=== PATIENT | male | born 1960 | race Caucasian/White ===

== ENCOUNTER 2018-05-11 09:48 | Emergency (ER) | payer OTHER, MEDICAID, SELFPAY ==
[2018-05-11 09:52] VITALS: BP 124/52; PULSE 90; RESP 18; TEMP 36.6; O2SAT 98; BMI 28.3
== END 2018-05-11 10:40 | disposition left against medical advice (07) ==
PROVIDERS: Emergency Provider Emergency Medicine
CPT/HCPCS: 99281; 99282

== ENCOUNTER 2018-05-11 12:13 | Emergency (ER) | payer OTHER, MEDICAID, SELFPAY ==
[2018-05-11 12:15] VITALS: BP 106/71; PULSE 88; RESP 16; TEMP 36.7; O2SAT 97
--- NOTE | 2018-05-11 12:32 | ED_ITS ---
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 He denies any trauma to the area. He reports worsening pain over the past couple of weeks. No fevers no chills. Increased pain with motion of the neck at times. He denies any other concerns or complaints at this time. He reports his last methadone use was yesterday in his last heroin use was last night. He denies any loss of bladder or bowel control. Patient is ambulatory into the emergency room. Related Data Home Medications Medication Instructions Recorded Confirmed methadone [Methadose] 120 mg PO QDAY #0 08/10/16 05/11/18 albuterol sulfate [ProAir HFA] 1 puff INHALATION PRN PRN 05/11/18 05/11/18 dextroamphetamine-amphetamine 40 mg PO BID 05/11/18 05/11/18 prazosin 1 mg PO BEDTIME 05/11/18 05/11/18 Allergies Allergy/AdvReac Type Severity Reaction Status Date / Time No Known Drug Allergies Allergy Verified 05/11/18 14:45 Review of Systems <MEMO Chaves - Last Filed: 05/11/18 21:59> Constitutional Denies chills, Denies fever(s), Denies lethargy and Denies weakness Eyes Denies change in vision, Denies eye discharge, Denies irritation and Denies loss of vision ENT Ears, Nose, Mouth, and Throat: Denies change in voice, Denies neck pain and Denies sore throat Cardiovascular Denies chest pain, Denies irregular heart rhythm, Denies lightheadedness, Denies palpitations, Denies dyspnea, Denies dyspnea on exertion and Denies orthopnea Respiratory Denies cough, Denies dyspnea, Denies dyspnea on exertion and Denies wheezing Gastrointestinal Gastrointestinal: Denies abdominal pain, Denies change in bowel habits, Denies diarrhea, Denies nausea and Denies vomiting Genitourinary Denies hematuria, Denies flank pain, Denies urinary incontinence and Denies urinary urgency Musculoskeletal Denies neck pain Comments: Neck pain Integumentary/Breasts Denies pruritus, Denies erythema, Denies rash and Denies wounds Neurologic Denies confusion, Denies loss of vision and Denies weakness Psychiatric Denies anxiety, Denies confusion, Denies depression, Denies homicidal ideation and Denies suicidal ideation Endocrine Denies palpitations Allergic/Immunologic Denies wheezing Exam <MEMO Chaves - Last Filed: 05/11/18 21:59> Initial Vital Signs Initial Vital Signs: Vital Signs Temperature 98.0 F 05/11/18 12:15 Pulse Rate 88 05/11/18 12:15 Respiratory Rate 16 05/11/18 12:15 Blood Pressure 106/71 05/11/18 12:15 Pulse Oximetry 97 05/11/18 12:15 Const General: cooperative and well developed Nutritional Appearance: well nourished Orientation: alert, awake, oriented x3 and not confused HENMT Mouth: oral mucosae normal and moist mucous membranes Eyes General: appearance normal, both eyes and all related structures Eyelids: eyelids normal Conjunctivae: conjunctivae normal Sclera: sclerae normal Pupils: PERRL EOM: EOM intact bilaterally Neck Neck: normal visual inspection, trachea midline, No lymphadenopathy, No midline deformity and No JVD Lymphatic: No lymphedema Resp Effort & Inspection: normal respiratory effort, able to speak in complete sentences, no respiratory distress and no use of accessory muscles Auscultation: clear to auscultation bilaterally, no rales, no rhonchi and no wheezes Cardio Rate: regular rate Rhythm: regular rhythm Heart Sounds: no click, no gallops, no murmurs and no rubs Skin General: no rashes or lesions noted, No jaundice and No petechiae <Jericho Peters DO - Last Filed: 05/19/18 17:59> Initial Vital Signs Initial Vital Signs: Vital Signs Temperature 98.0 F 05/11/18 12:15 Pulse Rate 88 05/11/18 12:15 Respiratory Rate 16 05/11/18 12:15 Blood Pressure 106/71 05/11/18 12:15 Pulse Oximetry 97 05/11/18 12:15 Course <MEMO Chaves - Last Filed: 05/11/18 21:59> Orders Ordered: Discontinued Medications Lorazepam (Ativan) 1 mg IV NOW ONE Stop: 05/11/18 14:43 Last Admin: 05/11/18 14:57 Dose: 1 mg Vital Signs - 8 hr 05/11/18 17:02 Pulse Rate 84 Respiratory Rate 18 Blood Pressure [Right Arm] 125/79 H Pulse Oximetry 99 <Jericho Peters DO - Last Filed: 05/19/18 17:59> Orders Ordered: Discontinued Medications Lorazepam (Ativan) 1 mg IV NOW ONE Stop: 05/11/18 14:43 Last Admin: 05/11/18 14:57 Dose: 1 mg Vital Signs - 8 hr 05/11/18 17:02 Pulse Rate 84 Respiratory Rate 18 Blood Pressure [Right Arm] 125/79 H Pulse Oximetry 99 MDM - Neck Pain/Injury <MEMO Chaves - Last Filed: 05/11/18 21:59> Lab Data Result diagrams: 05/11/18 13:07 05/11/18 13:19 Lab Results 05/11/18 05/11/18 05/11/18 Range/Units 13:07 13:07 13:19 WBC 8.7 (4.5-11.0) X10^3/uL RBC 5.51 (4.5-5.9) X10^6/uL Hgb 14.3 (13.5-17.5) g/dL Hct 43.6 (41-53) % MCV 79.1 L (80-100) fL MCH 26.0 (26-34) PG MCHC 32.9 (30-36) % RDW 15.8 H (11.6-14.8) % Plt Count 227 (150-400) X10^3/uL Neut % (Auto) 65.9 (50-75) % Lymph % (Auto) 20.1 L (25-40) % [place] % (Auto) 8.4 (3-14) % Eos % (Auto) 5.0 H (2-4) % Baso % (Auto) 0.6 (0-2) % Neut # (Auto) 5700 (0905-8589) /uL Sodium 138 (137-145) mmol/L Potassium 4.1 (3.4-5.1) mmol/L Chloride 99 (98-107) mmol/L Carbon Dioxide 29 (22-32) mmol/L BUN 16 (9-20) mg/dL Creatinine 0.60 L (0.66-1.25) mg/dL Estimated GFR > 60.0 (>60) mL/min BUN/Creatinine Ratio 26.7 H (6-22) Glucose 98 (70-100) mg/dL Calcium 9.0 (8.4-10.2) mg/dL Total Bilirubin 0.4 (0.2-1.3) mg/dL AST 51 (17-59) IU/L ALT 66 (21-72) IU/L Alkaline Phosphatase 60 (38-126) U/L Total Protein 7.4 (6.3-8.2) g/dL Albumin 3.8 (3.5-5.0) g/dL Globulin 3.6 (1.7-4.1) g/dL Albumin/Globulin Ratio 1.1 (1.0-2.8) Procalcitonin < 0.05 (<0.5) ng/mL Imaging Data mri c spine: Radiologist's impression: PROCEDURE: MR CERVICAL SPINE WO/W CON INDICATIONS: IV drug user with pain into neck last couple months TECHNIQUE: Noncontrast sagittal T1 spin echo and T2 fast spin echo, sagittal STIR, foraminal oblique sagittal T2 fast spin echo, axial gradient echo or T2 fast spin echo through the cervical spine. After the administration of contrast, axial and sagittal T1 spin echo with fat saturation through the cervical spine. COMPARISON: None. FINDINGS: Image quality: This examination is limited by involuntary motion artifact. Attributed Alignment and curvature: There is normal bony alignment. Marrow: Marrow is normal in overall signal, without suspicious enhancement. Spinal cord: Visualized spinal cord has normal size and signal. No cerebellar tonsillar herniation. No abnormal intramedullary enhancement. No abnormal epidural enhancement can be seen. Paraspinous soft tissues: No paravertebral masses or suspicious enhancement. C2-3: No significant abnormality is seen. C3-4: The disc height is well-preserved. Moderate generalized disc osteophyte complex is seen. Moderate facet joint hypertrophy is seen. Moderate to severe bilateral neural foraminal narrowing is seen. Moderate central canal narrowing is seen. C4-5: Mild to moderate loss of disc height and disc signal are seen. Moderate generalized disc osteophyte complex is seen. Moderate facet hypertrophy is seen, right worse than left. There is mild right-sided and no significant left-sided neural foraminal narrowing seen. No significant central canal narrowing is seen. C5-6: Mild to moderate loss of disc height is seen. There is loss of disc signal. Moderate disc osteophyte complex is seen, which is eccentric to the left. Moderate bilateral neural foraminal narrowing is seen, left worse than right. Moderate central canal narrowing is seen. There is associated mass effect on the ventral spinal cord. C6-7: Mild loss of disc height is seen. Loss of disc signal is seen. Mild-to- moderate disc osteophyte complex is seen. Resz-[id number]-[id number] facet hypertrophy is seen. There is moderate right-sided and no significant left-sided neural foraminal narrowing seen at this level. No significant central canal narrowing is seen. C7-T1: No significant abnormality is seen. IMPRESSION: No findings of discitis or epidural abscess are detected. Multiple levels of degenerative change seen. Dictated by: Wayne Weber M.D. on 05/11/2018 at 15:34 Approved by: Wayne Weber M.D. on 05/11/2018 at 15:39 [facility] Narrative Medical decision making narrative: Due to history of drug use MRI of the C- spine was obtained to ensure no abscess. MRI shows multiple levels of degeneration however no abscess or emergent findings are seen. Patient is referred to Orthopedics he is to call Orthopedics and follow up with them for further evaluation and treatment. Cmal-roz-duziihn Tylenol Motrin as needed for any discomfort. Return emergency room for any worsening symptoms. <Jericho Peters DO - Last Filed: 05/19/18 17:59> Lab Data Lab Results 05/11/18 05/11/18 05/11/18 Range/Units 13:07 13:07 13:19 WBC 8.7 (4.5-11.0) X10^3/uL RBC 5.51 (4.5-5.9) X10^6/uL Hgb 14.3 (13.5-17.5) g/dL Hct 43.6 (41-53) % MCV 79.1 L (80-100) fL MCH 26.0 (26-34) PG MCHC 32.9 (30-36) % RDW 15.8 H (11.6-14.8) % Plt Count 227 (150-400) X10^3/uL Neut % (Auto) 65.9 (50-75) % Lymph % (Auto) 20.1 L (25-40) % [place] % (Auto) 8.4 (3-14) % Eos % (Auto) 5.0 H (2-4) % Baso % (Auto) 0.6 (0-2) % Neut # (Auto) 5700 (2128-6281) /uL Sodium 138 (137-145) mmol/L Potassium 4.1 (3.4-5.1) mmol/L Chloride 99 (98-107) mmol/L Carbon Dioxide 29 (22-32) mmol/L BUN 16 (9-20) mg/dL Creatinine 0.60 L (0.66-1.25) mg/dL Estimated GFR > 60.0 (>60) mL/min BUN/Creatinine Ratio 26.7 H (6-22) Glucose 98 (70-100) mg/dL Calcium 9.0 (8.4-10.2) mg/dL Total Bilirubin 0.4 (0.2-1.3) mg/dL AST 51 (17-59) IU/L ALT 66 (21-72) IU/L Alkaline Phosphatase 60 (38-126) U/L Total Protein 7.4 (6.3-8.2) g/dL Albumin 3.8 (3.5-5.0) g/dL Globulin 3.6 (1.7-4.1) g/dL Albumin/Globulin Ratio 1.1 (1.0-2.8) Procalcitonin < 0.05 (<0.5) ng/mL Discharge Plan Departure Patient Disposition: Home, Self-Care Clinical Impression: Cervical radiculopathy Discharge Date/Time: 05/11/18 17:06 Interventions: ED Discharge Assessment Last Done: 05/11/18 17:04 Instructions: DI for Chronic Neck Pain Activity Restrictions/Additional Instructions: MRI of the neck was obtained and shows degenerative disc disorders however no abscess is seen. Use iimf-flr-[id number] Tylenol or Motrin as needed for any discomfort. He referred to Orthopedics call the office at number provided to schedule follow-up appointment. For any worsening symptoms return to the emergency room. Prescriptions: No Action methadone [Methadose] 40 MG tablet,soluble 120 mg PO QDAY Qty: 0 RF: 0 albuterol sulfate [ProAir HFA] 90 mcg/actuation HFA aerosol inhaler 1 puff Inhalation PRN PRN (Reason: Shortness Of Breath) RF: 0 prazosin 1 mg capsule 1 mg PO BEDTIME RF: 0 dextroamphetamine-amphetamine 20 mg tablet 40 mg PO BID RF: 0 Referrals: Hemant Aquino MD [Physician] - <Jericho Peters DO - Last Filed: 05/19/18 17:59> Cosign ED Attending Bell Attestation: I was immediately available in the department for consultation. Documentation has been reviewed. I agree with assessment and plan.
--- NOTE | 2018-05-11 13:11 | PC.NURSE ---
IV placed in right thumb. Catheter will not advance, but had brisk blood return and flushes w/o signs of infiltration. Patient is a IV heroin user with sclerotic veins.
--- NOTE | 2018-05-11 13:13 | PC.NURSE ---
Has had severe neck pain for 7 months. One month ago started using heroin again for pain control.
--- NOTE | 2018-05-11 13:16 | DI.MRI.S_ITS ---
PROCEDURE: MR CERVICAL SPINE WO/W CON INDICATIONS: IV drug user with pain into neck last couple months TECHNIQUE: Noncontrast sagittal T1 spin echo and T2 fast spin echo, sagittal STIR, foraminal oblique sagittal T2 fast spin echo, axial gradient echo or T2 fast spin echo through the cervical spine. After the administration of contrast, axial and sagittal T1 spin echo with fat saturation through the cervical spine. COMPARISON: None. FINDINGS: Image quality: This examination is limited by involuntary motion artifact. Attributed Alignment and curvature: There is normal bony alignment. Marrow: Marrow is normal in overall signal, without suspicious enhancement. Spinal cord: Visualized spinal cord has normal size and signal. No cerebellar tonsillar herniation. No abnormal intramedullary enhancement. No abnormal epidural enhancement can be seen. Paraspinous soft tissues: No paravertebral masses or suspicious enhancement. C2-3: No significant abnormality is seen. C3-4: The disc height is well-preserved. Moderate generalized disc osteophyte complex is seen. Moderate facet joint hypertrophy is seen. Moderate to severe bilateral neural foraminal narrowing is seen. Moderate central canal narrowing is seen. C4-5: Mild to moderate loss of disc height and disc signal are seen. Moderate generalized disc osteophyte complex is seen. Moderate facet hypertrophy is seen, right worse than left. There is mild right-sided and no significant left-sided neural foraminal narrowing seen. No significant central canal narrowing is seen. C5-6: Mild to moderate loss of disc height is seen. There is loss of disc signal. Moderate disc osteophyte complex is seen, which is eccentric to the left. Moderate bilateral neural foraminal narrowing is seen, left worse than right. Moderate central canal narrowing is seen. There is associated mass effect on the ventral spinal cord. C6-7: Mild loss of disc height is seen. Loss of disc signal is seen. Osks-on-gjlvteee disc osteophyte complex is seen. Birh-fr-xmqtftmo facet hypertrophy is seen. There is moderate right-sided and no significant left-sided neural foraminal narrowing seen at this level. No significant central canal narrowing is seen. C7-T1: No significant abnormality is seen. IMPRESSION: No findings of discitis or epidural abscess are detected. Multiple levels of degenerative change seen. Dictated by: Wayne Weber M.D. on 05/11/2018 at 15:34 Approved by: Wayne Weber M.D. on 05/11/2018 at 15:39
[2018-05-11 13:20] LABS: Add Manual Diff / Slide Review NO; Basophils Percent Auto 0.6 % (0-2); Hematocrit 43.6 % (41-53); Hemoglobin 14.3 g/dL (13.5-17.5); Lymphocytes Percent Auto 20.1 % (25-40); Mean Corpuscular HGB Conc 32.9 % (30-36); Mean Corpuscular Volume 79.1 fL (80-100); Monocytes Percent Auto 8.4 % (3-14); Neutrophils Absolute Auto 5700 /uL (3000-5900); Neutrophils Percent Auto 65.9 % (50-75); Platelet Count 227 X10^3/uL (150-400); Red Blood Cell Count 5.51 X10^6/uL (4.5-5.9); Red Cell Distribution Width 15.8 % (11.6-14.8); White Blood Cell Count 8.7 X10^3/uL (4.5-11.0)
[2018-05-11 13:53] LABS: Procalcitonin < 0.05 ng/mL (<0.5)
[2018-05-11 14:07] LABS: Alanine Aminotransferase 66 IU/L (21-72); Albumin 3.8 g/dL (3.5-5.0); Albumin Globulin Ratio 1.1 (1.0-2.8); Alkaline Phosphatase 60 U/L (38-126); Aspartate Aminotransferase 51 IU/L (17-59); BUN Creatinine Ratio 26.7 (6-22); Bilirubin Total 0.4 mg/dL (0.2-1.3); Blood Urea Nitrogen 16 mg/dL (9-20); Carbon Dioxide 29 mmol/L (22-32); Chloride 99 mmol/L (98-107); Estimated Glomerular Filt Rate > 60.0 mL/min (>60); Globulin 3.6 g/dL (1.7-4.1); Glucose 98 mg/dL (70-100); HEMOLYSIS < 15 (0-50); Potassium 4.1 mmol/L (3.4-5.1); Sodium 138 mmol/L (137-145); Total Protein 7.4 g/dL (6.3-8.2)
[2018-05-11] MEDS: LORazepam 2 MG/ML SYRINGE 1 MG IV (14:57)
[2018-05-11 17:02] VITALS: BP 125/79; PULSE 84; RESP 18; O2SAT 99
== END 2018-05-11 17:06 | disposition home or self-care (01) ==
PROVIDERS: Emergency Provider Nurse Practitioner Family
DX: M54.12 Radiculopathy, cervical region (principal)
CPT/HCPCS: 72156; 80053; 84145; 85025; 96374; 99282; 99285; A9579; J2060

== ENCOUNTER 2018-08-29 12:23 | Emergency (ER) | payer OTHER, MEDICAID, SELFPAY ==
[2018-08-29 12:30] VITALS: BP 125/84; PULSE 76; RESP 18; TEMP 36.7; O2SAT 97
--- NOTE | 2018-08-29 12:39 | ED.EXTPRO ---
HPI - Extremity Problem <MEMO Chaves - Last Filed: 08/29/18 21:14> General Chief complaint: Extremity Problem,Nontraumatic Stated complaint: NECK PAIN X20 DAYS Time Seen by Provider: 08/29/18 12:39 Source: patient Mode of arrival: ambulatory Limitations: no limitations History of Present Illness HPI Narrative: 57-year-old male with history of IV heroin abuse and cervical radiculopathy that is an everyday smoker here for complaint of needing a refill for his chronic neck pain. He is currently awaiting to get into Orthopedics and cannot at this point due to insurance issues. He reports that he was prescribed tizanidine for his symptoms and seems to help him but he has ran out of his prescription. He is requesting refill of his tizanidine until he can get back to his primary care provider. He states that he should be able to get and Orthopedics in the next few months. He has been referred to physical therapy as well for his symptoms. He denies any new trauma to the area. He is not currently using as he is out of rehab. no fevers or chills. He denies any neurological deficits. Related Data Home Medications Medication Instructions Recorded Confirmed methadone [Methadose] 120 mg PO QDAY #0 08/10/16 05/11/18 albuterol sulfate [ProAir HFA] 1 puff INHALATION PRN PRN 05/11/18 05/11/18 dextroamphetamine-amphetamine 40 mg PO BID 05/11/18 05/11/18 prazosin 1 mg PO BEDTIME 05/11/18 05/11/18 Previous Rx's Medication Instructions Recorded tizanidine 2 mg PO Q6-8H PRN #30 cap 08/29/18 Allergies Allergy/AdvReac Type Severity Reaction Status Date / Time No Known Drug Allergies Allergy Verified 05/11/18 14:45 Review of Systems <MEMO Chaves - Last Filed: 08/29/18 21:14> Constitutional Denies chills, Denies fatigue, Denies fever(s), Denies lethargy and Denies weakness Eyes Denies change in vision, Denies eye discharge, Denies irritation and Denies loss of vision ENT Ears, Nose, Mouth, and Throat: Denies change in voice, Denies neck pain and Denies sore throat Cardiovascular Denies dyspnea and Denies dyspnea on exertion Respiratory Denies cough, Denies dyspnea, Denies dyspnea on exertion and Denies wheezing Gastrointestinal Gastrointestinal: Denies abdominal pain, Denies change in bowel habits, Denies diarrhea, Denies nausea and Denies vomiting Genitourinary Denies hematuria, Denies flank pain, Denies urinary incontinence and Denies urinary urgency Musculoskeletal Denies neck pain Comments: Chronic neck pain Neurologic Denies confusion, Denies loss of vision and Denies weakness Psychiatric Denies anxiety, Denies confusion, Denies depression, Denies homicidal ideation and Denies suicidal ideation Endocrine Denies fatigue and Denies flushing Hematologic/Lymphatic Denies easy bruising Allergic/Immunologic Denies wheezing Exam <MEMO Chaves - Last Filed: 08/29/18 21:14> Initial Vital Signs Initial Vital Signs: Vital Signs Temperature 98.1 F 08/29/18 12:30 Pulse Rate 76 08/29/18 12:30 Respiratory Rate 18 08/29/18 12:30 Blood Pressure 125/84 08/29/18 12:30 Pulse Oximetry 97 08/29/18 12:30 Const General: cooperative and well developed Nutritional Appearance: well nourished Orientation: alert, awake, oriented x3 and not confused [facility] Mouth: oral mucosae normal and moist mucous membranes Eyes General: appearance normal, both eyes and all related structures Eyelids: eyelids normal Conjunctivae: conjunctivae normal Sclera: sclerae normal Pupils: PERRL EOM: EOM intact bilaterally Neck Other: tenderness with palpation to the paraspinals of the cervical spine radiates into the left trapezius. distal sensation is intact bilaterally. Full range of motion bilaterally. Distal pulses are intact. No signs of trauma. Resp Effort & Inspection: normal respiratory effort, able to speak in complete sentences, no respiratory distress and no use of accessory muscles Auscultation: clear to auscultation bilaterally, no rales, no rhonchi and no wheezes Cardio Rate: regular rate Rhythm: regular rhythm Heart Sounds: no click, no gallops, no murmurs and no rubs Pulses: normal peripheral pulses Skin General: no rashes or lesions noted, No jaundice and No petechiae Neuro General: alert, oriented x3, gait normal and no focal motor deficits Speech: speech normal <Jennifer Street DO - Last Filed: 08/30/18 08:14> Initial Vital Signs Initial Vital Signs: Vital Signs Temperature 98.1 F 08/29/18 12:30 Pulse Rate 76 08/29/18 12:30 Respiratory Rate 18 08/29/18 12:30 Blood Pressure 125/84 08/29/18 12:30 Pulse Oximetry 97 08/29/18 12:30 Course <EMMO Chaves - Last Filed: 08/29/18 21:14> Vital Signs - 8 hr 08/29/18 12:30 Temperature 98.1 F Pulse Rate 76 Respiratory Rate 18 Blood Pressure 125/84 Pulse Oximetry 97 <[address]ifer [address] DO - Last Filed: 08/30/18 08:14> Vital Signs - 8 hr 08/29/18 12:30 Temperature 98.1 F Pulse Rate 76 Respiratory Rate 18 Blood Pressure 125/84 Pulse Oximetry 97 MDM - Extremity (Nontraumatic) <MEMO Chaves - Last Filed: 08/29/18 21:14> MDM Narrative Medical decision making narrative: Chronic neck pain secondary to degenerative changes to the neck. Refill of the tizanidine is a placed. Follow up with primary care provider next week. Continue to try to get Orthopedics for further treatment. For any worsening symptoms return to the emergency room. Discharge Plan Departure Patient Disposition: Home Clinical Impression: Cervical radiculopathy Discharge Date/Time: 08/29/18 13:05 Interventions: ED Discharge Assessment Last Done: 08/29/18 13:04 Instructions: DI for Cervical Radiculopathy Activity Restrictions/Additional Instructions: refill of tizanidine is placed Use as directed. Follow up with primary care provider next week for further evaluation. Continue to try to get to Orthopedics for further treatment. use jsmr-[id number]-[id number] ibuprofen as needed for any discomfort. Return emergency room for any worsening symptoms. Prescriptions: New tizanidine 2 mg capsule 2 mg PO Q6-8H PRN (Reason: muscle spasticity) Qty: 30 RF: 0 No Action methadone [Methadose] 40 MG tablet,soluble 120 mg PO QDAY Qty: 0 RF: 0 albuterol sulfate [ProAir HFA] 90 mcg/actuation HFA aerosol inhaler 1 puff Inhalation PRN PRN (Reason: Shortness Of Breath) RF: 0 prazosin 1 mg capsule 1 mg PO BEDTIME RF: 0 dextroamphetamine-amphetamine 20 mg tablet 40 mg PO BID RF: 0 Referrals: Eliseo Benz MD [Physician] - <Jennifer Street DO - Last Filed: 08/30/18 08:14> Cosign ED Attending Bell Attestation: I was immediately available in the department for consultation. Documentation has been reviewed. I agree with assessment and plan.
== END 2018-08-29 13:05 | disposition home or self-care (01) ==
PROVIDERS: Emergency Provider Nurse Practitioner Family
DX: M54.12 Radiculopathy, cervical region (principal)
CPT/HCPCS: 99282

== ENCOUNTER 2018-11-05 09:05 | Emergency (ER) | payer OTHER, MEDICAID, SELFPAY ==
[2018-11-05 09:16] VITALS: BP 141/73; PULSE 73; RESP 18; TEMP 36.5; O2SAT 98
[2018-11-05 09:56] LABS: Add Manual Diff / Slide Review NO; Basophils Percent Auto 1.1 % (0-2); Eosinophils Percent Auto 7.7 % (2-4); Hematocrit 42.3 % (41-53); Hemoglobin 13.7 g/dL (13.5-17.5); Lymphocytes Percent Auto 22.2 % (25-40); Mean Corpuscular HGB Conc 32.5 % (30-36); Monocytes Percent Auto 10.3 % (3-14); Neutrophils Absolute Auto 4000 /uL (3000-5900); Neutrophils Percent Auto 58.7 % (50-75); Platelet Count 238 X10^3/uL (150-400); Red Blood Cell Count 5.29 X10^6/uL (4.5-5.9); Red Cell Distribution Width 15.3 % (11.6-14.8); White Blood Cell Count 6.9 X10^3/uL (4.5-11.0)
[2018-11-05 10:00] LABS: BUN Creatinine Ratio 31.4 (6-22); Blood Urea Nitrogen 22 mg/dL (9-20); Calcium 9.2 mg/dL (8.4-10.2); Carbon Dioxide 31 mmol/L (22-32); Chloride 101 mmol/L (98-107); Estimated Glomerular Filt Rate > 60.0 mL/min (>60); Glucose 112 mg/dL (70-100); HEMOLYSIS 16 (0-50); Potassium 4.2 mmol/L (3.4-5.1); Sodium 142 mmol/L (137-145)
--- NOTE | 2018-11-05 10:07 | ED_ITS ---
HPI - Recheck/Abnormal Lab/Rx General Chief Complaint: Recheck/Abnormal Lab/Rx Stated Complaint: POTASSIUM LEVEL Time Seen by Provider: 11/05/18 09:23 Source: patient Mode of arrival: ambulatory Limitations: no limitations History of Present Illness HPI narrative: patient is a 57-year-old male who presents with potassium abnormality. He had a blood drawn yesterday at the pain clinic and was told today is that it was low. They called us and told us it was 6.6. His he overall feels fine. He does have a history of heroin use as he says that he takes heroin for his ongoing shoulder pain. He has used 3 times since August. Related Data Home Medications Medication Instructions Recorded Confirmed methadone [Methadose] 120 mg PO QDAY #0 08/10/16 05/11/18 albuterol sulfate [ProAir HFA] 1 puff INHALATION PRN PRN 05/11/18 05/11/18 dextroamphetamine-amphetamine 40 mg PO BID 05/11/18 05/11/18 prazosin 1 mg PO BEDTIME 05/11/18 05/11/18 Previous Rx's Medication Instructions Recorded tizanidine 2 mg PO Q6-8H PRN #30 cap 08/29/18 Allergies Allergy/AdvReac Type Severity Reaction Status Date / Time No Known Drug Allergies Allergy Verified 05/11/18 14:45 Review of Systems Review of Systems GENERAL: Denies chills, fatigue, malaise, fever, sweats, travel HEENT: Denies sinus pain, ear pain, sore throat, difficulty swallowing, neck pain RESPIRATORY: Denies dyspnea, cough, wheezing, hemoptysis, sputum. CARDIOVASCULAR: Denies chest pain, palpitations, orthopnea, edema GASTROINTESTINAL: Denies nausea, vomiting, abdominal pain, diarrhea, constipation, melena. : Denies dysuria, frequency, incontinence, hematuria, urinary retention, flank pain. MUSCULOSKELETAL: Denies weakness, joint pain, or bony pain SKIN: No rash, no erythema, no pruritus NEUROLOGIC: Denies weakness, dizziness, headache, numbness, change in speech, confusion PSYCHIATRIC: No concerning psychosocial issues. 12 point review of systems is negative except for those stated above and HPI PFSH Medical History Chronic shoulder pain (Chronic) IV drug abuse (Chronic) IV drug user (Chronic) Social History Smoking Status: Current every day smoker substance use type: opiates and IV drugs Exam Initial Vital Signs Initial Vital Signs: Vital Signs Temperature 97.7 F 11/05/18 09:16 Pulse Rate 73 11/05/18 09:16 Respiratory Rate 18 11/05/18 09:16 Blood Pressure 141/73 H 11/05/18 09:16 Pulse Oximetry 98 11/05/18 09:16 GENERAL: Well-appearing, well-nourished and in no acute distress. HEENT: Head atraumatic,EOMI, pupils reactive, CARDIOVASCULAR: Regular rate and rhythm without murmurs, rubs or gallops. RESPIRATORY: Breath sounds equal bilaterally, no wheezes rales or rhonchi. ABDOMEN: Soft, nontender. Normoactive bowel sounds all 4 quadrants. No guarding or rebound. EXTREMITIES: Normal range of motion, no clubbing or edema. Neurovascularly intact NEUROLOGICAL: Alert and oriented x4.Normal gait and speech. SKIN: multiple track shelton on the hands and arms, IV in the right foot Course Orders Ordered: ED Orders 11/05/18 09:40 Basic Metabolic Panel Stat Complete Blood Count AUTO DIFF Stat Vital Signs - 8 hr 11/05/18 09:16 Temperature 97.7 F Pulse Rate 73 Respiratory Rate 18 Blood Pressure 141/73 H Pulse Oximetry 98 MDM - Recheck/Abnormal Lab/Rx Lab Data Attestation: I reviewed the patient's lab results. Result diagrams: 11/05/18 09:40 11/05/18 09:40 Lab Results 11/05/18 11/05/18 Range/Units 09:40 09:40 WBC 6.9 (4.5-11.0) X10^3/uL RBC 5.29 (4.5-5.9) X10^6/uL Hgb 13.7 (13.5-17.5) g/dL Hct 42.3 (41-53) % MCV 80.0 (80-100) fL MCH 26.0 (26-34) PG MCHC 32.5 (30-36) % RDW 15.3 H (11.6-14.8) % Plt Count 238 (150-400) X10^3/uL Neut % (Auto) 58.7 (50-75) % Lymph % (Auto) 22.2 L (25-40) % [place] % (Auto) 10.3 (3-14) % Eos % (Auto) 7.7 H (2-4) % Baso % (Auto) 1.1 (0-2) % Neut # (Auto) 4000 (7477-4397) /uL Sodium 142 (137-145) mmol/L Potassium 4.2 (3.4-5.1) mmol/L Chloride 101 (98-107) mmol/L Carbon Dioxide 31 (22-32) mmol/L BUN 22 H (9-20) mg/dL Creatinine 0.70 (0.66-1.25) mg/dL Estimated GFR > 60.0 (>60) mL/min BUN/Creatinine Ratio 31.4 H (6-22) Glucose 112 H (70-100) mg/dL Calcium 9.2 (8.4-10.2) mg/dL ECG Data Attestation: I personally reviewed and interpreted this ECG as follows: Interpretation: normal sinus rhythm rate 62 no U-waves no T-wave inversions no ST changes MDM Narrative Medical decision making narrative: No blood work abnormality. Discharge Plan Departure Patient Disposition: Home Clinical Impression: Feared complaint without diagnosis Discharge Date/Time: 11/05/18 10:14 Interventions: ED Discharge Assessment Last Done: 11/05/18 10:14 Activity Restrictions/Additional Instructions: *You have been diagnosed with potassium normal *What to do: repeat blood work today does not show any abnormality *Continue to take medications as directed *Follow up with your primary care provider in 2-3 days *Return to ER if you should have [ any new, worsening or concerning symptoms Prescriptions: No Action methadone [Methadose] 40 MG tablet,soluble 120 mg PO QDAY Qty: 0 RF: 0 albuterol sulfate [ProAir HFA] 90 mcg/actuation HFA aerosol inhaler 1 puff Inhalation PRN PRN (Reason: Shortness Of Breath) RF: 0 prazosin 1 mg capsule 1 mg PO BEDTIME RF: 0 dextroamphetamine-amphetamine 20 mg tablet 40 mg PO BID RF: 0 tizanidine 2 mg capsule 2 mg PO Q6-8H PRN (Reason: muscle spasticity) Qty: 30 RF: 0
== END 2018-11-05 10:14 | disposition home or self-care (01) ==
PROVIDERS: Emergency Provider Emergency Medicine; PCP Family Medicine
DX: E87.8 Other disorders of electrolyte and fluid balance, not elsewhere classified (principal)
CPT/HCPCS: 36591; 80048; 85025; 93005; 93010; 99282; 99284

== ENCOUNTER 2019-05-10 07:53 | Emergency (ER) | payer OTHER, MEDICAID, SELFPAY ==
[2019-05-10 08:01] VITALS: BP 128/76; PULSE 70; RESP 18; TEMP 36.1; O2SAT 98; BMI 32.1
--- NOTE | 2019-05-10 08:31 | ED.MALEGU ---
HPI - Male Genitourinary General Chief complaint: Urogenital-Male Stated complaint: Rt kidney hurts Time Seen by Provider: 05/10/19 08:29 Source: patient and family Mode of arrival: ambulatory Limitations: no limitations History of Present Illness HPI Narrative: This is a 58-year-old male comes to the emergency department with complaint of right flank pain. States it woke him up from sleep overnight. It is radiating from the back around to the front. Patient states that sort is waves of pain. When it is very strong he feels nauseated. Patient has not had any vomiting. No diarrhea, no constipation. He has some chronic constipation issues. He noticed that his urine was dark about 2 days ago that has cleared up since then. Patient has not had any fevers. Denies any chest pain or shortness of breath. He has not had any syncope. Patient states he has had a kidney stone once in the past that was very large, the size a garbanzo wang. He end up having lithotripsy to past. Patient does have hepatitis-C he is about to start treatment in the next couple weeks. He takes medication for PTSD, methadone and Adderall. Related Data Home Medications Medication Instructions Recorded Confirmed albuterol sulfate [ProAir HFA] 1 puff INHALATION PRN PRN 05/11/18 05/10/19 prazosin 1 mg PO BEDTIME 05/11/18 05/10/19 dextroamphetamine-amphetamine 30 30 mg PO TID tab 12/17/18 05/10/19 mg tablet methadone 40 mg soluble tablet 140 mg PO QDAY #0 tab 12/17/18 12/17/18 terbinafine HCl 250 mg PO DAILY 05/10/19 05/10/19 Allergies Allergy/AdvReac Type Severity Reaction Status Date / Time No Known Drug Allergies Allergy Verified 05/10/19 08:01 Review of Systems Review of Systems ROS Unobtainable: All systems reviewed & are unremarkable except as noted in HPI and below Constitutional Denies chills, Denies fever(s), Denies lethargy and Denies weakness Cardiovascular Denies chest pain, Denies dyspnea and Denies dyspnea on exertion Respiratory Denies dyspnea and Denies dyspnea on exertion Gastrointestinal Gastrointestinal: Denies abdominal pain, Denies melena, Denies hematochezia, Denies change in bowel habits, Reports constipation (Chronically but normal bowel movement today), Denies diarrhea, Denies nausea and Denies vomiting Genitourinary Reports hematuria (Resolved), Denies genital pain, Denies flank pain, Denies testicular pain, Denies urinary frequency, Denies urinary hesitancy, Denies urinary incontinence, Denies urinary urgency and Reports other (Right flank pain, radiates to from) Integumentary/Breasts Denies rash Neurologic Denies weakness [facility] Medical History (Updated 05/10/19 @ 10:29 by Radha Mandel DO) Chronic shoulder pain (Chronic) IV drug abuse (Chronic) IV drug user (Chronic) Surgical History (Updated 05/10/19 @ 08:47 by Radha Mandel DO) History of lithotripsy (Chronic) Social History (Updated 05/10/19 @ 08:47 by Radha Mandel DO) Smoking Status: Current every day smoker alcohol intake: former substance use type: opiates and IV drugs Social History (Updated 05/10/19 @ 08:47 by Radha Mandel DO) Smoking Status: Current every day smoker alcohol intake: former substance use type: opiates and IV drugs Exam Narrative Exam Narrative: GENERAL: Alert and oriented x three, tall, moderately obese male in mild distress. HEENT: Head normocephalic, atraumatic, EOMI, pupils reactive, face symmetric, moist mucous membranes NECK: Supple, full range of motion CARDIOVASCULAR: Regular rate and rhythm without murmurs, rubs or gallops. RESPIRATORY: Breath sounds equal bilaterally, no wheezes rales or rhonchi. ABDOMEN: Soft, nontender. Normoactive bowel sounds all 4 quadrants. No guarding or rebound, rigidity, no mass : No CVA tenderness. Male: normal external examination, no penile discharge or lesions, testicles non-tender, cremasteric reflex intact, no inguinal hernias noted. BACK: No cervical, thoracic or lumbar vertebral point tenderness. Patient has normal range of motion. Patient's gait is normal. Rectal exam is deferred. Muscle strength is 5/5 in lower extremities, DTRs are 2/4 and lower extremities. Sensation is intact in the lower extremities. No saddle anesthesia. EXTREMITIES: Normal range of motion, no clubbing or edema. Neurovascularly intact NEUROLOGICAL: Cranial nerves II through XII grossly intact. Moving all extremities SKIN: Warm, dry, no petechiae, no rashes or lesions. Initial Vital Signs Initial Vital Signs: Vital Signs Temperature 97.0 F L 05/10/19 08:01 Pulse Rate 70 05/10/19 08:01 Respiratory Rate 18 05/10/19 08:01 Blood Pressure 128/76 05/10/19 08:01 Pulse Oximetry 98 05/10/19 08:01 Course Orders Ordered: ED Orders 05/10/19 10:35 Complete Blood Count AUTO DIFF Stat Comprehensive Metabolic Panel Stat Lipase Stat Prothrombin Time INR Stat Discontinued Medications Ketorolac Tromethamine (Toradol) 60 mg IM NOW ONE Stop: 05/10/19 08:45 Last Admin: 05/10/19 08:55 Dose: 60 mg Vital Signs - 8 hr 05/10/19 11:31 Pulse Rate 70 Respiratory Rate 16 Blood Pressure [Left Arm] 117/69 Pulse Oximetry 98 MDM - Male Genitourinary Lab Data Result diagrams: 05/10/19 10:35 05/10/19 10:35 Lab Results 05/10/19 05/10/19 05/10/19 Range/Units 10:35 10:35 10:35 WBC 7.2 (4.5-11.0) X10^3/uL RBC 5.52 (4.5-5.9) X10^6/uL Hgb 14.6 (13.5-17.5) g/dL Hct 44.1 (41-53) % MCV 79.8 L (80-100) fL MCH 26.5 (26-34) PG MCHC 33.1 (30-36) % RDW 15.9 H (11.6-14.8) % Plt Count 204 (150-400) X10^3/uL Neut % (Auto) 43.5 L (50-75) % Lymph % (Auto) 36.2 (25-40) % [place] % (Auto) 11.6 (3-14) % Eos % (Auto) 7.5 H (2-4) % Baso % (Auto) 1.2 (0-2) % Neut # (Auto) 3100 (8745-0796) /uL Lymph # (Auto) 2600 (6828-2689) /uL [place] # (Auto) 800 (0-900) /uL Eos # (Auto) 500 H (0-450) /uL Baso # (Auto) 100 (0-100) /uL PT (10.1-12.7) SECONDS INR (0.9-1.3) Sodium 138 (137-145) mmol/L Potassium 4.6 (3.4-5.1) mmol/L Chloride 101 (98-107) mmol/L Carbon Dioxide 30 (22-32) mmol/L BUN 21 H (9-20) mg/dL Creatinine 0.80 (0.66-1.25) mg/dL Estimated GFR > 60.0 (>60) mL/min BUN/Creatinine Ratio 26.3 H (6-22) Glucose 103 (80-110) mg/dL Calcium 9.5 (8.4-10.2) mg/dL Total Bilirubin 0.3 (0.2-1.3) mg/dL AST 57 (17-59) IU/L ALT 75 H (21-72) IU/L Alkaline Phosphatase 63 (38-126) U/L Total Protein 7.3 (6.3-8.2) g/dL Albumin 4.0 (3.5-5.0) g/dL Globulin 3.3 (1.7-4.1) g/dL Albumin/Globulin Ratio 1.2 (1.0-2.8) Lipase 54 (23-300) U/L 05/10/19 Range/Units 10:35 WBC (4.5-11.0) X10^3/uL RBC (4.5-5.9) X10^6/uL Hgb (13.5-17.5) g/dL Hct (41-53) % MCV (80-100) fL MCH (26-34) PG MCHC (30-36) % RDW (11.6-14.8) % Plt Count (150-400) X10^3/uL Neut % (Auto) (50-75) % Lymph % (Auto) (25-40) % [place] % (Auto) (3-14) % Eos % (Auto) (2-4) % Baso % (Auto) (0-2) % Neut # (Auto) (0738-3873) /uL Lymph # (Auto) (4619-4296) /uL [place] # (Auto) (0-900) /uL Eos # (Auto) (0-450) /uL Baso # (Auto) (0-100) /uL PT 11.2 (10.1-12.7) SECONDS INR 1.0 (0.9-1.3) Sodium (137-145) mmol/L Potassium (3.4-5.1) mmol/L Chloride (98-107) mmol/L Carbon Dioxide (22-32) mmol/L BUN (9-20) mg/dL Creatinine (0.66-1.25) mg/dL Estimated GFR (>60) mL/min BUN/Creatinine Ratio (6-22) Glucose (80-110) mg/dL Calcium (8.4-10.2) mg/dL Total Bilirubin (0.2-1.3) mg/dL AST (17-59) IU/L ALT (21-72) IU/L Alkaline Phosphatase (38-126) U/L Total Protein (6.3-8.2) g/dL Albumin (3.5-5.0) g/dL Globulin (1.7-4.1) g/dL Albumin/Globulin Ratio (1.0-2.8) Lipase (23-300) U/L Urine Dip Bedside Urine Glucose Negative Bedside Urine Bilirubin - Negative Bedside Urine Ketone - Negative Urine Specific [place] 1.030 Bedside Urine Occult Blood - Negative Bedside Urine pH 5.0 Bedside Urine Protein - Negative Bedside Urine Urobilinogen +/- 1mg Bedside Urine Nitrite - Negative Bedside Urine Leukocytes - Negative Esterase Imaging Data KUB CT: Radiologist's impression: [place] [address] CT Scan Report Signed Patient: Tahir Mittal BMR#: [id number] : 9Acct:[id number] Age/Sex: 58 / MDate of Service: 05/10/19 Loc: ED Accession Number: [id number] Procedure: CT kidney ureter bladder (KUB) Ordering Provider: Radha Mandel D.O. PROCEDURE: CT ABDOMEN PELVIS WO CON INDICATIONS: right flank pain, hx of large stones TECHNIQUE: Noncontrast 5 mm thick sections acquired from the diaphragms to the symphysis. 5 mm thick coronal and sagittal reformats were then performed. For radiation dose reduction, the following was used: automated exposure control, adjustment of mA and/or kV according to patient size. COMPARISON: [facility], CR, L-SPINE 2-3 VIEWS, 12/29/2010, 22:40. [facility], CT, KIDNEY/ URETER/BLADDER, 04/02/2010, 11:29. FINDINGS: Image quality: Excellent. Lung bases: Lung bases are clear. Heart size is normal. Urinary system: Both kidneys are normal in size. There is a nonobstructing right side kidney stone seen that measures 3 mm, as on series 2 image 45. No left-sided stones are seen. No stones are seen along the courses of the ureters. No hydronephrosis or perinephric fat stranding. Both ureters appear non-dilated throughout their expected courses. Bladder wall thickness is normal; no calcified bladder stones. Other solid organs: Liver is normal in size. Gallbladder is largely collapsed at the time of this examination. Pancreas is normal in contours. Spleen is normal in size. No adrenal nodules. Peritoneum and bowel: Unenhanced bowel loops demonstrate normal wall thickness and caliber. No free fluid or air. Nodes and vessels: No retroperitoneal or mesenteric adenopathy by size criteria. Aorta and inferior vena cava are normal in caliber. Abdominal wall: No ventral hernias. Pelvis: No free pelvic fluid. No inguinal hernias or adenopathy. Bones: No suspicious bony lesions. No vertebral body compression fractures. Degenerative changes are seen throughout, which are most prominent involving the lower lumbar spine. Mild levoconvex scoliotic curvature is noted. IMPRESSION: No ureteral stones or hydronephrosis can be seen. Nonobstructing 3 mm stone at the inferior pole of the right kidney. Incidental note is made of: Levoconvex scoliotic curvature Lower lumbar spine degenerative change MDM Narrative Medical decision making narrative: Patient insists that they draw the blood from the posterior right knee. Patient states that is where he is normally drawn. Lab was given permission, they did evaluate to see if there was good vein. Patient was even initially lower locked into even lay down on the bed to let them look and was demanding that they allow him to stand. Did eventually allow to lay down flat so lab could evaluate and they were able to get blood work. Patient had requested his labs for his hepatitis evaluation but they were not able to obtain enough blood although we had gotten the orders from [facility]. Patient's lab work has returned except for his lipase, he states that he has to leave. Patient's lab work otherwise does not show any major changes, his CT shows a stone in the kidney but no ureteral kidney stone and urine is negative for infection or hematuria. Patient does not have any major abnormalities on his physical exam. He was given some Toradol here. Still has some discomfort. Patient was requesting to leave before his lab work was done but it was finalized. I discussed with patient our findings, I would suspect that this stone in his right kidney is not the cause of his pain today but that it is present. Discussed with patient we did find a clear cause for his pain, it could possibly be musculoskeletal. There is no obvious infectious causes. CT does not show any acute changes other than a small stone in the right kidney which is unlikely to be the cause of his pain. Patient and I discussed possibilities. He feels much more comfortable we discussed he continue ibuprofen but should avoid Tylenol with his hepatitis-C diagnosis. Patient is comfortable with this plan. Discharge Plan Departure Patient Disposition: Home Clinical Impression: Right flank pain Discharge Date/Time: 05/10/19 11:34 Interventions: ED Discharge Assessment Last Done: 05/10/19 11:34 Instructions: DI for Flank Pain Activity Restrictions/Additional Instructions: Labs show no major abnormalities. Your CT scan shows a small stone in the right kidney but this is unlikely to be causes of pain, there are no stones in the ureter or hydro. Urine does not show any signs of infection. Continue home medications as prescribed. Return to the emergency department for worsening symptoms, fevers greater than 100.4 F, rapidly worsening pain, persistent vomiting, black or bloody stools or no abdominal pain. Her having any chest pain, shortness of breath or passing out or other new or concerning symptoms. Prescriptions: No Action methadone [Methadose] 40 mg tablet,soluble 140 mg PO QDAY Qty: 0 RF: 0 terbinafine HCl 250 mg tablet 250 mg PO DAILY RF: 0 albuterol sulfate [ProAir HFA] 90 mcg/actuation HFA aerosol inhaler 1 puff Inhalation PRN PRN (Reason: Shortness Of Breath) RF: 0 prazosin 1 mg capsule 1 mg PO BEDTIME RF: 0 dextroamphetamine-amphetamine [Adderall] 30 mg tablet 30 mg PO TID RF: 0 Referrals: Silviano Farah MD [Primary Care Provider] -
--- NOTE | 2019-05-10 08:43 | CM.MNRNOTE ---
pt c/o right kidney pain. woke about midnight with the pain. denies other symptoms.
[2019-05-10] MEDS: KETOROLAC 60 MG/2 ML VIAL IM (08:55)
--- NOTE | 2019-05-10 08:56 | DI.CT.S_ITS ---
PROCEDURE: CT ABDOMEN PELVIS WO CON INDICATIONS: right flank pain, hx of large stones TECHNIQUE: Noncontrast 5 mm thick sections acquired from the diaphragms to the symphysis. 5 mm thick coronal and sagittal reformats were then performed. For radiation dose reduction, the following was used: automated exposure control, adjustment of mA and/or kV according to patient size. COMPARISON: [facility], CR, L-SPINE 2-3 VIEWS, 12/29/2010, 22:40. [facility], CT, KIDNEY/ URETER/BLADDER, 04/02/2010, 11:29. FINDINGS: Image quality: Excellent. Lung bases: Lung bases are clear. Heart size is normal. Urinary system: Both kidneys are normal in size. There is a nonobstructing right side kidney stone seen that measures 3 mm, as on series 2 image 45. No left-sided stones are seen. No stones are seen along the courses of the ureters. No hydronephrosis or perinephric fat stranding. Both ureters appear non-dilated throughout their expected courses. Bladder wall thickness is normal; no calcified bladder stones. Other solid organs: Liver is normal in size. Gallbladder is largely collapsed at the time of this examination. Pancreas is normal in contours. Spleen is normal in size. No adrenal nodules. Peritoneum and bowel: Unenhanced bowel loops demonstrate normal wall thickness and caliber. No free fluid or air. Nodes and vessels: No retroperitoneal or mesenteric adenopathy by size criteria. Aorta and inferior vena cava are normal in caliber. Abdominal wall: No ventral hernias. Pelvis: No free pelvic fluid. No inguinal hernias or adenopathy. Bones: No suspicious bony lesions. No vertebral body compression fractures. Degenerative changes are seen throughout, which are most prominent involving the lower lumbar spine. Mild levoconvex scoliotic curvature is noted. IMPRESSION: No ureteral stones or hydronephrosis can be seen. Nonobstructing 3 mm stone at the inferior pole of the right kidney. Incidental note is made of: Levoconvex scoliotic curvature Lower lumbar spine degenerative change Dictated by: Wayne Weber M.D. on 05/10/2019 at 8:02 Approved by: Wayne Weber M.D. on 05/10/2019 at 8:07
[2019-05-10 10:50] LABS: Add Manual Diff / Slide Review NO; Basophils Absolute Auto 100 /uL (0-100); Basophils Percent Auto 1.2 % (0-2); Eosinophils Absolute Auto 500 /uL (0-450); Eosinophils Percent Auto 7.5 % (2-4); Hematocrit 44.1 % (41-53); Hemoglobin 14.6 g/dL (13.5-17.5); Lymphocytes Absolute Auto 2600 /uL (1100-4500); Lymphocytes Percent Auto 36.2 % (25-40); Mean Corpuscular HGB Conc 33.1 % (30-36); Mean Corpuscular Hemoglobin 26.5 PG (26-34); Mean Corpuscular Volume 79.8 fL (80-100); Monocytes Absolute Auto 800 /uL (0-900); Monocytes Percent Auto 11.6 % (3-14); Neutrophils Absolute Auto 3100 /uL (1500-7000); Neutrophils Percent Auto 43.5 % (50-75); Platelet Count 204 X10^3/uL (150-400); Red Blood Cell Count 5.52 X10^6/uL (4.5-5.9); Red Cell Distribution Width 15.9 % (11.6-14.8); White Blood Cell Count 7.2 X10^3/uL (4.5-11.0)
[2019-05-10 10:52] LABS: Prothrombin Time 11.2 SECONDS (10.1-12.7)
[2019-05-10 10:57] LABS: Alanine Aminotransferase 75 IU/L (21-72); Albumin Globulin Ratio 1.2 (1.0-2.8); Alkaline Phosphatase 63 U/L (38-126); Aspartate Aminotransferase 57 IU/L (17-59); BUN Creatinine Ratio 26.3 (6-22); Bilirubin Total 0.3 mg/dL (0.2-1.3); Blood Urea Nitrogen 21 mg/dL (9-20); Calcium 9.5 mg/dL (8.4-10.2); Carbon Dioxide 30 mmol/L (22-32); Chloride 101 mmol/L (98-107); Estimated Glomerular Filt Rate > 60.0 mL/min (>60); Globulin 3.3 g/dL (1.7-4.1); Glucose 103 mg/dL (80-110); HEMOLYSIS < 15 (0-50); Potassium 4.6 mmol/L (3.4-5.1); Sodium 138 mmol/L (137-145); Total Protein 7.3 g/dL (6.3-8.2)
[2019-05-10 11:15] LABS: Lipase 54 U/L (23-300)
[2019-05-10 11:31] VITALS: BP 117/69; PULSE 70; RESP 16; O2SAT 98
== END 2019-05-10 11:34 | disposition home or self-care (01) ==
PROVIDERS: Emergency Provider Emergency Medicine; PCP Family Medicine
DX: R10.9 Unspecified abdominal pain (principal)
CPT/HCPCS: 36415; 74176; 80053; 81003; 83690; 85025; 85610; 96372; 99283; 99284; J1885

== ENCOUNTER 2019-05-24 06:27 | Emergency (ER) | payer OTHER, MEDICAID, SELFPAY ==
[2019-05-24 06:36] VITALS: BP 149/87; PULSE 88; RESP 14; TEMP 36.7; O2SAT 98; BMI 31.8
--- NOTE | 2019-05-24 06:41 | ED_ITS ---
HPI - Skin/Abscess/Foreign Bdy General Chief complaint: Skin/Abscess/Foreign Body Stated complaint: rash spreading all over body since friday Time Seen by Provider: 05/24/19 06:34 Source: patient Mode of arrival: ambulatory Limitations: no limitations History of Present Illness HPI narrative: Patient is a 58-year-old male who presents with rash all over his body. He says it started 2 days ago it on his arms and his trunk and spreading to his back. It is quite pruritic. He did use a new laundry set he has been wearing clothes that she did not wash in at lateral throat for the last 5 days. He has no no lotions foods. He also some of the lawn but does not have and seasonal allergies that he knows of. He denies any fever. He has been taking Benadryl once a day at home which seems to help with itching. His last dose was last evening. MD complaint: rash Location: generalized Quality: pruritic Pain Consistency: constant Relieving factors: other (Benadryl) Exacerbating factors: none Related Data Home Medications Medication Instructions Recorded Confirmed albuterol sulfate [ProAir HFA] 1 puff INHALATION PRN PRN 05/11/18 05/10/19 prazosin 1 mg PO BEDTIME 05/11/18 05/10/19 dextroamphetamine-amphetamine 30 30 mg PO TID tab 12/17/18 05/10/19 mg tablet methadone 40 mg soluble tablet 140 mg PO QDAY #0 tab 12/17/18 12/17/18 terbinafine HCl 250 mg PO DAILY 05/10/19 05/10/19 Previous Rx's Medication Instructions Recorded prednisone 40 mg PO DAILY #10 tab 05/24/19 Allergies Allergy/AdvReac Type Severity Reaction Status Date / Time No Known Drug Allergies Allergy Verified 05/10/19 08:01 Review of Systems Review of Systems GENERAL: Denies chills, fatigue, malaise, fever, sweats, travel HEENT: Denies sinus pain, ear pain, sore throat, difficulty swallowing, neck pain RESPIRATORY: Denies dyspnea, cough, wheezing, hemoptysis, sputum. CARDIOVASCULAR: Denies chest pain, palpitations, orthopnea, edema GASTROINTESTINAL: Denies nausea, vomiting, abdominal pain, diarrhea, constipation, melena. : Denies dysuria, frequency, incontinence, hematuria, urinary retention, flank pain. MUSCULOSKELETAL: Denies weakness, joint pain, or bony pain SKIN: See HPI NEUROLOGIC: Denies weakness, dizziness, headache, numbness, change in speech, confusion PSYCHIATRIC: No concerning psychosocial issues. 12 point review of systems is negative except for those stated above and HPI [facility] Medical History Chronic shoulder pain (Chronic) IV drug abuse (Chronic) IV drug user (Chronic) Surgical History History of lithotripsy (Chronic) Social History (Updated 05/10/19 @ 08:47 by Radha Mandel DO) Smoking Status: Current every day smoker alcohol intake: former substance use type: opiates and IV drugs Social History Smoking Status: Current every day smoker alcohol intake: former substance use type: opiates and IV drugs Exam Initial Vital Signs Initial Vital Signs: Vital Signs Temperature 98.1 F 05/24/19 06:36 Pulse Rate 88 05/24/19 06:36 Respiratory Rate 14 05/24/19 06:36 Blood Pressure 149/87 H 05/24/19 06:36 Pulse Oximetry 98 05/24/19 06:36 GENERAL: Alert pleasant male and in no acute distress. HEENT: Head atraumatic,EOMI, pupils reactive neck is supple no meningeal signs CARDIOVASCULAR: Regular rate and rhythm without murmurs, rubs or gallops. RESPIRATORY: Breath sounds equal bilaterally, no wheezes rales or rhonchi. ABDOMEN: Soft, nontender. Normoactive bowel sounds all 4 quadrants. No guarding or rebound. EXTREMITIES: Normal range of motion, no clubbing or edema. Neurovascularly intact NEUROLOGICAL: Alert and oriented x4.Normal gait and speech SKIN: Erythema noted on the lower abdomen quite extensive blanchable also noted on his back as well. Left arm also seems to have it. No burrowing shelton. No streaking no fluctuation. Course Orders Ordered: Discontinued Medications Prednisone (Deltasone) 60 mg PO NOW ONE Stop: 05/24/19 06:35 Last Admin: 05/24/19 06:42 Dose: 60 mg Vital Signs - 8 hr 05/24/19 06:36 Temperature 98.1 F Pulse Rate 88 Respiratory Rate 14 Blood Pressure 149/87 H Pulse Oximetry 98 Discharge Plan Departure Patient Disposition: Home Clinical Impression: Allergic reaction Qualifiers: Encounter type: initial encounter Qualified Code(s): T78.40XA - Allergy, unspecified, initial encounter Instructions: DI for General Allergic Reactions Activity Restrictions/Additional Instructions: *You have been diagnosed with allergic reaction *What to do: Unknown what you are reacting to if the rash does not improve you or return she may require allergy testing *Continue to take medications as directed Prednisone 40 mg once a day for 5 days start tomorrow Benadryl 25-50 mg every 6 hours if needed for itching-this can cause drowsiness do not drive while taking *Follow up with your primary care provider in 2-3 days *Return to ER if you should have worsening rash, fever or any new, worsening or concerning symptoms Prescriptions: New prednisone 20 mg tablet 40 mg PO DAILY Qty: 10 RF: 0 No Action methadone [Methadose] 40 mg tablet,soluble 140 mg PO QDAY Qty: 0 RF: 0 terbinafine HCl 250 mg tablet 250 mg PO DAILY RF: 0 albuterol sulfate [ProAir HFA] 90 mcg/actuation HFA aerosol inhaler 1 puff Inhalation PRN PRN (Reason: Shortness Of Breath) RF: 0 prazosin 1 mg capsule 1 mg PO BEDTIME RF: 0 dextroamphetamine-amphetamine [Adderall] 30 mg tablet 30 mg PO TID RF: 0 Referrals: Silviano Farah MD [Primary Care Provider] -
[2019-05-24] MEDS: predniSONE 20 MG TABLET 60 MG PO (06:42)
== END 2019-05-24 06:47 | disposition home or self-care (01) ==
PROVIDERS: Emergency Provider Emergency Medicine; PCP Family Medicine
DX: T78.40XA Allergy, unspecified, initial encounter (principal)
CPT/HCPCS: 99282; 99283

== ENCOUNTER → 2019-06-04 13:32 | Outpatient (CLI) | payer OTHER, MEDICAID, SELFPAY ==
--- NOTE | 2019-06-04 | DI.US.S_ITS ---
PROCEDURE: US ABDOMEN COMPLETE INDICATIONS: CHRONIC HEPATITIS C TECHNIQUE: Real-time scanning was performed of the abdominal and retroperitoneal organs, with image documentation. COMPARISON: [facility], CT, CT ABDOMEN PELVIS WO CON, 05/10/2019, 8:51. [facility], US, ABDOMEN COMPLETE, 05/20/2007, 21:38. FINDINGS: Liver: Liver is diffusely increased in echogenicity. No focal hepatic abnormalities identified. Normal hepatic size. Focal fatty sparing adjacent to the gallbladder. Gallbladder: No gallstones identified. Normal gallbladder wall. No pericholecystic fluid. Negative sonographic Pratt sign. Biliary ducts: Intrahepatic bile ducts are non-dilated. Extrahepatic bile duct caliber measures 4.8 mm. Normal is 6-7 mm or less in diameter, or 10 mm or less post-cholecystectomy. Pancreas: Visualized portions of the pancreas are sonographically normal. Spleen: Spleen is normal in size and homogeneous in echotexture. Kidneys: Kidneys are normal in size and echotexture. Right kidney measures 14 cm long; left kidney measures 12 point cm long. No hydronephrosis or nephrolithiasis. No solid masses. Aorta: Visualized aorta is normal in caliber at less than 3 cm. Iliacs: Not visualized. IVC: Not well-seen. Miscellaneous: No free abdominal fluid. IMPRESSION: 1. Increased hepatic echogenicity noted possibly related to hepatic steatosis but other sources of hepatocellular disease cannot be excluded. Recommend clinical correlation. Dictated by: Ramo RDZ Interpreted: J Luis Young MD on 06/04/2019 at 15:06 Approved by: J Luis Young M.D. on 06/04/2019 at 15:27
== END ==
PROVIDERS: PCP Family Medicine; Visit Provider Family Medicine
DX: B18.2 Chronic viral hepatitis C (principal)
CPT/HCPCS: 76700

== ENCOUNTER 2019-08-24 09:50 | Emergency (ER) | payer OTHER, MEDICAID, SELFPAY ==
[2019-08-24 09:58] VITALS: BP 149/81; PULSE 88; RESP 20; TEMP 35.1; O2SAT 99; BMI 31.6
--- NOTE | 2019-08-24 09:59 | ED.SKABFB ---
HPI - Skin/Abscess/Foreign Bdy General Chief complaint: Extremity Problem,Nontraumatic Stated complaint: thinks he has spider bite on r leg Time Seen by Provider: 08/24/19 09:58 Source: patient Mode of arrival: Ambulatory Limitations: no limitations History of Present Illness HPI narrative: Patient is a 58-year-old male with history of IVDA and hepatitis C who presents with his infection on his right leg. He is not sure what happened but he noticed a wound on his right lower leg a few days ago and the redness has gotten worse. He has no fever or chills no drainage from it. He was seen by a provider today who recommended he come to the ER for evaluation. MD complaint: insect bite/sting Onset (ago): day(s) (3) Location: [facility] Related Data Home Medications Medication Instructions Recorded Confirmed albuterol sulfate [ProAir HFA] 1 puff INHALATION PRN PRN 05/11/18 05/10/19 prazosin 1 mg PO BEDTIME 05/11/18 05/10/19 dextroamphetamine-amphetamine 30 30 mg PO TID tab 12/17/18 05/10/19 mg tablet methadone 40 mg soluble tablet 140 mg PO QDAY #0 tab 12/17/18 12/17/18 terbinafine HCl 250 mg PO DAILY 05/10/19 05/10/19 Previous Rx's Medication Instructions Recorded prednisone 40 mg PO DAILY #10 tab 05/24/19 sulfamethoxazole-trimethoprim 1 tab PO BID 10 Days #20 tab 08/24/19 [Bactrim DS] Allergies Allergy/AdvReac Type Severity Reaction Status Date / Time No Known Drug Allergies Allergy Verified 05/10/19 08:01 Review of Systems Review of Systems ROS Unobtainable: All systems reviewed & are unremarkable except as noted in HPI and below Constitutional Constitutional: Denies chills, Denies fever(s), Denies lethargy and Denies weakness Eyes Eyes: Denies change in vision, Denies eye discharge, Denies irritation and Denies loss of vision ENT Ears, Nose, Mouth, and Throat: Denies change in voice, Denies neck pain and Denies sore throat Cardiovascular Cardiovascular: Denies chest pain, Denies irregular heart rhythm, Denies lightheadedness, Denies palpitations, Denies dyspnea, Denies dyspnea on exertion and Denies orthopnea Respiratory Respiratory: Denies cough, Denies dyspnea, Denies dyspnea on exertion and Denies wheezing Gastrointestinal Gastrointestinal: Denies abdominal pain, Denies change in bowel habits, Denies diarrhea, Denies nausea and Denies vomiting Genitourinary Genitourinary: Denies hematuria, Denies flank pain, Denies urinary incontinence and Denies urinary urgency Musculoskeletal Musculoskeletal: Denies neck pain Integumentary/Breasts Skin/Breast: Denies pruritus, Reports erythema, Reports rash and Reports wounds Neurologic Neurologic: Denies loss of vision and Denies weakness Endocrine Endocrine: Denies palpitations Allergic/Immunologic Allergic/Immunologic: Denies wheezing [facility] Social History Smoking Status: Current every day smoker alcohol intake: former substance use type: opiates and IV drugs Exam Initial Vital Signs Initial Vital Signs: Vital Signs Temperature 95.1 F L 08/24/19 09:58 Pulse Rate 88 08/24/19 09:58 Respiratory Rate 20 08/24/19 09:58 Blood Pressure 149/81 H 08/24/19 09:58 Pulse Oximetry 99 08/24/19 09:58 GENERAL: Well-appearing, well-nourished and in no acute distress. HEENT: Head atraumatic,EOMI, pupils reactive, face symmetric, moist mucous membranes CARDIOVASCULAR: Regular rate and rhythm without murmurs, rubs or gallops. RESPIRATORY: Breath sounds equal bilaterally, no wheezes rales or rhonchi. ABDOMEN: Soft, nontender. Normoactive bowel sounds all 4 quadrants. No guarding or rebound. EXTREMITIES: Normal range of motion, no clubbing or edema. Neurovascularly intact NEUROLOGICAL: Alert and oriented x4.Normal gait and speech. SKIN: Wound noted on right leg 1 cm x 1 cm scabbed over no gross pus. Surrounding erythema extending 10 cm out. Blanchable. Nonpainful no fluctuation Course Vital Signs Vital signs: Vital Signs - 8 hr 08/24/19 09:58 08/24/19 10:07 Temperature 95.1 F L 98.6 F Pulse Rate 88 Respiratory Rate 20 Blood Pressure 149/81 H Pulse Oximetry 99 MDM - Skin/Abscess/Foreign Bdy MDM Narrative Medical decision making narrative: Patient is currently not septic. Area of erythema is isolated to his leg. Vitals are within normal limits. He is afebrile and has normal temperature in the ED. Initially low but actually came up to be normal. At this time can treat conservatively with oral antibiotics and outpatient follow-up. Discharge Plan Departure Patient Disposition: Home Clinical Impression: Cellulitis of leg, right Discharge Date/Time: 08/24/19 10:27 Instructions: DI for Cellulitis -- Adult Activity Restrictions/Additional Instructions: *You have been diagnosed with right leg cellulitis *What to do: Monitor redness, expect that it will get a little bit worse before gets better. *Continue to take medications as directed Bactrim 1 tablet twice a day for 10 days *Follow up with your primary care provider in 2-3 days *Return to ER if you should have a significant increase in redness, drainage, weakness, fever or any new, worsening or concerning symptoms Prescriptions: New sulfamethoxazole-trimethoprim [Bactrim DS] 800-160 mg tablet 1 tab PO BID 10 Days Qty: 20 RF: 0 No Action methadone [Methadose] 40 mg tablet,soluble 140 mg PO QDAY Qty: 0 RF: 0 terbinafine HCl 250 mg tablet 250 mg PO DAILY RF: 0 albuterol sulfate [ProAir HFA] 90 mcg/actuation HFA aerosol inhaler 1 puff Inhalation PRN PRN (Reason: Shortness Of Breath) RF: 0 prazosin 1 mg capsule 1 mg PO BEDTIME RF: 0 prednisone 20 mg tablet 40 mg PO DAILY Qty: 10 RF: 0 dextroamphetamine-amphetamine [Adderall] 30 mg tablet 30 mg PO TID RF: 0 Referrals: Silviano Farah MD [Primary Care Provider] -
--- NOTE | 2019-08-24 10:05 | PC.NURSE ---
right lower leg, with swelling , redness. denies fever,vomiting.
[2019-08-24 10:07] VITALS: TEMP 37
== END 2019-08-24 10:27 | disposition home or self-care (01) ==
LOC: ED 10:33
PROVIDERS: Emergency Provider Emergency Medicine; PCP Family Medicine
DX: L03.115 Cellulitis of right lower limb (principal)
CPT/HCPCS: 99282

== ENCOUNTER 2019-10-22 09:34 | Emergency (ER) | payer OTHER, MEDICAID, SELFPAY ==
[2019-10-22 09:36] VITALS: BP 140/88; PULSE 88; RESP 16; TEMP 36.6; O2SAT 97; BMI 32.0
--- NOTE | 2019-10-22 09:59 | ED.SKABFB ---
HPI - Skin/Abscess/Foreign Bdy General Chief complaint: Skin/Abscess/Foreign Body Stated complaint: skin around right eye irritation x1 month Time Seen by Provider: 10/22/19 09:39 Source: patient Mode of arrival: Ambulatory Limitations: no limitations History of Present Illness HPI narrative: Patient is a 58-year-old male with history of hepatitis-C presenting with right eye irritation. The periorbital area mostly lateral has been irritated off and on for about 6 weeks. He says over the last 2 days however it has become more erythematous. It does not actually involve the eye itself it is periorbital area. He was given cortisone cream that he has been applying twice a day which has not seemed to help. He denies any fever or chills no discharge from the eye. She denies any severe significant pain prior to rash appearing. He has already been referred to Ophthalmology waiting for appointment MD complaint: rash Onset (ago): day(s) (2) Related Data Home Medications Medication Instructions Recorded Confirmed albuterol sulfate [ProAir HFA] 1 puff INHALATION PRN PRN 05/11/18 05/10/19 prazosin 1 mg PO BEDTIME 05/11/18 05/10/19 dextroamphetamine-amphetamine 30 30 mg PO TID tab 12/17/18 05/10/19 mg tablet methadone 40 mg soluble tablet 140 mg PO QDAY #0 tab 12/17/18 12/17/18 terbinafine HCl 250 mg PO DAILY 05/10/19 05/10/19 Previous Rx's Medication Instructions Recorded prednisone 40 mg PO DAILY #10 tab 05/24/19 amoxicillin-pot clavulanate 1 tab PO Q12H #14 tab 10/22/19 [Augmentin] Allergies Allergy/AdvReac Type Severity Reaction Status Date / Time No Known Drug Allergies Allergy Verified 05/10/19 08:01 Review of Systems Review of Systems Narrative: GENERAL: Denies chills,fever HEENT: Denies throat pain, no blurry vision or double vision RESPIRATORY: Denies dyspnea, cough, wheezing CARDIOVASCULAR: Denies chest pain, palpitations GASTROINTESTINAL: Denies nausea, vomiting MUSCULOSKELETAL: Denies extremity pain, injury SKIN: + rash HPI NEUROLOGIC: Denies weakness, dizziness, headache, numbness 8 point review of systems is negative except for those stated above and HPI Patient History Medical History Chronic shoulder pain (Chronic) IV drug abuse (Chronic) IV drug user (Chronic) Surgical History History of lithotripsy (Chronic) Social History Smoking Status: Current every day smoker alcohol intake: former substance use type: opiates and IV drugs alcohol intake frequency: 0-2 drinks per day Substance Use Type: former substance user Exam Initial Vital Signs Initial Vital Signs: Vital Signs Temperature 97.9 F 10/22/19 09:36 Pulse Rate 88 10/22/19 09:36 Respiratory Rate 16 10/22/19 09:36 Blood Pressure 140/88 10/22/19 09:36 Pulse Oximetry 97 10/22/19 09:36 GENERAL: Well-appearing, well-nourished and in no acute distress. EYES: Rash noted periorbitally on the right lateral. Minimal erythema slightly vesicular. Fluorescein dye is used no dye uptake appreciated conjunctivae are white no significant erythema. EARS: Ears examined bilaterally no vesicular in canal tympanic membranes within normal limits bilaterally CARDIOVASCULAR: peripheral pulses in tact, cap refill <2 sec RESPIRATORY: No respiratory distress, speaks in full sentences without difficulty EXTREMITIES: Normal range of motion, no clubbing or edema. Neurovascularly intact NEUROLOGICAL: Cranial nerves II through XII grossly intact. Normal gait and speech. SKIN: Warm, dry, no petechiae, no rashes or lesions. Eyes Visual Zhong: normal visual zhong by confrontation Alignment and Position: alignment normal Conjunctivae: conjunctivae normal Sclera: sclerae normal Cornea: corneas normal (No erythema) and fluorescein used (No dye uptake) Pupils: PERRL EOM: EOM intact bilaterally Eye Right: 1. 2. Rash noted. Erythematous blanchable slightly vesicular not group Course Orders Ordered: Discontinued Medications Proparacaine HCl (Parcaine 0.5% Ophth Roz) 1 drops EYE-RIGHT NOW ONE Stop: 10/22/19 10:07 Last Admin: 10/22/19 10:10 Dose: 1 drop Documented by: EDUARDO Vital Signs Vital signs: Vital Signs - 8 hr 10/22/19 09:36 Temperature 97.9 F Pulse Rate 88 Respiratory Rate 16 Blood Pressure 140/88 Pulse Oximetry 97 MDM - Skin/Abscess/Foreign Bdy MDM Narrative Medical decision making narrative: I do not suspect shingles. History does not quite make sense it has been ongoing for about 1 month, worse over the last 2 days or more likely a cellulitis. Eye itself appears healthy. Will treat for periorbital cellulitis with Augmentin. Recommend close follow-up. Discharge Plan Departure Patient Disposition: Home Clinical Impression: Cellulitis, periorbital Qualifiers: Laterality: right Qualified Code(s): L03.213 - Periorbital cellulitis Discharge Date/Time: 10/22/19 10:30 Instructions: DI for Orbital Cellulitis Activity Restrictions/Additional Instructions: *You have been diagnosed with cellulitis periorbital *What to do: Possible cellulitis around the eye does not appear to be shingles. If this does not clear up you may need to see dermatology. *Continue to take medications as directed Augmentin 875 mg twice a day for 7 days *Follow up with your primary care provider in 2-3 days *Return to ER if you should have worsening redness painful eye fevers blurry vision double vision or any new, worsening or concerning symptoms Prescriptions: New amoxicillin-pot clavulanate [Augmentin] 875-125 mg tablet 1 tab PO Q12H Qty: 14 RF: 0 No Action methadone [Methadose] 40 mg tablet,soluble 140 mg PO QDAY Qty: 0 RF: 0 terbinafine HCl 250 mg tablet 250 mg PO DAILY RF: 0 albuterol sulfate [ProAir HFA] 90 mcg/actuation HFA aerosol inhaler 1 puff Inhalation PRN PRN (Reason: Shortness Of Breath) RF: 0 prazosin 1 mg capsule 1 mg PO BEDTIME RF: 0 prednisone 20 mg tablet 40 mg PO DAILY Qty: 10 RF: 0 dextroamphetamine-amphetamine [Adderall] 30 mg tablet 30 mg PO TID RF: 0 Referrals: Lisandra Snow MD [Physician] - Hemant Mc MD [Physician] - Silviano Farah MD [Primary Care Provider] -
[2019-10-22] MEDS: PROPARACAINE 0.5% OPHTH SOL 1 DROPS EYE-RIGHT (10:10)
== END 2019-10-22 10:30 | disposition home or self-care (01) ==
PROVIDERS: Emergency Provider Emergency Medicine; PCP Family Medicine
DX: L03.213 Periorbital cellulitis (principal)
CPT/HCPCS: 99282; 99283

== ENCOUNTER 2020-02-05 20:56 | Emergency (ER) | payer OTHER, MEDICAID, SELFPAY ==
[2020-02-05 21:05] VITALS: BP 135/70; PULSE 88; RESP 19; TEMP 36.8; O2SAT 95; BMI 32.4
--- NOTE | 2020-02-05 21:17 | ED_ITS ---
HPI - URI/Sore Throat General Chief Complaint: Upper Respiratory Symptoms Stated Complaint: trouble breathing,chest pains Time Seen by Provider: 02/05/20 20:59 Source: patient Mode of arrival: Ambulatory Limitations: no limitations History of Present Illness HPI Narrative: 59M daily smoker with history of pneumonia presents with a chief complaint multiple months of bilateral nipple pain in the absence of any injury, drainage, redness or swelling. He states that he has seen his doctor for this and in fact has a scheduled ultrasound next week. Additionally the patient has runny nose, sneezing and cough in the absence of fever or production of sputum. He has had no nausea or vomiting. He denies any recent travel or exposure to persons being evaluated for COVID-19 MD Complaint: cough, rhinorrhea and nasal congestion Onset (ago): month(s) Duration: constant Severity: moderate Exacerbating factors: nothing Description of mucous: clear Able to tolerate fluids by mouth: Yes Treatments prior to arrival: none Related Data Home Medications Medication Instructions Recorded Confirmed albuterol sulfate [ProAir HFA] 1 puff INHALATION PRN PRN 05/11/18 05/10/19 prazosin 1 mg PO BEDTIME 05/11/18 05/10/19 dextroamphetamine-amphetamine 30 30 mg PO TID tab 12/17/18 05/10/19 mg tablet methadone 40 mg soluble tablet 140 mg PO QDAY #0 tab 12/17/18 12/17/18 terbinafine HCl 250 mg PO DAILY 05/10/19 05/10/19 Previous Rx's Medication Instructions Recorded prednisone 40 mg PO DAILY #10 tab 05/24/19 amoxicillin-pot clavulanate 1 tab PO Q12H #14 tab 10/22/19 [Augmentin] Allergies Allergy/AdvReac Type Severity Reaction Status Date / Time No Known Drug Allergies Allergy Verified 05/10/19 08:01 Review of Systems Constitutional Constitutional: Denies chills, Denies fatigue, Denies fever(s), Denies frequent falls, Denies lethargy and Denies weakness Eyes Eyes: Denies change in vision, Denies eye discharge, Denies irritation and Denies loss of vision ENT Ears, Nose, Mouth, and Throat: Denies change in voice, Denies dizziness, Denies neck pain, Denies sore throat and Denies throat swelling Cardiovascular Cardiovascular: Denies chest pain, Denies irregular heart rhythm, Denies lightheadedness, Denies palpitations, Denies dyspnea, Denies dyspnea on exertion and Denies orthopnea Respiratory Respiratory: Reports cough, Denies dyspnea, Denies dyspnea on exertion and Denies wheezing Gastrointestinal Gastrointestinal: Denies abdominal pain, Denies change in bowel habits, Denies diarrhea, Denies nausea and Denies vomiting Genitourinary Genitourinary: Denies hematuria, Denies flank pain, Denies urinary incontinence and Denies urinary urgency Musculoskeletal Musculoskeletal: Denies back pain, Denies muscle weakness, Denies neck pain, Denies numbness and Denies tingling Integumentary/Breasts Skin/Breast: Denies pruritus, Denies erythema, Denies rash and Denies wounds Neurologic Neurologic: Denies behavioral changes, Denies confusion, Denies dizziness, Denies frequent falls, Denies loss of vision, Denies numbness, Denies tingling and Denies weakness Psychiatric Psychiatric: Denies anxiety, Denies behavioral changes, Denies confusion, Denies depression, Denies homicidal ideation and Denies suicidal ideation Endocrine Endocrine: Denies fatigue, Denies flushing and Denies palpitations Hematologic/Lymphatic Hematologic/Lymphatic: Denies easy bruising Allergic/Immunologic Allergic/Immunologic: Denies urticaria, Denies throat swelling and Denies wheezing Patient History Social History Smoking Status: Current every day smoker alcohol intake: former substance use type: opiates and IV drugs Smoking Status: Current every day smoker alcohol intake frequency: 0-2 drinks per day Substance Use Type: former substance user Exam Narrative Exam Narrative: GENERAL: [59] year old patient appears stated age. Well- nourished, well-developed patient, in mild distress. Runny nose, sneezing, no evidence of significant respiratory distress HEAD: Atraumatic. Normocephalic. EYES: Pupils equal round and reactive. Extraocular motions intact. No scleral icterus. No injection or drainage. ENT: Nose without bleeding, purulent drainage. Throat without erythema, tonsillar hypertrophy or exudate. Airway patent. NECK: Trachea midline. Non tender CARDIOVASCULAR: Regular rate and rhythm without murmurs, gallops, or rubs. RESPIRATORY: Clear to auscultation. Breath sounds equal bilaterally. No wheezes, rales, or rhonchi. GASTROINTESTINAL: Abdomen soft, non-tender, nondistended. EXTREMITIES: No edema or joint tenderness. BACK: Nontender without deformity or crepitance. No flank tenderness. NEURO: AOx3. SKIN: No rash or erythema of visible areas Initial Vital Signs Initial Vital Signs: Vital Signs Temperature 98.2 F 02/05/20 21:05 Pulse Rate 88 02/05/20 21:05 Respiratory Rate 19 02/05/20 21:05 Blood Pressure 135/70 02/05/20 21:05 Pulse Oximetry 95 02/05/20 21:05 Course Orders Ordered: ED Orders 02/05/20 21:50 Respiratory Panel (Film Array) Stat 02/05/20 22:09 XR chest 2V Stat Discontinued Medications Albuterol/Ipratropium (Duoneb) 3 ml INH NOW ONE Stop: 02/05/20 22:10 Last Admin: 02/05/20 22:22 Dose: 3 ml Documented by: KARTHIKEYAN Vital Signs Vital signs: Vital Signs - 8 hr 02/05/20 22:25 Pulse Rate 82 Respiratory Rate 16 Pulse Oximetry 95 MDM - URI/Sore Throat Lab Data Labs: Lab Results 02/05/20 Range/Units 21:50 Chlamy pneumoniae PCR Not detected (Not Detect) Adenovirus (PCR) Not detected (Not Detect) B.parapertussis DNA PCR Not detected (Not Detect) Coronavirus OC43 (PCR) Not detected (Not Detect) Coronavirus HKU1 (PCR) Not detected (Not Detect) Coronavirus 229E (PCR) Not detected (Not Detect) Coronavirus NL63 (PCR) Not detected (Not Detect) Human Metapneumovir PCR Not detected (Not Detect) Influenza Type A (PCR) Not detected (Not Detect) Influenza Type B (PCR) Not detected (Not Detect) M. pneumoniae (PCR) Not detected (Not Detect) Parainfluenza 1 (PCR) Not detected (Not Detect) Parainfluenza 2 (PCR) Not detected (Not Detect) Parainfluenza 3 (PCR) Not detected (Not Detect) Parainfluenza 4 (PCR) Not detected (Not Detect) RSV (PCR) Not detected (Not Detect) Entero/Rhino (PCR) Detected H (Not Detect) Discharge Plan Departure Patient Disposition: Home Clinical Impression: Upper respiratory virus Discharge Date/Time: 02/05/20 23:43 Instructions: DI for Viral Upper Respiratory Infection -- Adult Activity Restrictions/Additional Instructions: *You have been diagnosed with [viral upper respiratory infection] *What to do: *Take medications as directed: [id number] cough and cold medications *Follow up with your primary care provider in 2-3 days, call for an appointment. Let them know you were seen in the Emergency Department and that we ask that you be seen in follow up *Return to ER if you should have any new, worsening or concerning symptoms Prescriptions: No Action methadone [Methadose] 40 mg tablet,soluble 140 mg PO QDAY Qty: 0 RF: 0 terbinafine HCl 250 mg tablet 250 mg PO DAILY RF: 0 amoxicillin-pot clavulanate [Augmentin] 875-125 mg tablet 1 tab PO Q12H Qty: 14 RF: 0 albuterol sulfate [ProAir HFA] 90 mcg/actuation HFA aerosol inhaler 1 puff Inhalation PRN PRN (Reason: Shortness Of Breath) RF: 0 prazosin 1 mg capsule 1 mg PO BEDTIME RF: 0 prednisone 20 mg tablet 40 mg PO DAILY Qty: 10 RF: 0 dextroamphetamine-amphetamine [Adderall] 30 mg tablet 30 mg PO TID RF: 0 Referrals: Silviano Farah MD [Primary Care Provider] -
--- NOTE | 2020-02-05 22:09 | DI.RAD.S_ITS ---
PROCEDURE: XR CHEST 2V INDICATIONS: cough TECHNIQUE: 2 views of the chest were acquired. COMPARISON: [facility], , CHEST 2 VIEW, 08/28/2017, 16:13. FINDINGS: Surgical changes and devices: None. Lungs and pleura: Lungs are clear. No pleural effusions or pneumothorax. Mediastinum: Mediastinal contours are normal. Heart size is normal. Bones and chest wall: No suspicious bony abnormalities. Soft tissues appear unremarkable. IMPRESSION: No acute cardiopulmonary findings. Dictated by: Dalila Chery M.D. on 02/06/2020 at 7:27 Approved by: Dalila Chery M.D. on 02/06/2020 at 7:27
[2020-02-05] MEDS: ALBUTEROL/IPRATROPIUM 3 ML AMPUL INH (22:22)
[2020-02-05 22:25] VITALS: PULSE 82; RESP 16; O2SAT 95
[2020-02-05 23:23] LABS: Adenovirus Not Detected (Not Detect); Bordetella pertussis Not Detected (Not Detect); Chlamydophila pneumoniae Not Detected (Not Detect); Coronavirus 229E Not Detected (Not Detect); Coronavirus HKU1 Not Detected (Not Detect); Coronavirus NL 63 Not Detected (Not Detect); Coronavirus OC43 Not Detected (Not Detect); Human Metapneumovirus Not Detected (Not Detect); Human Rhinovirus/Enterovirus Detected (Not Detect); Influenza A Not Detected (Not Detect); Influenza B Not Detected (Not Detect); Mycoplasma pneumoniae Not Detected (Not Detect); Parainfluenza Virus 1 Not Detected (Not Detect); Parainfluenza Virus 2 Not Detected (Not Detect); Parainfluenza Virus 3 Not Detected (Not Detect); Parainfluenza Virus 4 Not Detected (Not Detect); Respiratory Syncytial Virus Not Detected (Not Detect)
== END 2020-02-05 23:43 | disposition home or self-care (01) ==
PROVIDERS: Emergency Provider Emergency Medicine; PCP Family Medicine
DX: J06.9 Acute upper respiratory infection, unspecified (principal); R05 Cough; R07.9 Chest pain, unspecified
CPT/HCPCS: 71046; 87633; 93005; 93010; 94640; 99283; 99284

== ENCOUNTER 2020-02-08 08:55 | Emergency (ER) | payer OTHER, MEDICAID, SELFPAY ==
[2020-02-08 09:20] VITALS: BP 170/90; PULSE 72; RESP 20; TEMP 37.1; O2SAT 97; BMI 32.5
--- NOTE | 2020-02-08 09:53 | ED_ITS ---
HPI - General Adult General Chief complaint: Upper Respiratory Symptoms Stated complaint: 'can't move i'm so sick' Time Seen by Provider: 02/08/20 09:52 Source: patient Mode of arrival: Ambulatory History of Present Illness HPI narrative: 59-year-old gentleman, smoker, history of IV drugs including opiates, recurrent pneumonias, nipple pain that he currently is having evaluated presents with being so ill he can't move. He was seen a 3 days ago in this emergency department and respiratory panel at that time revealed a rhino virus. He notes that multiple other friends and family members that share the same house had similar symptoms and able gotten better. He feels that he is continuing to worsen complains of dyspnea and being so weak that he could not even walk into the methadone clinic this morning. He was seen there in they did recommend he come to the emergency room for further evaluation. He states that he continues to smoke a pack a day and has not been able to do that the last couple of days. He does not describe fevers he does describe a fernando sputum, no vomiting, no diarrhea no skin rashes, the cough has been persistent enough that he is having difficulty sleeping and is exhausted from that Related Data Home Medications Medication Instructions Recorded Confirmed albuterol sulfate [ProAir HFA] 1 puff INHALATION PRN PRN 05/11/18 02/08/20 dextroamphetamine-amphetamine 30 30 mg PO TID tab 12/17/18 02/08/20 mg tablet methadone 40 mg soluble tablet 135 mg PO DAILY #0 tab 12/17/18 02/08/20 Allergies Allergy/AdvReac Type Severity Reaction Status Date / Time No Known Drug Allergies Allergy Verified 02/08/20 09:20 Review of Systems Review of Systems Narrative: All systems reviewed and are unremarkable except as noted in HPI and below Patient History Social History Smoking Status: Current every day smoker alcohol intake: former substance use type: opiates and IV drugs Smoking Status: Current every day smoker alcohol intake frequency: 0-2 drinks per day Substance Use Type: former substance user Exam Narrative Exam Narrative: General: Disheveled acutely ill appearing gentleman able to speak in full sentences with a coarse voice HEENT: No cervical adenopathy, mucous membranes are moist, mild irritation to the posterior pharynx without exudate Neck: Supple Chest: Scattered wheeze in all lung nuñez without rhonchi symmetrical air movement bilaterally Cardiac: Regular rate and rhythm without murmurs Abdomen: Soft nontender nondistended Spine and pelvis: Tender at approximately the T12 level with significant paraspinous spasm in the lower thoracic areas bilaterally without midline tenderness or rashes, dramatically worse with any coughing Skin: Well perfused he has quite a bit of hyperemia bilaterally in hands multiple scars superficially over upper extremities with healed track shelton Neurologic: Globally weak but grossly nonfocal Extremities: No significant lower extremity edema Psych: Appropriate affect in interaction with moderate insight at this time Initial Vital Signs Initial Vital Signs: Vital Signs Temperature 98.7 F 02/08/20 09:20 Pulse Rate 72 02/08/20 09:20 Respiratory Rate 20 02/08/20 09:20 Blood Pressure 170/90 H 02/08/20 09:20 Pulse Oximetry 97 02/08/20 09:20 Course Orders Ordered: ED Orders 02/08/20 09:16 Respiratory Panel (Film Array) Stat 02/08/20 10:07 XR chest 1V Stat EKG-12 Lead Stat 02/08/20 13:37 XR chest for PICC 1V Stat 02/08/20 13:45 Blood Culture Stat Complete Blood Count AUTO DIFF Stat Comprehensive Metabolic Panel Stat Lactate (Lactic Acid) Stat Lipase Stat Magnesium Stat Procalcitonin Stat Troponin I Stat Urinalysis and Microscopic Stat Discontinued Medications Albuterol/Ipratropium (Duoneb) 3 ml INH NOW ONE Stop: 02/08/20 10:07 Last Admin: 02/08/20 10:06 Dose: 3 ml Documented by: JESSICA Ketorolac Tromethamine (Toradol) 15 mg IV NOW ONE Stop: 02/08/20 15:12 Vital Signs Vital signs: Vital Signs - 8 hr 02/08/20 09:20 02/08/20 10:50 02/08/20 14:11 Temperature 98.7 F 97.8 F Pulse Rate 72 64 70 Respiratory Rate 20 15 20 Blood Pressure 170/90 H Blood Pressure [Left Arm] 133/72 130/70 Pulse Oximetry 97 99 100 Medical Decision Making Medical Records Medical records reviewed: Yes I reviewed the patient's medical records. Lab Data Lab results reviewed: Yes I reviewed the patient's lab results. Result diagrams: 02/08/20 13:45 02/08/20 13:45 Labs: Lab Results 02/08/20 02/08/20 02/08/20 Range/Units 09:16 13:45 13:45 WBC 6.1 (4.5-11.0) X10^3/uL RBC 5.45 (4.5-5.9) X10^6/uL Hgb 14.4 (13.5-17.5) g/dL Hct 44.4 (41-53) % MCV 81.6 (80-100) fL MCH 26.4 (26-34) PG MCHC 32.3 (30-36) % RDW 15.0 H (11.6-14.8) % Plt Count 198 (150-400) X10^3/uL Neut % (Auto) 54.0 (50-75) % Lymph % (Auto) 23.6 L (25-40) % [place] % (Auto) 11.8 (3-14) % Eos % (Auto) 9.0 H (2-4) % Baso % (Auto) 1.6 (0-2) % Neut # (Auto) 3300 (1339-8580) /uL Lymph # (Auto) 1400 (0406-8094) /uL [place] # (Auto) 700 (0-900) /uL Eos # (Auto) 500 H (0-450) /uL Baso # (Auto) 100 (0-100) /uL Sodium 136 L (137-145) mmol/L Potassium 4.1 (3.4-5.1) mmol/L Chloride 99 (98-107) mmol/L Carbon Dioxide 33 H (22-32) mmol/L BUN 16 (9-20) mg/dL Creatinine 0.66 (0.66-1.25) mg/dL Estimated GFR > 60.0 (>60) mL/min BUN/Creatinine Ratio 24.2 H (6-22) Glucose 98 (80-110) mg/dL Lactate (0.7-2.1) mmol/L Calcium 9.2 (8.4-10.2) mg/dL Magnesium (1.6-2.3) mg/dL Total Bilirubin 0.4 (0.2-1.3) mg/dL AST 111 H (17-59) IU/L ALT 109 H (<50) IU/L Alkaline Phosphatase 63 (38-126) U/L Troponin I (0.01-0.034) ng/mL Total Protein 7.1 (6.3-8.2) g/dL Albumin 3.7 (3.5-5.0) g/dL Globulin 3.4 (1.7-4.1) g/dL Albumin/Globulin Ratio 1.1 (1.0-2.8) Lipase (23-300) U/L Procalcitonin (<0.5) ng/mL Urine Color Urine Appearance Urine pH (4.5-8.0) Ur Specific [place] (1.000-1.035) Urine Protein (Negative) Urine Glucose (UA) (Negative) g/dL Urine Ketones (NEGATIVE) Urine Occult Blood (Negative) Urine Nitrate (Negative) Urine Bilirubin (NEGATIVE) Urine Urobilinogen (0.2) E.U./dL Ur Leukocyte Esterase (NEGATIVE) Urine RBC (0-5/HPF) Urine WBC (0-5/HPF) Ur Squamous Epith Cells (0-5/HPF) Urine Bacteria (None) Ur Culture Indicated? Chlamy pneumoniae PCR Not detected (Not Detect) Adenovirus (PCR) Not detected (Not Detect) B.parapertussis DNA PCR Not detected (Not Detect) Coronavirus OC43 (PCR) Not detected (Not Detect) Coronavirus HKU1 (PCR) Not detected (Not Detect) Coronavirus 229E (PCR) Not detected (Not Detect) Coronavirus NL63 (PCR) Not detected (Not Detect) Human Metapneumovir PCR Not detected (Not Detect) Influenza Type A (PCR) Not detected (Not Detect) Influenza Type B (PCR) Not detected (Not Detect) M. pneumoniae (PCR) Not detected (Not Detect) Parainfluenza 1 (PCR) Not detected (Not Detect) Parainfluenza 2 (PCR) Not detected (Not Detect) Parainfluenza 3 (PCR) Not detected (Not Detect) Parainfluenza 4 (PCR) Not detected (Not Detect) RSV (PCR) Not detected (Not Detect) Entero/Rhino (PCR) Detected H (Not Detect) 02/08/20 02/08/20 02/08/20 Range/Units 13:45 13:45 13:45 WBC (4.5-11.0) X10^3/uL RBC (4.5-5.9) X10^6/uL Hgb (13.5-17.5) g/dL Hct (41-53) % MCV (80-100) fL MCH (26-34) PG MCHC (30-36) % RDW (11.6-14.8) % Plt Count (150-400) X10^3/uL Neut % (Auto) (50-75) % Lymph % (Auto) (25-40) % [place] % (Auto) (3-14) % Eos % (Auto) (2-4) % Baso % (Auto) (0-2) % Neut # (Auto) (5429-5304) /uL Lymph # (Auto) (4564-3632) /uL [place] # (Auto) (0-900) /uL Eos # (Auto) (0-450) /uL Baso # (Auto) (0-100) /uL Sodium (137-145) mmol/L Potassium (3.4-5.1) mmol/L Chloride (98-107) mmol/L Carbon Dioxide (22-32) mmol/L BUN (9-20) mg/dL Creatinine (0.66-1.25) mg/dL Estimated GFR (>60) mL/min BUN/Creatinine Ratio (6-22) Glucose (80-110) mg/dL Lactate 0.6 L (0.7-2.1) mmol/L Calcium (8.4-10.2) mg/dL Magnesium 1.9 (1.6-2.3) mg/dL Total Bilirubin (0.2-1.3) mg/dL AST (17-59) IU/L ALT (<50) IU/L Alkaline Phosphatase (38-126) U/L Troponin I < 0.012 (0.01-0.034) ng/mL Total Protein (6.3-8.2) g/dL Albumin (3.5-5.0) g/dL Globulin (1.7-4.1) g/dL Albumin/Globulin Ratio (1.0-2.8) Lipase 13 L (23-300) U/L Procalcitonin < 0.05 (<0.5) ng/mL Urine Color Urine Appearance Urine pH (4.5-8.0) Ur Specific [place] (1.000-1.035) Urine Protein (Negative) Urine Glucose (UA) (Negative) g/dL Urine Ketones (NEGATIVE) Urine Occult Blood (Negative) Urine Nitrate (Negative) Urine Bilirubin (NEGATIVE) Urine Urobilinogen (0.2) E.U./dL Ur Leukocyte Esterase (NEGATIVE) Urine RBC (0-5/HPF) Urine WBC (0-5/HPF) Ur Squamous Epith Cells (0-5/HPF) Urine Bacteria (None) Ur Culture Indicated? Chlamy pneumoniae PCR (Not Detect) Adenovirus (PCR) (Not Detect) B.parapertussis DNA PCR (Not Detect) Coronavirus OC43 (PCR) (Not Detect) Coronavirus HKU1 (PCR) (Not Detect) Coronavirus 229E (PCR) (Not Detect) Coronavirus NL63 (PCR) (Not Detect) Human Metapneumovir PCR (Not Detect) Influenza Type A (PCR) (Not Detect) Influenza Type B (PCR) (Not Detect) M. pneumoniae (PCR) (Not Detect) Parainfluenza 1 (PCR) (Not Detect) Parainfluenza 2 (PCR) (Not Detect) Parainfluenza 3 (PCR) (Not Detect) Parainfluenza 4 (PCR) (Not Detect) RSV (PCR) (Not Detect) Entero/Rhino (PCR) (Not Detect) 02/08/20 Range/Units 13:45 WBC (4.5-11.0) X10^3/uL RBC (4.5-5.9) X10^6/uL Hgb (13.5-17.5) g/dL Hct (41-53) % MCV (80-100) fL MCH (26-34) PG MCHC (30-36) % RDW (11.6-14.8) % Plt Count (150-400) X10^3/uL Neut % (Auto) (50-75) % Lymph % (Auto) (25-40) % [place] % (Auto) (3-14) % Eos % (Auto) (2-4) % Baso % (Auto) (0-2) % Neut # (Auto) (1005-6457) /uL Lymph # (Auto) (3226-8355) /uL [place] # (Auto) (0-900) /uL Eos # (Auto) (0-450) /uL Baso # (Auto) (0-100) /uL Sodium (137-145) mmol/L Potassium (3.4-5.1) mmol/L Chloride (98-107) mmol/L Carbon Dioxide (22-32) mmol/L BUN (9-20) mg/dL Creatinine (0.66-1.25) mg/dL Estimated GFR (>60) mL/min BUN/Creatinine Ratio (6-22) Glucose (80-110) mg/dL Lactate (0.7-2.1) mmol/L Calcium (8.4-10.2) mg/dL Magnesium (1.6-2.3) mg/dL Total Bilirubin (0.2-1.3) mg/dL AST (17-59) IU/L ALT (<50) IU/L Alkaline Phosphatase (38-126) U/L Troponin I (0.01-0.034) ng/mL Total Protein (6.3-8.2) g/dL Albumin (3.5-5.0) g/dL Globulin (1.7-4.1) g/dL Albumin/Globulin Ratio (1.0-2.8) Lipase (23-300) U/L Procalcitonin (<0.5) ng/mL Urine Color Yellow Urine Appearance Clear Urine pH 7.5 (4.5-8.0) Ur Specific [place] 1.020 (1.000-1.035) Urine Protein Negative (Negative) Urine Glucose (UA) Negative (Negative) g/dL Urine Ketones Negative (NEGATIVE) Urine Occult Blood Negative (Negative) Urine Nitrate Negative (Negative) Urine Bilirubin Negative (NEGATIVE) Urine Urobilinogen 0.2 (0.2) E.U./dL Ur Leukocyte Esterase Negative (NEGATIVE) Urine RBC None seen (0-5/HPF) Urine WBC 0-1/hpf (0-5/HPF) Ur Squamous Epith Cells 0-1 /hpf (0-5/HPF) Urine Bacteria None seen (None) Ur Culture Indicated? Cult not indicated Chlamy pneumoniae PCR (Not Detect) Adenovirus (PCR) (Not Detect) B.parapertussis DNA PCR (Not Detect) Coronavirus OC43 (PCR) (Not Detect) Coronavirus HKU1 (PCR) (Not Detect) Coronavirus 229E (PCR) (Not Detect) Coronavirus NL63 (PCR) (Not Detect) Human Metapneumovir PCR (Not Detect) Influenza Type A (PCR) (Not Detect) Influenza Type B (PCR) (Not Detect) M. pneumoniae (PCR) (Not Detect) Parainfluenza 1 (PCR) (Not Detect) Parainfluenza 2 (PCR) (Not Detect) Parainfluenza 3 (PCR) (Not Detect) Parainfluenza 4 (PCR) (Not Detect) RSV (PCR) (Not Detect) Entero/Rhino (PCR) (Not Detect) Point of care testing: IMPRESSION: No acute cardiopulmonary disease process. Dictated by: Liliane Alicea MD, PhD on 02/08/2020 at 10:08 ECG Data Attestation: I personally reviewed and interpreted this ECG as follows: Interpretation: Normal sinus rhythm at a rate of 65 Normal intervals, normal axis No acute ischemia MDM Narrative Medical decision making narrative: 59-year-old chronic smoker with a history of drug use recently diagnosed with rhino virus and moderate upper respiratory symptoms getting worse over the last 3 days. Will look for additional signs of secondary bacterial infection. He does complain of back pain with coughing there is paraspinous spasm appreciated on physical exam and no central point tenderness to suggest concern for epidural abscess or diskitis. Chest x-ray does not show consolidated pneumonia. Labs are very reassuring and his rhino virus is again detected without any other complications appreciated at this time. He became somewhat agitated and wanted to leave and in walking although at his car and back oxygen saturations were maintained in the 99% range on room air although he did appear visibly dyspneic. At this point I believe he is safe for home discharge and can continue to use symptomatic management for the treatment of his rhino virus Discharge Plan Departure Patient Disposition: Home Clinical Impression: Rhinovirus infection Instructions: DI for Viral Upper Respiratory Infection -- Adult Activity Restrictions/Additional Instructions: I am so sorry that you are still feeling poorly. Fortunately, I did not find any evidence of overwhelming infection or consolidated pneumonia. You do not need antibiotics and you do not need to be in the hospital. You do need some rest, more ibuprofen or TheraFlu and chicken soup is always a good idea for rhino virus. If you feel like you are getting worse please come back and I am happy to re- evaluate Prescriptions: No Action methadone [Methadose] 40 mg tablet,soluble 135 mg PO DAILY Qty: 0 RF: 0 albuterol sulfate [ProAir HFA] 90 mcg/actuation HFA aerosol inhaler 1 puff Inhalation PRN PRN (Reason: Shortness Of Breath) RF: 0 dextroamphetamine-amphetamine [Adderall] 30 mg tablet 30 mg PO TID RF: 0
[2020-02-08] MEDS: ALBUTEROL/IPRATROPIUM 3 ML AMPUL INH (10:06)
--- NOTE | 2020-02-08 10:07 | DI.RAD.S_ITS ---
PROCEDURE: XR CHEST 1V INDICATIONS: Persistent cough TECHNIQUE: One view of the chest was acquired. COMPARISON: [facility], CR, XR CHEST 2V, 02/05/2020, 22:04. FINDINGS: Surgical changes and devices: None. Lungs and pleura: Lungs are clear. No pleural effusions or pneumothorax. Mediastinum: Mediastinal contours appear normal. Heart size is normal. Bones and chest wall: No suspicious bony lesions. Overlying soft tissues appear unremarkable. IMPRESSION: No acute cardiopulmonary disease process. Dictated by: Liliane Alicea MD, PhD on 02/08/2020 at 10:08 Approved by: Liliane lAicea MD, PhD on 02/08/2020 at 10:09
--- NOTE | 2020-02-08 10:29 | PC.NURSE ---
2 unsuccessful IV attempts on right arm.
[2020-02-08 10:42] LABS: Adenovirus Not Detected (Not Detect); Bordetella pertussis Not Detected (Not Detect); Chlamydophila pneumoniae Not Detected (Not Detect); Coronavirus 229E Not Detected (Not Detect); Coronavirus HKU1 Not Detected (Not Detect); Coronavirus NL 63 Not Detected (Not Detect); Coronavirus OC43 Not Detected (Not Detect); Human Metapneumovirus Not Detected (Not Detect); Human Rhinovirus/Enterovirus Detected (Not Detect); Influenza A Not Detected (Not Detect); Influenza B Not Detected (Not Detect); Mycoplasma pneumoniae Not Detected (Not Detect); Parainfluenza Virus 1 Not Detected (Not Detect); Parainfluenza Virus 2 Not Detected (Not Detect); Parainfluenza Virus 3 Not Detected (Not Detect); Parainfluenza Virus 4 Not Detected (Not Detect); Respiratory Syncytial Virus Not Detected (Not Detect)
[2020-02-08 10:50] VITALS: BP 133/72; PULSE 64; RESP 15; O2SAT 99
--- NOTE | 2020-02-08 13:37 | DI.RAD.S_ITS ---
PROCEDURE: XR CHEST FOR PICC 1V INDICATIONS: post picc COMPARISON: [facility], , XR CHEST 1V, 02/08/2020, 10:33. FINDINGS: PICC was placed by the intravenous therapy team from the right side. Fluoroscopic spot film demonstrates the tip of PICC projecting to the area of mid to lower SVC. IMPRESSION: Tip of PICC projects to the area of mid to lower SVC. Dictated by: Rajat Mann M.D. on 02/08/2020 at 14:10 Approved by: Rajat Mann M.D. on 02/08/2020 at 14:11
[2020-02-08 14:08] LABS: Add Manual Diff / Slide Review NO; Basophils Absolute Auto 100 /uL (0-100); Basophils Percent Auto 1.6 % (0-2); Eosinophils Absolute Auto 500 /uL (0-450); Hematocrit 44.4 % (41-53); Hemoglobin 14.4 g/dL (13.5-17.5); Lymphocytes Absolute Auto 1400 /uL (1100-4500); Lymphocytes Percent Auto 23.6 % (25-40); Mean Corpuscular HGB Conc 32.3 % (30-36); Mean Corpuscular Hemoglobin 26.4 PG (26-34); Mean Corpuscular Volume 81.6 fL (80-100); Monocytes Absolute Auto 700 /uL (0-900); Monocytes Percent Auto 11.8 % (3-14); Neutrophils Absolute Auto 3300 /uL (1500-7000); Platelet Count 198 X10^3/uL (150-400); Red Blood Cell Count 5.45 X10^6/uL (4.5-5.9); White Blood Cell Count 6.1 X10^3/uL (4.5-11.0)
[2020-02-08 14:11] VITALS: BP 130/70; PULSE 70; RESP 20; TEMP 36.6; O2SAT 100
[2020-02-08 14:25] LABS: Lipase 13 U/L (23-300); Magnesium 1.9 mg/dL (1.6-2.3)
[2020-02-08 14:26] LABS: Alanine Aminotransferase 109 IU/L (<50); Albumin 3.7 g/dL (3.5-5.0); Albumin Globulin Ratio 1.1 (1.0-2.8); Alkaline Phosphatase 63 U/L (38-126); Aspartate Aminotransferase 111 IU/L (17-59); BUN Creatinine Ratio 24.2 (6-22); Bilirubin Total 0.4 mg/dL (0.2-1.3); Blood Urea Nitrogen 16 mg/dL (9-20); Calcium 9.2 mg/dL (8.4-10.2); Carbon Dioxide 33 mmol/L (22-32); Chloride 99 mmol/L (98-107); Estimated Glomerular Filt Rate > 60.0 mL/min (>60); Globulin 3.4 g/dL (1.7-4.1); Glucose 98 mg/dL (80-110); HEMOLYSIS < 15 (0-50); Lactate (Lactic Acid) 0.6 mmol/L (0.7-2.1); Potassium 4.1 mmol/L (3.4-5.1); Sodium 136 mmol/L (137-145); Total Protein 7.1 g/dL (6.3-8.2)
[2020-02-08 14:38] LABS: Bacteria Urine None Seen; RBC Urine None Seen (0-5/HPF); Troponin I < 0.012 ng/mL (0.01-0.034)
[2020-02-08 14:40] LABS: Appearance Urine UA CLEAR; Bilirubin Urine UA NEGATIVE (NEGATIVE); Color Urine UA YELLOW; Glucose Urine UA NEGATIVE (Negative); Ketones Urine UA NEGATIVE (NEGATIVE); Leukocyte Esterase Urine UA NEGATIVE (NEGATIVE); Nitrite Urine UA NEGATIVE (Negative); Occult Blood Urine UA NEGATIVE (Negative); Protein Urine UA NEGATIVE (Negative); Urobilinogen Urine UA 0.2 E.U./dL (0.2); pH Urine UA 7.5 (4.5-8.0)
[2020-02-08 14:48] LABS: Procalcitonin < 0.05 ng/mL (<0.5)
[2020-02-08 15:00] LABS: Culture Indicated Urine Cult Not Indicated; Squamous Epithelial Cell Urine 0-1 /HPF (0-5/HPF); WBC Urine 0-1/HPF (0-5/HPF)
--- NOTE | 2020-02-08 15:07 | PC.NURSE ---
1300: Assumed care of pt. Pt resting on bed. h/o IVDU and difficult IV start. Claudia Cavanaugh RN in to start PICC placement for lab work. pt states he has had a cold since friday that is not getting better. +Rhinovirus on PCR panel. Congestion, nasal drainage. Afebrile. PICC placed in MARU and labs sent. Urine sent and vitals WNL. Pt states last dose of tylenol was last night. 1500: Pt OOB and walked out of ED. RN out in lobby to talk to patient. Pt walked down to coffee station. States all i want to do is go to my car because i left my wallet in there is that so hard to ask Pt advised that he is going the wrong direction and has a PICC in place and we cannot allow pt out of ED alone. Pt states you can fuck right off and you cant tell me what to do. RN x 2 outside with pt while he secures his belongings. Pt stated get the fuck away from me and dont fucking follow me like im some imbecile. Pt advised we are maintaining his safety and we have to call the police if he leaves the ED with a PICC in place. pt yelling at RNs, states then call the [id number] police I dont care ill rip this shit right out Pt back in room 6. aware.
[2020-02-08] MEDS: KETOROLAC 60 MG/2 ML VIAL 15 MG IV (15:18)
[2020-02-08 15:48] VITALS: BP 132/70; PULSE 70; RESP 16; O2SAT 100
--- NOTE | 2020-02-08 15:48 | PC.NURSE ---
PICC flushed with heparin and removed per protocol.
== END 2020-02-08 15:49 | disposition home or self-care (01) ==
PROVIDERS: Emergency Provider Emergency Medicine
DX: J06.9 Acute upper respiratory infection, unspecified (principal); B34.8 Other viral infections of unspecified site; Z86.59 Personal history of other mental and behavioral disorders
CPT/HCPCS: 36415; 36569; 71045; 80053; 81001; 83605; 83690; 83735; 84145; 84484; 85025; 87040; 87633; 93005; 93010; 94640; 96374; 99284; J1642; J1885

== ENCOUNTER 2020-04-27 15:52 | Emergency (ER) | payer OTHER, MEDICAID, SELFPAY ==
[2020-04-27 15:57] VITALS: BP 132/74; PULSE 87; RESP 15; TEMP 36.9; O2SAT 95; BMI 32.5
[2020-04-27 16:53] VITALS: BP 134/72; PULSE 77
--- NOTE | 2020-04-27 18:50 | ED_ITS ---
HPI - Wound/Laceration <Janelle Carrillo PA-C - Last Filed: 04/27/20 23:26> General Chief Complaint: Wound/Laceration Stated Complaint: weak,sores on legs, thinks diabetic Time Seen by Provider: 04/27/20 16:06 Source: patient Mode of arrival: Ambulatory Limitations: no limitations History of Present Illness HPI narrative: This is a 59-year-old gentleman, with a history significant for IV drug use currently on methadone, lumbar back pain cervical spondylosis and cellulitis who presents to the emergency department with complaints about some sores on his legs at been there for at least 5 days but 1 of them for a few weeks, and concerned that he could be diabetic and wanting to have his blood sugar checked. He states that he has been having some edema in his lower extremities and they have been swelling up quite a bit on and off, this is something that he has had a chronic problem with for years however he notes that it has happened most frequently that whenever he gets cellulitis. He slipped and scraped his leg when coming off of a deck a few weeks ago injuring his anterior hawk and since that time he has had some additional areas crop up on his legs that are painful and some of them are itchy. He states that the last time he was in the emergency department they could not get any blood from him so they had to do a central line just to get labs, he hopes to not stay very long today as he has friends who just got into town that he wants to meet. Says ?I know that smoking is better my circulation and I have terrible circulation and I am worried that I might have diabetes because my friends that this is what diabetes legs look like? He denies fever, chills, nausea, vomiting, diarrhea, constipation, shortness of breath, cough weight changes or any other symptoms. Onset (ago): week(s) (2) Extremity Location: Right: lower leg Context: accidental and other (Atraumatic) Associated symptoms: pain and other (Itching, swelling, edema) Related Data Home Medications Medication Instructions Recorded Confirmed albuterol sulfate [ProAir HFA] 1 puff INHALATION PRN PRN 05/11/18 02/08/20 dextroamphetamine-amphetamine 30 30 mg PO TID tab 12/17/18 02/08/20 mg tablet methadone 40 mg soluble tablet 135 mg PO DAILY #0 tab 12/17/18 02/08/20 Previous Rx's Medication Instructions Recorded sulfamethoxazole-trimethoprim 1 tab PO BID #14 tab 04/27/20 [Bactrim DS] Allergies Allergy/AdvReac Type Severity Reaction Status Date / Time No Known Drug Allergies Allergy Verified 04/27/20 16:02 Review of Systems <Janelle Carrillo PA-C - Last Filed: 04/27/20 23:26> Review of Systems Narrative: GENERAL: Denies chills, fatigue, malaise, fever, sweats. HEENT: Denies sinus pain, ear pain, sore throat, difficulty swallowing, dizziness. RESPIRATORY: Denies dyspnea, cough, wheezing, hemoptysis, sputum. CARDIOVASCULAR: Denies chest pain, palpitations, orthopnea, edema, GASTROINTESTINAL: Denies nausea, vomiting, abdominal pain, diarrhea, constipation, melena. : Denies dysuria, frequency, incontinence, hematuria, urinary retention. MUSCULOSKELETAL: denies weakness, joint pain, or bony pain SKIN: Denies rash, positive for skin lesions that are tender on his lower extremities especially below the knees NEUROLOGIC: Denies weakness, headache, numbness, change in speech, confusion, seizures, incoordination. PSYCHIATRIC: No concerning psychosocial issues. 12 point review of systems is negative except for those stated above Patient History <Janelle Carrillo PA-C - Last Filed: 04/27/20 23:26> Medical History Chronic shoulder pain (Chronic) IV drug abuse (Chronic) IV drug user (Chronic) Surgical History History of lithotripsy (Chronic) Social History Smoking Status: Current every day smoker alcohol intake: former substance use type: opiates and IV drugs Smoking Status: Current every day smoker alcohol intake frequency: 0-2 drinks per day Substance Use Type: former substance user Exam <Janelle Carrillo PA-C - Last Filed: 04/27/20 23:26> Narrative Exam Narrative: GENERAL: 59 year old patient appears stated age. Well-nourished, well-developed patient, in mild distress. HEAD: Atraumatic. Normocephalic. EYES: Pupils equal round and reactive. Extraocular motions intact. No scleral icterus. No injection or drainage. ENT: Nose without bleeding, purulent drainage. Throat without erythema, tonsillar hypertrophy or exudate. Airway patent. NECK: Trachea midline. Non tender CARDIOVASCULAR: Regular rate and rhythm without murmurs, gallops, or rubs. RESPIRATORY: Clear to auscultation. Breath sounds equal bilaterally. No wheezes, rales, or rhonchi. GASTROINTESTINAL: Abdomen soft, non-tender, nondistended. EXTREMITIES: There is 2+ pitting edema of his bilateral lower extremities without significant swelling or joint tenderness. BACK: Nontender without deformity or crepitance. No flank tenderness. NEURO: AOx3. SKIN: There are multiple areas on his lower extremities that are concerning for cellulitis, sores with poor circulation, some erythema surrounding them some of them with central areas of scabbing the largest 1 appears to be with approximately a 1 cm center an area of erythema extending to about a total of 5 cm in diameter. There are multiple healed scars on his upper and lower extre mities that appear to be from similar lesions previously. No rash or erythema of visible areas Initial Vital Signs Initial Vital Signs: Vital Signs Temperature 98.4 F 04/27/20 15:57 Pulse Rate 87 04/27/20 15:57 Respiratory Rate 15 04/27/20 15:57 Blood Pressure 132/74 04/27/20 15:57 Pulse Oximetry 95 04/27/20 15:57 <Guru Mattson MD - Last Filed: 04/28/20 07:59> Initial Vital Signs Initial Vital Signs: Vital Signs Temperature 98.4 F 04/27/20 15:57 Pulse Rate 87 04/27/20 15:57 Respiratory Rate 15 04/27/20 15:57 Blood Pressure 132/74 04/27/20 15:57 Pulse Oximetry 95 04/27/20 15:57 Course <Janelle Carrillo PA-C - Last Filed: 04/27/20 23:26> Vital Signs Vital signs: Vital Signs - 8 hr 04/27/20 15:57 04/27/20 16:53 Temperature 98.4 F Pulse Rate 87 77 Respiratory Rate 15 Blood Pressure 132/74 Blood Pressure [Right Arm] 134/72 Pulse Oximetry 95 <Guru Mattson MD - Last Filed: 04/28/20 07:59> Vital Signs Vital signs: Vital Signs - 8 hr 04/27/20 15:57 04/27/20 16:53 Temperature 98.4 F Pulse Rate 87 77 Respiratory Rate 15 Blood Pressure 132/74 Blood Pressure [Right Arm] 134/72 Pulse Oximetry 95 [facility] - Wound/Laceration <Janelle Carrillo PA-C - Last Filed: 04/27/20 23:26> Differential Diagnosis Differential diagnosis: Likely other (Cellulitis) Medical Records Attestation: I reviewed the patient's medical records. [facility] Narrative Medical decision making narrative: This is an alert 59 year old with a history of cellulitis, IV drug use, on methadone, who is a long-term and current pack-a-day smoker who presents with approximately 2 weeks of discomfort in his lower extremity that became worse about 3 days ago due to multiple sores with associated redness and tenderness that are painful, and some of them are itchy. Patient declined to have labs drawn as at his last visit blood was not able to be obtained without a central line. He also felt that he needed to go and meet friends. I would have preferred to get labs on him due to his chronic but recently worsening edema, as well has his suspected cellulitis. However ultimately, the decision was made to treat him for cellulitis with p.o. antibiotics, (Bactrim) and he was advised to keep his follow-up appointment with his PCP and see them as soon as possible or return to the emergency department if he has any worsening or changes to his symptoms. His point of care glucose was 83. He was provided with emergency return precautions. Discharge Plan Departure Patient Disposition: Home Clinical Impression: Cellulitis of right lower extremity, Cellulitis of left lower extremity Discharge Date/Time: 04/27/20 19:01 Instructions: DI for Cellulitis -- Adult Activity Restrictions/Additional Instructions: Thank you for letting us to be part of your care in the emergency department today. Based on your vitals and exam, There is no evidence of an emergent or life threatening illness at this time, but follow up with your doctor in 1-2 days is recommended nonetheless to continue to rule out serious underlying causes of your symptoms. Please call the office for an appointment. Please return to the Emergency Department for any worsening or persistent symptoms. Please take medications as directed. We did not do any labs on you today as you have reported that you had to have a central line to get labs last time as your such a hard stick, and you did not have any systemic symptoms concerning for a infection. Because of this it is very important that you closely monitor your symptoms, and if you do develop worsening of your cellulitis, fevers, nausea, vomiting, or any other symptoms of concern to you please seek medical care immediately. I prescribed an antibiotic which should help to clear up your suspected cellulitis, you had this antibiotic before and has been effective for you. Your Bactrim prescription has been sent electronically to your pharmacy in [place]. I recommend he also keep your legs elevated as much as possible, make sure that you are moving around and exercising some, and pay close attention to how your legs are doing and if her cellulitis is worsening. Please follow-up with your PCP as scheduled sooner if possible. Prescriptions: New sulfamethoxazole-trimethoprim [Bactrim DS] 800-160 mg tablet 1 tab PO BID Qty: 14 RF: 0 No Action methadone [Methadose] 40 mg tablet,soluble 135 mg PO DAILY Qty: 0 RF: 0 albuterol sulfate [ProAir HFA] 90 mcg/actuation HFA aerosol inhaler 1 puff Inhalation PRN PRN (Reason: Shortness Of Breath) RF: 0 dextroamphetamine-amphetamine [Adderall] 30 mg tablet 30 mg PO TID RF: 0
== END 2020-04-27 19:01 | disposition home or self-care (01) ==
PROVIDERS: Emergency Provider Student in an Organized Health Care Education/Training Program
DX: L03.116 Cellulitis of left lower limb (principal); L03.115 Cellulitis of right lower limb
CPT/HCPCS: 82962; 99282

== ENCOUNTER 2020-05-14 05:14 | Emergency (ER) | payer OTHER, MEDICAID, SELFPAY ==
[2020-05-14 05:24] VITALS: BP 119/73; PULSE 83; RESP 19; TEMP 36.2; O2SAT 99
--- NOTE | 2020-05-14 05:29 | ED_ITS ---
HPI - Skin/Abscess/Foreign Bdy General Chief complaint: Skin/Abscess/Foreign Body Stated complaint: swollen legs with blisters Time Seen by Provider: 05/14/20 05:20 Source: patient Mode of arrival: Ambulatory History of Present Illness HPI narrative: 59-year-old gentleman with a history of IV drug use currently on methadone maintenance and still smoking methamphetamine as well as 2 packs of cigarettes a day presents with complaints of lower extremity edema sores on his legs that are itching and a cough. He was diagnosed with rhino virus in January of this year and states that was the ?worst cold season of his life? with significant coughing continuing but nonproductive, no dyspnea he does note occasional orthopnea. He has a litany of other complaints including chronic back pain, chronic neck pain, chronic knee pain, new lesions on his lower extremities and ?bumps under these lesions? better increasingly pruritic. He notes that he frequently will fall asleep on the couch sitting up which I am sure is contributing to the lower extremity edema. He has not followed up with a primary care physician in an extended period of time and is not interested in doing so now. He is not interested in any lab work being done. He does not describe any significant weight changes and he notes that he is a chronic insomnia can the only way he is able to get to sleep was with a ?puff of methamphetamine. With the lesions on his lower extremities he was started on Bactrim on April 25. He took 3 pills and then lost his backpack. He found his backpack again and restarted the prescription 2 days ago. He states that it has not improved at all however last night he describes increasing erythema and vesicular lesions developing over his lower extremities and points out that there significantly improved as of this morning. Related Data Home Medications Medication Instructions Recorded Confirmed albuterol sulfate [ProAir HFA] 1 puff INHALATION PRN PRN 05/11/18 02/08/20 dextroamphetamine-amphetamine 30 30 mg PO TID tab 12/17/18 02/08/20 mg tablet methadone 40 mg soluble tablet 135 mg PO DAILY #0 tab 12/17/18 02/08/20 Previous Rx's Medication Instructions Recorded sulfamethoxazole-trimethoprim 1 tab PO BID #14 tab 04/27/20 [Bactrim DS] hydrochlorothiazide 25 mg PO DAILY #10 tab 05/14/20 sulfamethoxazole-trimethoprim 1 tab PO BID #14 tab 05/14/20 Allergies Allergy/AdvReac Type Severity Reaction Status Date / Time No Known Drug Allergies Allergy Verified 04/27/20 16:02 Review of Systems Review of Systems Narrative: Pertinent positive and negative findings as per HPI Remainder of review of systems is otherwise unremarkable for Constitutional: Fevers, chills, weakness ENT: No sore throat, neck pain, ear pain CV: Chest pain, palpitations, dyspnea on exertion Respiratory: wheeze, dyspnea GI: Nausea, vomiting, diarrhea, change in bowel habits, black or bloody stools : Dysuria, hematuria, flank pain MS: Muscle weakness, numbness, joint swelling or warmth Neuro: Syncope, dizziness, tingling Patient History Medical History (Updated 05/14/20 @ 06:04 by Rachel Dailey MD) Chronic shoulder pain (Chronic) Hepatitis C (Acute) History of heroin use (Chronic) IV drug abuse (Chronic) IV drug user (Chronic) Lower extremity edema (Acute) Lumbar post-laminectomy syndrome (Chronic) Methadone dependence (Chronic) Tobacco abuse (Chronic) Surgical History History of lithotripsy (Chronic) Social History Smoking Status: Current every day smoker alcohol intake: former substance use type: opiates and IV drugs Smoking Status: Current every day smoker alcohol intake frequency: 0-2 drinks per day Substance Use Type: heroin Exam Narrative Exam Narrative: General: Older-appearing gentleman with somewhat pressured speech, able to speak in full sentences with rambling history HEENT: Moist mucous membranes, normal sclera with reactive pupils, Neck: No JVD, supple Respiratory: Impressively loud and nonproductive cough however Lungs are clear to auscultation, no wheezing no rales no rhonchi. Full and symmetrical air movement Cardiac: Regular rate and rhythm no murmurs no bruits Abdomen: Soft nontender good bowel tones, no flank pain Skin: Multiple scars from chronic drug use. Hyperemic fingers bilaterally. Multiple lesions all less than 1 cm over his lower extremities with scabs on an erythematous base worse distally as the swelling is a bit worse. No vesicles. No inguinal adenopathy no lymphangitis spread. Slightly more erythema over the right ankle with a confluence of approximately 4 of the describe lesions. Lesions are obviously worse with his continuous scratching due to the parade is Neurologic: Grossly neurologically intact with no obvious asymmetries or abnormalities Extremities: No trauma, 2+ lower extremity edema Psych: Cooperative, little insight into overall disease process but no vergara ucinations and fluent thought process Initial Vital Signs Initial Vital Signs: Vital Signs Temperature 97.1 F L 05/14/20 05:24 Pulse Rate 83 05/14/20 05:24 Respiratory Rate 19 05/14/20 05:24 Blood Pressure 119/73 05/14/20 05:24 Pulse Oximetry 99 05/14/20 05:24 Course Orders Ordered: Discontinued Medications Hydrochlorothiazide (Hydrochlorothiazide) 25 mg PO NOW ONE Stop: 05/14/20 05:46 Last Admin: 05/14/20 05:57 Dose: 25 mg Documented by: Vital Signs Vital signs: Vital Signs - 8 hr 05/14/20 05:24 Temperature 97.1 F L Pulse Rate 83 Respiratory Rate 19 Blood Pressure 119/73 Pulse Oximetry 99 MDM - Skin/Abscess/Foreign Bdy Medical Records Attestation: I reviewed the patient's medical records. MDM Narrative Medical decision making narrative: 59-year-old gentleman who presents complaining of itching in his lower extremities. Lesions are very consistent with methamphetamine use, itching, scratching and superficial infections. He does have increasing lower extremity edema and describes falling asleep regularly with his feet in a dependent position most of the evening. He states that he is able to lay down in a bed and elevate his feet but frequently does not quite get around to that. Despite his significant cough there is no wheezing and no rhonchi. There is no clinical evidence of congestive heart failure with no S3 no jugular venous distension no crackles. Vital signs are reassuring with saturations in the upper 90s on room air. He mentions the need to stop smoking and has no insight into how methamphetamine is affecting his overall health. Will encourage him to complete 10 full days of Bactrim he needs an additional [address] him on 7 days of hydrochlorothiazide. Unwilling to be much more aggressive with diuresis due to lack of follow-up and unwillingness to allow any lab work today At this point, he is safe for home discharge Discharge Plan Departure Patient Disposition: Home Clinical Impression: Pruritus, Edema of both lower extremities, Wound infection, Continuous tobacco abuse, Methamphetamine use, Opioid use disorder, mild, on maintenance therapy Instructions: DI for Cellulitis -- Adult Activity Restrictions/Additional Instructions: Thank you for coming in today I am giving you a prescription for hydrochlorothiazide, a water pill, to help reduce the lower extremity edema. Keeping her legs elevated and not allowing herself to sleep with your feet down later sitting on the couch will help also reduce the lower extremity edema. At this time here clinical exam does not suggest any heart failure as a cause for the lower extremity edema. When you have this much edema it is much easier for small cuts and scratches to become infected. You have multiple small cuts and scratches over your legs and these are becoming infected. Each of these are small wounds at this point without severe cellulitis, but you do need to complete 10 days of Bactrim and try allow these lesions to heal I fully support your consideration to stop smoking, both tobacco and methamphetamine. Continued smoking interrupts the healthy lining inside your nose throat and upper airway and makes it much easier for viruses to attach and make you sick. You do need to follow-up with your primary care physician regarding each of these chronic issues to make sure that you actually are improving. If you feel that you are getting worse, have worsening swelling, fevers, shortness of breath laying down or other concerning symptoms, please return to the emergency department Your prescriptions have both been electronically transmitted to [facility] pharmacy in [place] Prescriptions: New hydrochlorothiazide 25 mg tablet 25 mg PO DAILY Qty: 10 RF: 0 sulfamethoxazole-trimethoprim 800-160 mg tablet 1 tab PO BID Qty: 14 RF: 0 No Action methadone [Methadose] 40 mg tablet,soluble 135 mg PO DAILY Qty: 0 RF: 0 albuterol sulfate [ProAir HFA] 90 mcg/actuation HFA aerosol inhaler 1 puff Inhalation PRN PRN (Reason: Shortness Of Breath) RF: 0 sulfamethoxazole-trimethoprim [Bactrim DS] 800-160 mg tablet 1 tab PO BID Qty: 14 RF: 0 dextroamphetamine-amphetamine [Adderall] 30 mg tablet 30 mg PO TID RF: 0
[2020-05-14] MEDS: hydroCHLOROthiazide 25 MG TABLET PO (05:57)
[2020-05-14 06:11] VITALS: BP 127/64; PULSE 80; RESP 16; O2SAT 98
== END 2020-05-14 06:11 | disposition home or self-care (01) ==
PROVIDERS: Emergency Provider Emergency Medicine
DX: L29.9 Pruritus, unspecified (principal); R60.0 Localized edema; Z72.0 Tobacco use; F15.10 Other stimulant abuse, uncomplicated; F11.10 Opioid abuse, uncomplicated; B19.20 Unspecified viral hepatitis C without hepatic coma
CPT/HCPCS: 99283

== ENCOUNTER 2020-05-29 16:06 | Emergency (ER) | payer OTHER, MEDICAID, SELFPAY ==
[2020-05-29 16:17] VITALS: BP 139/89; PULSE 79; RESP 18; TEMP 36.7; O2SAT 97
== END 2020-05-29 17:07 | disposition left against medical advice (07) ==
PROVIDERS: Emergency Provider Emergency Medicine
CPT/HCPCS: 99281

== ENCOUNTER → 2020-06-20 09:37 | Outpatient (CLI) | payer OTHER, MEDICAID, SELFPAY ==
--- NOTE | 2020-06-20 | DI.US.S_ITS ---
ULTRASOUND OF LEFT BREAST: 06/20/2020 CLINICAL: Nipple pain. Comparison is made to exam dated: 06/20/2020 [facility]. Real-time ultrasound of the left breast was performed. Gary scale images of the real-time examination were reviewed. There is gynecomastia in the left breast that correlates with mammography. No significant abnormalities were seen sonographically in the left breast. IMPRESSION: BENIGN There is symmetric gynecomastia and no sonographic evidence of malignancy. Clinical follow up only is recommended. Findings and recommendations were conveyed to the patient at time of exam. This exam was interpreted at Station ID: [id number]. Electronically Signed By: Steffany boyd/:06/20/2020 11:04:14 letter sent: Normal Exam Ultrasound BI-RADS: 2 Benign
--- NOTE | 2020-06-20 | DI.MG.S_ITS ---
MALE BILATERAL DIGITAL DIAGNOSTIC MAMMOGRAM 3D/2D: 06/20/2020 CLINICAL: Bilateral Nipple pain. No prior exams were available for comparison. There is moderately dense gynecomastia in both breasts. No significant masses, calcifications, or other findings are seen in either breast. Specifically, no finding to explain the patient's bilateral nipple pain. IMPRESSION: INCOMPLETE: NEEDS ADDITIONAL IMAGING EVALUATION There is moderately dense gynecomastia bilaterally. There is no other abnormality seen in either breast to correspond with the pain in the sub-areolar depth, however, ultrasound is recommended. This was performed immediately following this exam. This exam was interpreted at Station ID: [id number]. NOTE: For mammograms, a report in lay terms will be sent to the patient. Approximately 15% of breast malignancies will not be visualized mammographically. In the management of a palpable breast mass, a negative mammogram must not discourage biopsy of a clinically suspicious lesion. Electronically Signed By: Steffany boyd/:06/20/2020 10:20:49 ACR BI-RADS Category 0: Incomplete [id number]
--- NOTE | 2020-06-20 | DI.US.S_ITS ---
ULTRASOUND OF RIGHT BREAST: 06/20/2020 CLINICAL: Nipple pain. Comparison is made to exam dated: 06/20/2020 [facility]. Real-time ultrasound of the right breast was performed. Gary scale images of the real-time examination were reviewed. There is gynecomastia in the right breast that correlates with mammography. No significant abnormalities were seen sonographically in the right breast. IMPRESSION: BENIGN There is symmetric gynecomastia and no sonographic evidence of malignancy. Clinical follow up only is recommended. Findings and recommendations were conveyed to the patient at time of exam. This exam was interpreted at Station ID: [id number]. Electronically Signed By: Steffany boyd/:06/20/2020 11:03:09 letter sent: Normal Exam Ultrasound BI-RADS: 2 Benign
== END ==
PROVIDERS: PCP Nurse Practitioner Family; Referring Provider Nurse Practitioner Family; Visit Provider Nurse Practitioner Family
DX: R92.8 Other abnormal and inconclusive findings on diagnostic imaging of breast (principal); N64.4 Mastodynia; N62 Hypertrophy of breast
CPT/HCPCS: 76642; 77066; G0279

== ENCOUNTER → 2020-07-31 10:48 | Outpatient (CLI) | payer OTHER, MEDICAID, SELFPAY | PROVIDERS: PCP Nurse Practitioner Family; Referring Provider Nurse Practitioner Family; Visit Provider Family Medicine | DX: I87.2 Venous insufficiency (chronic) (peripheral) (principal); L97.811 Non-pressure chronic ulcer of other part of right lower leg limited to breakdown of skin; L03.115 Cellulitis of right lower limb; F11.20 Opioid dependence, uncomplicated; R60.0 Localized edema | CPT/HCPCS: 11042; 87070; 87075; 87077; 87147; 87186; 87205; 93922; 99203; 99213 ==

== ENCOUNTER → 2020-08-02 09:20 | Outpatient (CLI) | payer OTHER, MEDICAID, SELFPAY | PROVIDERS: PCP Nurse Practitioner Family; Referring Provider Nurse Practitioner Family; Visit Provider Family Medicine | DX: I87.2 Venous insufficiency (chronic) (peripheral) (principal); L97.811 Non-pressure chronic ulcer of other part of right lower leg limited to breakdown of skin | CPT/HCPCS: 29580 ==

== ENCOUNTER → 2020-08-09 09:28 | Outpatient (CLI) | payer OTHER, MEDICAID, SELFPAY | PROVIDERS: PCP Nurse Practitioner Family; Referring Provider Nurse Practitioner Family; Visit Provider Family Medicine | DX: I87.2 Venous insufficiency (chronic) (peripheral) (principal); L97.811 Non-pressure chronic ulcer of other part of right lower leg limited to breakdown of skin; L97.821 Non-pressure chronic ulcer of other part of left lower leg limited to breakdown of skin; L03.115 Cellulitis of right lower limb; F11.20 Opioid dependence, uncomplicated; R60.0 Localized edema; L08.9 Local infection of the skin and subcutaneous tissue, unspecified; B95.62 Methicillin resistant Staphylococcus aureus infection as the cause of diseases classified elsewhere | CPT/HCPCS: 11042; 87070; 87075; 87077; 87147; 87186; 87205; 99214 ==

== ENCOUNTER → 2020-08-21 08:57 | Outpatient (CLI) | payer OTHER, MEDICAID, SELFPAY | PROVIDERS: PCP Nurse Practitioner Family; Referring Provider Nurse Practitioner Family; Visit Provider Family Medicine | DX: I87.2 Venous insufficiency (chronic) (peripheral) (principal); L97.811 Non-pressure chronic ulcer of other part of right lower leg limited to breakdown of skin; L97.821 Non-pressure chronic ulcer of other part of left lower leg limited to breakdown of skin; L03.115 Cellulitis of right lower limb; F11.20 Opioid dependence, uncomplicated; R60.0 Localized edema; L08.9 Local infection of the skin and subcutaneous tissue, unspecified; B95.62 Methicillin resistant Staphylococcus aureus infection as the cause of diseases classified elsewhere; Z79.2 Long term (current) use of antibiotics | CPT/HCPCS: 11042; 87070; 87077; 87147; 87186; 87205; 99213 ==

== ENCOUNTER → 2020-08-28 10:48 | Outpatient (CLI) | payer OTHER, MEDICAID, SELFPAY | PROVIDERS: PCP Nurse Practitioner Family; Referring Provider Nurse Practitioner Family; Visit Provider Family Medicine | DX: I87.2 Venous insufficiency (chronic) (peripheral) (principal); L97.811 Non-pressure chronic ulcer of other part of right lower leg limited to breakdown of skin; L97.821 Non-pressure chronic ulcer of other part of left lower leg limited to breakdown of skin; F11.20 Opioid dependence, uncomplicated; R60.0 Localized edema; B95.7 Other staphylococcus as the cause of diseases classified elsewhere; L08.9 Local infection of the skin and subcutaneous tissue, unspecified; Z79.2 Long term (current) use of antibiotics | CPT/HCPCS: 97597; 99214 ==

== ENCOUNTER → 2020-09-04 08:52 | Outpatient (CLI) | payer OTHER, MEDICAID, SELFPAY | PROVIDERS: PCP Nurse Practitioner Family; Referring Provider Nurse Practitioner Family; Visit Provider Family Medicine | DX: I87.2 Venous insufficiency (chronic) (peripheral) (principal); L97.811 Non-pressure chronic ulcer of other part of right lower leg limited to breakdown of skin; L97.821 Non-pressure chronic ulcer of other part of left lower leg limited to breakdown of skin; F11.20 Opioid dependence, uncomplicated; R60.0 Localized edema; Z79.2 Long term (current) use of antibiotics | CPT/HCPCS: 97597; 99213 ==

== ENCOUNTER → 2020-09-11 11:49 | Outpatient (CLI) | payer OTHER, MEDICAID, SELFPAY | PROVIDERS: PCP Nurse Practitioner Family; Referring Provider Nurse Practitioner Family; Visit Provider Family Medicine | DX: S81.801A Unspecified open wound, right lower leg, initial encounter (principal); S81.802A Unspecified open wound, left lower leg, initial encounter | CPT/HCPCS: 29581 ==

== ENCOUNTER → 2020-09-15 12:12 | Outpatient (CLI) | payer OTHER, MEDICAID, SELFPAY | PROVIDERS: PCP Nurse Practitioner Family; Referring Provider Nurse Practitioner Family; Visit Provider Family Medicine | DX: S81.801A Unspecified open wound, right lower leg, initial encounter (principal); S81.802A Unspecified open wound, left lower leg, initial encounter | CPT/HCPCS: 29581 ==

== ENCOUNTER → 2020-09-21 13:55 | Outpatient (CLI) | payer OTHER, MEDICAID, SELFPAY | PROVIDERS: PCP Nurse Practitioner Family; Referring Provider Nurse Practitioner Family; Visit Provider Family Medicine | DX: S81.801A Unspecified open wound, right lower leg, initial encounter (principal); S81.802A Unspecified open wound, left lower leg, initial encounter | CPT/HCPCS: 29580 ==

== ENCOUNTER 2021-01-17 10:23 | Emergency (ER) | payer OTHER, MEDICAID, SELFPAY ==
[2021-01-17 10:25] VITALS: BP 143/76; PULSE 86; RESP 18; TEMP 36.3; O2SAT 98; BMI 32.0
--- NOTE | 2021-01-17 10:47 | ED.UPPEXIN ---
HPI - Extremity Injury (Upper) <Janelle Carrillo PA-C - Last Filed: 01/17/21 15:28> General Chief Complaint: Extremity Injury, Upper Stated Complaint: left elbow injury 01/01 Time Seen by Provider: 01/17/21 10:34 Source: patient Mode of arrival: Ambulatory Limitations: no limitations History of Present Illness HPI narrative: This is a 60-year-old history of methadone dependence, who presents with complaints of left elbow swelling since he fell about 2 weeks ago. He said that he was walking down a wheelchair ramp and he was carrying groceries when his feet slipped out from under him and he landed with his elbows down below his back to catch his fall his left elbow since that time has been swelling up gradually he says it is not particularly painful but if he is in bed and he is repositioning he puts his elbow down it hurts he has been able to use it normally but he is concerned about the swelling and he feels like there is ?a little lump in there?. He denies fevers, chills, any other injury, head injury, neck pain or any other symptoms this is an isolated complaint. complaint: injury to: left and elbow Onset (ago): week(s) (2) Other Extremity Injury: Left: elbow Other injuries: none Handedness: right Place: outdoors Severity: mild Severity scale (1-10): 1 Relieving factors: medication (Has been taking ibuprofen some but swelling has increased) Exacerbating factors: movement of extremity and other (Propping himself up on his elbow of) Context: fall and direct blow Associated symptoms: denies other symptoms Treatments prior to arrival: NSAIDS (Did try some ibuprofen for a few days but had not consistently) Related Data Home Medications Medication Instructions Recorded Confirmed albuterol sulfate [ProAir HFA] 1 puff INHALATION PRN PRN 05/11/18 02/08/20 dextroamphetamine-amphetamine 30 30 mg PO TID tab 12/17/18 02/08/20 mg tablet methadone 40 mg soluble tablet 135 mg PO DAILY #0 tab 12/17/18 02/08/20 Previous Rx's Medication Instructions Recorded sulfamethoxazole-trimethoprim 1 tab PO BID #14 tab 04/27/20 [Bactrim DS] hydrochlorothiazide 25 mg PO DAILY #10 tab 06/14/20 sulfamethoxazole-trimethoprim 1 tab PO BID #14 tab 05/14/20 ibuprofen 600 mg PO Q6H PRN 5 Days #30 tab 01/17/21 Allergies Allergy/AdvReac Type Severity Reaction Status Date / Time No Known Drug Allergies Allergy Verified 04/27/20 16:02 Review of Systems <Janelle Carrillo PA-C - Last Filed: 01/17/21 15:28> Review of Systems Narrative: GENERAL: Denies chills, fatigue, malaise, fever, sweats. HEENT: Denies sinus pain, ear pain, sore throat, difficulty swallowing, dizziness. RESPIRATORY: Denies dyspnea, cough, wheezing, hemoptysis, sputum. CARDIOVASCULAR: Denies chest pain, palpitations, orthopnea, edema, GASTROINTESTINAL: Denies nausea, vomiting, abdominal pain, diarrhea, constipation, melena. : Denies dysuria, frequency, incontinence, hematuria, urinary retention. MUSCULOSKELETAL: denies weakness, endorses elbow pain and the back of his L elbow but no pain with movement of the joint, no other joint pain, or bony pain SKIN: Denies rash, skin lesions, or other NEUROLOGIC: Denies weakness, headache, numbness, change in speech, confusion, seizures, incoordination. PSYCHIATRIC: No concerning psychosocial issues. 12 point review of systems is negative except for those stated above ROS Unobtainable: All systems reviewed & are unremarkable except as noted in HPI and below Patient History <Janelle Carrillo PA-C - Last Filed: 01/17/21 15:28> Medical History Chronic shoulder pain Hepatitis C History of heroin use IV drug abuse IV drug user Lower extremity edema Lumbar post-laminectomy syndrome Methadone dependence Tobacco abuse Surgical History History of lithotripsy Social History Smoking Status: Current every day smoker alcohol intake: former substance use type: opiates and IV drugs Smoking Status: Current every day smoker alcohol intake frequency: 0-2 drinks per day Substance Use Type: heroin Exam <Janelle Carrillo PA-C - Last Filed: 01/17/21 15:28> Narrative Exam Narrative: GENERAL: 60 year old patient appears stated age. Somewhat pale and chronically ill appearing 60-year-old male with poor skin, he is Well-nourished, well-developed patient, in no apparent distress. HEAD: Atraumatic. Normocephalic. EYES: Pupils equal round and reactive. Extraocular motions intact. No scleral icterus. No injection or drainage. ENT: Nose without bleeding, purulent drainage. Throat without erythema, tonsillar hypertrophy or exudate. Airway patent. NECK: Trachea midline. Non tender CARDIOVASCULAR: Regular rate and rhythm without murmurs, gallops, or rubs. RESPIRATORY: Clear to auscultation. Breath sounds equal bilaterally. No wheezes, rales, or rhonchi. GASTROINTESTINAL: Abdomen soft, non-tender, nondistended. EXTREMITIES: There is soft nontender swelling consistent with fluid-filled sac or bursa over the olecranon process approximately 3 cm x 3 cm in diameter, no erythema/rash or heat present. Not affected by range of motion or palpation. Exam is consistent with olecranon bursitis. No other edema or joint tenderness. Strength is intact and equal upper extremities bilaterally 5/5, pulses are intact distally upper extremities, sensation is intact, range of motion is intact. BACK: Nontender without deformity or crepitance. No flank tenderness. NEURO: AOx3. SKIN: No rash or erythema of visible areas some mild excoriation versus psoriasis areas on his bilateral ankles Initial Vital Signs Initial Vital Signs: Vital Signs Temperature 97.4 F L 01/17/21 10:25 Pulse Rate 86 01/17/21 10:25 Respiratory Rate 18 01/17/21 10:25 Blood Pressure 143/76 H 01/17/21 10:25 Pulse Oximetry 98 01/17/21 10:25 <Radha Mandel DO - Last Filed: 01/20/21 19:10> Initial Vital Signs Initial Vital Signs: Vital Signs Temperature 97.4 F L 01/17/21 10:25 Pulse Rate 86 01/17/21 10:25 Respiratory Rate 18 01/17/21 10:25 Blood Pressure 143/76 H 01/17/21 10:25 Pulse Oximetry 98 01/17/21 10:25 Scores <Janelle Carrillo PA-C - Last Filed: 01/17/21 15:28> GCS Ruffin coma scale eye opening: Spontaneous Ruffin coma scale verbal response: Orientated Ruffin coma scale motor response: Obey commands Tabitha coma scale total score: 15 Course <Janelle Carrillo PA-C - Last Filed: 01/17/21 15:28> Orders Ordered: ED Orders 01/17/21 10:51 XR elbow LT min 3V Stat Vital Signs Vital signs: Vital Signs - 8 hr 01/17/21 10:25 01/17/21 12:19 Temperature 97.4 F L 97.7 F Pulse Rate 86 78 Respiratory Rate 18 18 Blood Pressure 143/76 H 117/80 Pulse Oximetry 98 97 <Radha Mandel DO - Last Filed: 01/20/21 19:10> Orders Ordered: ED Orders 01/17/21 10:51 XR elbow LT min 3V Stat Vital Signs Vital signs: Vital Signs - 8 hr 01/17/21 10:25 01/17/21 12:19 Temperature 97.4 F L 97.7 F Pulse Rate 86 78 Respiratory Rate 18 18 Blood Pressure 143/76 H 117/80 Pulse Oximetry 98 97 MDM - Extremity Injury (Upper) <Janelle Carrillo PA-C - Last Filed: 01/17/21 15:28> Differential Diagnosis Differential diagnosis: Likely fracture of humerus and other (Traumatic bursitis, bursitis, elbow dislocation) Medical Records Attestation: I reviewed the patient's medical records. 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 COMPARISON: None. FINDINGS: Bones: No fractures or dislocations. No suspicious bony lesions. Trace olecranon enthesophyte. Soft tissues: No elbow joint effusion. No suspicious soft tissue calcifications. IMPRESSION: 1. Intact left elbow. Dictated by: Steffany Zazueta M.D. on 01/17/2021 at 10:44 Approved by: Steffany Zazueta M.D. on 01/17/2021 at 10:45 [facility] Narrative Medical decision making narrative: This is a somewhat chronically ill-appearing 60-year-old gentleman who is on chronic methadone with a history of drug use who presents complaining of swelling of his left elbow after he fell 2 weeks ago. Reports no head injury or neck pain since that fall, reports gradually increasing swelling of his left elbow without significant pain or any reduced range of motion. Exam is consistent with a traumatic bursitis. I have low suspicion for infectious process or inflammatory process based on exam and history. He is advised to try compression and reducing excess movement, provided with an Jg wrap and instructions, also encouraged to take ibuprofen consistently for a few days to improve symptoms. Given the option to follow-up with orthopedics if he feels the symptoms are worsening or if he is concerned that he needs drainage. At this time his symptoms are mild and I anticipate he will likely improve on his own with time if he follows general care instructions. Return precautions provided, follow-up plan discussed, all questions answered. Discharge Plan Departure Patient Disposition: Home Clinical Impression: Bursitis due to trauma, Olecranon bursitis of left elbow, Bone spur Instructions: DI for Elbow Bursitis Activity Restrictions/Additional Instructions: Thank you for letting us be part of your care in the emergency department today. Based on your exam and x-rays and the fact that you fell and landed on her elbow recently I do think that you have was called of bursitis of your olecranon which is the bone at the end of your elbow. There is information attached that you can refer to to read more about bursitis. This can happen due to trauma which is in your case what happened. You also appear to have a very small bone spur at the end of your elbow, this may be the small lump that you are feeling and may or may not be related to the trauma you sustained recently. This can take some time to resolve the recommended treatment is ibuprofen if you have no problem with taking this then I would recommend taking ibuprofen for the next 5-10 days no more than what is allowed on over the counter bottle or about 3200 mg per day. The other recommendation is that you protect your joint and minimize overuse providing you with an Jg wrap for this purpose today and I recommend that you keep it wrapped for some support and a little bit of pressure and to remind you not to bend it as much. Am also including provider information for orthopedics if you feel that your symptoms are worsening or you would like to try to have this re-evaluated by specialist that is an option. Otherwise I recommend you follow-up with primary care provider as needed. If it does become red or painful or the swelling increases significantly or if you develop fevers or chills or any other symptoms of concern do not hesitate to be re-evaluated. Prescriptions: New ibuprofen 600 mg tablet 600 mg PO Q6H PRN (Reason: olecranon bursitis) 5 Days Qty: 30 RF: 0 No Action methadone [Methadose] 40 mg tablet,soluble 135 mg PO DAILY Qty: 0 RF: 0 albuterol sulfate [ProAir HFA] 90 mcg/actuation HFA aerosol inhaler 1 puff Inhalation PRN PRN (Reason: Shortness Of Breath) RF: 0 sulfamethoxazole-trimethoprim [Bactrim DS] 800-160 mg tablet 1 tab PO BID Qty: 14 RF: 0 hydrochlorothiazide 25 mg tablet 25 mg PO DAILY Qty: 10 RF: 0 sulfamethoxazole-trimethoprim 800-160 mg tablet 1 tab PO BID Qty: 14 RF: 0 dextroamphetamine-amphetamine [Adderall] 30 mg tablet 30 mg PO TID RF: 0 Referrals: Remedios Arreguin ARNP [Primary Care Provider] - Romeo Christiansen MD [Physician] - (Traumatic olecranon bursitis) <Radha Mandel DO - Last Filed: 01/20/21 19:10> Cosign ED Attending Erenature Attestation: I was immediately available in the department for consultation. Documentation has been reviewed.
--- NOTE | 2021-01-17 10:51 | DI.RAD.S_ITS ---
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 COMPARISON: None. FINDINGS: Bones: No fractures or dislocations. No suspicious bony lesions. Trace olecranon enthesophyte. Soft tissues: No elbow joint effusion. No suspicious soft tissue calcifications. IMPRESSION: 1. Intact left elbow. Dictated by: Steffany Zazueta M.D. on 01/17/2021 at 10:44 Approved by: Steffany Zazueta M.D. on 01/17/2021 at 10:45
--- NOTE | 2021-01-17 11:22 | PC.NURSE ---
Pt endorses falling on his elbow on 01/01/21. There is an area of swelling on his Left elbow which is soft and not painful, unless patient is applying direct pressure. He stated that the swelling has increased. He last used ibuprofen 1 week ago.
[2021-01-17 12:19] VITALS: BP 117/80; PULSE 78; RESP 18; TEMP 36.5; O2SAT 97
--- NOTE | 2021-01-17 12:21 | PC.NURSE ---
Applied bradly wrap to patient's Left elbow and instructed patient how to apply it at home.
== END 2021-01-17 12:21 | disposition home or self-care (01) ==
PROVIDERS: Emergency Provider Student in an Organized Health Care Education/Training Program; PCP Nurse Practitioner Family
DX: M70.22 Olecranon bursitis, left elbow (principal); M77.9 Enthesopathy, unspecified; W01.0XXA Fall on same level from slipping, tripping and stumbling without subsequent striking against object, initial encounter
CPT/HCPCS: 73080; 99283

== ENCOUNTER 2021-02-02 12:05 | Emergency (ER) | payer OTHER, MEDICAID, SELFPAY ==
[2021-02-02] VITALS (17 sets, daily range): BP systolic 134–143; BP diastolic 66–85; PULSE 66–86; RESP 12–24; TEMP 36.5; O2SAT 97–100
--- NOTE | 2021-02-02 12:10 | DI.CT.S_ITS ---
PROCEDURE: CT STROKE INDICATIONS: code stroke TECHNIQUE: Noncontrast 4.5 mm thick angled axial sections acquired from the foramen magnum to the vertex, with coronal reformats. For radiation dose reduction, the following was used: automated exposure control, adjustment of mA and/or kV according to patient size. COMPARISON: None. FINDINGS: Image quality: Excellent. CSF spaces: Basal cisterns are patent. No extra-axial fluid collections. Ventricles are normal in size and shape. Brain: No midline shift. No intracranial masses or hemorrhage. Gary-white matter interface is normal. Skull and face: Calvarium and visualized facial bones are intact, without suspicious lesions. Sinuses: Visualized sinuses and mastoids are clear. IMPRESSION: Normal for age, source of current stroke symptoms symptoms is not seen. Findings called to the emergency room physician time of this dictation, and discussed with the ordering healthcare provider, at 12:29 p.m. This study fulfills neurological imaging criteria for inclusion or exclusion of acute stroke therapies based on available published neurological imaging guidelines. Dictated by: J Luis Young M.D. on 02/02/2021 at 12:32 Approved by: J Luis Young M.D. on 02/02/2021 at 12:34
--- NOTE | 2021-02-02 12:11 | DI.CT.S_ITS ---
PROCEDURE: CT ANGIO HEAD AND NECK INDICATIONS: code stroke TECHNIQUE: After the administration of intravenous contrast, 1 mm thick sections acquired from the aortic arch through the [place] of [place]. Post-contrast 4.5 mm thick sections then re-acquired from the foramen magnum to the vertex. 3-dimensional [id number] (MIP) and/or volume rendering reformats were acquired of the central intracranial vasculature and neck separately. COMPARISON: None. FINDINGS: Image quality: Excellent. BRAIN: CSF spaces: Ventricles are normal in size and shape. Basal cisterns are patent. No extra-axial fluid collections. Brain: No midline shift. No intracranial bleeds or masses. Gary-white matter interface appears intact. Skull and face: Calvarium and facial bones appear intact, without suspicious lesions. Orbits appear normal. Sinuses: Sinuses and mastoids are clear. HEAD CT ANGIOGRAPHY: Anterior circulation: Intracranial internal carotid arteries are normal in size and flow. The flow within the paired anterior cerebral arteries is normal and symmetric. The flow within the middle cerebral arteries is normal and symmetric. The anterior communicating artery is seen. No aneurysms are seen. Posterior circulation: Visualized portions of the vertebral arteries demonstrate normal caliber, and join to form a normal appearing basilar artery. Flow within the posterior cerebral arteries is normal and symmetric. No aneurysms are seen. NECK CT ANGIOGRAPHY: Carotid system: The great vessels demonstrate a conventional anatomy as they arise from the aortic arch. The origins of the common carotid arteries appear patent. The common carotid arteries demonstrate normal caliber and courses. The bifurcation regions are both widely patent inferiorly but there is extensive atherosclerotic calcific plaquing involving the bifurcation and proximal internal carotid arteries bilaterally with at least a 60% stenosis at the proximal internal carotid arteries near symmetric bilaterally.. The internal carotid arteries demonstrate normal calibers and courses. Posterior circulation: The origins of the vertebral arteries both appear widely patent. The more superior extracranial portions of both vertebral arteries also demonstrate normal courses and calibers. They join to form a normal appearing basilar artery. Soft tissues: Visualized neck soft tissues demonstrate no suspicious abnormalities. Bones: No suspicious bony lesions. Visualized cervical spine appears normally aligned. IMPRESSION: A stroke or hemorrhage cannot be seen and an aneurysm or embolic event is not identified. There is, however, at least 60% stenosis within the proximal internal carotid arteries bilaterally due to chronic appearing densely calcific atherosclerotic plaquing at the common carotid bifurcation and extending into the proximal internal carotid arteries. Any quantitative measurements of stenosis were performed using NASCET criteria. Dictated by: J Luis Young M.D. on 02/02/2021 at 13:03 Approved by: J Luis Young M.D. on 02/02/2021 at 13:41
--- NOTE | 2021-02-02 12:37 | PC.NURSE ---
Moving right / Left leg normally w/o difficulty. Right arm moving normally w/o numbness. Left arm weakness noted w/ weakness in grasp and extension of fingers.
--- NOTE | 2021-02-02 12:44 | ED.NEUROSD ---
HPI - Neuro Symptoms/Deficit General Chief Complaint: Neuro Symptoms/Deficit Stated Complaint: CANNOT MOVE LEFT SIDE OF BODY Time Seen by Provider: 02/02/21 12:10 Source: patient Mode of arrival: Ambulatory Limitations: no limitations History of Present Illness HPI Narrative: 60-year-old male arrived in the emergency department approximately 1 hour after what he states is the onset of tingling to his left hand. Code stroke was called upon initial triage. He is immediately taken to head CT. Upon my evaluation patient states that he took a nap this morning and his left arm was leaning against an object. However the symptoms that started about an hour ago started at least 30 minutes after he woke up from his nap. He initially thought that maybe he was just lying on his arm wrong but when things were not improving he came to the emergency department for evaluation. He denies any other associated symptoms. He is a IV drug abuser. Is also on methadone. Did not take his methadone today. Did admit to using heroin last evening. On Anticoagulants: No Related Data Home Medications Medication Instructions Recorded Confirmed albuterol sulfate [ProAir HFA] 1 puff INHALATION PRN PRN 05/11/18 02/08/20 dextroamphetamine-amphetamine 30 30 mg PO TID tab 12/17/18 02/08/20 mg tablet methadone 40 mg soluble tablet 135 mg PO DAILY #0 tab 12/17/18 02/08/20 Previous Rx's Medication Instructions Recorded sulfamethoxazole-trimethoprim 1 tab PO BID #14 tab 04/27/20 [Bactrim DS] hydrochlorothiazide 25 mg PO DAILY #10 tab 05/14/20 sulfamethoxazole-trimethoprim 1 tab PO BID #14 tab 05/14/20 furosemide [Lasix] 40 mg PO DAILY 6 Days #6 tab 02/02/21 prednisone 40 mg PO DAILY 4 Days #8 tab 02/02/21 Allergies Allergy/AdvReac Type Severity Reaction Status Date / Time No Known Drug Allergies Allergy Verified 02/02/21 12:13 Review of Systems Constitutional Constitutional: Denies fever(s) and Denies headache(s) Eyes Eyes: Denies blurry vision and Denies change in vision ENT Ears, Nose, Mouth, and Throat: Denies abnormal hearing, Denies vertigo, Denies dizziness, Denies headache(s) and Denies sore throat Cardiovascular Cardiovascular: Denies chest pain and Denies dyspnea Respiratory Respiratory: Denies cough and Denies dyspnea Gastrointestinal Gastrointestinal: Denies abdominal pain, Denies nausea and Denies vomiting Genitourinary Genitourinary: Denies dysuria Genitourinary: Denies dysuria Musculoskeletal Musculoskeletal: Denies back pain Comments: Left arm tingling Integumentary/Breasts Comments: Right leg swelling Neurologic Neurologic: Denies abnormal hearing, Denies confusion, Denies vertigo, Denies dizziness and Denies headache(s) Comments: Tingling left upper extremity Psychiatric Psychiatric: Denies anxiety and Denies confusion Hematologic/Lymphatic Hematologic/Lymphatic: Denies easy bleeding and Denies easy bruising On Anticoagulants: No Allergic/Immunologic Allergic/Immunologic: Denies urticaria Patient History Medical History Chronic shoulder pain Hepatitis C History of heroin use IV drug abuse IV drug user Lower extremity edema Lumbar post-laminectomy syndrome Methadone dependence Tobacco abuse Surgical History History of lithotripsy Social History Smoking Status: Current every day smoker alcohol intake: former substance use type: opiates and IV drugs Smoking Status: Current every day smoker alcohol intake frequency: 0-2 drinks per day Substance Use Type: heroin Exam Initial Vital Signs Initial Vital Signs: Vital Signs Temperature 97.7 F 02/02/21 12:08 Const General: comfortable, well developed and disheveled Limitations: mental status not altered HENSD Head: normal to inspection and normocephalic Resp Effort & Inspection: normal respiratory effort Auscultation: clear to auscultation bilaterally Cardio Rate: regular rate Rhythm: regular rhythm Skin Other: Multiple lesions in various stages of healing throughout his body. Does have an area of induration in his right arm without surrounding erythema. Does have a 1 cm ulceration to his right forearm where he states he has had a abscess in the past that has since drained. He thinks that it is improving. Neuro General: patient alert, patient awake and patient oriented x3 Cranial Nerves: CN's II-XI intact bilaterally Cognition: normal cognition Speech: speech normal Sensory Exam: no sensory deficits noted Coordination: [id number] test normal Other: He had no objective findings with regard to sensation to bilateral upper extremities in all nerve distributions. Patient able to at extend his wrist to level but was unable to extend past this. Same with his left fingers. His right hand is unremarkable. He is able to flex and extend at the left elbow. Able to flex at his wrist on the left without issues. Extrem General: capillary refill normal and edema Psych Appearance: disheveled Scores GCS Harmony coma scale eye opening: Spontaneous Tabitha coma scale verbal response: Orientated Harmony coma scale motor response: Obey commands Tabitha coma scale total score: 15 NIH Stroke Scale Level of Conciousness: Alert, keenly responsive Ask month/age: Answers both questions correctly. Open/close eyes, close hand: Performs both tasks correctly Best gaze horizontal: Normal Visual nuñez: No visual loss Facial palsy: Normal symetrical movement Left arm drift: No drift for full 10 sec Right arm drift: No drift for full 10 sec Left leg drift: No drift for full 5 sec Right leg drift: No drift for full 5 sec Limb ataxia: Absent Sensory on face/arms/legs: Normal, no sensory loss Best language: No aphasia, normal Dysarthria: Normal Extinction or inattention: No abnormality Total NIH Stroke scale score: 0 Course Orders Ordered: ED Orders 02/02/21 12:10 CT Stroke Stat 02/02/21 12:11 CT angio head and neck Stat 02/02/21 12:12 EKG-12 Lead Stat 02/02/21 12:40 Complete Blood Count AUTO DIFF Stat Comprehensive Metabolic Panel Stat Ethanol (ETOH) Stat Lipase Stat Partial Thromboplastin Time Stat Prothrombin Time INR Stat Troponin & CK Cardiac Panel Stat 02/02/21 12:55 COVID19 Stat 02/02/21 14:00 Urinalysis and Microscopic Stat Urine Drug Screen, Rapid Stat Discontinued Medications Furosemide (Furosemide 100 Mg/10 Ml Vial) 60 mg IV NOW ONE Stop: 02/02/21 15:01 Last Admin: 02/02/21 15:11 Dose: Not Given Documented by: DOROTHY Furosemide (Furosemide 40 Mg Tablet) 60 mg PO NOW ONE Stop: 02/02/21 15:16 Last Admin: 02/02/21 15:16 Dose: 60 mg Documented by: DOROTHY Prednisone (Prednisone 20 Mg Tablet) 40 mg PO NOW ONE Stop: 02/02/21 15:01 Last Admin: 02/02/21 15:08 Dose: 40 mg Documented by: DOROTHY Vital Signs Vital signs: Vital Signs - 8 hr 02/02/21 12:08 02/02/21 12:28 02/02/21 12:29 Temperature 97.7 F Pulse Rate 85 84 Respiratory Rate Blood Pressure 140/85 Pulse Oximetry 98 98 02/02/21 12:30 02/02/21 12:45 02/02/21 13:00 Temperature Pulse Rate 84 72 81 Respiratory Rate 12 Blood Pressure 140/83 140/66 136/71 Pulse Oximetry 98 99 98 02/02/21 13:15 02/02/21 13:30 02/02/21 13:45 Temperature Pulse Rate 73 75 78 Respiratory Rate 13 13 Blood Pressure 134/69 139/73 Pulse Oximetry 97 98 100 02/02/21 13:46 02/02/21 14:00 02/02/21 14:15 Temperature Pulse Rate 83 67 66 Respiratory Rate 17 16 12 Blood Pressure 143/78 H Pulse Oximetry 98 99 02/02/21 14:30 02/02/21 14:45 02/02/21 15:00 Temperature Pulse Rate 72 86 78 Respiratory Rate 13 24 15 Blood Pressure Pulse Oximetry 98 98 02/02/21 15:10 02/02/21 15:15 Temperature Pulse Rate 76 67 Respiratory Rate 22 24 Blood Pressure 140/71 134/71 Pulse Oximetry MDM - Neuro Symptoms/Deficit Lab Data Attestation: I reviewed the patient's lab results. Result diagrams: 02/02/21 12:40 02/02/21 12:40 Labs: Lab Results 02/02/21 02/02/21 02/02/21 Range/Units 12:40 12:40 12:40 WBC 7.3 (4.5-11.0) X10^3/uL RBC 5.17 (4.5-5.9) X10^6/uL Hgb 13.2 L (13.5-17.5) g/dL Hct 41.0 (41-53) % MCV 79.3 L (80-100) fL MCH 25.5 L (26-34) PG MCHC 32.2 (30-36) % RDW 16.2 H (11.6-14.8) % Plt Count 248 (150-400) X10^3/uL Neut % (Auto) 64.0 (50-75) % Lymph % (Auto) 20.6 L (25-40) % [place] % (Auto) 8.9 (3-14) % Eos % (Auto) 5.3 H (2-4) % Baso % (Auto) 1.2 (0-2) % Neut # (Auto) 4700 (2544-0212) /uL Lymph # (Auto) 1500 (6704-2824) /uL [place] # (Auto) 600 (0-900) /uL Eos # (Auto) 400 (0-450) /uL Baso # (Auto) 100 (0-100) /uL PT 11.7 (10.1-12.7) SECONDS INR 1.0 (0.9-1.3) APTT 34 (26.4-36.2) SECONDS Sodium 135 L (137-145) mmol/L Potassium 4.1 (3.4-5.1) mmol/L Chloride 100 (98-107) mmol/L Carbon Dioxide 31 (22-32) mmol/L BUN 21 H (9-20) mg/dL Creatinine 0.68 (0.66-1.25) mg/dL Estimated GFR > 60.0 (>60) mL/min BUN/Creatinine Ratio 30.9 H (6-22) Glucose 109 (80-110) mg/dL Calcium 9.2 (8.4-10.2) mg/dL Total Bilirubin 0.2 (0.2-1.3) mg/dL AST 55 (17-59) IU/L ALT 44 (<50) IU/L Alkaline Phosphatase 65 (38-126) U/L Total Creatine Kinase 132 (55-170) U/L CK-MB (CK-2) 3.31 H (<2.37) ng/mL CK-MB (CK-2) Rel Index 2.5 (1.5-5.0) % Troponin I < 0.012 (0.01-0.034) ng/mL Total Protein 7.1 (6.3-8.2) g/dL Albumin 3.6 (3.5-5.0) g/dL Globulin 3.5 (1.7-4.1) g/dL Albumin/Globulin Ratio 1.0 (1.0-2.8) Lipase 26 (23-300) U/L Urine Color Urine Appearance Urine pH (4.5-8.0) Ur Specific [place] (1.000-1.035) Urine Protein (Negative) Urine Glucose (UA) (Negative) g/dL Urine Ketones (NEGATIVE) Urine Occult Blood (Negative) Urine Nitrate (Negative) Urine Bilirubin (NEGATIVE) Urine Urobilinogen (0.2) E.U./dL Ur Leukocyte Esterase (NEGATIVE) Urine RBC (0-5/HPF) Urine WBC (0-5/HPF) Amorphous Sediment Urine Bacteria (None) Ur Culture Indicated? U Opiates 300ng/mL cut (Negative) Ur Oxycodone Screen (Negative) Urine Methadone Screen (Negative) Ur Barbiturates Screen (Negative) U Tricyclic Antidepress (Negative) Ur Phencyclidine Scrn (Negative) Ur Amphetamines Screen (Negative) U Methamphetamines Scrn (Negative) Ur MDMA Scrn (Ecstasy) (Negative) U Benzodiazepines Scrn (Negative) Urine Cocaine Screen (Negative) U Marijuana (THC) Screen (Negative) Ethyl Alcohol < 10 ( - 10) mg/dL SARS-CoV-2 (PCR) (Negative) 02/02/21 02/02/21 02/02/21 Range/Units 12:55 14:00 14:00 WBC (4.5-11.0) X10^3/uL RBC (4.5-5.9) X10^6/uL Hgb (13.5-17.5) g/dL Hct (41-53) % MCV (80-100) fL MCH (26-34) PG MCHC (30-36) % RDW (11.6-14.8) % Plt Count (150-400) X10^3/uL Neut % (Auto) (50-75) % Lymph % (Auto) (25-40) % [place] % (Auto) (3-14) % Eos % (Auto) (2-4) % Baso % (Auto) (0-2) % Neut # (Auto) (4192-8883) /uL Lymph # (Auto) (0554-8740) /uL [place] # (Auto) (0-900) /uL Eos # (Auto) (0-450) /uL Baso # (Auto) (0-100) /uL PT (10.1-12.7) SECONDS INR (0.9-1.3) APTT (26.4-36.2) SECONDS Sodium (137-145) mmol/L Potassium (3.4-5.1) mmol/L Chloride (98-107) mmol/L Carbon Dioxide (22-32) mmol/L BUN (9-20) mg/dL Creatinine (0.66-1.25) mg/dL Estimated GFR (>60) mL/min BUN/Creatinine Ratio (6-22) Glucose (80-110) mg/dL Calcium (8.4-10.2) mg/dL Total Bilirubin (0.2-1.3) mg/dL AST (17-59) IU/L ALT (<50) IU/L Alkaline Phosphatase (38-126) U/L Total Creatine Kinase (55-170) U/L CK-MB (CK-2) (<2.37) ng/mL CK-MB (CK-2) Rel Index (1.5-5.0) % Troponin I (0.01-0.034) ng/mL Total Protein (6.3-8.2) g/dL Albumin (3.5-5.0) g/dL Globulin (1.7-4.1) g/dL Albumin/Globulin Ratio (1.0-2.8) Lipase (23-300) U/L Urine Color Yellow Urine Appearance Clear Urine pH 7.5 (4.5-8.0) Ur Specific [place] 1.010 (1.000-1.035) Urine Protein Negative (Negative) Urine Glucose (UA) Negative (Negative) g/dL Urine Ketones Negative (NEGATIVE) Urine Occult Blood Negative (Negative) Urine Nitrate Negative (Negative) Urine Bilirubin Negative (NEGATIVE) Urine Urobilinogen 0.2 (0.2) E.U./dL Ur Leukocyte Esterase Negative (NEGATIVE) Urine RBC 0-1/hpf (0-5/HPF) Urine WBC 0-1/hpf (0-5/HPF) Amorphous Sediment 1+ Urine Bacteria None seen (None) Ur Culture Indicated? Cult not indicated U Opiates 300ng/mL cut Positive H (Negative) Ur Oxycodone Screen Negative (Negative) Urine Methadone Screen Negative (Negative) Ur Barbiturates Screen Negative (Negative) U Tricyclic Antidepress Negative (Negative) Ur Phencyclidine Scrn Negative (Negative) Ur Amphetamines Screen Negative (Negative) U Methamphetamines Scrn Positive H (Negative) Ur MDMA Scrn (Ecstasy) Negative (Negative) U Benzodiazepines Scrn Negative (Negative) Urine Cocaine Screen Negative (Negative) U Marijuana (THC) Screen Negative (Negative) Ethyl Alcohol ( - 10) mg/dL SARS-CoV-2 (PCR) Negative (Negative) Point of Care Testing Glucose POC 84 Imaging Data CTA - brain/neck: Radiologist's Impression: [address] [id number] Scan ReportSigned Patient: Tahir Mittal BMR#: [id number]: 9Acct:[id number]/Sex: 60 / MDate of Service: 02/02/21Loc: EDAccession Number: [id number] Procedure: CT angio head and neck Ordering Provider: Jemal Longo D.O. PROCEDURE: CT ANGIO HEAD AND NECK INDICATIONS: code stroke TECHNIQUE: After the administration of intravenous contrast, 1 mm thick sections acquired from the aortic arch through the Stephenson of [place]. Post-contrast 4.5 mm thick sections then re-acquired from the foramen magnum to the vertex. 3-dimensional zobxuhz-uovslfvrf-ctgacywbhw (MIP) and/or volume rendering reformats were acquired of the central intracranial vasculature and neck separately. COMPARISON: None. FINDINGS: Image quality: Excellent. BRAIN: CSF spaces: Ventricles are normal in size and shape. Basal cisterns are patent. No extra-axial fluid collections. Brain: No midline shift. No intracranial bleeds or masses. Gary-white matter interface appears intact. Skull and face: Calvarium and facial bones appear intact, without suspicious lesions. Orbits appear normal. Sinuses: Sinuses and mastoids are clear. HEAD CT ANGIOGRAPHY: Anterior circulation: Intracranial internal carotid arteries are normal in size and flow. The flow within the paired anterior cerebral arteries is normal and symmetric. The flow within the middle cerebral arteries is normal and symmetric. The anterior communicating artery is seen. No aneurysms are seen. Posterior circulation: Visualized portions of the vertebral arteries demonstrate normal caliber, and join to form a normal appearing basilar artery. Flow within the posterior cerebral arteries is normal and symmetric. No aneurysms are seen. NECK CT ANGIOGRAPHY: Carotid system: The great vessels demonstrate a conventional anatomy as they arise from the aortic arch. The origins of the common carotid arteries appear patent. The common carotid arteries demonstrate normal caliber and courses. The bifurcation regions are both widely patent inferiorly but there is extensive atherosclerotic calcific plaquing involving the bifurcation and proximal internal carotid arteries bilaterally with at least a 60% stenosis at the proximal internal carotid arteries near symmetric bilaterally.. The internal carotid arteries demonstrate normal calibers and courses. Posterior circulation: The origins of the vertebral arteries both appear widely patent. The more superior extracranial portions of both vertebral arteries also demonstrate normal courses and calibers. They join to form a normal appearing basilar artery. Soft tissues: Visualized neck soft tissues demonstrate no suspicious abnormalities. Bones: No suspicious bony lesions. Visualized cervical spine appears normally aligned. IMPRESSION: A stroke or hemorrhage cannot be seen and an aneurysm or embolic event is not identified. There is, however, at least 60% stenosis within the proximal internal carotid arteries bilaterally due to chronic appearing densely calcific atherosclerotic plaquing at the common carotid bifurcation and extending into the proximal internal carotid arteries. Any quantitative measurements of stenosis were performed using NASCET criteria. Dictated by: J Luis Young M.D. on 02/02/2021 at 13:03 Approved by: J Luis Young M.D. on 02/02/2021 at 13:41 CT scan - head: Radiologist's Impression: [address] [id number] Scan ReportSigned Patient: Tahir Mittal BMR#: [id number]: 9Acct:[id number]/Sex: 60 / MDate of Service: 02/02/21Loc: EDAccession Number: [id number] Procedure: CT Stroke Ordering Provider: Jemal Longo D.O. PROCEDURE: CT STROKE INDICATIONS: code stroke TECHNIQUE: Noncontrast 4.5 mm thick angled axial sections acquired from the foramen magnum to the vertex, with coronal reformats. For radiation dose reduction, the following was used: automated exposure control, adjustment of mA and/or kV according to patient size. COMPARISON: None. FINDINGS: Image quality: Excellent. CSF spaces: Basal cisterns are patent. No extra-axial fluid collections. Ventricles are normal in size and shape. Brain: No midline shift. No intracranial masses or hemorrhage. Gary-white matter interface is normal. Skull and face: Calvarium and visualized facial bones are intact, without suspicious lesions. Sinuses: Visualized sinuses and mastoids are clear. IMPRESSION: Normal for age, source of current stroke symptoms symptoms is not seen. Findings called to the emergency room physician time of this dictation, and discussed with the ordering healthcare provider, at 12:29 p.m. This study fulfills neurological imaging criteria for inclusion or exclusion of acute stroke therapies based on available published neurological imaging guidelines. Dictated by: J Luis Young M.D. on 02/02/2021 at 12:32 Approved by: J Luis Young M.D. on 02/02/2021 at 12:34 ECG Data Attestation: I personally reviewed and interpreted this ECG as follows: Prior ECG tracings: not available for review Interpretation: Sinus rhythm Ventricular rate 82 Normal axis Normal QRS Normal QTC No ST T wave changes MDM Narrative Medical decision making narrative: Patient was a code stroke upon arrival given symptoms and was immediately taken to the CT scan. His head CT and CTA of the head neck were unremarkable. On his exam he did have an NIH of 0 however he does have a positive neurologic finding and that he has some findings concerning for a left radial nerve palsy. However this is in the setting of the fact that he can extend his wrist from flexion to neutral position however is unable to extend his wrist past neutral. He has no objective sensory findings on his exam. I have low suspicion for stroke. He has no neck pain. He did lay on his left arm earlier today potentially he has compression of the nerve because of this. Will send home on a short course of steroids. Will have him contact his primary provider for follow-up. He expressed understanding and agreement. Discharge Plan Departure Patient Disposition: Home Clinical Impression: Left radial nerve palsy Instructions: DI for Muscle Weakness Activity Restrictions/Additional Instructions: Your physical exam today is consistent with a left-sided radial nerve palsy. Plan will be is to put you on steroids for the next couple days. You were given your 1st dose here in the emergency department. Her next dose will be tomorrow 02/03/2021. Will also start on Lasix to help with your lower extremity swelling. You were also given a dose of that here in the emergency department. Your next dose will again be tomorrow 02/03/2021. I recommend you contact your primary provider for follow-up. I also recommend you contact the [facility] at [phone]. Return to the emergency department for any new symptoms. Prescriptions: New prednisone 20 mg tablet 40 mg PO DAILY 4 Days Qty: 8 RF: 0 furosemide [Lasix] 40 mg tablet 40 mg PO DAILY 6 Days Qty: 6 RF: 0 No Action methadone [Methadose] 40 mg tablet,soluble 135 mg PO DAILY Qty: 0 RF: 0 albuterol sulfate [ProAir HFA] 90 mcg/actuation HFA aerosol inhaler 1 puff Inhalation PRN PRN (Reason: Shortness Of Breath) RF: 0 sulfamethoxazole-trimethoprim [Bactrim DS] 800-160 mg tablet 1 tab PO BID Qty: 14 RF: 0 hydrochlorothiazide 25 mg tablet 25 mg PO DAILY Qty: 10 RF: 0 sulfamethoxazole-trimethoprim 800-160 mg tablet 1 tab PO BID Qty: 14 RF: 0 dextroamphetamine-amphetamine [Adderall] 30 mg tablet 30 mg PO TID RF: 0 Referrals: Remedios Arreguin ARNP [Primary Care Provider] -
[2021-02-02 12:51] LABS: Add Manual Diff / Slide Review NO; Basophils Absolute Auto 100 /uL (0-100); Basophils Percent Auto 1.2 % (0-2); Eosinophils Absolute Auto 400 /uL (0-450); Eosinophils Percent Auto 5.3 % (2-4); Hemoglobin 13.2 g/dL (13.5-17.5); Lymphocytes Absolute Auto 1500 /uL (1100-4500); Lymphocytes Percent Auto 20.6 % (25-40); Mean Corpuscular HGB Conc 32.2 % (30-36); Mean Corpuscular Hemoglobin 25.5 PG (26-34); Mean Corpuscular Volume 79.3 fL (80-100); Monocytes Absolute Auto 600 /uL (0-900); Monocytes Percent Auto 8.9 % (3-14); Neutrophils Absolute Auto 4700 /uL (1500-7000); Platelet Count 248 X10^3/uL (150-400); Red Blood Cell Count 5.17 X10^6/uL (4.5-5.9); Red Cell Distribution Width 16.2 % (11.6-14.8); White Blood Cell Count 7.3 X10^3/uL (4.5-11.0)
[2021-02-02 13:00] LABS: Prothrombin Time 11.7 SECONDS (10.1-12.7)
[2021-02-02 13:02] LABS: PTT Partial Thromboplastin Tim 34 SECONDS (26.4-36.2)
[2021-02-02 13:05] LABS: Alanine Aminotransferase 44 IU/L (<50); Albumin 3.6 g/dL (3.5-5.0); Alkaline Phosphatase 65 U/L (38-126); Aspartate Aminotransferase 55 IU/L (17-59); BUN Creatinine Ratio 30.9 (6-22); Bilirubin Total 0.2 mg/dL (0.2-1.3); Blood Urea Nitrogen 21 mg/dL (9-20); Calcium 9.2 mg/dL (8.4-10.2); Carbon Dioxide 31 mmol/L (22-32); Chloride 100 mmol/L (98-107); Creatine Kinase 132 U/L (55-170); Estimated Glomerular Filt Rate > 60.0 mL/min (>60); Ethanol (ETOH) < 10 mg/dL; Globulin 3.5 g/dL (1.7-4.1); Glucose 109 mg/dL (80-110); HEMOLYSIS < 15 (0-50); Lipase 26 U/L (23-300); Potassium 4.1 mmol/L (3.4-5.1); Sodium 135 mmol/L (137-145); Total Protein 7.1 g/dL (6.3-8.2)
[2021-02-02 13:17] LABS: Troponin I < 0.012 ng/mL (0.01-0.034)
[2021-02-02 13:20] LABS: CKMB % Relative Index 2.5 % (1.5-5.0); Creatine Kinase MB 3.31 ng/mL (<2.37)
[2021-02-02 13:22] LABS: COVID19 -Nasal RAPID Negative (Negative)
[2021-02-02 14:08] LABS: Bacteria Urine None Seen
[2021-02-02 14:12] LABS: Appearance Urine UA CLEAR; Bilirubin Urine UA NEGATIVE (NEGATIVE); Color Urine UA YELLOW; Glucose Urine UA NEGATIVE (Negative); Ketones Urine UA NEGATIVE (NEGATIVE); Leukocyte Esterase Urine UA NEGATIVE (NEGATIVE); Nitrite Urine UA NEGATIVE (Negative); Occult Blood Urine UA NEGATIVE (Negative); Protein Urine UA NEGATIVE (Negative); Urobilinogen Urine UA 0.2 E.U./dL (0.2); pH Urine UA 7.5 (4.5-8.0)
[2021-02-02 14:17] LABS: Ur Creatinine Normal (Normal); Ur Specific Gravity Normal (Normal); Urine pH Normal (Normal)
[2021-02-02 14:18] LABS: UR Morphine/Opiate cutoff 300 Positive (Negative); Urine Amphetamines Negative (Negative); Urine Barbiturates Negative (Negative); Urine Benzodiazepines Negative (Negative); Urine Cocaine Negative (Negative); Urine MDMA Negative (Negative); Urine Methamphetamines Positive (Negative); Urine Oxycodone Negative (Negative); Urine Phencyclidine Negative (Negative); Urine Tetrahydrocannabinol Negative (Negative); Urine Tricyclic Antidepressant Negative (Negative)
[2021-02-02 14:20] LABS: Urine Methadone Negative (Negative)
[2021-02-02 14:37] LABS: Amorphous Sediment Urine 1+; Culture Indicated Urine Cult Not Indicated; RBC Urine 0-1/HPF (0-5/HPF); WBC Urine 0-1/HPF (0-5/HPF)
[2021-02-02] MEDS: predniSONE 20 MG TABLET 40 MG PO (15:08)
[2021-02-02] MEDS: FUROSEMIDE 40 MG TABLET 60 MG PO (15:16)
== END 2021-02-02 15:42 | disposition home or self-care (01) ==
PROVIDERS: Emergency Provider Emergency Medicine; PCP Nurse Practitioner Family
DX: G56.32 Lesion of radial nerve, left upper limb (principal); Z20.822 Contact with and (suspected) exposure to COVID-19; R07.9 Chest pain, unspecified
CPT/HCPCS: 36415; 70450; 70496; 70498; 80053; 80305; 80320; 81001; 82550; 82553; 82962; 83690; 84484; 85025; 85610; 85730; 87635; 93005; 99284; C9803; J1940; Q9967

== ENCOUNTER 2021-06-09 14:45 | Emergency (ER) | payer OTHER, MEDICAID, SELFPAY ==
[2021-06-09 14:53] VITALS: BP 127/93; PULSE 90; RESP 18; TEMP 36.5; O2SAT 100; BMI 32.8
--- NOTE | 2021-06-09 16:35 | ED.NECK ---
HPI - Neck Pain/Injury General Chief Complaint: Neck Pain/Injury Stated Complaint: neck pain Time Seen by Provider: 06/09/21 16:16 Mode of arrival: Ambulatory Limitations: no limitations History of Present Illness HPI Narrative: Patient is a 60-year-old male who has chronic pain on methadone or presenting with neck pain. He says that for last 3 weeks he feels like his neck is popping. He has decreased range of motion. He has to sleep sitting up. He denies any injury. No numbness tingling or weakness. Related Data Home Medications Medication Instructions Recorded Confirmed albuterol sulfate 90 mcg/actuation 1 puff INHALATION PRN PRN 05/11/18 02/08/20 aerosol inhaler dextroamphetamine-amphetamine 30 30 mg PO TID tab 12/17/18 02/08/20 mg tablet (Adderall) methadone 40 mg soluble tablet 135 mg PO DAILY #0 tab 12/17/18 02/08/20 (Methadose) Previous Rx's Medication Instructions Recorded sulfamethoxazole 800 1 tab PO BID #14 tab 04/27/20 mg-trimethoprim 160 mg tablet (Bactrim DS) hydrochlorothiazide 25 mg tablet 25 mg PO DAILY #10 tab 05/14/20 sulfamethoxazole 800 1 tab PO BID #14 tab 05/14/20 mg-trimethoprim 160 mg tablet cyclobenzaprine 5 mg tablet 5 mg PO TID PRN #10 tab 06/09/21 Allergies Allergy/AdvReac Type Severity Reaction Status Date / Time No Known Drug Allergies Allergy Verified 06/09/21 14:53 Review of Systems Review of Systems Narrative: GENERAL: Denies chills, fatigue, malaise, fever, sweats, travel HEENT: Denies sinus pain, ear pain, sore throat, difficulty swallowing, neck pain RESPIRATORY: Denies dyspnea, cough, wheezing, hemoptysis, sputum. CARDIOVASCULAR: Denies chest pain, palpitations, orthopnea, edema GASTROINTESTINAL: Denies nausea, vomiting, abdominal pain, diarrhea, constipation, melena. : Denies dysuria, frequency, incontinence, hematuria, urinary retention, flank pain. MUSCULOSKELETAL: See HPI SKIN: No rash, no erythema, no pruritus NEUROLOGIC: Denies weakness, dizziness, headache, numbness, change in speech, confusion PSYCHIATRIC: No concerning psychosocial issues. 12 point review of systems is negative except for those stated above and HPI Patient History Medical History Chronic shoulder pain Hepatitis C History of heroin use IV drug abuse IV drug user Lower extremity edema Lumbar post-laminectomy syndrome Methadone dependence Tobacco abuse Surgical History History of lithotripsy Social History Smoking Status: Current every day smoker alcohol intake: former substance use type: opiates and IV drugs Smoking Status: Current every day smoker alcohol intake frequency: 0-2 drinks per day Substance Use Type: does not use and heroin Exam Initial Vital Signs Initial Vital Signs: Vital Signs Temperature 97.7 F 06/09/21 14:53 Pulse Rate 90 06/09/21 14:53 Respiratory Rate 18 06/09/21 14:53 Blood Pressure 127/93 H 06/09/21 14:53 Pulse Oximetry 100 06/09/21 14:53 GENERAL: Alert 60-year-old male no acute distress NECK: No vertebral tenderness or step-offs muscle spasm felt on the left side. Decreased range of motion. CARDIOVASCULAR: peripheral pulses in tact, cap refill <2 sec RESPIRATORY: No respiratory distress, speaks in full sentences without difficulty EXTREMITIES: Normal range of motion, no clubbing or edema. Neurovascularly intact NEUROLOGICAL: Cranial nerves II through XII grossly intact. Normal gait and speech. SKIN: Warm, dry, no petechiae, no rashes or lesions. Course Vital Signs Vital signs: Vital Signs - 8 hr 06/09/21 14:53 Temperature 97.7 F Pulse Rate 90 Respiratory Rate 18 Blood Pressure 127/93 H Pulse Oximetry 100 MDM - Neck Pain/Injury [facility] Narrative Medical decision making narrative: There has been no injury to patient's neck. At this time no imaging is needed. He has chronic ongoing pain and takes methadone, look start him on muscle relaxer to see if that seems to help. Talked about improving his posture. Discharge Plan Departure Patient Disposition: Home Clinical Impression: Cervical muscle strain Instructions: Neck Sprain, DI for Chronic Neck Pain Activity Restrictions/Additional Instructions: *You have been diagnosed with neck pain *What to do: Try heating pad. Certainly adjust your posture which can take time. Light stretching. You may need physical therapy. He may also need imaging which can be done as an outpatient *Continue to take medications as directed Flexeril 5 mg every 8 hours if needed for muscle spasm--> SENT TO [facility] [place] *Follow up with your primary care provider in 2-3 days *Return to ER if you should have increasing weakness numbness or tingling or any new, worsening or concerning symptoms Prescriptions: New cyclobenzaprine 5 mg tablet 5 mg PO TID PRN (Reason: muscle spasm) Qty: 10 RF: 0 No Action methadone [Methadose] 40 mg tablet,soluble 135 mg PO DAILY Qty: 0 RF: 0 albuterol sulfate [ProAir HFA] 90 mcg/actuation HFA aerosol inhaler 1 puff Inhalation PRN PRN (Reason: Shortness Of Breath) RF: 0 sulfamethoxazole-trimethoprim [Bactrim DS] 800-160 mg tablet 1 tab PO BID Qty: 14 RF: 0 hydrochlorothiazide 25 mg tablet 25 mg PO DAILY Qty: 10 RF: 0 sulfamethoxazole-trimethoprim 800-160 mg tablet 1 tab PO BID Qty: 14 RF: 0 dextroamphetamine-amphetamine [Adderall] 30 mg tablet 30 mg PO TID RF: 0 Referrals: Remedios Arreguin ARNP [Primary Care Provider] -
[2021-06-09 16:45] VITALS: BP 140/76; PULSE 90; RESP 20; O2SAT 98
== END 2021-06-09 16:46 | disposition home or self-care (01) ==
PROVIDERS: Emergency Provider Emergency Medicine; PCP Nurse Practitioner Family
DX: S16.1XXA Strain of muscle, fascia and tendon at neck level, initial encounter (principal); X58.XXXA Exposure to other specified factors, initial encounter
CPT/HCPCS: 99281

== ENCOUNTER → 2021-08-23 07:37 | Outpatient (CLI) | payer OTHER, MEDICAID, SELFPAY ==
--- NOTE | 2021-08-23 | DI.ECHO.S_ITS ---
[facility] +---------+ [facility] +---------+ : : [address] : : : : [id number] : : : : Phone: [phone] Echocardiogram Report + + :Name: LAURENCE MACIAS Study Date: 08/23/2021 Height: 77 in : :[facility] ReadingLocation: Weight: 300 lb : : Gender: Male BSA: 2.7 m2 : :: 1960 Age: 60 yrs BP: 150/94 mmHg: :Reason For Study: Dyspnea : :Ordering Physician: Heather : :Teofilo Seaman Performed By: Lazarus Barnard : :Referring: HEATHER SEAMAN : + + Interpretation Summary 1) Normal left ventricular thickness, size, wall motion, and systolic function (EF 55-60%). 2) Normal right ventricular size and function. 3) No significant valvular abnormalities. 4) Pulmonary artery pressures cannot be estimated because of the lack of a measurable TR jet velocity. 5) No prior Echo available for comparison. Procedure: A two-dimensional transthoracic echocardiogram with color flow and Doppler was performed. The study quality was technically adequate. There is no prior echocardiogram noted for this patient. Left Ventricle: The left ventricle is normal in size and wall thickness. Left ventricular systolic function is normal. The ejection fraction is estimated to be 55-60%. There are no focal wall motion abnormalities. Diastolic parameters suggest probable normal left ventricular diastolic function and normal filling pressures. Right Ventricle: The right ventricle is normal in size and function. Atria: Both atria are normal in size. There is no Doppler evidence for an interatrial shunt. Mitral Valve: There is mild mitral annular calcification. There is trace mitral regurgitation. Aortic Valve: The aortic valve is normal in structure and function. There is no aortic valve stenosis. No aortic regurgitation is present. Tricuspid Valve: The tricuspid valve is normal in structure and function. No tricuspid regurgitation. Pulmonary artery pressures cannot be estimated because of the lack of a measurable TR jet velocity. Pulmonic Valve: The pulmonic valve is normal in structure and function. There is no pulmonic valvular regurgitation. Great Vessels: The aortic root is normal size. The dimensions of the ascending aorta are normal. The IVC is of normal diameter and collapses greater than 50% with a sniff. This suggests a low right atrial pressure of 3 mm Hg. Pericardium/ Pleura There is no pericardial effusion. There is no pleural effusion. MMode/2D Measurements & Calculations LVIDd: 4.6 cm LVOT diam: 2.3 cm LVIDs: 3.1 cm Ao root diam: 3.1 cm FS: 32.6 % asc Aorta Diam: 3.1 cm IVSd: 1.1 cm LVPWd: 0.80 cm LV peguero. diameter/BSA (cm/m^2): 1.7 LV sys. diameter/BSA (cm/m^2): 1.2 LA dimension: 3.9 cm RA long axis: 4.4 cm LA A2 area: 15.7 cm2 LA A4 area: 17.2 cm2 LA length (vol): 4.9 cm LA vol: 46.9 ml LA vol index: 17.6 ml/m2 TAPSE_phl: 2.9 cm Doppler Measurements & Calculations Ao V2 max: 129.0 cm/sec LVOT Max Jefe: 124.0 cm/sec Ao V2 mean: 90.2 cm/sec LV V1 max P.2 mmHg Ao max P.0 mmHg LV V1 VTI: 28.0 cm Ao mean P.0 mmHg BENIGNO(I,D): 4.2 cm2 Ao V2 VTI: 27.5 cm BENIGNO(V,D): 4.0 cm2 sev ratio: 1.0 BENIGNO indexed to BSA (cm^2/m^2): 1.6 MV E max jefe: 113.0 cm/sec PA V2 max: 102.0 cm/sec MV A max jefe: 87.0 cm/sec PA V2 mean: 70.9 cm/sec MV E/A: 1.3 PA mean P.0 mmHg Med Peak E' Jefe: 9.9 cm/sec PA pr(Accel): 40.8 mmHg E/E' med: 11.5 Lat Peak E' Jefe: 12.9 cm/sec E/E' lat: 8.8 E/e' average: 10.1 MV dec time: 0.27 sec SV(LVOT): 116.3 ml AV VR_phl: 0.96 BENIGNO(VTI)/BSA_phl: 1.6 MV P1/2t-pr_phl: 80.0 msec Reading Physician:12:28 PM
== END ==
PROVIDERS: PCP Nurse Practitioner Family; Referring Provider Internal Medicine Cardiovascular Disease; Visit Provider Internal Medicine Cardiovascular Disease
DX: R06.00 Dyspnea, unspecified (principal)
CPT/HCPCS: 93306

== ENCOUNTER 2022-01-03 00:17 | Inpatient (IN) | payer MEDICAID, OTHER, SELFPAY ==
[2022-01-03] VITALS (11 sets, daily range): BP systolic 121–171; BP diastolic 55–100; PULSE 74–133; RESP 16–22; TEMP 36.5–37; O2SAT 92–99; BMI 33.7
--- NOTE | 2022-01-03 00:53 | ED_ITS ---
HPI - Skin/Abscess/Foreign Bdy General Chief complaint: Skin/Abscess/Foreign Body Stated complaint: left hand swollen Time Seen by Provider: 01/03/22 00:23 Source: patient Mode of arrival: Ambulatory History of Present Illness HPI narrative: 61-year-old male daily smoker uses IV drugs presents with a family friend and a chief complaint of a painful swollen, red and hot left hand. He denies any injury and states that it was fine yesterday and has flared up today. He has had multiple abscesses in the past and currently has what appears to be cellulitis on his right buttock and had injected heroin in his left deltoid. He feels unwell with subjective fever and chills as well as nausea. He has significant pain in his left hand is unable to make a fist. He denies any chest pain or shortness of breath. He is not dizzy nor weak or lightheaded. Related Data Home Medications Medication Instructions Recorded Confirmed albuterol sulfate 90 mcg/actuation 1 puff INHALATION PRN PRN 05/11/18 02/08/20 aerosol inhaler dextroamphetamine-amphetamine 30 30 mg PO TID tab 12/17/18 02/08/20 mg tablet (Adderall) methadone 40 mg soluble tablet 135 mg PO DAILY #0 tab 12/17/18 02/08/20 (Methadose) Previous Rx's Medication Instructions Recorded sulfamethoxazole 800 1 tab PO BID #14 tab 04/27/20 mg-trimethoprim 160 mg tablet (Bactrim DS) hydrochlorothiazide 25 mg tablet 25 mg PO DAILY #10 tab 05/14/20 sulfamethoxazole 800 1 tab PO BID #14 tab 05/14/20 mg-trimethoprim 160 mg tablet cyclobenzaprine 5 mg tablet 5 mg PO TID PRN #10 tab 06/09/21 Allergies Allergy/AdvReac Type Severity Reaction Status Date / Time No Known Drug Allergies Allergy Verified 06/09/21 14:53 Review of Systems Review of Systems Narrative: GENERAL: See HPI HEENT: Denies sinus pain, ear pain, sore throat, difficulty swallowing, dizziness. RESPIRATORY: Denies dyspnea, cough, wheezing, hemoptysis, sputum. CARDIOVASCULAR: Denies chest pain, palpitations, orthopnea, edema, GASTROINTESTINAL: Denies nausea, vomiting, abdominal pain, diarrhea, constipation, melena. : Denies dysuria, frequency, incontinence, hematuria, urinary retention. MUSCULOSKELETAL: denies weakness, joint pain, or bony pain SKIN: See HP NEUROLOGIC: Denies weakness, headache, numbness, change in speech, confusion, seizures, incoordination. PSYCHIATRIC: No concerning psychosocial issues. 12 point review of systems is negative except for those stated above Patient History Medical History Chronic shoulder pain Hepatitis C History of heroin use IV drug abuse IV drug user Lower extremity edema Lumbar post-laminectomy syndrome Methadone dependence Tobacco abuse Surgical History History of lithotripsy Social History Smoking Status: Current every day smoker alcohol intake: former substance use type: opiates and IV drugs Smoking Status: Current every day smoker alcohol intake frequency: 0-2 drinks per day Substance Use Type: heroin Exam Narrative Exam Narrative: GENERAL: [61 year old patient appears older than stated age. Slightly dishevel led, rubbing left arm and hand HEAD: Atraumatic. Normocephalic. EYES: Pupils equal round and reactive. Extraocular motions intact. No scleral icterus. No injection or drainage. ENT: Nose without bleeding, purulent drainage. Throat without erythema, tonsillar hypertrophy or exudate. Airway patent. NECK: Trachea midline. Non tender CARDIOVASCULAR: Regular rate and rhythm without murmurs, gallops, or rubs. RESPIRATORY: Clear to auscultation. Breath sounds equal bilaterally. No wheezes, rales, or rhonchi. GASTROINTESTINAL: Abdomen soft, non-tender, nondistended. EXTREMITIES: Significant swelling on the dorsum of left hand is significantly tender, patient unable to make a fist, pain on palpation on palmar surface, no involvement of fingers, cap refill intact common erythema extends just to the carpals, no lymphangitis noted BACK: Nontender without deformity or crepitance. No flank tenderness. NEURO: AOx3. SKIN: No rash or erythema of visible areas Initial Vital Signs Initial Vital Signs: Vital Signs Temperature 98.1 F 01/03/22 00:31 Pulse Rate 98 H 01/03/22 00:31 Respiratory Rate 22 01/03/22 00:31 Blood Pressure 171/89 H 01/03/22 00:31 Pulse Oximetry 99 01/03/22 00:31 Course Orders Ordered: ED Orders 01/03/22 EC echo doppler complete Urgent MR hand LT wo con Stat 01/03/22 00:45 C-Reactive Protein Quant Stat Complete Blood Count AUTO DIFF Stat Comprehensive Metabolic Panel Stat Erythrocyte Sedimentation Rate Stat Lactate (Lactic Acid) Stat 01/03/22 00:49 COVID19 -Nasal swab/Pre-Proc Stat 01/03/22 01:50 Blood Culture Stat 01/03/22 05:00 Basic Metabolic Panel Routine Complete Blood Count AUTO DIFF Routine Acetaminophen (Acetaminophen 325 Mg Tablet) 650 mg PO Q6HR PRN PRN Reason: Fever/Mild Pain (1-3) Enoxaparin Sodium (Enoxaparin 40 Mg/0.4 Ml Syringe) 40 mg SUBCUT DAILY CHELO Vancomycin HCl/Dextrose (Vancomycin) 2,000 mg in 400 mls @ 200 mls/hr IV Q12H CHELO Methadone HCl (Methadone 10 Mg Tablet) 10 mg PO DAILY CHELO Ondansetron HCl (Ondansetron 4 Mg/2 Ml Inj) 4 mg IV Q8HR PRN PRN Reason: Nausea And Vomiting Discontinued Medications Vancomycin HCl/Dextrose (Vancomycin) 2,000 mg in 400 mls @ 200 mls/hr IV NOW ONE Stop: 01/03/22 02:58 Last Infusion: 01/03/22 03:15 Dose: 0 mls/hr Documented by: MARIA FERNANDA Admin: 01/03/22 01:12 Dose: 200 mls/hr Documented by: CASEY Vancomycin HCl (Vancomycin Per Pharmacy) 1 request MISC NOW ONE Stop: 01/03/22 03:19 Last Admin: 01/03/22 03:43 Dose: Not Given Documented by: CASEY Consultations Consultation #1: Discussed case with on-call orthopedist, there happy to be involved in consultation, request NPO after midnight, MRI of and to the wrist without contrast and admission to the hospitalist Consultation #2: Hospitalist happy to accept and will see the patient in the ED Vital Signs Vital signs: Vital Signs - 8 hr 01/03/22 00:31 Temperature 98.1 F Pulse Rate 98 H Respiratory Rate 22 Blood Pressure 171/89 H Pulse Oximetry 99 MDM - Skin/Abscess/Foreign Bdy Lab Data Result diagrams: 01/03/22 00:45 01/03/22 00:45 Labs: Lab Results 01/03/22 01/03/22 01/03/22 Range/Units 00:45 00:45 00:45 WBC 11.4 H (4.5-11.0) X10^3/uL RBC 5.04 (4.5-5.9) X10^6/uL Hgb 12.8 L (13.5-17.5) g/dL Hct 39.5 L (41-53) % MCV 78.2 L (80-100) fL MCH 25.3 L (26-34) PG MCHC 32.4 (30-36) % RDW 15.8 H (11.6-14.8) % Neut % (Auto) Not Reportable Lymph % (Auto) Not Reportable [place] % (Auto) Not Reportable Eos % (Auto) Not Reportable Baso % (Auto) Not Reportable Lymph # (Auto) Not Reportable [place] # (Auto) Not Reportable Baso # (Auto) Not Reportable ESR 15 (0-15) MM/HR Sodium 137 (137-145) mmol/L Potassium 4.4 (3.4-5.1) mmol/L Chloride 103 (98-107) mmol/L Carbon Dioxide 33 H (22-32) mmol/L BUN 17 (9-20) mg/dL Creatinine 0.62 L (0.66-1.25) mg/dL Estimated GFR > 60.0 (>60) mL/min BUN/Creatinine Ratio 27.4 H (6-22) Glucose 101 (80-110) mg/dL Lactate 1.1 (0.7-2.1) mmol/L Calcium 9.2 (8.4-10.2) mg/dL Total Bilirubin 0.3 (0.2-1.3) mg/dL AST 26 (17-59) IU/L ALT 18 (<50) IU/L Alkaline Phosphatase 67 (38-126) U/L C-Reactive Protein 3.1 H (<1.0) mg/dL Total Protein 7.6 (6.3-8.2) g/dL Albumin 3.8 (3.5-5.0) g/dL Globulin 3.8 (1.7-4.1) g/dL Albumin/Globulin Ratio 1.0 (1.0-2.8) SARS-CoV-2 (PCR) (Negative) 01/03/22 Range/Units 00:49 WBC (4.5-11.0) X10^3/uL RBC (4.5-5.9) X10^6/uL Hgb (13.5-17.5) g/dL Hct (41-53) % MCV (80-100) fL MCH (26-34) PG MCHC (30-36) % RDW (11.6-14.8) % Neut % (Auto) Lymph % (Auto) [place] % (Auto) Eos % (Auto) Baso % (Auto) Lymph # (Auto) [place] # (Auto) Baso # (Auto) ESR (0-15) MM/HR Sodium (137-145) mmol/L Potassium (3.4-5.1) mmol/L Chloride (98-107) mmol/L Carbon Dioxide (22-32) mmol/L BUN (9-20) mg/dL Creatinine (0.66-1.25) mg/dL Estimated GFR (>60) mL/min BUN/Creatinine Ratio (6-22) Glucose (80-110) mg/dL Lactate (0.7-2.1) mmol/L Calcium (8.4-10.2) mg/dL Total Bilirubin (0.2-1.3) mg/dL AST (17-59) IU/L ALT (<50) IU/L Alkaline Phosphatase (38-126) U/L C-Reactive Protein (<1.0) mg/dL Total Protein (6.3-8.2) g/dL Albumin (3.5-5.0) g/dL Globulin (1.7-4.1) g/dL Albumin/Globulin Ratio (1.0-2.8) SARS-CoV-2 (PCR) Positive H (Negative) Discharge Plan Departure Patient Disposition: Admitted As Inpatient Clinical Impression: Cellulitis and abscess of hand
[2022-01-03 01:10] LABS: Lactate (Lactic Acid) 1.1 mmol/L (0.7-2.1)
[2022-01-03] MEDS: VANCOMYCIN 2,000 MG/400 ML PIGGYBACK 200 MG IV ×2 (01:12→13:42)
[2022-01-03 01:13] LABS: Alanine Aminotransferase 18 IU/L (<50); Albumin 3.8 g/dL (3.5-5.0); Alkaline Phosphatase 67 U/L (38-126); Aspartate Aminotransferase 26 IU/L (17-59); BUN Creatinine Ratio 27.4 (6-22); Bilirubin Total 0.3 mg/dL (0.2-1.3); Blood Urea Nitrogen 17 mg/dL (9-20); C-Reactive Protein Quant 3.1 mg/dL (<1.0); Calcium 9.2 mg/dL (8.4-10.2); Carbon Dioxide 33 mmol/L (22-32); Chloride 103 mmol/L (98-107); Estimated Glomerular Filt Rate > 60.0 mL/min (>60); Globulin 3.8 g/dL (1.7-4.1); Glucose 101 mg/dL (80-110); HEMOLYSIS < 15 (0-50); Potassium 4.4 mmol/L (3.4-5.1); Sodium 137 mmol/L (137-145); Total Protein 7.6 g/dL (6.3-8.2)
[2022-01-03 01:20] LABS: Hematocrit 39.5 % (41-53); Hemoglobin 12.8 g/dL (13.5-17.5); Mean Corpuscular HGB Conc 32.4 % (30-36); Mean Corpuscular Hemoglobin 25.3 PG (26-34); Mean Corpuscular Volume 78.2 fL (80-100); Red Blood Cell Count 5.04 X10^6/uL (4.5-5.9); Red Cell Distribution Width 15.8 % (11.6-14.8)
[2022-01-03 01:21] LABS: Add Manual Diff / Slide Review YES; White Blood Cell Count 11.4 X10^3/uL (4.5-11.0)
--- NOTE | 2022-01-03 02:10 | PC.NURSE ---
Pt very grumpy with staff, refusing to wear BP cuff for Q30 VS, refused to allow lab draw stating not until I get pain medication this RN spoke with Pt and explained that doctor was aware of request but was with another patient at that time and his request would be addressed as so as possible with the doctor, he then allowed the lab draw.
[2022-01-03 02:33] LABS: COVID19 -Nasal RAPID POSITIVE (Negative)
[2022-01-03 02:35] LABS: Erythrocyte Sedimentation Rate 15 MM/HR (0-15)
--- NOTE | 2022-01-03 03:54 | P.HP_ITS ---
History of Present Illness History of Present Illness Date Patient Seen: 01/03/22 Time Patient Seen: 02:00 Chief complaint: left hand swollen Narrative: Mr. Mittal is a 61M with H tobacco abuse, opiate abuse, HTN, hepatitis C who presents with left hand pain. He denies injecting into the hand. He denies having any trauma to the hand. He notes that the hand was fine until three days ago and then became swollen, painful and red. He has subjective fevers. He has been eating well. No chest pain or shortness of breath. In the ED workup was done, vitals notable for blood pressure 170s/80s. Labs notable for WBC 11.4, hgb 12.8, creatinine 0.62, lactate 1.1. COVID was positive. He was ordered for IV fluids and antibiotics and he was admitted for further treatment. Family history: Mother - diabetes Patient History Medical History Chronic shoulder pain Hepatitis C History of heroin use IV drug abuse IV drug user Lower extremity edema Lumbar post-laminectomy syndrome Methadone dependence Tobacco abuse Surgical History History of lithotripsy Family & Social History Tobacco & Substance use: Smoking Status Current every day smoker alcohol intake former alcohol intake frequency 0-2 drinks per day Substance Use Type heroin Meds Home Medications and Allergies Home Medications Medication Instructions Recorded Confirmed Type albuterol sulfate 90 mcg/actuation 1 puff INHALATION PRN PRN 05/11/18 02/08/20 History aerosol inhaler dextroamphetamine-amphetamine 30 30 mg PO TID tab 12/17/18 02/08/20 History mg tablet (Adderall) methadone 40 mg soluble tablet 135 mg PO DAILY #0 tab 12/17/18 02/08/20 History (Methadose) sulfamethoxazole 800 1 tab PO BID #14 tab 04/27/20 Rx mg-trimethoprim 160 mg tablet (Bactrim DS) hydrochlorothiazide 25 mg tablet 25 mg PO DAILY #10 tab 05/14/20 Rx sulfamethoxazole 800 1 tab PO BID #14 tab 05/14/20 Rx mg-trimethoprim 160 mg tablet cyclobenzaprine 5 mg tablet 5 mg PO TID PRN #10 tab 06/09/21 Rx Allergies Allergy/AdvReac Type Severity Reaction Status Date / Time No Known Drug Allergies Allergy Verified 06/09/21 14:53 Review of Systems Review of Systems Narrative: 14 systems reviewed and negative aside from what is noted in HPI Exam Vital Signs (past 8 hours): - 01/03/22 00:31 Temperature 98.1 F Pulse Rate 98 H Respiratory Rate 22 Blood Pressure 171/89 H Pulse Oximetry 99 Oxygen Delivery Method Room Air Narrative Exam Narrative: GEN: distress due to hand pain HEENT: moist mucous membranes, PERRL NECK: trachea midline, no JVD PULM: clear bilaterally CV: regular rate and rhyhtm, no murmurs ABD: soft, nontender, nondistended, no organomegaly EXT: left hand with diffuse swelling, decreased range of motion, fluctuance, and significant pain to palpation, also has bilateral erythema with no pain to palpation NEURO: awake, alert, oriented, no focal deficits PSYCH: pressured speech Objective Labs Result Diagrams: 01/03/22 00:45 01/03/22 00:45 Labs: Laboratory Results - last 24 hr 01/03/22 01/03/22 01/03/22 00:45 00:45 00:45 WBC 11.4 H RBC 5.04 Hgb 12.8 L Hct 39.5 L MCV 78.2 L MCH 25.3 L MCHC 32.4 RDW 15.8 H Neut % (Auto) Not Reportable Lymph % (Auto) Not Reportable [place] % (Auto) Not Reportable Eos % (Auto) Not Reportable Baso % (Auto) Not Reportable Lymph # (Auto) Not Reportable [place] # (Auto) Not Reportable Baso # (Auto) Not Reportable ESR 15 Sodium 137 Potassium 4.4 Chloride 103 Carbon Dioxide 33 H BUN 17 Creatinine 0.62 L Estimated GFR > 60.0 BUN/Creatinine Ratio 27.4 H Glucose 101 Lactate 1.1 Calcium 9.2 Total Bilirubin 0.3 AST 26 ALT 18 Alkaline Phosphatase 67 C-Reactive Protein 3.1 H Total Protein 7.6 Albumin 3.8 Globulin 3.8 Albumin/Globulin Ratio 1.0 SARS-CoV-2 (PCR) 01/03/22 00:49 WBC RBC Hgb Hct MCV MCH MCHC RDW Neut % (Auto) Lymph % (Auto) [place] % (Auto) Eos % (Auto) Baso % (Auto) Lymph # (Auto) [place] # (Auto) Baso # (Auto) ESR Sodium Potassium Chloride Carbon Dioxide BUN Creatinine Estimated GFR BUN/Creatinine Ratio Glucose Lactate Calcium Total Bilirubin AST ALT Alkaline Phosphatase C-Reactive Protein Total Protein Albumin Globulin Albumin/Globulin Ratio SARS-CoV-2 (PCR) Positive H Assessment & Plan Assessment & Plan narrative: Mr. Mittal is a 61M with PMH opiate dependence, HTN who presents with left hand cellulitis 1. Left hand cellulitis, with possible abscess, acute -per patient did not inject in hand -IV vancomycin ordered -follow up blood cultures -MRI of hand ordered -ortho consult 2. Bilateral hip erythema -concerning for possible cellulitis -given IVDU history and multiple areas of erythema have some suspicion for endocarditis -ordered ECHO -follow up blood cultures 2. IV drug abuse, opiate dependence -ordered for methadone -confirm if patient is taking it outpatient, and what dose is -titrate up methadone dose as needed to prevent withdrawal and control pain 3. COVID positive -incidentally noted -no respiratory symtpoms, no cough/sob, no hypoxemia -no indication for treatment currently 4. Hypertension -hold anti-hypertensives 5. Tobacco abuse -encourage lifestyle changes and cessation 6. Hepatitis C -per patient has completed treatment CODE: Full Proxy: Sarah Rojas, life partner I have utilized all available resources to reconcile the patient's home medications. Time Spent With Patient Critical Care time: I spent a total of [] minutes of critical care time on this patient's care today; this time is exclusive of procedural time. Quality MIPS - Admit I confirm the patient?s Advance Care Plan is present, Code status is documented, Surrogate decision maker is in patient?s record [If Yes, STOP here]: Yes
[2022-01-03] MEDS: HYDROMORPHONE 1 MG INJ IV ×4 (04:34→22:31)
[2022-01-03 06:39] LABS: Neutrophils Absolute Manual 6840 /uL (3000-5900); Total Cells Counted 100
[2022-01-03 06:40] LABS: Platelet Count 248 X10^3/uL (150-400); RBC Morphology Normal Morphology
[2022-01-03 07:50] LABS: Add Manual Diff / Slide Review NO; Basophils Absolute Auto 100 /uL (0-100); Basophils Percent Auto 0.8 % (0-2); Eosinophils Absolute Auto 400 /uL (0-450); Eosinophils Percent Auto 4.1 % (2-4); Hematocrit 40.6 % (41-53); Hemoglobin 13.6 g/dL (13.5-17.5); Lymphocytes Absolute Auto 1800 /uL (1100-4500); Lymphocytes Percent Auto 17.5 % (25-40); Mean Corpuscular HGB Conc 33.4 % (30-36); Mean Corpuscular Hemoglobin 25.8 PG (26-34); Mean Corpuscular Volume 77.1 fL (80-100); Monocytes Absolute Auto 1100 /uL (0-900); Monocytes Percent Auto 10.9 % (3-14); Neutrophils Absolute Auto 6700 /uL (1500-7000); Neutrophils Percent Auto 66.7 % (50-75); Platelet Count 232 X10^3/uL (150-400); Red Blood Cell Count 5.27 X10^6/uL (4.5-5.9); Red Cell Distribution Width 15.7 % (11.6-14.8)
[2022-01-03 08:01] LABS: BUN Creatinine Ratio 21.5 (6-22); Blood Urea Nitrogen 14 mg/dL (9-20); Calcium 9.2 mg/dL (8.4-10.2); Carbon Dioxide 31 mmol/L (22-32); Chloride 101 mmol/L (98-107); Estimated Glomerular Filt Rate > 60.0 mL/min (>60); Glucose 102 mg/dL (80-110); HEMOLYSIS < 15 (0-50); Potassium 4.5 mmol/L (3.4-5.1); Sodium 134 mmol/L (137-145)
[2022-01-03] MEDS: METHADONE INTENSOL 10 MG/ML ORAL.CONC 160 MG PO (08:10)
[2022-01-03] MEDS: LORazepam 2 MG/ML INJ 0.5 MG IV (09:50)
[2022-01-03] MEDS: ENOXAPARIN 40 MG/0.4 ML SYRINGE SUBCUT (09:50)
[2022-01-03] MEDS: ACETAMINOPHEN 325 MG TABLET 650 MG PO (09:50)
--- NOTE | 2022-01-03 10:07 | PM.HP.1 ---
History of Present Illness History of Present Illness Date Patient Seen: 01/03/22 Time Patient Seen: 09:30 Chief complaint: left hand swollen Narrative: This is a 61-year-old gentleman with a known history of intravenous drug abuse who notes he has had increased problems with left hand pain and swelling. He does use intravenous drug abuse on a regular basis and says that he has a mild reaction on his right thigh his left thigh and his left shoulder. S chief complaint today is of ongoing swelling and pain in the left hand. Says that he is not injected that area recently. He notes difficulty with range of motion in his left hand and ongoing pain. He is uncertain whether he has had fevers or chills. He is followed I believe in the wound clinic and he is thinking maybe he should get on methadone. He says his roommate recently got on methadone. Patient History Medical History Chronic shoulder pain Hepatitis C History of heroin use IV drug abuse IV drug user Lower extremity edema Lumbar post-laminectomy syndrome Methadone dependence Tobacco abuse Surgical History History of lithotripsy Family & Social History Tobacco & Substance use: Smoking Status Current every day smoker alcohol intake former alcohol intake frequency 0-2 drinks per day Substance Use Type heroin Meds Home Medications and Allergies Home Medications Medication Instructions Recorded Confirmed Type albuterol sulfate 90 mcg/actuation 1 puff INHALATION PRN PRN 05/11/18 02/08/20 History aerosol inhaler dextroamphetamine-amphetamine 30 30 mg PO TID tab 12/17/18 02/08/20 History mg tablet (Adderall) methadone 40 mg soluble tablet 135 mg PO DAILY #0 tab 12/17/18 02/08/20 History (Methadose) sulfamethoxazole 800 1 tab PO BID #14 tab 04/27/20 Rx mg-trimethoprim 160 mg tablet (Bactrim DS) hydrochlorothiazide 25 mg tablet 25 mg PO DAILY #10 tab 05/14/20 Rx sulfamethoxazole 800 1 tab PO BID #14 tab 05/14/20 Rx mg-trimethoprim 160 mg tablet cyclobenzaprine 5 mg tablet 5 mg PO TID PRN #10 tab 06/09/21 Rx Allergies Allergy/AdvReac Type Severity Reaction Status Date / Time No Known Drug Allergies Allergy Verified 06/09/21 14:53 Review of Systems Review of Systems Narrative: He notes chronic neck pain he denies any recent fever or chills he notes his chief complaint is difficulty using his left hand. He says his left hand was pretty normal couple of weeks ago. He has chronic problems with bilateral lower extremity swelling and he notes soreness in the res area of recent injections in multiple locations including bilateral thighs and his left shoulder, denies any new recent chest pain cough fever or chills Exam Vital Signs (past 8 hours): - 01/03/22 07:27 01/03/22 07:28 01/03/22 07:30 Pulse Rate 133 H 122 H Blood Pressure 152/100 H Pulse Oximetry 96 94 95 01/03/22 09:55 01/03/22 09:56 Pulse Rate 91 H 91 H Blood Pressure 124/74 Pulse Oximetry 97 96 Oxygen Delivery Method Room Air Narrative Exam Narrative: Disheveled but alert gentleman, resting comfortably in bed, respirations are even cor shows a regular rate and rhythm abdomen is obese, bilateral lower extremities have edema in bilateral lower extremities and they were wrapped with compressive dressings, the right thigh has been erythematous she region which is mildly tender to palpation, no pain with range of motion in the right hip the left thigh has a smaller erythematous region which is mildly tender to palpation, no pain with range of motion left hip, right shoulder has focal tenderness in the deltoid area without a palpable abscess, left hand is remarkable for marked swelling on the dorsum of the left hand he does have substantial pain with passive extension of his middle and ring finger there is no significant erythema and there is no obvious new puncture wound there are some puncture wounds along the radial aspect on the dorsum of his wrist, his pain with range of motion in the left wrist and decreased function of the left hand Objective Labs Result Diagrams: 01/03/22 07:35 01/03/22 07:35 Labs: Laboratory Results - last 24 hr 01/03/22 01/03/22 01/03/22 00:45 00:45 00:45 WBC 11.4 H RBC 5.04 Hgb 12.8 L Hct 39.5 L MCV 78.2 L MCH 25.3 L MCHC 32.4 RDW 15.8 H Plt Count 248 Neut % (Auto) Not Reportable Lymph % (Auto) Not Reportable [place] % (Auto) Not Reportable Eos % (Auto) Not Reportable Baso % (Auto) Not Reportable Neut # (Auto) Lymph # (Auto) Not Reportable [place] # (Auto) Not Reportable Eos # (Auto) Baso # (Auto) Not Reportable Total Counted 100 Seg Neutrophils % 57.0 Band Neutrophils % 3.0 Lymphocytes % (Manual) 14.0 L Atypical Lymphs % 12.0 H Monocytes % (Manual) 13.0 H Eosinophils % (Manual) 1.0 L Neutrophils # (Manual) 6840 H RBC Morphology Normal morphology ESR 15 Sodium 137 Potassium 4.4 Chloride 103 Carbon Dioxide 33 H BUN 17 Creatinine 0.62 L Estimated GFR > 60.0 BUN/Creatinine Ratio 27.4 H Glucose 101 Lactate 1.1 Calcium 9.2 Total Bilirubin 0.3 AST 26 ALT 18 Alkaline Phosphatase 67 C-Reactive Protein 3.1 H Total Protein 7.6 Albumin 3.8 Globulin 3.8 Albumin/Globulin Ratio 1.0 SARS-CoV-2 (PCR) 01/03/22 01/03/22 01/03/22 00:49 07:35 07:35 WBC 10.0 RBC 5.27 Hgb 13.6 Hct 40.6 L MCV 77.1 L MCH 25.8 L MCHC 33.4 RDW 15.7 H Plt Count 232 Neut % (Auto) 66.7 Lymph % (Auto) 17.5 L [place] % (Auto) 10.9 Eos % (Auto) 4.1 H Baso % (Auto) 0.8 Neut # (Auto) 6700 Lymph # (Auto) 1800 [place] # (Auto) 1100 H Eos # (Auto) 400 Baso # (Auto) 100 Total Counted Seg Neutrophils % Band Neutrophils % Lymphocytes % (Manual) Atypical Lymphs % Monocytes % (Manual) Eosinophils % (Manual) Neutrophils # (Manual) RBC Morphology ESR Sodium 134 L Potassium 4.5 Chloride 101 Carbon Dioxide 31 BUN 14 Creatinine 0.65 L Estimated GFR > 60.0 BUN/Creatinine Ratio 21.5 Glucose 102 Lactate Calcium 9.2 Total Bilirubin AST ALT Alkaline Phosphatase C-Reactive Protein Total Protein Albumin Globulin Albumin/Globulin Ratio SARS-CoV-2 (PCR) Positive H mri left hand pending Assessment & Plan Assessment and plan (1) Lower extremity edema: Status: Acute (2) Hepatitis C: Status: Acute (3) History of heroin use: Status: Chronic (4) Methadone dependence: Status: Chronic (5) Tobacco abuse: Status: Chronic (6) Cellulitis and abscess of hand: Status: Acute Plan Orthopedic consultations requested for evaluation of his left hand. I concur with plan for an MRI scan of his left hand to evaluate further for an abscess. He has a history of intravenous drug abuse and does have erythematous regions in the places that he has been recently injecting. I do not find a focal abscess in his abscess in his thighs bilaterally or in his left shoulder. He has substantial swelling on the dorsum of his left hand and decreased range of motion in the fingers. If he has a deep abscess he may require irrigation and debridement. I asked the emergency room physicians to keep him NPO until we find the results of his MRI scan. He is currently on IV antibiotics which I would concur with. Time Spent With Patient Critical Care time: I spent a total of [] minutes of critical care time on this patient's care today; this time is exclusive of procedural time.
--- NOTE | 2022-01-03 18:26 | PC.NURSE ---
Pt is a high fall risk. pt reports he had multiple falls at home. pt refused bed alarm, but he keeps getting out of bed without calling. pt says i want to be free to do whatever I want. I don't want any restrictions or else I will leave. I offered to move him to another room where we can monitor him better to avoid falls and to avoid feeling of claustrophobia. pt wanted to stay in his original room. notified provider. no new orders. pt is also wanting to leave his bedroom so he can walk around in hallways. pt is aware he is covid positive, but asymptomatic. I was able to talk him into staying in his room.
[2022-01-04] VITALS (17 sets, daily range): BP systolic 96–144; BP diastolic 42–83; PULSE 67–92; RESP 11–20; TEMP 35.6–37.2; O2SAT 92–100
--- NOTE | 2022-01-04 | PATH_ITS ---
[facility] Accession Number: [id number] No. of containers..01 Tissue . 01 Material submitted: . forearm - TISSUE RIGHT FOREARM . 01 Diagnosis: Soft Tissue, Right Forearm, Excision: Fibroadipose tissue with acute and chronic inflammation, organizing fat necrosis, old hemorrhage, and fibrosis. MRV 01/11/2022 1327 Local . 01 Electronically signed: . Aretha Rosario MD, Pathologist NPI- [id number] . 01 Gross description: . Received in formalin, labeled with the patient's name and additionally labeled right forearm abscess tissue, are two fragments of maria-hunter variegated hemorrhagic tissue and blood clot measuring 1.3 x 0.6 x 0.3 cm and 0.9 x 0.7 x 0.3 cm. Each fragment is bisected, and the specimen is entirely submitted in cassette A1. ([id number]) /MRV 01/09/2022 1508 Local . 01 Pathologist provided ICD-10: M79.9 . 01 CPT . 739386 Specimen Comment: A courtesy copy of this report has been sent to [phone] Performed at: 01 [facility] [address] [place] [address] Suite [facility] [place], [place], [place] [id number] MD Enrique Juárez MD Phone: [phone]
[2022-01-04] MEDS: VANCOMYCIN 2,000 MG/400 ML PIGGYBACK 200 MG IV ×2 (01:45→14:05)
[2022-01-04] MEDS: HYDROMORPHONE 1 MG INJ IV ×4 (02:49→20:41)
[2022-01-04] MEDS: METHADONE 10 MG TABLET PO (09:41)
--- NOTE | 2022-01-04 10:07 | PM.PREOP ---
Pre-operative Note COVID-19 COVID-19 status: Positive Criteria for continued procedure: Expected advancement of disease process, Possibility delay results in more complex future surgery or treatment, Continuing or worsening of significant or severe pain, Deterioration of the patient's condition or overall health, Delay expected to result in less-positive ultimate med/surg outcome and Non-surgical alternatives not available or appropriate per current SOC Interval Note History & Physical reviewed/Exam performed by Physician: Yes Changes to H&P: Yes H&P completed within 30 days and has changed as indicated here:: Patient has developed increased redness, swelling and fluctuance consistent with abscess left hip. Indicated for I and D.
[2022-01-04] MEDS: METHADONE 10 MG TABLET 150 MG PO (10:57)
--- NOTE | 2022-01-04 13:03 | DI.RAD.S_ITS ---
PROCEDURE: XR CHEST 1V INDICATIONS: PICC placement TECHNIQUE: One view of the chest was acquired. COMPARISON: [facility], , XR CHEST FOR PICC 1V, 02/08/2020, 13:42. FINDINGS: Surgical changes and devices: A left-sided PICC line is seen, with the tip overlying the inferior aspect of the superior vena cava, 1 cm above the cavoatrial junction. Lungs and pleura: On this semiupright portable chest examination, no large pneumothorax or large pleural effusions are seen. No focal infiltrates are seen. Low lung volumes are noted. This causes a crowded appearance to the lung markings and limits evaluation. Mediastinum: Mediastinal contours appear normal. Heart size is normal. Bones and chest wall: No suspicious bony lesions. Age-appropriate bony degenerative changes are seen. Overlying soft tissues appear unremarkable. IMPRESSION: The tip of the left-sided PICC line is seen overlying the inferior aspect of the superior vena cava. Dictated by: Wayne Weber M.D. on 01/04/2022 at 12:30 Approved by: Wayne Weber M.D. on 01/04/2022 at 12:31
[2022-01-04 13:42] LABS: Vancomycin Trough 11.3 ug/mL (10-20)
--- NOTE | 2022-01-04 15:39 | P.PN_ITS ---
Subjective Subjective Interval history: The patient reports improvement in his pain. He reports good PO intake. Denies any new, active complaints. Exam Vital Signs (past 8 hours): - 01/04/22 08:15 01/04/22 09:50 01/04/22 10:54 Temperature 97.7 F 99.0 F Pulse Rate 86 92 H Respiratory Rate 18 20 Blood Pressure 134/74 111/49 L Pulse Oximetry 96 94 94 01/04/22 11:00 Temperature Pulse Rate Respiratory Rate Blood Pressure Pulse Oximetry 96 Oxygen Delivery Method Room Air Oxygen Flow Rate 0 Const Other: Patient sitting up in bed comfortably upon my entering the room, in no apparent, acute distress. Eyes Other: No scleral icterus appreciated. Neck Other: No carotid bruits appreciated. Resp Other: Lungs clear to auscultation bilaterally. Cardio Other: RRR. S1 and S2 heart sounds normal. No extra heart sounds or murmurs appreciated. No peripheral edema noted. GI Other: Soft, non-distended, non-tender. Bowel sounds present. Skin Other: Pancake-sized area of erythema noted to the lateral aspect of the right hip, and a half-dollar sized cellulitic erythema appreciated over lateral aspect of left shoulder. Extrem Other: Left hand swelling appreciated, with tenderness to palpation. Patient has good ROM of his left hand, but it is limited due to pain. Palpable and bilaterally equal radial and dorsalis pedis pulses. Objective Labs Result Diagrams: 01/03/22 07:35 01/03/22 07:35 Labs: Laboratory Results - last 24 hr 01/04/22 13:05 Vancomycin Trough 11.3 PFSH Medical History Chronic shoulder pain Hepatitis C History of heroin use IV drug abuse IV drug user Lower extremity edema Lumbar post-laminectomy syndrome Methadone dependence Tobacco abuse Surgical History History of lithotripsy Social History Smoking Status: Current every day smoker alcohol intake: former substance use type: opiates and IV drugs Assessment & Plan Assessment & Plan narrative: Mr. Mittal is a 61M with PMH opiate dependence, HTN who presents with left hand cellulitis 1. Left hand cellulitis, with possible abscess, acute -per patient did not inject in hand -IV vancomycin ordered -follow up blood cultures -patient refused MRI due to claustrophobia -ortho consult 2. Bilateral hip erythema -concerning for possible cellulitis -given IVDU history and multiple areas of erythema have some suspicion for endocarditis -ordered ECHO -follow up blood cultures 3. IV drug abuse, opiate dependence -APPLICATION SUPPORT CONSULTANT confirmed with patient's methadone provider that he takes 160 mg daily 4. COVID positive -incidentally noted -no respiratory symtpoms, no cough/sob, no hypoxemia -no indication for treatment currently 5. Hypertension -hold anti-hypertensives 6. Tobacco abuse -encourage lifestyle changes and cessation 7. Hepatitis C -per patient has completed treatment CODE: Full Proxy: Sarah Rojas, life partner I have utilized all available resources to reconcile the patient's home medications. Time Spent With Patient Critical Care time: I spent a total of [] minutes of critical care time on this patient's care today; this time is exclusive of procedural time. Quality MIPS - Admit I confirm the patient?s Advance Care Plan is present, Code status is documented, Surrogate decision maker is in patient?s record [If Yes, STOP here]: Yes
--- NOTE | 2022-01-04 16:45 | PC.NURSE ---
Pt called using call button, LOIS Braga was notified that the Pt said F this Shit, I dont want to be here anymore, I want to go home
--- NOTE | 2022-01-04 17:38 | SUR.OPER ---
Lateral on a awng bag, head on pillow, gel axillary roll in place, bottom leg bent with gel pad under knee to foot, upper leg straight and supported with pillows. Upper arm supported by pillows and secured over bottom arm to padded arm board. Safety belt at hip, tape over blanket lower legs.
[2022-01-04] MEDS: LACTATED RINGERS 1,000 ML 42 ML IV (18:25)
--- NOTE | 2022-01-04 18:55 | SUR.OPER ---
Supine on padded OR bed, head on pillow, arms secured on padded arm boards at <90 degrees abduction, legs uncrossed, safety belt at thigh, tape over blanket over lower legs.
--- NOTE | 2022-01-04 19:02 | PC.NURSE ---
Off to OR. Pt denies any problems. Given dilaudid for pain and states it has been effective.
--- NOTE | 2022-01-04 19:32 | P.OP_ITS ---
Operative Date/Time/Diagnoses Date of procedure: 01/04/22 Time of procedure: 19:32 Pre-op diagnosis: 1. IV drug use-heroin 2. Abscess right hip 3. Abscess left shoulder 4. Abscess right forearm 5. Cellulitis left hand 6. COVID positive status Post-op diagnosis: same Procedure & Clinicians Procedure: 1. Incision and drainage abscess right hip, complex with [place]. c[place] 277[address] 2. Incision and drainage abscess right forearm with packing 52351-13 3. Incision and drainage abscess left shoulder with packing 96216-01 Same procedure as scheduled: Yes Indications: Patient is a 61-year-old male with a history of IV drug use, heroin. He recently injected into multiple sites on his body. He had increased pain and erythema as well as left hand swelling. Presented to the ER. He was evaluated by the ER and Orthopedics and admitted to Medicine for cellulitis of his left hand. He was also found to be COVID positive. He is claustrophobic and refused MRI. There was no obvious fluctuance or tenosynovitis of his left hand. He did get started on IV antibiotics and his hand has improved overnight however he has increased redness swelling and induration size of a dinner plate on his right hip as well as appointed swollen indurated area on his left shoulder which was another injection site. He also injected at the left hip and but this is not indurated or erythematous. He was indicated for incision and drainage of his right hip abscess and left shoulder abscess. On arrival into the operating room he also was noted to have a abscess on the right forearm that it just become pointed and started to drain. He was indicated for drainage of the right for him abscesses well. The risks benefits and alternatives to the procedures were discussed with the patient in detail including risks for need for additional surgery or larger procedures for his infections. At this point he did not have any signs of tenosynovitis or drainable abscesses on his left hand exam. We discussed infections have evolving pictures and that if he develops any other concerning sites during his hospitalization to let his team know. At this point he was indicated for incision and drainage of his right hip left shoulder and right forearm. And he consented to all of these procedures. The risks and benefits of the procedure have been discussed with the patient given the opportunity to ask questions. The risks of surgery include but are not limited to infection, need for additional procedures, persistence of pain, damage to nerves and blood vessels, DVT, PE, cardiopulmonary complications and . The patient expressed a thorough understanding of the risks and benefits of surgery and has elected to proceed. Consent was signed. Surgeon: Kaitlynn Bojorquez Click Yes if Unassisted: Yes Anesthesia Type: General Operative Notes Findings: Fluctuance and erythema size of a dinner plate on his right hip. The central area was fluctuant this was incised purulence fluid was obtained this was sent for culture. Tissue was significantly indurated. This was debrided extensively with a curette and Ramirez elevator mobilizing the tissue planes then was irrigated with saline and closed over a Hemovac drain. Right forearm was incised over the central area of fluctuance small amount of thick purulence was obtained and the overall tissue in the area was quite abnormal. It was indurated significantly with lots of black hard artifact which I believe may be the injectant. Tissue was sent. The wound was irrigated and packed with quarter-inch plain packing gauze. The left shoulder was incised with gross purulence at return. This was cultured. The abscess cavity was opened with the hemostat and curette again black foreign material was noted. This was thoroughly irrigated and then packed with quarter-inch packing gauze. Closure Type: non-primary Specimen(s): other (Swabs and Specimens for micro and path) Applied: drain(s) (Medium Hemovac drain right hip, packing gauze was placed in the right forearm and left shoulder) Estimated Blood Loss (mL): 20 Blood products transfused: none Tourniquet time (min): 0 Procedure in detail: Patient was brought down directly from his room into the operating room due to his COVID positive status. He was met in operating room and the surgical site and informed consent were confirmed. Patient was positioned on the operative table. Bony prominences were well padded. An SCD was placed on the contralateral lower extremity. And then general anesthetic was administered. Only necessary personnel were in the room following the COVID positive pr otocols. Patient was prepped and draped in the standard sterile fashion a formal time-out procedure was performed confirming the patient's side and site of surgery presence of informed consent. The patient was on scheduled antibiotics. All were in agreement. Attention was 1st turned to the right hip. There was a pie plate sized area of erythema and induration with central fluctuance. This was incised longitudinally approximately 4 cm through the skin and subcutaneous tissue. Additional blunt dissection through the subcutaneous fat demonstrated the abscess with cloudy purulence. This was cultured. A curette was used to disturb any loculations and thoroughly debride the abscess cavity. The wound was then irrigated with copious amounts of saline and closed over a medium Hemovac drain. Few loose PDS sutures were used for deep closure followed by 3-0 nylon. A dressing was placed with Xeroform gauze and a large Tegaderm. The drain was sewn in to the skin. At this point attention was turned to the right forearm the area was prepped with Betadine and a 15 blade was used to incise the indurated raised forearm abscess. Small amount of purulence did return rest of the tissue was extremely hard an abnormal and stained with a black foreign material that was present in both bulk and in flex. Tissue was sent for pathology. It is anticipated this is the injectant. The wound was irrigated and then packed with quarter-inch plain gauze packing. A dressing with gauze and Tegaderm was placed. Finally attention was turned to the left shoulder for again there was a raised indurated erythematous lesion at the lateral deltoid. There was starting to get a pointed area in the center of the induration. This was again prepped with Betadine and then incised longitudinally. There was immediate return of gross purulence. Hemostat was used to open the abscess cavity further and remove any loculations. This was then debrided with a curette and thoroughly irrigated with saline and then packed with quarter-inch plain packing gauze open. Again gauze and a Tegaderm dressing were placed. Following the procedure the drapes removed. The patient was woken from anesthesia and recovered in the room for the COVID positive protocols. Counts were correct. Complications: none Post-operative Condition: stable Disposition: PACU Plan for aftercare: Patient will get daily packing changes by nursing on the floor. This should be a quarter-inch plain iodoform gauze. Will follow drain output right hip. Remove when output is less than 10 cc per shift or 48 hours
--- NOTE | 2022-01-04 19:47 | SUR.PHASEI ---
Addendum entered by Carrol Branham R.N. 01/04/22 19:48: Dressing to left shoulder I&D site with moderate amount of serosanguinous drainage; dressing to right forearm with small amount of drainage noted; right hip with bulky dressing and hemovac drain; No drainage noted. Original Note: Patient being recovered in OR [address], due to COVID positive status. Oral airway in place; anesthesia remains at bedside. VSS. Dressing to left shoulder I&D site with moderate abmo
--- NOTE | 2022-01-04 20:02 | SUR.PHASEI ---
Patient drowsy but responsive to verbal; able to wiggle toes and squeeze hands; following commands but falls back to sleep; VSS;
[2022-01-04] MEDS: LACTATED RINGERS 1,000 ML 125 ML IV (21:00)
[2022-01-04] MEDS: HYDROMORPHONE 2 MG INJ IV ×2 (22:11→23:29)
[2022-01-05] MEDS: VANCOMYCIN 2,000 MG/400 ML PIGGYBACK 200 MG IV (01:19)
[2022-01-05] MEDS: HYDROMORPHONE 2 MG INJ IV ×3 (04:22→09:35)
[2022-01-05] MEDS: LACTATED RINGERS 1,000 ML 125 ML IV (05:08)
--- NOTE | 2022-01-05 07:45 | PM.PN.1 ---
Exam Vital Signs (past 8 hours): Oxygen Delivery Method Room Air Oxygen Flow Rate 0 Objective Labs Result Diagrams: 01/03/22 07:35 01/03/22 07:35 Labs: Laboratory Results - last 24 hr 01/04/22 13:05 Vancomycin Trough 11.3 PFSH Medical History Chronic shoulder pain Hepatitis C History of heroin use IV drug abuse IV drug user Lower extremity edema Lumbar post-laminectomy syndrome Methadone dependence Tobacco abuse Surgical History History of lithotripsy Social History Smoking Status: Current every day smoker alcohol intake: former substance use type: opiates and IV drugs Assessment & Plan Assessment & Plan narrative: Mr. Mittal is a 61M with H opiate dependence, HTN who presents with left hand cellulitis 1. Left hand cellulitis, with possible abscess, acute -per patient did not inject in hand -IV vancomycin ordered -follow up blood cultures -patient refused MRI due to claustrophobia -ortho consult 2. Bilateral hip erythema -concerning for possible cellulitis -given IVDU history and multiple areas of erythema have some suspicion for endocarditis -ordered ECHO -follow up blood cultures 3. 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 COVID positive -incidentally noted -no respiratory symtpoms, no cough/sob, no hypoxemia -no indication for treatment currently 5. Hypertension -hold anti-hypertensives 6. Tobacco abuse -encourage lifestyle changes and cessation 7. Hepatitis C -per patient has completed treatment CODE: Full Proxy: Sarah Rojas, life partner Time Spent With Patient Critical Care time: I spent a total of [] minutes of critical care time on this patient's care today; this time is exclusive of procedural time.
[2022-01-05 08:30] VITALS: O2SAT 97
[2022-01-05 09:00] VITALS: BP 110/43; PULSE 82; RESP 18; TEMP 36.9; O2SAT 91
[2022-01-05] MEDS: ENOXAPARIN 40 MG/0.4 ML SYRINGE SUBCUT (09:35)
[2022-01-05] MEDS: METHADONE 10 MG TABLET 160 MG PO (09:36)
--- NOTE | 2022-01-05 10:03 | P.PN_ITS ---
Subjective Subjective Date Patient Seen: 01/05/22 Time Patient Seen: 10:03 Interval history: Pain is mild. Denies fever or chills. Exam Vital Signs (past 8 hours): - 01/05/22 08:30 01/05/22 09:00 Temperature 98.4 F Pulse Rate 82 Respiratory Rate 18 Blood Pressure 110/43 L Pulse Oximetry 97 91 Oxygen Delivery Method Room Air Oxygen Flow Rate 0 Narrative Exam Narrative: 61-year-old male resting comfortably in bed in no apparent distress. Mild drainage on all 3 dressings. Otherwise dressings are intact. Hemovac in place right hip with 40 mL output over last shift. Objective Labs Result Diagrams: 01/03/22 07:35 01/03/22 07:35 Labs: Laboratory Results - last 24 hr 01/04/22 13:05 Vancomycin Trough 11.3 [facility] CLIA ID [id number] [address] [place] [address] RUN DATE: 01/05/22 Specimen Inquiry PAGE 1 RUN TIME: 1008 Name: Tahir Mittal Age/Sex: 61/M Attend Dr: Wayne Riddle MD Unit#: [id number] : 1960Location: AC 220-1 Re01/03/22 Disch: Status: ADM IN SPEC #: [id number] ASHLEY: 01/04/22 STATUS: RES REQ #: [id number] SPDESC: RECD: 01/04/[address]: Kaitlynn Bojorquez MD SOURCE: Shoulder L ENTR: 01/04/[address]: Wayne Riddle MDlandRemedios [facility] FAX TO: ORDERED: WOUND Cx and GS COMMENTS: Comment LEFT SHOULDER ABSCESS Procedure Result Verified Site Gram Stain Final 01/04/222220 White blood cells Few poly WBCs Gram Positive Cocci Scant Aerobic Culture for wounds Pending Anaerobic Culture Pending [facility] Medical History Chronic shoulder pain Hepatitis C History of heroin use IV drug abuse IV drug user Lower extremity edema Lumbar post-laminectomy syndrome Methadone dependence Tobacco abuse Surgical History History of lithotripsy Social History Smoking Status: Current every day smoker alcohol intake: former substance use type: opiates and IV drugs Assessment & Plan Post-op Postoperative Procedures: Procedures Operation Date: 01/04/22 18:15 Actual Procedure Side Surgeon p I&D hip abscess, LEFT SHOULDER AND RIGHT FOREARM ABSCESSES Right Kaitlynn Bojorquez MD Postoperative day: 1 Postoperative status narrative: Stable status post incision and drainage abscess right hip, incision and drainage abscess right forearm, incision and drainage abscess left shoulder Postoperative plan narrative: Packing change daily with quarter-inch plain iodoform gauze Continue to monitor right hip drain output, drain may be removed when output less than 10 cc per shift or at 48 hours Left hand cellulitis, IV drug abuse, COVID positive, hypertension, tobacco abuse, hepatitis-C managed by hospitalist
--- NOTE | 2022-01-05 10:30 | PC.NURSE ---
Day shift: AMA paperwork signed by patient and in chart. Dr Floyd, CM, and net maker aware. PICC line removed and he tolerated well. Given info on I&D care and cellulitis. He has all personal belongings. Trevor-vac removed as well. All 3 I&D dressings remains CDI. Informed Pt that it was not a good idea to leave today and that he needs the IV antibiotics. Pt stated I'm leaving now and I don't need to talk to the doctor. He also stated My horse got out and I don't want to pay $1000 fine.
--- NOTE | 2022-01-05 10:52 | PC.NURSE ---
Day shift: Pt taken to his car at approx 1045 in WC by this quality analyst/technical writer. He was in good spirits, calm and cooperative except for the AMA. Dr Floyd did have a chance to talk to Pt before he left as well. Pt said he would be coming back today to finish treatment and Dr Floyd told him to come into the ED.
--- NOTE | 2022-01-05 12:06 | PT-IP ANOTE ---
Pt left AMA before PT eval being completed
--- NOTE | 2022-01-05 20:35 | P.DS_ITS ---
History of Present Illness History of Present Illness Date Patient Seen: 01/05/22 Chief complaint: left hand swollen Narrative: Mr. Mittal is a 61M with PMH tobacco abuse, opiate abuse, HTN, hepatitis C who presents with left hand pain. He denies injecting into the hand. He denies having any trauma to the hand. He notes that the hand was fine until three days ago and then became swollen, painful and red. He has subjective fevers. He has been eating well. No chest pain or shortness of breath. In the ED workup was done, vitals notable for blood pressure 170s/80s. Labs notable for WBC 11.4, hgb 12.8, creatinine 0.62, lactate 1.1. COVID was positive. He was ordered for IV fluids and antibiotics and he was admitted for further treatment. Discharge Providers Provider Date of admission: 01/03/22 07:24 Discharge Date: 01/05/22 Primary care physician: MEMO Davies Consults: 01/04/22 20:37 Consult to Physical Therapy Evaluate & Treat Comment: wbat Physician Instructions: Evaluate and Treat Consult to Respiratory Therapy Evaluate & Treat Comment: Physician Instructions: Evaluate and treat Discharge provider: Neto Floyd MD Summary Hospital Course Hospital Course: Mr. Mittal is a 61M with PMH opiate dependence, HTN who presents with left hand cellulitis 1. Left hand cellulitis, with possible abscess, acute The patient was receiving IV vancomycin and daily wound packing from Orthopedics to the hip wound. A duration of treatment had not been defined as the infection was still relatively fresh and ongoing. Mid day today the patient decided after a phone call from a friend that he needed to leave the hospital to rescue a horse. He felt he had no other choice any promise that he would return. His IV line was removed. He was advised not to leave the hospital. 2. Bilateral hip erythema Incision and drainage was done per Orthopedics 3. 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 COVID positive -incidentally noted -no respiratory symtpoms, no cough/sob, no hypoxemia -no indication for treatment currently 5. Hypertension -hold anti-hypertensives 6. Tobacco abuse -encourage lifestyle changes and cessation 7. Hepatitis C -per patient has completed treatment CODE: Full Proxy: Sarah Rojas, life partner Exam Vital Signs (past 8 hours): Oxygen Delivery Method Room Air Oxygen Flow Rate 0 Narrative Exam Narrative: Exam was quite limited as I was putting on the COVID PPE when he announced that he was leaving. I talked to him through his open Door and he appeared to be breathing fine and physically capable of walking out of the hospital. Objective Labs Result Diagrams: 01/03/22 07:35 01/03/22 07:35 [facility] Medical History Chronic shoulder pain Hepatitis C History of heroin use IV drug abuse IV drug user Lower extremity edema Lumbar post-laminectomy syndrome Methadone dependence Tobacco abuse Surgical History History of lithotripsy Social History Smoking Status: Current every day smoker alcohol intake: former substance use type: opiates and IV drugs Discharge Plan Discharge Plan Patient Disposition: Left Against Medical Advice Discharge orders & Medications Prescriptions: Continued methadone [Methadose] 40 mg tablet,soluble 135 mg PO DAILY Qty: 0 0RF cyclobenzaprine 5 mg tablet 5 mg PO TID PRN (Reason: muscle spasm) Qty: 10 0RF albuterol sulfate [ProAir HFA] 90 mcg/actuation HFA aerosol inhaler 1 puff Inhalation PRN PRN (Reason: Shortness Of Breath) 0RF sulfamethoxazole-trimethoprim [Bactrim DS] 800-160 mg tablet 1 tab PO BID Qty: 14 0RF hydrochlorothiazide 25 mg tablet 25 mg PO DAILY Qty: 10 0RF sulfamethoxazole-trimethoprim 800-160 mg tablet 1 tab PO BID Qty: 14 0RF methadone 40 mg Tablet,Soluble 160 mg PO DAILY 0RF dextroamphetamine-amphetamine [Adderall] 30 mg tablet 30 mg PO TID 0RF Label Comments: PATIENT STATES HAS NOT TAKEN FOR ABOUT 6 MONTHS. Follow up/Referrals: Remedios Arreguin ARNP [Primary Care Provider] - Visit Report/Discharge Packet Instructions: DI for Cellulitis -- Adult, DI for Incision and Drainage of a Joint Discharge Data Primary Care Provider: Remedios Arreguin
== END 2022-01-05 10:40 | disposition left against medical advice (07) | DRG 570 ==
LOC: ED 03:12 → AC 08:56
PROVIDERS: Internal Medicine; Orthopaedic Surgery Foot and Ankle Surgery; Admitting Provider Student in an Organized Health Care Education/Training Program; Emergency Provider Emergency Medicine; PCP Nurse Practitioner Family; Referring Provider Emergency Medicine; Visit Provider Student in an Organized Health Care Education/Training Program
PROC: 0J9C3ZZ Drainage of Pelvic Region Subcutaneous Tissue and Fascia, Percutaneous Approach (ICD-10-PCS; CPT 10180; principal; 2022-01-04 18:15)
DX: L03.114 Cellulitis of left upper limb (principal); U07.1 COVID-19; F11.20 Opioid dependence, uncomplicated; L02.415 Cutaneous abscess of right lower limb; L02.512 Cutaneous abscess of left hand; L02.414 Cutaneous abscess of left upper limb; L02.413 Cutaneous abscess of right upper limb; Z53.29 Procedure and treatment not carried out because of patient's decision for other reasons; I10 Essential (primary) hypertension; Z53.21 Procedure and treatment not carried out due to patient leaving prior to being seen by health care provider; L53.8 Other specified erythematous conditions; F17.210 Nicotine dependence, cigarettes, uncomplicated
CPT/HCPCS: 36415; 71045; 80048; 80053; 80202; 83605; 85007; 85025; 85651; 86140; 87040; 87070; 87075; 87077; 87147; 87185; 87186; 87205; 87635; 94760; 96365; 96366; 96375; 99284; C9803; G0378; A9270; G0379; J1170; J1650; J2060; J2250; J2704; J3010

== ENCOUNTER 2022-01-05 15:25 | Observation (INO) | payer OTHER, MEDICAID, SELFPAY ==
[2022-01-03 12:07] VITALS: BMI 33.7
--- NOTE | 2022-01-05 17:57 | P.HP_ITS ---
History of Present Illness History of Present Illness Date Patient Seen: 01/05/22 Chief complaint: Abcess/Return Post Surgery Narrative: This is a 61-year-old male with several extremity skin abscesses that were taken to surgery and drained yesterday. Today he became quite upset that his horse had been released from its confinement by a friend and so left the hospital Against Medical Advice to find the horse and put it back in its place. He promised to return and did but then left again after the direct admission and before I could see him for an exam. Patient History Medical History Chronic shoulder pain Hepatitis C History of heroin use IV drug abuse IV drug user Lower extremity edema Lumbar post-laminectomy syndrome Methadone dependence Tobacco abuse Surgical History History of lithotripsy Family & Social History Tobacco & Substance use: Tobacco type cigarettes Smoking Status Current every day smoker alcohol intake former alcohol intake frequency 0-2 drinks per day Substance Use Type heroin Meds Home Medications and Allergies Home Medications Medication Instructions Recorded Confirmed Type albuterol sulfate 90 mcg/actuation 1 puff INHALATION PRN PRN 05/11/18 01/03/22 History aerosol inhaler dextroamphetamine-amphetamine 30 30 mg PO TID tab 12/17/18 02/08/20 History mg tablet (Adderall) methadone 40 mg soluble tablet 135 mg PO DAILY #0 tab 12/17/18 02/08/20 History (Methadose) sulfamethoxazole 800 1 tab PO BID #14 tab 04/27/20 Rx mg-trimethoprim 160 mg tablet (Bactrim DS) hydrochlorothiazide 25 mg tablet 25 mg PO DAILY #10 tab 05/14/20 Rx sulfamethoxazole 800 1 tab PO BID #14 tab 05/14/20 Rx mg-trimethoprim 160 mg tablet cyclobenzaprine 5 mg tablet 5 mg PO TID PRN #10 tab 06/09/21 01/03/22 Rx methadone 40 mg soluble tablet 160 mg PO DAILY 01/03/22 01/03/22 History Allergies Allergy/AdvReac Type Severity Reaction Status Date / Time No Known Drug Allergies Allergy Verified 06/09/21 14:53 Review of Systems Review of Systems Narrative: See narrative above Exam Narrative Exam Narrative: No exam done because the patient left against medical advice before I could see him. Assessment & Plan Assessment & Plan narrative: Mr. Mittal is a 61M with PMH opiate dependence, HTN who presents with left hand cellulitis The patient left against medical advice earlier today to rescue his horse that he said was released from the pasture by a friend. He was worried that he would have to pay 1000 dollars if he did not go home and take care of it. He promised to come back to complete his treatment. He did come back and was directly admitted but before I could see him left again against medical advice, quite angrily denouncing the fact that he was again placed in isolation for COVID. 1. Left hand cellulitis, with possible abscess, acute -per patient did not inject in hand -IV vancomycin ordered -follow up blood cultures -patient refused MRI due to claustrophobia -ortho consult 2. Bilateral hip erythema -concerning for possible cellulitis -given IVDU history and multiple areas of erythema have some suspicion for endocarditis -ordered ECHO -follow up blood cultures 3. 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 COVID positive -incidentally noted -no respiratory symtpoms, no cough/sob, no hypoxemia -no indication for treatment currently 5. Hypertension -hold anti-hypertensives 6. Tobacco abuse -encourage lifestyle changes and cessation 7. Hepatitis C -per patient has completed treatment CODE: Full Proxy: Sarah Rojas, life partner Time Spent With Patient Critical Care time: I spent a total of [] minutes of critical care time on this patient's care today; this time is exclusive of procedural time.
--- NOTE | 2022-01-05 18:39 | PC.NURSE ---
Pt has opened the door to his room right next to the nurses station and declared that he is leaving (for the second time today). He said I don't want to bother you all anymore and I don't want to be isolated because I do not have COVID! Pt did not want to stay for paperwork and walked around the corner and went down the elevator at 1840.
== END 2022-01-05 18:45 | disposition home or self-care (01) ==
PROVIDERS: Admitting Provider Family Medicine; PCP Nurse Practitioner Family; Referring Provider Family Medicine; Visit Provider Family Medicine
DX: L02.512 Cutaneous abscess of left hand (principal); Z53.21 Procedure and treatment not carried out due to patient leaving prior to being seen by health care provider; U07.1 COVID-19; I10 Essential (primary) hypertension; L53.8 Other specified erythematous conditions; F11.21 Opioid dependence, in remission; F17.210 Nicotine dependence, cigarettes, uncomplicated
CPT/HCPCS: G0378; A9270; G0379

== ENCOUNTER 2022-01-08 13:29 | Emergency (ER) | payer OTHER, MEDICAID, SELFPAY ==
[2022-01-03 12:07] VITALS: BMI 33.7
[2022-01-08 13:54] VITALS: BP 172/78; PULSE 100; RESP 24; TEMP 35.9; O2SAT 97; BMI 33.2
[2022-01-08 16:41] VITALS: BP 147/98; PULSE 90; O2SAT 98
--- NOTE | 2022-01-08 18:09 | ED.GENADULT ---
HPI - General Adult General Chief complaint: Wound/Laceration Stated complaint: Poss sepsis, told to come back by PCP Time Seen by Provider: 01/08/22 17:01 Source: patient Mode of arrival: Ambulatory History of Present Illness HPI narrative: 61-year-old gentleman with history of opioid use disorder multiple abscesses and recent hospital admissions, ER visits and multiple episodes of leaving against medical advice in the last number of days. When seen on initial exam today he is pale his right hip abscess does look like it is getting worse and has cellulitis I think he does deserve for workup and I am concerned that possibility of sepsis is certainly there. He states he used his very last bit of heroin earlier today does continue on his methadone and he in his room 8 are planning to get back to that [facility] clinic. We had a very eve discussion regarding his care, my concerns and his willingness to actually stay in the hospital and participate in care. He stated that he needed to go get his laptop and ?some things? out of his car. I told him that he was more than welcome to do this however that would be leaving against medical advice at and he would need to check back in to triage and given current volumes it may be a bit of weight in the emergency room before he seen again. I also told him if he thought that he could not stay in the hospital that I would go with harm reduction and prescribed him oral antibiotics without further workup at this time. He agrees to leaving Against Medical Advice at this time, finishing what ever tasks need to be accomplished so that he can stay in the hospital with anticipation of a couple days stay. He is allowed to leave Against Medical Advice Related Data Home Medications Medication Instructions Recorded Confirmed albuterol sulfate 90 mcg/actuation 1 puff INHALATION PRN PRN 05/11/18 01/09/22 aerosol inhaler methadone 40 mg soluble tablet 160 mg PO DAILY 01/03/22 01/09/22 Previous Rx's Medication Instructions Recorded sulfamethoxazole 800 1 tab PO BID #14 tab 04/27/20 mg-trimethoprim 160 mg tablet (Bactrim DS) Allergies Allergy/AdvReac Type Severity Reaction Status Date / Time No Known Drug Allergies Allergy Verified 01/08/22 13:54 Patient History Medical History Chronic shoulder pain Hepatitis C History of heroin use IV drug abuse IV drug user Lower extremity edema Lumbar post-laminectomy syndrome Methadone dependence Tobacco abuse Surgical History History of lithotripsy Family History Mother Diabetes mellitus Father Cancer Social History household members: spouse and friend(s) Smoking Status: Current every day smoker alcohol intake: former substance use type: opiates and IV drugs Smoking Status: Current every day smoker alcohol intake frequency: 0-2 drinks per day Substance Use Type: heroin, IV drugs and methamphetamine Exam Initial Vital Signs Initial Vital Signs: Vital Signs Temperature 96.7 F L 01/08/22 13:54 Pulse Rate 100 H 01/08/22 13:54 Respiratory Rate 24 01/08/22 13:54 Blood Pressure 172/78 H 01/08/22 13:54 Pulse Oximetry 97 01/08/22 13:54 Patient left Against Medical Advice prior to complete exam Course Vital Signs Vital signs: Vital Signs - 8 hr 01/08/22 13:54 01/08/22 16:41 Temperature 96.7 F L Pulse Rate 100 H 90 Respiratory Rate 24 Blood Pressure 172/78 H 147/98 H Pulse Oximetry 97 98 Discharge Plan Departure Patient Disposition: Left Against Medical Advice Clinical Impression: Abscess of hip, right, Opioid use disorder Prescriptions: No Action albuterol sulfate 90 mcg/actuation HFA aerosol inhaler 1 puff Inhalation PRN PRN (Reason: Shortness Of Breath) 0RF sulfamethoxazole-trimethoprim [Bactrim DS] 800-160 mg tablet 1 tab PO BID Qty: 14 0RF methadone 40 mg Tablet,Soluble 160 mg PO DAILY 0RF Referrals: Remedios Arreguin ARNP [Primary Care Provider] - Stand Alone Forms: Against Medical Advice
== END 2022-01-08 18:43 | disposition left against medical advice (07) ==
PROVIDERS: Emergency Provider Emergency Medicine; PCP Nurse Practitioner Family
DX: L02.415 Cutaneous abscess of right lower limb (principal); F11.90 Opioid use, unspecified, uncomplicated
CPT/HCPCS: 99281

== ENCOUNTER 2022-01-08 18:46 | Observation (INO) | payer OTHER, MEDICAID, SELFPAY ==
[2022-01-03 12:07] VITALS: BMI 33.7
[2022-01-08 19:17] VITALS: BP 164/85; PULSE 86; RESP 18; TEMP 36.1; O2SAT 100; BMI 33.3
[2022-01-09] VITALS (15 sets, daily range): BP systolic 105–160; BP diastolic 58–79; PULSE 66–87; RESP 18; TEMP 36.4–36.6; O2SAT 93–100; BMI 32.8
--- NOTE | 2022-01-09 00:24 | ED.RECABL ---
HPI - Recheck/Abnormal Lab/Rx General Chief Complaint: Recheck/Abnormal Lab/Rx Stated Complaint: SEPSIS Time Seen by Provider: 01/09/22 00:21 Source: patient Mode of arrival: Ambulatory Related Data Home Medications Medication Instructions Recorded Confirmed albuterol sulfate 90 mcg/actuation 1 puff INHALATION PRN PRN 05/11/18 01/03/22 aerosol inhaler dextroamphetamine-amphetamine 30 30 mg PO TID tab 12/17/18 02/08/20 mg tablet (Adderall) methadone 40 mg soluble tablet 135 mg PO DAILY #0 tab 12/17/18 02/08/20 (Methadose) methadone 40 mg soluble tablet 160 mg PO DAILY 01/03/22 01/03/22 Previous Rx's Medication Instructions Recorded sulfamethoxazole 800 1 tab PO BID #14 tab 04/27/20 mg-trimethoprim 160 mg tablet (Bactrim DS) hydrochlorothiazide 25 mg tablet 25 mg PO DAILY #10 tab 05/14/20 sulfamethoxazole 800 1 tab PO BID #14 tab 05/14/20 mg-trimethoprim 160 mg tablet cyclobenzaprine 5 mg tablet 5 mg PO TID PRN #10 tab 06/09/21 Allergies Allergy/AdvReac Type Severity Reaction Status Date / Time No Known Drug Allergies Allergy Verified 01/08/22 13:54 Patient History Medical History Chronic shoulder pain Hepatitis C History of heroin use IV drug abuse IV drug user Lower extremity edema Lumbar post-laminectomy syndrome Methadone dependence Tobacco abuse Surgical History History of lithotripsy Social History Smoking Status: Current every day smoker alcohol intake: former substance use type: opiates and IV drugs Smoking Status: Current every day smoker alcohol intake frequency: 0-2 drinks per day Substance Use Type: heroin, IV drugs and methamphetamine Exam Initial Vital Signs Initial Vital Signs: Vital Signs Temperature 97.0 F L 01/08/22 19:17 Pulse Rate 86 01/08/22 19:17 Respiratory Rate 18 01/08/22 19:17 Blood Pressure 164/85 H 01/08/22 19:17 Pulse Oximetry 100 01/08/22 19:17 Course Orders Ordered: ED Orders 01/08/22 19:24 Complete Blood Count AUTO DIFF Stat Comprehensive Metabolic Panel Stat Lactate (Lactic Acid) Stat 01/09/22 00:15 Blood Culture Stat Vancomycin HCl/Dextrose (Vancomycin) 2,000 mg in 400 mls @ 200 mls/hr IV NOW CHELO Last Admin: 01/09/22 01:45 Dose: 200 mls/hr Documented by: JESSENIA Discontinued Medications Diphenhydramine HCl (Diphenhydramine 50 Mg/Ml Vial) 25 mg IV NOW ONE Stop: 01/09/22 03:36 Ceftriaxone Sodium 2,000 mg/ (Sodium Chloride) 100 mls @ 200 mls/hr IV NOW ONE Stop: 01/09/22 00:23 Last Infusion: 01/09/22 01:41 Dose: 0 mls/hr Documented by: Admin: 01/09/22 01:03 Dose: 200 mls/hr Documented by: MARCI Vancomycin HCl (Vancomycin Per Pharmacy) 1 request MISC NOW ONE Stop: 01/09/22 00:23 Last Admin: 01/09/22 01:46 Dose: Not Given Documented by: JESSENIA Vital Signs Vital signs: Vital Signs - 8 hr 01/09/22 01:28 01/09/22 01:30 01/09/22 02:00 Pulse Rate 87 85 66 Blood Pressure 135/77 115/60 Pulse Oximetry 99 99 100 01/09/22 02:30 01/09/22 03:00 01/09/22 03:01 Pulse Rate 80 67 74 Blood Pressure 160/78 H 121/58 L Pulse Oximetry 100 99 99 MDM - Recheck/Abnormal Lab/Rx Lab Data Lab results narrative: MRSA abscesses ANTIBIOTIC ORG 1 Ciprofloxacin R Clindamycin R Daptomycin S Doxycycline S Erythromycin S Gentamicin S Levofloxacin I Linezolid S Moxifloxacin S Oxacillin [place] R Rifampin S Tetracycline S Trimethoprim/Sulfamethoxazole S Vancomycin S Result diagrams: 01/09/22 00:17 01/09/22 00:17 Labs: Lab Results 01/09/22 01/09/22 01/09/22 Range/Units 00:17 00:17 00:17 WBC 8.5 (4.5-11.0) X10^3/uL RBC 5.26 (4.5-5.9) X10^6/uL Hgb 13.3 L (13.5-17.5) g/dL Hct 41.1 (41-53) % MCV 78.0 L (80-100) fL MCH 25.3 L (26-34) PG MCHC 32.5 (30-36) % RDW 15.7 H (11.6-14.8) % Plt Count 330 (150-400) X10^3/uL Neut % (Auto) 52.8 (50-75) % Lymph % (Auto) 29.8 (25-40) % [place] % (Auto) 9.2 (3-14) % Eos % (Auto) 7.7 H (2-4) % Baso % (Auto) 0.5 (0-2) % Neut # (Auto) 4500 (9263-9117) /uL Lymph # (Auto) 2500 (6398-7628) /uL [place] # (Auto) 800 (0-900) /uL Eos # (Auto) 700 H (0-450) /uL Baso # (Auto) 0 (0-100) /uL Sodium 135 L (137-145) mmol/L Potassium 4.2 (3.4-5.1) mmol/L Chloride 101 (98-107) mmol/L Carbon Dioxide 32 (22-32) mmol/L BUN 18 (9-20) mg/dL Creatinine 0.69 (0.66-1.25) mg/dL Estimated GFR > 60.0 (>60) mL/min BUN/Creatinine Ratio 26.1 H (6-22) Glucose 106 (80-110) mg/dL Lactate 1.1 (0.7-2.1) mmol/L Calcium 9.7 (8.4-10.2) mg/dL Total Bilirubin 0.5 (0.2-1.3) mg/dL AST 30 (17-59) IU/L ALT 18 (<50) IU/L Alkaline Phosphatase 71 (38-126) U/L Total Protein 8.1 (6.3-8.2) g/dL Albumin 3.9 (3.5-5.0) g/dL Globulin 4.2 H (1.7-4.1) g/dL Albumin/Globulin Ratio 0.9 L (1.0-2.8) Discharge Plan Departure Prescriptions: No Action methadone [Methadose] 40 mg tablet,soluble 135 mg PO DAILY Qty: 0 0RF cyclobenzaprine 5 mg tablet 5 mg PO TID PRN (Reason: muscle spasm) Qty: 10 0RF albuterol sulfate 90 mcg/actuation HFA aerosol inhaler 1 puff Inhalation PRN PRN (Reason: Shortness Of Breath) 0RF sulfamethoxazole-trimethoprim [Bactrim DS] 800-160 mg tablet 1 tab PO BID Qty: 14 0RF hydrochlorothiazide 25 mg tablet 25 mg PO DAILY Qty: 10 0RF sulfamethoxazole-trimethoprim 800-160 mg tablet 1 tab PO BID Qty: 14 0RF methadone 40 mg Tablet,Soluble 160 mg PO DAILY 0RF dextroamphetamine-amphetamine [Adderall] 30 mg tablet 30 mg PO TID 0RF Label Comments: PATIENT STATES HAS NOT TAKEN FOR ABOUT 6 MONTHS. Referrals: Remedios Arreguin ARNP [Primary Care Provider] -
[2022-01-09 00:30] LABS: Add Manual Diff / Slide Review NO; Basophils Absolute Auto 0 /uL (0-100); Basophils Percent Auto 0.5 % (0-2); Eosinophils Absolute Auto 700 /uL (0-450); Eosinophils Percent Auto 7.7 % (2-4); Hematocrit 41.1 % (41-53); Hemoglobin 13.3 g/dL (13.5-17.5); Lymphocytes Absolute Auto 2500 /uL (1100-4500); Lymphocytes Percent Auto 29.8 % (25-40); Mean Corpuscular HGB Conc 32.5 % (30-36); Mean Corpuscular Hemoglobin 25.3 PG (26-34); Monocytes Absolute Auto 800 /uL (0-900); Monocytes Percent Auto 9.2 % (3-14); Neutrophils Absolute Auto 4500 /uL (1500-7000); Neutrophils Percent Auto 52.8 % (50-75); Platelet Count 330 X10^3/uL (150-400); Red Blood Cell Count 5.26 X10^6/uL (4.5-5.9); Red Cell Distribution Width 15.7 % (11.6-14.8); White Blood Cell Count 8.5 X10^3/uL (4.5-11.0)
[2022-01-09 00:44] LABS: Alanine Aminotransferase 18 IU/L (<50); Albumin 3.9 g/dL (3.5-5.0); Albumin Globulin Ratio 0.9 (1.0-2.8); Alkaline Phosphatase 71 U/L (38-126); Aspartate Aminotransferase 30 IU/L (17-59); BUN Creatinine Ratio 26.1 (6-22); Bilirubin Total 0.5 mg/dL (0.2-1.3); Blood Urea Nitrogen 18 mg/dL (9-20); Calcium 9.7 mg/dL (8.4-10.2); Carbon Dioxide 32 mmol/L (22-32); Chloride 101 mmol/L (98-107); Estimated Glomerular Filt Rate > 60.0 mL/min (>60); Globulin 4.2 g/dL (1.7-4.1); Glucose 106 mg/dL (80-110); HEMOLYSIS 33 (0-50); Potassium 4.2 mmol/L (3.4-5.1); Sodium 135 mmol/L (137-145); Total Protein 8.1 g/dL (6.3-8.2)
[2022-01-09 00:45] LABS: Lactate (Lactic Acid) 1.1 mmol/L (0.7-2.1)
[2022-01-09] MEDS: cefTRIAXone 2,000 MG in SODIUM CHLORIDE 0.9% 100 ML 200 ML IV (01:03)
[2022-01-09] MEDS: VANCOMYCIN 2,000 MG/400 ML PIGGYBACK 200 MG IV (01:45)
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
[2022-01-09 04:45] LABS: COVID19 -Nasal RAPID Negative (Negative)
--- NOTE | 2022-01-09 06:08 | PC.ADMIT ---
Patient admitted at 0455 to room 219 from ER per stretcher. COVID is negative but since he tested positive on 01/05 will need a 2nd negative swab before being taken off COVID precautions. Patient is alert and oriented but speech is poorly articulated making it difficult to understand him. Breath sounds are CTA with RA sat of 93%. HRR but BP elevated at 140/79. Denies nausea. BT present and had BM yesterday. Denies dysuria, frequency or urgency with urination. Is able to move himself in bed. Up in room independently; does have cane he sometimes uses. Is heroin/meth user and reports last use was yesterday; also takes Methadone. Dressings to right hip, right elbow/forearm and left upper arm are intact with drainage noted on each. Redness outlined around dressing on right hip. Has open area on left lower leg and abrasions on left forearm and right knee. Agreeable to having bilateral calf SCD's applied. Denies pain. Fall risk score is moderate but refuses use of bed alarm. Oriented to use of bed controls and call light. [id number] Jl Bishop Admission Note: The patient,Tahir Mittal,61 y/o, was given written information regarding hospital policies, unit procedures and contact persons. Patient's smoking status: Current every day smoker. Vital Signs - 8 hr 01/09/22 01:28 01/09/22 01:30 01/09/22 02:00 Temperature Pulse Rate 87 85 66 Respiratory Rate Blood Pressure 135/77 115/60 Pulse Oximetry 99 99 100 01/09/22 02:30 01/09/22 03:00 01/09/22 03:01 Temperature Pulse Rate 80 67 74 Respiratory Rate Blood Pressure 160/78 H 121/58 L Pulse Oximetry 100 99 99 01/09/22 03:30 01/09/22 04:00 01/09/22 04:03 Temperature Pulse Rate 77 77 75 Respiratory Rate Blood Pressure 120/65 109/70 Pulse Oximetry 100 99 98 01/09/22 04:30 01/09/22 05:00 Temperature 97.5 F L Pulse Rate 66 75 Respiratory Rate 18 Blood Pressure 105/59 L 140/79 Pulse Oximetry 100 93
[2022-01-09] MEDS: SODIUM CHLORIDE 0.9% 1,000 ML 60 ML IV (06:32)
[2022-01-09] MEDS: VANCOMYCIN 1,250 MG/250 ML PIGGYBACK 250 MG IV (09:20)
[2022-01-09] MEDS: ENOXAPARIN 40 MG/0.4 ML SYRINGE SUBCUT (09:20)
[2022-01-09] MEDS: METHADONE 10 MG TABLET 160 MG PO (09:21)
[2022-01-09] MEDS: VANCOMYCIN 1,250 MG/250 ML PIGGYBACK 175 MG IV (13:00)
--- NOTE | 2022-01-09 14:24 | CM.DANOTE ---
Patient is a 61 yo male who was admitted on 01/09/22 this morning for Sepsis. Pt has [facility] and [facility] for insurance and his PCP is Remedios Arreguin. EMR was reviewed. Per , pt with hx of Hep C, COVID+ on 01/05/22 and current IV-heroin user. Pt was admitted to the hospital for similar on 01/03/22 for left hand cellulitis and I&D completed for abscesses in his right hip, left shoulder, right forearm. Pt then left AMA. Pt returned a day later and was readmitted for same but left AMA on 01/05/22. Pt returns now with ongoing hip pain and drainage from his abscess and currently on IV-Abx and awaiting blood cultures to determine length of time recommended for IV-Abx. Pt currently on COVID precautions since he recently tested positive for COVID19 but had a negative COVID swab today 01/09 and needs another negative test tomorrow to get off COVID precautions. SW called into pt room due to COVID precautions and explained role and pt was somewhat difficult to understand via room phone/gravely voice but pt confirms that he lives in his own home in [place] with his Sig Other Sarah and is independent at baseline, drove his own vehicle to the hospital and plans to drive it back at d/c, and is not employed. Pt states he has been established at [facility] for 2-3 years for MAT tx (methadone) and has been clean and sober all that time and about 7 months ago a friend/roommate moved in with him and was using heroin and pt relapsed and has been using since then. Pt states he has used the last of his heroin right before admission and feels he has enough support through [facility] and that he has gotten his roommate into [facility] as well and they will support each other with sobriety. Pt declines any further [facility] resources at this time. Pt denies any HH or SNF and states he is hopeful to d/c home on orals today and SW discussed need to await blood cultures to confirm which type of abx is needed. Pt does not anticipate any needs at d/c. Pt has been established with [facility] for ongoing leg wounds. Per , Echo ordered as pt high risk for Endocarditis. Plan: SW to follow closely for culture results towards determining IV-Abx vs orals at d/c and pt's current IV heroin use a barrier to nursing home IV-Abx if needed. WILLIE Bourgeois Discharge Planning/Care Management CM Discharge Assessment Start: 01/09/22 14:11 Freq: Status: Active Protocol: Document 01/09/22 14:11 BF (Rec: 01/09/22 14:18 BF [id number]) Discharge Planning Assessment Assigned Merchandise Planning Manager WILLIE Rod DPOA/Assigned Designee Name informally Sig Other Sarah Rojas Contact Information [phone] Advance Directives? No Advance Directives on File No History Provided By Patient,Medical Record Has Patient been admitted in last 30 Yes days? Comment Left AMA 01/03/22 and then again on 01/05/22 Prior Living Arrangements House Household Members significant other,friend(s) Type of transporation used prior to Drives own vehicle admit Comment Has own vehicle in the parking lot Independent with ADL's Yes Is patient alert and oriented? Yes Caregiver for Another No Community Services used prior to Wound Care admission: Comment Established at [facility] wound care Barriers to Discharge Yes Comment Current IV-heroin abuse and may need IV-Abx Discharge Plan Home Community Services Wound Care Transportation Arrangement States his vehicle is in the parking lot Referrals Initiated None needed Additional Comment Pending culture results and abx needs Whiteboard Updated in Patient Room with Yes name and ext. # of Merchandise Planning Manager Review Status In Process Please Provide Date Initial DC 01/09/22 Assessment Was Performed Next Review Type Continued Stay Review
--- NOTE | 2022-01-09 15:31 | PM.DS.1 ---
History of Present Illness History of Present Illness Date Patient Seen: 01/09/22 Time Patient Seen: 15:31 Chief complaint: SEPSIS Narrative: Per Jolanta Friedman, [facility]-: Tahir Mittal 61-year-old gentleman with history of HTN, Hx of Hep C, Covid + 01/05/22, IVDU -heroin disorder returned to the ED with worsening right hip abcess.? Patient was originally admitted on 01/03 for left hand cellulitis, bilateral hip erythema, and positive asymptomatic COVID, on 01/05/22 Dr. Islas did I&D of the right hip abscess, left shoulder and right forarm abscess -which it appears afterwards the patient left Against Medical Advice on 01/05.? The patient then was readmitted through the ER on 01/05 but left Against Medical Advice prior to the hospitalist admit in exam.? And has returned today to ED looking pale, and his right hip abscess/cellulitis looking worse.? He reported to the ED that he used his very last bit of heroin earlier today does want to continue on his methadone and is planning to get back to the [facility].? Per Dr. Black in ED: We had a very eve discussion regarding his care, my concerns and his willingness to actually stay in the hospital and participate in care.? He stated that he needed to go get his laptop and ?some things? out of his car.? I told him that he was more than welcome to do this however that would be leaving against medical advice at and he would need to check back in to triage and given current volumes it may be a bit of weight in the emergency room before he seen again.? I also told him if he thought that he could not stay in the hospital that I would go with harm reduction and prescribed him oral antibiotics without further workup at this time.? He agrees to leaving Against Medical Advice at this time, finishing what ever tasks need to be accomplished so that he can stay in the hospital with anticipation of a couple days stay.? He is allowed to leave Against Medical Advice. The patient then returned to the ED only to go through the triage que again, and was admitted. Patient currently denies chest pain, shortness of breath, headache, changes in vision, fever, body aches, chills, abdominal pain, nausea, vomiting, urinary or bowel issues, numbness, hematuria, hematemesis, melena, tingling, recent injury or trauma. The patient's vitals upon admit temp 97?, BP was 121/58, HR 74, R 18, O2 saturation 99% on room air.? Patient is not septic, does not demonstrate a white count, CBC and chemistry panels are grossly normal.? Lactate is normal at 1.1.? Patient admitted for right hip cellulitis, patient is COVID negative today, IV fluids and antibiotics ordered. Discharge Providers Provider Date of admission: 01/09/22 04:28 Discharge Date: 01/09/22 Primary care physician: MEMO Davies Consults: 01/09/22 05:45 Consult to [employer] Routine Comment: 01/09/22 06:45 Consult to General Surgery Routine Comment: Consulting Provider: Kaitlynn Bojorquez Reason for consultation: Rt Hip cellulits possible abcess Has provider been notified: No Discharge provider: Kamlesh Tom DO Summary Hospital Course Discharge Diagnosis: 1. L hip cellulitis, possible abscess, improved. 2. polystubstance use, mild opiate use disorder. 3. COVID positive 4. Hypertension 5. Tobacco abuse 6. Hepatitis C Hospital Course: This is a 61-year-old male with a past medical history of hepatitis-C, hypertension, recent COVID diagnosis, tobacco and polysubstance use who was recently admitted for a left hand and left hip cellulitis. He left Against Medical Advice the day prior to this admission and return to the emergency room with complaints of worsening right hip pain and swelling. He had been discharged when he left Against Medical Advice on Bactrim to which his cultures appear sensitive. He was started on IV antibiotics, and by the following morning there was no significant erythema or induration, he was seen by Orthopedic surgery who placed a small drain but no purulence was noted. He improved much more quickly than expected. Given prior cultures and significant improvement he was discharged home to complete antibiotic therapy with Bactrim as previously prescribed. He has plans to follow-up with wound care. Time Spent with Patient Time spent: Less than 30 minutes Exam Vital Signs (past 8 hours): - 01/09/22 09:43 01/09/22 10:30 01/09/22 10:34 Temperature 97.8 F Pulse Rate 69 Respiratory Rate 18 Blood Pressure 114/68 Pulse Oximetry 95 100 96 01/09/22 12:08 Temperature Pulse Rate Respiratory Rate Blood Pressure Pulse Oximetry 97 Oxygen Delivery Method Room Air Oxygen Flow Rate 0 Narrative Exam Narrative: GENERAL APPEARANCE: Well developed, well nourished, in no acute distress. CHEST: Normal AP diameter and normal contour without any kyphoscoliosis. LUNGS: Auscultation of the lungs revealed no wheezes, rhonchi, or rales. CARDIOVASCULAR: There was a regular rate and rhythm without any murmurs, gallops, rubs. Peripheral pulses were 2+ and symmetric. ABDOMEN: Soft and nontender with normal bowel sounds. No ascites was noted. MUSCULOSKELETAL: There was no tenderness or effusions noted. Muscle strength and tone were normal. EXTREMITIES: No cyanosis, clubbing or edema. R hip dressing c/d/i. No obvious erythema or induration. There is bruising. NEUROLOGIC: Alert and oriented x 3. Normal affect. Gait was normal. Strength is +5/5 in the Upper Extremities and Lower Extremities Bilaterally. Sensation to touch was normal. Objective Labs Result Diagrams: 01/09/22 00:17 01/09/22 00:17 Labs: Laboratory Results - last 24 hr 01/09/22 01/09/22 01/09/22 00:17 00:17 00:17 WBC 8.5 RBC 5.26 Hgb 13.3 L Hct 41.1 MCV 78.0 L MCH 25.3 L MCHC 32.5 RDW 15.7 H Plt Count 330 Neut % (Auto) 52.8 Lymph % (Auto) 29.8 [place] % (Auto) 9.2 Eos % (Auto) 7.7 H Baso % (Auto) 0.5 Neut # (Auto) 4500 Lymph # (Auto) 2500 [place] # (Auto) 800 Eos # (Auto) 700 H Baso # (Auto) 0 Sodium 135 L Potassium 4.2 Chloride 101 Carbon Dioxide 32 BUN 18 Creatinine 0.69 Estimated GFR > 60.0 BUN/Creatinine Ratio 26.1 H Glucose 106 Lactate 1.1 Calcium 9.7 Total Bilirubin 0.5 AST 30 ALT 18 Alkaline Phosphatase 71 Total Protein 8.1 Albumin 3.9 Globulin 4.2 H Albumin/Globulin Ratio 0.9 L SARS-CoV-2 (PCR) 01/09/22 04:21 WBC RBC Hgb Hct MCV MCH MCHC RDW Plt Count Neut % (Auto) Lymph % (Auto) [place] % (Auto) Eos % (Auto) Baso % (Auto) Neut # (Auto) Lymph # (Auto) [place] # (Auto) Eos # (Auto) Baso # (Auto) Sodium Potassium Chloride Carbon Dioxide BUN Creatinine Estimated GFR BUN/Creatinine Ratio Glucose Lactate Calcium Total Bilirubin AST ALT Alkaline Phosphatase Total Protein Albumin Globulin Albumin/Globulin Ratio SARS-CoV-2 (PCR) Negative [facility] Medical History Chronic shoulder pain Hepatitis C History of heroin use IV drug abuse IV drug user Lower extremity edema Lumbar post-laminectomy syndrome Methadone dependence Tobacco abuse Surgical History History of lithotripsy Family History Mother Diabetes mellitus Father Cancer Social History household members: significant other and friend(s) Smoking Status: Current every day smoker alcohol intake: former substance use type: opiates and IV drugs Discharge Plan Discharge Plan Patient Disposition: Home Provider Discharge Comment: You were admitted for further evaluation of your R hip. This appears well currently, please follow up with wound care and continue taking bactrim as prescribed. Discharge orders & Medications Prescriptions: Continued albuterol sulfate 90 mcg/actuation HFA aerosol inhaler 1 puff Inhalation PRN PRN (Reason: Shortness Of Breath) 0RF sulfamethoxazole-trimethoprim [Bactrim DS] 800-160 mg tablet 1 tab PO BID Qty: 14 0RF methadone 40 mg Tablet,Soluble 160 mg PO DAILY 0RF Follow up/Referrals: Remedios Arreguin ARNP [Primary Care Provider] - Discharge Health Status Multidrug resistant organism: MRSA Diet/Activity/Treatments Diet: Diet as Tolerated Diet comment: As tolerated Activity: As tolerated Visit Report/Discharge Packet Instructions: How to Care for a Surgical Wound, DI for Incision and Drainage of a Skin Abscess, DI for Prescription Opioid Use Discharge Data Primary Care Provider: Remedios Arreguin
--- NOTE | 2022-01-09 15:32 | PM.PN.1 ---
Subjective Subjective Date Patient Seen: 01/09/22 Time Patient Seen: 15:32 Interval history: patient seen today after being readmitted today. Patient presented to the emergency room this morning. Patient originally presented back January 03, 2022 for left hand cellulitis, bilateral hip erythema and positive asymptomatic COVID. Patient underwent I and D right hip right forearm left shoulder January 05, 2022. Patient left against medical advice and presents today as his right hip abscess was looking worse and decided to come into the emergency department. Patient notes mild pain right hip. No pain in the right forearm or left shoulder. Denies fever or chills. Per history and physical he used his very last bit of heroin earlier today. Exam Vital Signs (past 8 hours): - 01/09/22 09:43 01/09/22 10:30 01/09/22 10:34 Temperature 97.8 F Pulse Rate 69 Respiratory Rate 18 Blood Pressure 114/68 Pulse Oximetry 95 100 96 01/09/22 12:08 Temperature Pulse Rate Respiratory Rate Blood Pressure Pulse Oximetry 97 Oxygen Delivery Method Room Air Oxygen Flow Rate 0 Narrative Exam Narrative: 61-year-old male resting comfortably in bed in no apparent distress. Right hip incision is healing sutures are intact mild erythema still within the skin markings from prior iron D. the tissues injury did but no fluctuance. Right forearm incision is open without purulent drainage. Left shoulder shows the dressing is clean and dry and no purulent drainage. Minimal erythema. The packing still reviewed in place and removed. Const General: cooperative Objective Labs Result Diagrams: 01/09/22 00:17 01/09/22 00:17 Labs: Laboratory Results - last 24 hr 01/09/22 01/09/22 01/09/22 00:17 00:17 00:17 WBC 8.5 RBC 5.26 Hgb 13.3 L Hct 41.1 MCV 78.0 L MCH 25.3 L MCHC 32.5 RDW 15.7 H Plt Count 330 Neut % (Auto) 52.8 Lymph % (Auto) 29.8 [place] % (Auto) 9.2 Eos % (Auto) 7.7 H Baso % (Auto) 0.5 Neut # (Auto) 4500 Lymph # (Auto) 2500 [place] # (Auto) 800 Eos # (Auto) 700 H Baso # (Auto) 0 Sodium 135 L Potassium 4.2 Chloride 101 Carbon Dioxide 32 BUN 18 Creatinine 0.69 Estimated GFR > 60.0 BUN/Creatinine Ratio 26.1 H Glucose 106 Lactate 1.1 Calcium 9.7 Total Bilirubin 0.5 AST 30 ALT 18 Alkaline Phosphatase 71 Total Protein 8.1 Albumin 3.9 Globulin 4.2 H Albumin/Globulin Ratio 0.9 L SARS-CoV-2 (PCR) 01/09/22 04:21 WBC RBC Hgb Hct MCV MCH MCHC RDW Plt Count Neut % (Auto) Lymph % (Auto) [place] % (Auto) Eos % (Auto) Baso % (Auto) Neut # (Auto) Lymph # (Auto) [place] # (Auto) Eos # (Auto) Baso # (Auto) Sodium Potassium Chloride Carbon Dioxide BUN Creatinine Estimated GFR BUN/Creatinine Ratio Glucose Lactate Calcium Total Bilirubin AST ALT Alkaline Phosphatase Total Protein Albumin Globulin Albumin/Globulin Ratio SARS-CoV-2 (PCR) Negative [facility] Medical History Chronic shoulder pain Hepatitis C History of heroin use IV drug abuse IV drug user Lower extremity edema Lumbar post-laminectomy syndrome Methadone dependence Tobacco abuse Surgical History History of lithotripsy Family History Mother Diabetes mellitus Father Cancer Social History household members: significant other and friend(s) Smoking Status: Current every day smoker alcohol intake: former substance use type: opiates and IV drugs Assessment & Plan Assessment & Plan narrative: Removed 3 sutures from the right hip incision along the mid aspect moving outward. I was able to open proximally into and a half of the incision and probed in all directions without any pockets noted or purulent drainage noted. Packing placed in the right hip. New dressing applied. Right forearm and left shoulder did not require repacking at this time but continue dressing change daily encouraged him to keep clean and dry. The remaining sutures can come out and 5-7 days, right hip. Time Spent With Patient Critical Care time: I spent a total of [] minutes of critical care time on this patient's care today; this time is exclusive of procedural time.
--- NOTE | 2022-01-09 15:32 | PC.NURSE ---
Day shift: The 3 I&D sites inspected by DAVEY Irvin and approx 3 sutures removed at the hip and packing placed by PA. The hip site coved with gauze, ABD pad and tape. The rt arm site has new Coversite. Left upper arm w/ new Coversite at this time. Pt stated he sees wound RN Friday thru Friday. Pt will be supplied with some new dressings prior to d/c. He tolerated the above well.
--- NOTE | 2022-01-09 16:08 | PC.NURSE ---
Day shift: paperwork signed and all questions answered. Pt taken to his car by this jingle writer at approx 1610.
--- NOTE | 2022-01-09 16:11 | PC.NURSE ---
Day shift: Pt given back all his belongings that were in the nurse room server drawer and he said Looks like it's all here.
--- NOTE | 2022-01-17 16:44 | PC.NURSE ---
Late Entry; NS infusion initiated 01/09 at 0632 stopped by d/c order [id number].
== END 2022-01-09 16:12 | disposition home or self-care (01) ==
LOC: ED 01-09 04:14 → AC 01-09 07:28
PROVIDERS: Admitting Provider Nurse Practitioner Family; Emergency Provider Emergency Medicine; PCP Nurse Practitioner Family; Visit Provider Nurse Practitioner Family
DX: L03.115 Cellulitis of right lower limb (principal); F11.10 Opioid abuse, uncomplicated; F17.210 Nicotine dependence, cigarettes, uncomplicated; F15.90 Other stimulant use, unspecified, uncomplicated; Z86.16 Personal history of COVID-19; L02.415 Cutaneous abscess of right lower limb
CPT/HCPCS: 36415; 80053; 83605; 85025; 87040; 87635; 94760; 96361; 96365; 96366; 96367; 96372; 99281; 99284; C9803; G0378; J0696; J1650

== ENCOUNTER 2022-06-26 14:01 | Emergency (ER) | payer OTHER, MEDICAID, SELFPAY ==
[2022-01-09 05:40] VITALS: BMI 32.8
[2022-06-26 14:04] VITALS: BP 175/87; PULSE 92; RESP 24; TEMP 36.6; O2SAT 97; BMI 36.1
--- NOTE | 2022-06-26 14:11 | DI.RAD.S_ITS ---
PROCEDURE: XR CHEST 1V INDICATIONS: chest pain TECHNIQUE: One view of the chest was acquired. COMPARISON: [facility], CR, XR CHEST 1V, 01/04/2022, 13:09. FINDINGS: Surgical changes and devices: None. Lungs and pleura: Lungs are clear. No pleural effusions or pneumothorax. Mediastinum: Mediastinal contours appear normal. Heart size is normal. Bones and chest wall: No suspicious bony lesions. Overlying soft tissues appear unremarkable. IMPRESSION: No acute cardiopulmonary abnormalities or focal airspace disease. Dictated by: Tyler Nieto M.D. on 06/26/2022 at 15:31 Approved by: Tyler Nieto M.D. on 06/26/2022 at 15:32
[2022-06-26 14:54] LABS: Add Manual Diff / Slide Review NO; Basophils Absolute Auto 100 /uL (0-100); Basophils Percent Auto 1.5 % (0-2); Eosinophils Absolute Auto 400 /uL (0-450); Eosinophils Percent Auto 4.8 % (2-4); Hematocrit 45.8 % (41-53); Hemoglobin 14.9 g/dL (13.5-17.5); Lymphocytes Absolute Auto 1900 /uL (1100-4500); Lymphocytes Percent Auto 26.3 % (25-40); Mean Corpuscular HGB Conc 32.4 % (30-36); Mean Corpuscular Hemoglobin 24.6 PG (26-34); Monocytes Absolute Auto 900 /uL (0-900); Monocytes Percent Auto 11.7 % (3-14); Neutrophils Absolute Auto 4100 /uL (1500-7000); Neutrophils Percent Auto 55.7 % (50-75); Platelet Count 242 X10^3/uL (150-400); Red Blood Cell Count 6.03 X10^6/uL (4.5-5.9); Red Cell Distribution Width 16.5 % (11.6-14.8); White Blood Cell Count 7.3 X10^3/uL (4.5-11.0)
[2022-06-26 15:07] LABS: Alanine Aminotransferase 16 IU/L (<50); Albumin 3.8 g/dL (3.5-5.0); Albumin Globulin Ratio 1.1 (1.0-2.8); Alkaline Phosphatase 70 U/L (38-126); Aspartate Aminotransferase 30 IU/L (17-59); BUN Creatinine Ratio 14.5 (6-22); Bilirubin Total 0.4 mg/dL (0.2-1.3); Blood Urea Nitrogen 11 mg/dL (9-20); Carbon Dioxide 27 mmol/L (22-32); Chloride 100 mmol/L (98-107); Creatine Kinase 170 U/L (55-170); Estimated Glomerular Filt Rate > 60 mL/min (>60); Globulin 3.6 g/dL (1.7-4.1); Glucose 117 mg/dL (80-110); HEMOLYSIS < 15 (0-50); Lipase 25 U/L (23-300); Magnesium 1.8 mg/dL (1.6-2.3); Potassium 4.1 mmol/L (3.4-5.1); Sodium 135 mmol/L (137-145); Total Protein 7.4 g/dL (6.3-8.2)
[2022-06-26 15:18] LABS: Troponin I < 0.012 ng/mL (0.01-0.034)
[2022-06-26 15:22] LABS: CKMB % Relative Index 1.9 % (1.5-5.0)
--- NOTE | 2022-06-26 18:09 | ED.RECABL ---
HPI - Recheck/Abnormal Lab/Rx General Chief Complaint: Recheck/Abnormal Lab/Rx Stated Complaint: High red blood cell count- sent by [facility] Time Seen by Provider: 06/26/22 17:29 Source: patient Mode of arrival: Ambulatory History of Present Illness HPI narrative: 61-year-old male smoker with history of opioid use disorder, multiple cutaneous abscesses, hepatitis-C and methadone use presents at the request of his clinic due to an elevated red blood cell count. He had recently been started on testosterone. Patient denies any dizziness or lightheadedness but is frequently short of breath and has been so for least 1 month. He is had occasional cough but states it never brings anything up. He denies any chest pain, heaviness or discomfort. Denies any nausea or vomiting. He denies abdominal pain though admits that he seems to be caring more weight around his abdomen. He denies any new lower extremity discomfort but has been swelling a bit. Patient last injected opioids 2 days ago. He denies any recent travel, injury or trauma. He denies any history of blood clot Related Data Home Medications Medication Instructions Recorded Confirmed albuterol sulfate 90 mcg/actuation 1 puff inhalation PRN PRN 05/11/18 01/09/22 aerosol inhaler Shortness Of Breath methadone 40 mg soluble tablet 160 mg PO DAILY 01/03/22 01/09/22 Previous Rx's Medication Instructions Recorded sulfamethoxazole 800 1 tab PO BID celulitis #14 tabs 04/27/20 mg-trimethoprim 160 mg tablet (Bactrim DS) Allergies Allergy/AdvReac Type Severity Reaction Status Date / Time No Known Drug Allergies Allergy Verified 06/26/22 14:09 Review of Systems Review of Systems Narrative: GENERAL: Denies chills, fatigue, malaise, fever, sweats. HEENT: Denies sinus pain, ear pain, sore throat, difficulty swallowing, dizziness. RESPIRATORY: See HPI CARDIOVASCULAR: See HPI GASTROINTESTINAL: Denies nausea, vomiting, abdominal pain, diarrhea, constipation, melena. : Denies dysuria, frequency, incontinence, hematuria, urinary retention. MUSCULOSKELETAL: denies weakness, joint pain, or bony pain SKIN: See HPI NEUROLOGIC: Denies weakness, headache, numbness, change in speech, confusion, seizures, incoordination. PSYCHIATRIC: No concerning psychosocial issues. 12 point review of systems is negative except for those stated above Patient History Medical History Chronic shoulder pain Hepatitis C History of heroin use IV drug abuse IV drug user Lower extremity edema Lumbar post-laminectomy syndrome Methadone dependence Tobacco abuse Surgical History History of lithotripsy Family History Mother Diabetes mellitus Father Cancer Social History household members: significant other and friend(s) Smoking Status: Current every day smoker alcohol intake: former substance use type: opiates and IV drugs Smoking Status: Current every day smoker tobacco type: cigarettes alcohol intake frequency: 0-2 drinks per day Substance Use Type: heroin, IV drugs and methamphetamine Exam Narrative Exam Narrative: GENERAL: [61] year old patient appears older than stated age. Chronically ill but no evidence of acute distress HEAD: Atraumatic. Normocephalic. EYES: Pupils equal round and reactive. Extraocular motions intact. No scleral icterus. No injection or drainage. ENT: Nose without bleeding, purulent drainage. Throat without erythema, tonsillar hypertrophy or exudate. Airway patent. NECK: Trachea midline. Non tender CARDIOVASCULAR: Regular rate and rhythm without murmurs, gallops, or rubs. RESPIRATORY: Decreased lung sounds throughout with prolonged expiratory phase, faint crackles in bilateral bases, no evidence of increased work of breathing such as tachypnea, use of accessory muscles or hypoxemia GASTROINTESTINAL: Abdomen soft, non-tender, nondistended. EXTREMITIES: 1+ pitting edema bilateral lower extremities BACK: Nontender without deformity or crepitance. No flank tenderness. NEURO: AOx3. SKIN: No rash or erythema of visible areas Initial Vital Signs Initial Vital Signs: Vital Signs Temperature 98 F 06/26/22 14:04 Pulse Rate 92 H 06/26/22 14:04 Respiratory Rate 24 06/26/22 14:04 Blood Pressure 175/87 H 06/26/22 14:04 Pulse Oximetry 97 06/26/22 14:04 Oxygen Delivery Method 06/26/22 14:04 Course Orders Ordered: ED Orders 06/26/22 14:11 XR chest 1V Stat EKG-12 Lead Stat 06/26/22 14:37 Complete Blood Count AUTO DIFF Stat Comprehensive Metabolic Panel Stat Lipase Stat Magnesium Stat Troponin & CK Cardiac Panel Stat 06/26/22 18:21 BNP [NT-proBNP (BNP-Adult 18+)] Stat D Dimer Stat Procalcitonin Stat Troponin & CK Cardiac Panel Stat Vital Signs Vital signs: Vital Signs - 8 hr 06/26/22 14:04 Temperature 98 F Pulse Rate 92 H Respiratory Rate 24 Blood Pressure 175/87 H Pulse Oximetry 97 Oxygen Delivery Method Room Air MDM - Recheck/Abnormal Lab/Rx Lab Data Result diagrams: 06/26/22 14:37 06/26/22 14:37 Labs: Lab Results 06/26/22 06/26/22 06/26/22 Range/Units 14:37 14:37 14:37 WBC 7.3 (4.5-11.0) X10^3/uL RBC 6.03 H (4.5-5.9) X10^6/uL Hgb 14.9 (13.5-17.5) g/dL Hct 45.8 (41-53) % MCV 76.0 L (80-100) fL MCH 24.6 L (26-34) PG MCHC 32.4 (30-36) % RDW 16.5 H (11.6-14.8) % Plt Count 242 (150-400) X10^3/uL Neut % (Auto) 55.7 (50-75) % Lymph % (Auto) 26.3 (25-40) % [place] % (Auto) 11.7 (3-14) % Eos % (Auto) 4.8 H (2-4) % Baso % (Auto) 1.5 (0-2) % Neut # (Auto) 4100 (2745-9403) /uL Lymph # (Auto) 1900 (3421-7731) /uL [place] # (Auto) 900 (0-900) /uL Eos # (Auto) 400 (0-450) /uL Baso # (Auto) 100 (0-100) /uL D-Dimer 574 H (<230) ng/mL Sodium 135 L (137-145) mmol/L Potassium 4.1 (3.4-5.1) mmol/L Chloride 100 (98-107) mmol/L Carbon Dioxide 27 (22-32) mmol/L BUN 11 (9-20) mg/dL Creatinine 0.76 (0.66-1.25) mg/dL Estimated GFR > 60 (>60) mL/min BUN/Creatinine Ratio 14.5 (6-22) Glucose 117 H (80-110) mg/dL Calcium 9.0 (8.4-10.2) mg/dL Magnesium 1.8 (1.6-2.3) mg/dL Total Bilirubin 0.4 (0.2-1.3) mg/dL AST 30 (17-59) IU/L ALT 16 (<50) IU/L Alkaline Phosphatase 70 (38-126) U/L Total Creatine Kinase 170 (55-170) U/L CK-MB (CK-2) 3.20 H (<2.37) ng/mL CK-MB (CK-2) Rel Index 1.9 (1.5-5.0) % Troponin I < 0.012 (0.01-0.034) ng/mL NT-Pro-B Natriuret Pep (<125) pg/mL Total Protein 7.4 (6.3-8.2) g/dL Albumin 3.8 (3.5-5.0) g/dL Globulin 3.6 (1.7-4.1) g/dL Albumin/Globulin Ratio 1.1 (1.0-2.8) Lipase 25 (23-300) U/L Procalcitonin (<0.5) ng/mL 06/26/22 Range/Units 14:37 WBC (4.5-11.0) X10^3/uL RBC (4.5-5.9) X10^6/uL Hgb (13.5-17.5) g/dL Hct (41-53) % MCV (80-100) fL MCH (26-34) PG MCHC (30-36) % RDW (11.6-14.8) % Plt Count (150-400) X10^3/uL Neut % (Auto) (50-75) % Lymph % (Auto) (25-40) % [place] % (Auto) (3-14) % Eos % (Auto) (2-4) % Baso % (Auto) (0-2) % Neut # (Auto) (5398-1621) /uL Lymph # (Auto) (1013-4098) /uL [place] # (Auto) (0-900) /uL Eos # (Auto) (0-450) /uL Baso # (Auto) (0-100) /uL D-Dimer (<230) ng/mL Sodium (137-145) mmol/L Potassium (3.4-5.1) mmol/L Chloride (98-107) mmol/L Carbon Dioxide (22-32) mmol/L BUN (9-20) mg/dL Creatinine (0.66-1.25) mg/dL Estimated GFR (>60) mL/min BUN/Creatinine Ratio (6-22) Glucose (80-110) mg/dL Calcium (8.4-10.2) mg/dL Magnesium (1.6-2.3) mg/dL Total Bilirubin (0.2-1.3) mg/dL AST (17-59) IU/L ALT (<50) IU/L Alkaline Phosphatase (38-126) U/L Total Creatine Kinase (55-170) U/L CK-MB (CK-2) (<2.37) ng/mL CK-MB (CK-2) Rel Index (1.5-5.0) % Troponin I (0.01-0.034) ng/mL NT-Pro-B Natriuret Pep 172 H (<125) pg/mL Total Protein (6.3-8.2) g/dL Albumin (3.5-5.0) g/dL Globulin (1.7-4.1) g/dL Albumin/Globulin Ratio (1.0-2.8) Lipase (23-300) U/L Procalcitonin 0.06 (<0.5) ng/mL ECG Data Interpretation: [1443] EKG is normal sinus rhythm rate [ 78] and free of any signs of ischemia or ectopy. No ST segmental elevation or depression. No T wave inversions MDM Narrative Medical decision making narrative: Patient sent from clinic for evaluation of an elevated red blood cell count, is largely asymptomatic but states he is had some swelling in his legs and shortness of breath with exertion. Multiple diagnoses considered including anemia, electrolyte disturbance, renal failure and pulmonary embolism. Patient elected to leave before labs were back and was unwilling to have any discussion regarding other options, risks, benefits or other. He was notified of his ability to return at any point for any change of heart. He refused to sign any Against Medical Advice paperwork and left. Discharge Plan Departure Patient Disposition: Left Against Medical Advice Clinical Impression: Left against medical advice Prescriptions: No Action albuterol sulfate 90 mcg/actuation HFA aerosol inhaler 1 puff Inhalation PRN PRN (Reason: Shortness Of Breath) sulfamethoxazole-trimethoprim [Bactrim DS] 800-160 mg tablet 1 tab PO BID Qty: 14 0RF methadone 40 mg Tablet,Soluble 160 mg PO DAILY Referrals: Remedios Arreguin ARNP [Primary Care Provider] - Stand Alone Forms: Against Medical Advice
[2022-06-26 20:41] LABS: D Dimer 574 ng/mL (<230)
[2022-06-26 20:49] LABS: NT-proBNP (BNP-Adult 18+) 172 pg/mL (<125)
[2022-06-26 20:57] LABS: Procalcitonin 0.06 ng/mL (<0.5)
== END 2022-06-26 20:38 | disposition left against medical advice (07) ==
PROVIDERS: Emergency Medicine; Emergency Provider Emergency Medicine; PCP Nurse Practitioner Family
DX: R71.8 Other abnormality of red blood cells (principal); M79.89 Other specified soft tissue disorders; R07.9 Chest pain, unspecified
CPT/HCPCS: 36415; 71045; 80053; 82550; 82553; 83690; 83735; 83880; 84145; 84484; 85025; 85379; 93005; 99283; 99284

== ENCOUNTER 2022-06-27 10:57 | Emergency (ER) | payer OTHER, MEDICAID, SELFPAY ==
[2022-01-09 05:40] VITALS: BMI 32.8
[2022-06-27 11:00] VITALS: BP 173/85; PULSE 96; RESP 17; TEMP 36.1; O2SAT 97; BMI 36.0
--- NOTE | 2022-06-27 16:13 | ED_ITS ---
HPI - Recheck/Abnormal Lab/Rx <Danitarachel Laws [facility] - Last Filed: 06/27/22 19:37> General Chief Complaint: Recheck/Abnormal Lab/Rx Stated Complaint: told him to come back for follow up Time Seen by Provider: 06/27/22 16:04 Source: patient Mode of arrival: Ambulatory History of Present Illness HPI narrative: 61-year-old male smoker with history of opioid use disorder, multiple cutaneous abscesses, hepatitis-C and methadone use who presents to the emergency department after being called about his elevated D-dimer after he left the emergency department last night Against Medical Advice. Patient states that he had to get home to complete a task, he states he went to the emergency department yesterday at the request of his clinic due to an elevated red blood cell count.? He had recently been started on testosterone.? Patient denies any dizziness or lightheadedness, chest pain or shortness of breath, states that he has had dyspnea with exertion formany monthys. States that he smokes heroin, smokes cigarettes, injects heroin daily, uses methamphetamine daily and methadone and has a history of COPD from smoking.? He is had occasional cough but states it never brings anything up.? He denies any chest pain, heaviness or discomfort.? Denies any nausea or vomiting.? He denies abdominal pain though ad mits that he seems to be caring more weight around his abdomen.? He denies any new lower extremity discomfort but has been swelling a bit.? Patient last injected opioids yesterday.? He denies any recent travel, injury or trauma.? He denies any history of blood clot. His D-dimer yesterday was 574 and he was called to return to emergency department for this reason. Patient denies any new shortness of breath, orthopnea or significant dyspnea with exertion. He reports that he has been short of breath since he had COVID approximately one year ago, states that he is COVID vaccinated but he has had COVID 4 times and states that his shortness of breath is chronic and has. Age-Adjusted D-dimer for Venous Thromboembolism (VTE) from [employer] on 06/27/2022 All calculations should be rechecked by clinician prior to use RESULT SUMMARY: 630 ?g/L Age-adjusted D-dimer cutoff, FEU VTE unlikely Reported D-dimer is less than or equal to cutoff; consider alternative diagnosis INPUTS: Age ?> 61 years D-dimer level reported by lab ?> 574 ?g/L D-dimer unit type ?> 1 = FEU (unadjusted cutoff typically ~500 or 0.50) Related Data Home Medications Medication Instructions Recorded Confirmed albuterol sulfate 90 mcg/actuation 1 puff inhalation PRN PRN 05/11/18 06/27/22 aerosol inhaler Shortness Of Breath methadone 40 mg soluble tablet 160 mg PO DAILY 01/03/22 06/27/22 aspirin 325 mg capsule 325 mg PO DAILY 06/27/22 06/27/22 Previous Rx's Medication Instructions Recorded sulfamethoxazole 800 1 tab PO BID celulitis #14 tabs 04/27/20 mg-trimethoprim 160 mg tablet (Bactrim DS) mupirocin 2 % topical ointment 1 applic topical BID #15 grams 06/27/22 Allergies Allergy/AdvReac Type Severity Reaction Status Date / Time No Known Drug Allergies Allergy Verified 06/27/22 11:00 Review of Systems <MEMO Orr - Last Filed: 06/27/22 19:37> Review of Systems Narrative: General: denies fever, chills, malaise, sweats, fatigue Head/Neck: denies headache, neck pain, dizziness Eyes: denies visual changes, eye pain Cardio: denies chest pain, palpitations, edema Respiratory: denies dyspnea, states that he has a chronic cough, denies significant dyspnea with exertion or orthopnea GI: denies abdominal pain, nausea, vomiting, or diarrhea : denies dysuria, hematuria, urinary retention, frequency or incontinence MSK: denies nwe joint pain, muscle weakness Skin: denies rash, itching, states that he has some skin lesions but they are all healing quite well at this time. Neuro: denies numbness, tingling Patient History <MEMO Orr - Last Filed: 06/27/22 19:37> Medical History Chronic shoulder pain Hepatitis C History of heroin use IV drug abuse IV drug user Lower extremity edema Lumbar post-laminectomy syndrome Methadone dependence Tobacco abuse Surgical History History of lithotripsy Family History Mother Diabetes mellitus Father Cancer Social History household members: significant other and friend(s) Smoking Status: Current every day smoker alcohol intake: former substance use type: opiates and IV drugs Smoking Status: Current every day smoker tobacco type: cigarettes alcohol intake frequency: holidays/special occasions only Substance Use Type: heroin, IV drugs and methamphetamine Exam <MEMO Orr - Last Filed: 06/27/22 19:37> Narrative Exam Narrative: Independently reviewed vitals signs and nursing notes. General: cooperative, comfortable, in no acute distress, well groomed Head: atraumatic, symmetrical facial expressions Neck: supple Eyes: equal round and reactive, EOMI, conjunctiva normal Nose: nares patent, no rhinorrhea Mouth/Throat: moist mucus membranes Cardiovascular: regular rate and rhythm, no increase in his chronic lower extremity edema, his lower extremities have compression bandages on, he denies any significant wounds on his lower extremities, warm extremities Respiratory: normal effort, able to speak in complete sentences, no audible wheezing, stridor, or rales. No retractions or tachypnea. GI: abdomen soft, nontender to palpation, nondistended, no masses, no exquisite tenderness with exam, without guarding or rebound. MSK: moves all extremities, neurovascularly intact, no weakness, normal tone Skin: brisk capillary refill, no rash, no erythema Neuro: normal speech and cognition, A&O x3 Psych: mental status is grossly normal, congruent mood, normal affect, pleasant and cooperative Initial Vital Signs Initial Vital Signs: Vital Signs Temperature 97.0 F L 06/27/22 11:00 Pulse Rate 96 H 06/27/22 11:00 Respiratory Rate 17 06/27/22 11:00 Blood Pressure 173/85 H 06/27/22 11:00 Pulse Oximetry 97 06/27/22 11:00 Oxygen Delivery Method 06/27/22 11:00 <Radha Mandel DO - Last Filed: 07/04/22 21:24> Initial Vital Signs Initial Vital Signs: Vital Signs Temperature 97.0 F L 06/27/22 11:00 Pulse Rate 96 H 06/27/22 11:00 Respiratory Rate 17 06/27/22 11:00 Blood Pressure 173/85 H 06/27/22 11:00 Pulse Oximetry 97 06/27/22 11:00 Oxygen Delivery Method 06/27/22 11:00 Course <MEMO Orr - Last Filed: 06/27/22 19:37> Orders Ordered: ED Orders 06/27/22 12:20 BNP [NT-proBNP (BNP-Adult 18+)] Stat CMP [Comprehensive Metabolic Panel] Stat D Dimer Stat Prothrombin Time INR Stat Troponin & CK Cardiac Panel Stat 06/27/22 12:25 CBC Auto Diff [Complete Blood Count AUTO DIFF] Stat Lactate (Lactic Acid) Stat 06/27/22 16:21 EKG-12 Lead Stat Vital Signs Vital signs: Vital Signs - 8 hr 06/27/22 16:15 Pulse Rate 75 Respiratory Rate 18 Blood Pressure 130/80 Pulse Oximetry 95 Oxygen Delivery Method Room Air <Radha Mandel DO - Last Filed: 07/04/22 21:24> Orders Ordered: ED Orders 06/27/22 12:20 BNP [NT-proBNP (BNP-Adult 18+)] Stat CMP [Comprehensive Metabolic Panel] Stat D Dimer Stat Prothrombin Time INR Stat Troponin & CK Cardiac Panel Stat 06/27/22 12:25 CBC Auto Diff [Complete Blood Count AUTO DIFF] Stat Lactate (Lactic Acid) Stat 06/27/22 16:21 EKG-12 Lead Stat Vital Signs Vital signs: Vital Signs - 8 hr 06/27/22 16:15 Pulse Rate 75 Respiratory Rate 18 Blood Pressure 130/80 Pulse Oximetry 95 Oxygen Delivery Method Room Air MDM - Recheck/Abnormal Lab/Rx <MEMO Orr - Last Filed: 06/27/22 19:37> Lab Data Lab results narrative: Age-Adjusted D-dimer for Venous Thromboembolism (VTE) from [employer] on 06/27/2022 All calculations should be rechecked by clinician prior to use RESULT SUMMARY: 630 ?g/L Age-adjusted D-dimer cutoff, FEU VTE unlikely Reported D-dimer is less than or equal to cutoff; consider alternative diagnosis INPUTS: Age ?> 61 years D-dimer level reported by lab ?> 611 ?g/L D-dimer unit type ?> 1 = FEU (unadjusted cutoff typically ~500 or 0.50) Result diagrams: 06/27/22 12:25 06/27/22 12:20 Labs: Lab Results 06/27/22 06/27/22 06/27/22 Range/Units 12:20 12:20 12:20 WBC (4.5-11.0) X10^3/uL RBC (4.5-5.9) X10^6/uL Hgb (13.5-17.5) g/dL Hct (41-53) % MCV (80-100) fL MCH (26-34) PG MCHC (30-36) % RDW (11.6-14.8) % Plt Count (150-400) X10^3/uL Neut % (Auto) (50-75) % Lymph % (Auto) (25-40) % [place] % (Auto) (3-14) % Eos % (Auto) (2-4) % Baso % (Auto) (0-2) % Neut # (Auto) (3236-5816) /uL Lymph # (Auto) (5502-7675) /uL [place] # (Auto) (0-900) /uL Eos # (Auto) (0-450) /uL Baso # (Auto) (0-100) /uL PT 11.5 (10.1-12.7) SECONDS INR 1.0 (0.9-1.3) D-Dimer 611 H (<230) ng/mL Sodium 137 (137-145) mmol/L Potassium 4.9 (3.4-5.1) mmol/L Chloride 98 (98-107) mmol/L Carbon Dioxide 32 (22-32) mmol/L BUN 12 (9-20) mg/dL Creatinine 0.83 (0.66-1.25) mg/dL Estimated GFR > 60 (>60) mL/min BUN/Creatinine Ratio 14.5 (6-22) Glucose 99 (80-110) mg/dL Lactate (0.7-2.1) mmol/L Calcium 8.8 (8.4-10.2) mg/dL Total Bilirubin 0.4 (0.2-1.3) mg/dL AST 37 (17-59) IU/L ALT 17 (<50) IU/L Alkaline Phosphatase 68 (38-126) U/L Total Creatine Kinase 145 (55-170) U/L CK-MB (CK-2) 2.84 H (<2.37) ng/mL CK-MB (CK-2) Rel Index 2.0 (1.5-5.0) % Troponin I < 0.012 (0.01-0.034) ng/mL NT-Pro-B Natriuret Pep 96 (<125) pg/mL Total Protein 7.9 (6.3-8.2) g/dL Albumin 4.0 (3.5-5.0) g/dL Globulin 3.9 (1.7-4.1) g/dL Albumin/Globulin Ratio 1.0 (1.0-2.8) 06/27/22 06/27/22 Range/Units 12:25 12:25 WBC 8.5 (4.5-11.0) X10^3/uL RBC 6.23 H (4.5-5.9) X10^6/uL Hgb 15.4 (13.5-17.5) g/dL Hct 47.8 (41-53) % MCV 76.7 L (80-100) fL MCH 24.7 L (26-34) PG MCHC 32.2 (30-36) % RDW 17.2 H (11.6-14.8) % Plt Count 261 (150-400) X10^3/uL Neut % (Auto) 58.6 (50-75) % Lymph % (Auto) 23.4 L (25-40) % [place] % (Auto) 11.5 (3-14) % Eos % (Auto) 5.5 H (2-4) % Baso % (Auto) 1.0 (0-2) % Neut # (Auto) 5000 (4814-6809) /uL Lymph # (Auto) 2000 (4366-9958) /uL [place] # (Auto) 1000 H (0-900) /uL Eos # (Auto) 500 H (0-450) /uL Baso # (Auto) 100 (0-100) /uL PT (10.1-12.7) SECONDS INR (0.9-1.3) D-Dimer (<230) ng/mL Sodium (137-145) mmol/L Potassium (3.4-5.1) mmol/L Chloride (98-107) mmol/L Carbon Dioxide (22-32) mmol/L BUN (9-20) mg/dL Creatinine (0.66-1.25) mg/dL Estimated GFR (>60) mL/min BUN/Creatinine Ratio (6-22) Glucose (80-110) mg/dL Lactate 1.2 (0.7-2.1) mmol/L Calcium (8.4-10.2) mg/dL Total Bilirubin (0.2-1.3) mg/dL AST (17-59) IU/L ALT (<50) IU/L Alkaline Phosphatase (38-126) U/L Total Creatine Kinase (55-170) U/L CK-MB (CK-2) (<2.37) ng/mL CK-MB (CK-2) Rel Index (1.5-5.0) % Troponin I (0.01-0.034) ng/mL NT-Pro-B Natriuret Pep (<125) pg/mL Total Protein (6.3-8.2) g/dL Albumin (3.5-5.0) g/dL Globulin (1.7-4.1) g/dL Albumin/Globulin Ratio (1.0-2.8) Imaging Data Chest x-ray: Radiologist's Impression: PROCEDURE:? XR CHEST 1V ? INDICATIONS:? chest pain ? TECHNIQUE:? One view of the chest was acquired.? ? COMPARISON:? [facility], , XR CHEST 1V, 01/04/2022, 13:09. ? FINDINGS:? ? Surgical changes and devices:? None.? ? Lungs and pleura:? Lungs are clear.? No pleural effusions or pneumothorax.? ? Mediastinum:? Mediastinal contours appear normal.? Heart size is normal.? ? Bones and chest wall:? No suspicious bony lesions.? Overlying soft tissues appear unremarkable.? ? IMPRESSION:? No acute cardiopulmonary abnormalities or focal airspace disease. ? ? Dictated by: Tyler Nieto M.D. on 06/26/2022 at 15:31 ? ? Approved by: Tyler Nieto M.D. on 06/26/2022 at 15:32 ? ECG Data Interpretation: EKG independently reviewed by Dr. Mandel and reveals normal sinus rhythm at 70 bpm with regular axis and intervals. No STEMI, ST segment changes, arrhythmia, or acute ischemic changes. MDM Narrative Medical decision making narrative: This is a 61-year-old male with history of opioid use disorder, heroin abuse, methamphetamine abuse, and who is currently on methadone and presents to the emergency department after he left without being discharged from the emergency department yesterday and had an elevated D-dimer of 574. Today his D-dimer is 611, which is below the cut off after age adjustment. Patient does not have any new shortness of breath, does not have any abnormal breath, no tachypnea or hypoxia. Patient was instructed to come to the emergency department yesterday for elevated RBC count after recently starting testosterone last week. Yesterday his RBC was 6.03, today his RBC is 6.23. No other pertinent lab values were found today, chest x-ray does not show any acute abnormalities, troponin is 0.012 and this is the same as yesterday. Yesterday his BNP was elevated at 172, today it is not it is 96. No leukocytosis, his hemoglobin is 15.4 and hematocrit is 47.8. Discussed close follow-up with the patient, he does not have any emergent findings on his workup today, he does not have any significant findings on exam either or any complaints. He does not have any active and openly draining wounds. I prescribed patient mupirocin ointment for his various excoriations due to meth use. He was pleasant in the emergency department today cooperative, encouraged him to stay hydrated and to discontinue any further testosterone treatments. Patient is appropriate and amenable to discharge home. Vital signs are stable on repeat examination is unremarkable. Patient has been informed of results. Patient has been given strict return to ER precautions for any new or worsening symptoms. Patient understands to follow up closely with outpatient providers as instructed. Patient understands plan and agrees to discharge home. All questions and concerns answered at this time. <Radha Mandel DO - Last Filed: 07/04/22 21:24> Lab Data Labs: Lab Results 06/27/22 06/27/22 06/27/22 Range/Units 12:20 12:20 12:20 WBC (4.5-11.0) X10^3/uL RBC (4.5-5.9) X10^6/uL Hgb (13.5-17.5) g/dL Hct (41-53) % MCV (80-100) fL MCH (26-34) PG MCHC (30-36) % RDW (11.6-14.8) % Plt Count (150-400) X10^3/uL Neut % (Auto) (50-75) % Lymph % (Auto) (25-40) % [place] % (Auto) (3-14) % Eos % (Auto) (2-4) % Baso % (Auto) (0-2) % Neut # (Auto) (3012-5474) /uL Lymph # (Auto) (7609-0511) /uL [place] # (Auto) (0-900) /uL Eos # (Auto) (0-450) /uL Baso # (Auto) (0-100) /uL PT 11.5 (10.1-12.7) SECONDS INR 1.0 (0.9-1.3) D-Dimer 611 H (<230) ng/mL Sodium 137 (137-145) mmol/L Potassium 4.9 (3.4-5.1) mmol/L Chloride 98 (98-107) mmol/L Carbon Dioxide 32 (22-32) mmol/L BUN 12 (9-20) mg/dL Creatinine 0.83 (0.66-1.25) mg/dL Estimated GFR > 60 (>60) mL/min BUN/Creatinine Ratio 14.5 (6-22) Glucose 99 (80-110) mg/dL Lactate (0.7-2.1) mmol/L Calcium 8.8 (8.4-10.2) mg/dL Total Bilirubin 0.4 (0.2-1.3) mg/dL AST 37 (17-59) IU/L ALT 17 (<50) IU/L Alkaline Phosphatase 68 (38-126) U/L Total Creatine Kinase 145 (55-170) U/L CK-MB (CK-2) 2.84 H (<2.37) ng/mL CK-MB (CK-2) Rel Index 2.0 (1.5-5.0) % Troponin I < 0.012 (0.01-0.034) ng/mL NT-Pro-B Natriuret Pep 96 (<125) pg/mL Total Protein 7.9 (6.3-8.2) g/dL Albumin 4.0 (3.5-5.0) g/dL Globulin 3.9 (1.7-4.1) g/dL Albumin/Globulin Ratio 1.0 (1.0-2.8) 06/27/22 06/27/22 Range/Units 12:25 12:25 WBC 8.5 (4.5-11.0) X10^3/uL RBC 6.23 H (4.5-5.9) X10^6/uL Hgb 15.4 (13.5-17.5) g/dL Hct 47.8 (41-53) % MCV 76.7 L (80-100) fL MCH 24.7 L (26-34) PG MCHC 32.2 (30-36) % RDW 17.2 H (11.6-14.8) % Plt Count 261 (150-400) X10^3/uL Neut % (Auto) 58.6 (50-75) % Lymph % (Auto) 23.4 L (25-40) % [place] % (Auto) 11.5 (3-14) % Eos % (Auto) 5.5 H (2-4) % Baso % (Auto) 1.0 (0-2) % Neut # (Auto) 5000 (1124-3976) /uL Lymph # (Auto) 2000 (8723-6766) /uL [place] # (Auto) 1000 H (0-900) /uL Eos # (Auto) 500 H (0-450) /uL Baso # (Auto) 100 (0-100) /uL PT (10.1-12.7) SECONDS INR (0.9-1.3) D-Dimer (<230) ng/mL Sodium (137-145) mmol/L Potassium (3.4-5.1) mmol/L Chloride (98-107) mmol/L Carbon Dioxide (22-32) mmol/L BUN (9-20) mg/dL Creatinine (0.66-1.25) mg/dL Estimated GFR (>60) mL/min BUN/Creatinine Ratio (6-22) Glucose (80-110) mg/dL Lactate 1.2 (0.7-2.1) mmol/L Calcium (8.4-10.2) mg/dL Total Bilirubin (0.2-1.3) mg/dL AST (17-59) IU/L ALT (<50) IU/L Alkaline Phosphatase (38-126) U/L Total Creatine Kinase (55-170) U/L CK-MB (CK-2) (<2.37) ng/mL CK-MB (CK-2) Rel Index (1.5-5.0) % Troponin I (0.01-0.034) ng/mL NT-Pro-B Natriuret Pep (<125) pg/mL Total Protein (6.3-8.2) g/dL Albumin (3.5-5.0) g/dL Globulin (1.7-4.1) g/dL Albumin/Globulin Ratio (1.0-2.8) Discharge Plan Departure Patient Disposition: Home Clinical Impression: Elevated red blood cell count Activity Restrictions/Additional Instructions: *You have been diagnosed with an elevated red blood cell count however the rest of your lab work is reassuring. Your cardiac enzymes are normal, your liver enzymes are normal, your electrolytes are stable without signs of kidney injury, you do not have any elevation in your white blood cell count and your hemoglobin and hematocrit are normal values. Please stay hydrated and drink at least 60 oz of water within one day, please follow-up with your primary care provider at your next appointment, I will send your chart to him. Please discontinue testosterone, this is to be used with caution and can cause blood clots. Your D-dimer lab value is within normal range after the age adjustment. If you develop new or worsening swelling in one of your extremities significant change to pain, shortness of breath, or your daily routine, please consider evaluation in the emergency department. If you develop any chest pain, shortness of breath or altered mental status, please come to the emergency department with an ambulance. Stay hydrated, this may help and follow-up with your primary doctor in a week or less. Thank you for trusting us with your care and returning for evaluation, I think there is a very low likelihood of a blood clot at this time and all of your organs seem to be functioning well without any signs of strain. I have sent a topical antibiotic ointment to your pharmacy, please pick this up to use on any open wounds in the future. *What to do: *Please continue to take your regular medications as directed. [x ] New medication prescriptions sent to your pharmacy: [ Dinat] [ ] New medication written as a paper prescription [ ] No new medications given *Please follow up with your primary care provider in 2-3 days, call for an appointment. Let them know you were seen in the Emergency Department and that we asked that you be seen for follow-up. We will electronically transmit a record of today's note if your PCP is in our system *If you do not have a primary care provider please contact [phone] to establish care with one of the [facility] primary care providers. *Return to Emergency Department if you should have any new, worsening or concerning symptoms, such as [fever greater than 101F, chills, worsening pain, persistent vomiting or other bothersome symptoms] Prescriptions: New mupirocin 2 % ointment 1 applic topical BID Qty: 15 0RF No Action aspirin 325 mg Capsule 325 mg PO DAILY albuterol sulfate 90 mcg/actuation HFA aerosol inhaler 1 puff Inhalation PRN PRN (Reason: Shortness Of Breath) sulfamethoxazole-trimethoprim [Bactrim DS] 800-160 mg tablet 1 tab PO BID Qty: 14 0RF methadone 40 mg Tablet,Soluble 160 mg PO DAILY Referrals: [facility] [Outside] Remedios Arreguin ARNP [Primary Care Provider] - Visit Report Forms: Patient Portal/API <Radha Mandel DO - Last Filed: 07/04/22 21:24> Cosign ED Attending Erenature Attestation: I was immediately available in the department for consultation. Documentation has been reviewed. EKG reviewed agree with evaluation.
[2022-06-27 16:15] VITALS: BP 130/80; PULSE 75; RESP 18; O2SAT 95
[2022-06-27 16:28] LABS: Prothrombin Time 11.5 SECONDS (10.1-12.7)
[2022-06-27 16:28] LABS: Add Manual Diff / Slide Review NO; Basophils Absolute Auto 100 /uL (0-100); Eosinophils Absolute Auto 500 /uL (0-450); Eosinophils Percent Auto 5.5 % (2-4); Hematocrit 47.8 % (41-53); Hemoglobin 15.4 g/dL (13.5-17.5); Lymphocytes Absolute Auto 2000 /uL (1100-4500); Lymphocytes Percent Auto 23.4 % (25-40); Mean Corpuscular HGB Conc 32.2 % (30-36); Mean Corpuscular Hemoglobin 24.7 PG (26-34); Mean Corpuscular Volume 76.7 fL (80-100); Monocytes Absolute Auto 1000 /uL (0-900); Monocytes Percent Auto 11.5 % (3-14); Neutrophils Absolute Auto 5000 /uL (1500-7000); Neutrophils Percent Auto 58.6 % (50-75); Platelet Count 261 X10^3/uL (150-400); Red Blood Cell Count 6.23 X10^6/uL (4.5-5.9); Red Cell Distribution Width 17.2 % (11.6-14.8); White Blood Cell Count 8.5 X10^3/uL (4.5-11.0)
[2022-06-27 16:30] LABS: D Dimer 611 ng/mL (<230)
[2022-06-27 16:31] LABS: Creatine Kinase 145 U/L (55-170)
[2022-06-27 16:32] LABS: Alanine Aminotransferase 17 IU/L (<50); Alkaline Phosphatase 68 U/L (38-126); Aspartate Aminotransferase 37 IU/L (17-59); BUN Creatinine Ratio 14.5 (6-22); Bilirubin Total 0.4 mg/dL (0.2-1.3); Blood Urea Nitrogen 12 mg/dL (9-20); Calcium 8.8 mg/dL (8.4-10.2); Carbon Dioxide 32 mmol/L (22-32); Chloride 98 mmol/L (98-107); Estimated Glomerular Filt Rate > 60 mL/min (>60); Globulin 3.9 g/dL (1.7-4.1); Glucose 99 mg/dL (80-110); HEMOLYSIS 28 (0-50); Potassium 4.9 mmol/L (3.4-5.1); Sodium 137 mmol/L (137-145); Total Protein 7.9 g/dL (6.3-8.2)
[2022-06-27 16:35] LABS: Lactate (Lactic Acid) 1.2 mmol/L (0.7-2.1)
[2022-06-27 16:44] LABS: NT-proBNP (BNP-Adult 18+) 96 pg/mL (<125); Troponin I < 0.012 ng/mL (0.01-0.034)
[2022-06-27 16:46] LABS: Creatine Kinase MB 2.84 ng/mL (<2.37)
== END 2022-06-27 17:52 | disposition home or self-care (01) ==
PROVIDERS: Emergency Provider Nurse Practitioner Critical Care Medicine; PCP Nurse Practitioner Family
DX: R71.8 Other abnormality of red blood cells (principal); R07.9 Chest pain, unspecified; Z86.16 Personal history of COVID-19
CPT/HCPCS: 36415; 80053; 82550; 82553; 83605; 83880; 84484; 85025; 85379; 85610; 93005; 99283

== ENCOUNTER 2022-09-09 09:06 | Emergency (ER) | payer OTHER, MEDICAID, SELFPAY ==
[2022-01-09 05:40] VITALS: BMI 32.8
[2022-09-09 09:18] VITALS: BP 139/96; PULSE 82; RESP 17; TEMP 36.4; O2SAT 98; BMI 34.8
--- NOTE | 2022-09-09 09:21 | DI.RAD.S_ITS ---
PROCEDURE: XR CHEST 1V INDICATIONS: chest pain TECHNIQUE: One view of the chest was acquired. COMPARISON: [facility], CR, XR CHEST 1V, 06/26/2022, 15:01. FINDINGS: Surgical changes and devices: None. Lungs and pleura: Lungs are clear. No pleural effusions or pneumothorax. Mediastinum: Mediastinal contours appear normal. Heart size is normal. Bones and chest wall: No suspicious bony lesions. Overlying soft tissues appear unremarkable. IMPRESSION: No acute process. Dictated by: Roger Willis M.D. on 09/09/2022 at 9:42 Approved by: Roger Willis M.D. on 09/09/2022 at 9:42
--- NOTE | 2022-09-09 09:46 | DI.RAD.S_ITS ---
PROCEDURE: XR SHOULDER LT MIN 2V INDICATIONS: L AC joint pain TECHNIQUE: 3 views of the shoulder were acquired. COMPARISON: None. FINDINGS: Bones: No fractures or dislocations. No suspicious bony lesions. Visualized ribs appear intact. AC joint hypertrophy noted Soft tissues: No suspicious soft tissue calcifications. IMPRESSION: Degenerative AC osteoarthritis. No fracture. Approved by: Kvng Coronado M.D. on 09/09/2022 at 9:36
--- NOTE | 2022-09-09 09:46 | PC.NURSE ---
Per Dr. Longo, no IV or bloodwork needed at this time.
--- NOTE | 2022-09-09 09:48 | ED.CHESTPAIN ---
HPI - Chest Pain General Chief Complaint: Chest Pain Stated Complaint: Chest pain Time Seen by Provider: 09/09/22 09:39 Source: patient and family Mode of arrival: Ambulatory Limitations: no limitations History of Present Illness HPI narrative: Patient is a 61-year-old male who is here for evaluation of 3-4 days of left shoulder and left clavicle discomfort. There was no specific injury to the area. He states that it hurts when he lifts his arm up to the side and also up to the front. The discomfort seems to be on the top and back and front portion of the shoulder. He denies any chest pain. No shortness of breath. When he keeps his arm up against his chest symptoms improve. He also feels like it extends down his clavicle. He did take some ibuprofen which helps his symptoms tremendously. Related Data Home Medications Medication Instructions Recorded Confirmed albuterol sulfate 90 mcg/actuation 1 puff inhalation PRN PRN 05/11/18 06/27/22 aerosol inhaler Shortness Of Breath methadone 40 mg soluble tablet 160 mg PO DAILY 01/03/22 06/27/22 aspirin 325 mg capsule 325 mg PO DAILY 06/27/22 06/27/22 Previous Rx's Medication Instructions Recorded sulfamethoxazole 800 1 tab PO BID celulitis #14 tabs 04/27/20 mg-trimethoprim 160 mg tablet (Bactrim DS) mupirocin 2 % topical ointment 1 applic topical BID #15 grams 06/27/22 Allergies Allergy/AdvReac Type Severity Reaction Status Date / Time No Known Drug Allergies Allergy Verified 06/27/22 11:00 Review of Systems Constitutional Constitutional: Reports system reviewed and no additional complaints, except as documented Cardiovascular Cardiovascular: Reports system reviewed and no additional complaints, except as documented Respiratory Respiratory: Reports system reviewed and no additional complaints, except as documented Musculoskeletal Musculoskeletal: Reports system reviewed and no additional complaints, except as documented Integumentary/Breasts Skin/Breast: Reports system reviewed and no additional complaints, except as documented Neurologic Neurologic: Reports system reviewed and no additional complaints, except as documented Hematologic/Lymphatic On Anticoagulants: No Patient History Medical History Chronic shoulder pain Hepatitis C History of heroin use IV drug abuse IV drug user Lower extremity edema Lumbar post-laminectomy syndrome Methadone dependence Tobacco abuse Surgical History History of lithotripsy Family History Mother Diabetes mellitus Father Cancer Social History household members: significant other and friend(s) Smoking Status: Current every day smoker alcohol intake: former substance use type: opiates and IV drugs Smoking Status: Current every day smoker tobacco type: cigarettes alcohol intake frequency: holidays/special occasions only Substance Use Type: heroin, IV drugs and methamphetamine Exam Initial Vital Signs Initial Vital Signs: Vital Signs Temperature 97.6 F 09/09/22 09:18 Pulse Rate 82 09/09/22 09:18 Respiratory Rate 17 09/09/22 09:18 Blood Pressure 139/96 H 09/09/22 09:18 Pulse Oximetry 98 09/09/22 09:18 Oxygen Delivery Method 09/09/22 09:18 Const General: cooperative, comfortable and well developed HENMO Head: normal to inspection and normocephalic Resp Effort & Inspection: normal respiratory effort Auscultation: clear to auscultation bilaterally Cardio Rate: regular rate Rhythm: regular rhythm Skin General: no rashes or lesions noted Neuro Sensory Exam: no sensory deficits noted Extrem Other: Left wrist and left elbow unremarkable. Does have discomfort over the AC joint when he abducts and forward flexes his shoulder. His trapezius muscle is full on the left. Some discomfort over the sternocleidomastoid on the left as well. Course Orders Ordered: ED Orders 09/09/22 09:18 EKG-12 Lead Stat 09/09/22 09:21 XR chest 1V Stat Complete Blood Count AUTO DIFF Stat Comprehensive Metabolic Panel Stat Lipase Stat Magnesium Stat Troponin & CK Cardiac Panel Stat 09/09/22 09:46 XR shoulder LT min 2V Stat Vital Signs Vital signs: Vital Signs - 8 hr 09/09/22 09:18 Temperature 97.6 F Pulse Rate 82 Respiratory Rate 17 Blood Pressure 139/96 H Pulse Oximetry 98 Oxygen Delivery Method Room Air MDM - Chest Pain Imaging Data Chest x-ray: Radiologist's Impression: [address] [address] XRay Report Signed Patient: Tahir Mittal MR#: [id number] : 1960 Acct:[id number] Age/Sex: 61 / M Date of Service: 09/09/22 Loc: ED Accession Number: [id number] ?? Procedure: XR chest 1V Ordering Provider: Jemal Longo D.O. PROCEDURE:? XR CHEST 1V ? INDICATIONS:? chest pain ? TECHNIQUE:? One view of the chest was acquired.? ? COMPARISON:? [facility], CR, XR CHEST 1V, 06/26/2022, 15:01. ? FINDINGS:? ? Surgical changes and devices:? None.? ? Lungs and pleura:? Lungs are clear.? No pleural effusions or pneumothorax.? ? Mediastinum:? Mediastinal contours appear normal.? Heart size is normal.? ? Bones and chest wall:? No suspicious bony lesions.? Overlying soft tissues appear unremarkable.? ? IMPRESSION:? No acute process. ? ? Dictated by: Roger Willis M.D. on 09/09/2022 at 9:42 ? ? Approved by: Roger Willis M.D. on 09/09/2022 at 9:42? Extremity x-ray #1: Radiologist's Impression: [place] [address] XRay Report Signed Patient: Tahir Mittal MR#: [id number] : 1960 Acct:[id number] Age/Sex: 61 / M Date of Service: 09/09/22 Loc: ED Accession Number: [id number] ?? Procedure: XR shoulder LT min 2V Ordering Provider: Jemal Longo D.O. PROCEDURE:? XR SHOULDER LT MIN 2V ? INDICATIONS:? L AC joint pain ? TECHNIQUE:? 3 views of the shoulder were acquired.? ? COMPARISON:? None. ? FINDINGS:? ? Bones:? No fractures or dislocations.? No suspicious bony lesions.? Visualized ribs appear intact.? AC joint hypertrophy noted ? Soft tissues:? No suspicious soft tissue calcifications.? ? IMPRESSION:? Degenerative AC osteoarthritis.? No fracture. ? ? ? Approved by: Kvng Coronado M.D. on 09/09/2022 at 9:36? ECG Data Attestation: I personally reviewed and interpreted this ECG as follows: Interpretation: Sinus rhythm Ventricular rate 75 Normal axis Normal QRS Normal QTC No ST T wave changes MDM Narrative Medical decision making narrative: His history and physical today is clearly left shoulder discomfort that is musculoskeletal and not cardiac in nature. His EKG is unremarkable. His x-ray shows AC joint degeneration which is consistent with the discomfort that he is having. Symptoms improve with ibuprofen. No fevers. He states that muscle relaxers do not help him and given his mobility status I feel that holding on these for now would be appropriate. He states he is not afraid of the pain and is okay with just taking ibuprofen. Will follow up with his primary doctor. He expressed understanding and agreement. Discharge Plan Departure Patient Disposition: Home Clinical Impression: Arthritis of left shoulder region Instructions: DI for Arthritis Activity Restrictions/Additional Instructions: Recommend that you continue to take all of your medications as directed. You can take ibuprofen for discomfort. Be sure to take this with some food as a can irritate your stomach. Contact your primary doctor for follow-up. Return to the emergency department for any new or worsening symptoms. Prescriptions: No Action aspirin 325 mg Capsule 325 mg PO DAILY mupirocin 2 % ointment 1 applic topical BID Qty: 15 0RF albuterol sulfate 90 mcg/actuation HFA aerosol inhaler 1 puff Inhalation PRN PRN (Reason: Shortness Of Breath) sulfamethoxazole-trimethoprim [Bactrim DS] 800-160 mg tablet 1 tab PO BID Qty: 14 0RF methadone 40 mg Tablet,Soluble 160 mg PO DAILY Referrals: Remedios Arreguin ARNP [Primary Care Provider] -
[2022-09-09 11:05] VITALS: BP 128/76; PULSE 79; RESP 16; O2SAT 99
== END 2022-09-09 11:05 | disposition home or self-care (01) ==
PROVIDERS: Emergency Provider Emergency Medicine; PCP Nurse Practitioner Family
DX: M19.022 Primary osteoarthritis, left elbow (principal); R07.9 Chest pain, unspecified
CPT/HCPCS: 71045; 73030; 93005; 93010; 99282; 99284

== ENCOUNTER 2023-02-14 13:49 | Emergency (ER) | payer OTHER, MEDICAID, SELFPAY ==
[2022-01-09 05:40] VITALS: BMI 32.8
--- NOTE | 2023-02-14 14:06 | PC.NURSE ---
called for triage, no answer @ 2613
[2023-02-14 14:17] VITALS: BP 131/82; PULSE 86; RESP 18; TEMP 36.3; O2SAT 96; BMI 33.3
--- NOTE | 2023-02-14 15:11 | PC.NURSE ---
Pt reports no antibiotics in the past year. Reports going to [facility] everyday but nothing done. Pt has attempted to drain at home using a needle and syringe.
--- NOTE | 2023-02-14 16:01 | ED.SKABFB ---
HPI - Skin/Abscess/Foreign Bdy <MEMO Orr - Last Filed: 02/14/23 16:08> General Chief complaint: Skin/Abscess/Foreign Body Stated complaint: abcess from [facility] Time Seen by Provider: 02/14/23 15:29 Source: patient Mode of arrival: Ambulatory Limitations: no limitations History of Present Illness HPI narrative: This is a 62-year-old gentleman with 20 year heroin history who presents to the emergency department with a left deltoid/shoulder skin abscess with some surrounding erythema concerning for cellulitis. States it has been there for approximately 3 days and just started draining when he arrived. He denies fevers, chills, nausea vomiting. States that he has been doing warm compresses but it just started draining when he got here. He states they are 2 soft areas of concern with fluid collections underneath in the same generalized area. He denies any muscle weakness or bony pain, denies any range of motion injury, without diaphoresis, other rash, wounds or chills, no recent antibiotics. States the last abscess he had was drained and he did not need any antibiotics. Related Data Home Medications Medication Instructions Recorded Confirmed albuterol sulfate 90 mcg/actuation 1 puff inhalation PRN PRN 05/11/18 06/27/22 aerosol inhaler Shortness Of Breath methadone 40 mg soluble tablet 160 mg PO DAILY 01/03/22 06/27/22 aspirin 325 mg capsule 325 mg PO DAILY 06/27/22 06/27/22 Previous Rx's Medication Instructions Recorded sulfamethoxazole 800 1 tab PO BID celulitis #14 tabs 04/27/20 mg-trimethoprim 160 mg tablet (Bactrim DS) mupirocin 2 % topical ointment 1 applic topical BID #15 grams 06/27/22 cephalexin 500 mg capsule 500 mg PO QID 8 days #32 caps 02/14/23 sulfamethoxazole 800 1 tab PO BID 8 days #16 tabs 02/14/23 mg-trimethoprim 160 mg tablet (Bactrim DS) Allergies Allergy/AdvReac Type Severity Reaction Status Date / Time No Known Drug Allergies Allergy Verified 06/27/22 11:00 Review of Systems <MEMO Orr - Last Filed: 02/14/23 16:08> Review of Systems ROS Unobtainable: All systems reviewed & are unremarkable except as noted in HPI and below Patient History <MEMO Orr - Last Filed: 02/14/23 16:08> Medical History Chronic shoulder pain Hepatitis C History of heroin use IV drug abuse IV drug user Lower extremity edema Lumbar post-laminectomy syndrome Methadone dependence Tobacco abuse Surgical History History of lithotripsy Family History Mother Diabetes mellitus Father Cancer Social History household members: significant other and friend(s) Smoking Status: Current every day smoker alcohol intake: former substance use type: opiates and IV drugs Smoking Status: Current every day smoker tobacco type: cigarettes alcohol intake frequency: holidays/special occasions only Substance Use Type: heroin, IV drugs and methamphetamine Exam <MEMO Orr - Last Filed: 02/14/23 16:08> Narrative Exam Narrative: Reviewed vitals signs and nursing notes. General: cooperative, in no acute distress, well groomed, afebrile HEENT: symmetrical facial expressions, neck is supple Skin: brisk capillary refill,, left shoulder, over his left deltoid has erythema from the AC joint down to the distal deltoid, to areas of fluctuance approximally size of golf ball, this was anesthetized with 1% lidocaine with epi. Two incisions approximately 1.5 cm were made and a large amount of purulence drainage was evacuated from both wounds. This was thoroughly irrigated with normal saline, packed with iodoform dressing x2. Neuro: normal speech and cognition, A&O x3, ambulatory, clear speech Initial Vital Signs Initial Vital Signs: Vital Signs Temperature 97.4 F L 02/14/23 14:17 Pulse Rate 86 02/14/23 14:17 Respiratory Rate 18 02/14/23 14:17 Blood Pressure 131/82 02/14/23 14:17 Pulse Oximetry 96 02/14/23 14:17 Oxygen Delivery Method Room Air 02/14/23 14:17 <Radha Mandel DO - Last Filed: 02/16/23 12:43> Initial Vital Signs Initial Vital Signs: Vital Signs Temperature 97.4 F L 02/14/23 14:17 Pulse Rate 86 02/14/23 14:17 Respiratory Rate 18 02/14/23 14:17 Blood Pressure 131/82 02/14/23 14:17 Pulse Oximetry 96 02/14/23 14:17 Oxygen Delivery Method Room Air 02/14/23 14:17 Procedures <MEMO Orr - Last Filed: 02/14/23 16:08> Abscess I/D I&D #1: Site: upper extremity Side (if applicable): left Sedation/analgesia: none (toradol) Local Anesthetic: lidocaine 1% and with epi Amount of anesthesia used (mL): 6 Technique: incised with #11 blade Amount of fluid expressed (mL): 40 Irrigation: Yes Packing used?: iodoform Complications: other (none) Course <MEMO Orr - Last Filed: 02/14/23 16:08> Orders Ordered: Discontinued Medications Cephalexin HCl (Cephalexin 250 Mg Capsule) 500 mg PO NOW ONE Stop: 02/14/23 15:32 Last Admin: 02/14/23 16:16 Dose: 500 mg Documented By: NR Ketorolac Tromethamine (Ketorolac 30 Mg/Ml Vial) 30 mg IM NOW ONE Stop: 02/14/23 15:32 Last Admin: 02/14/23 16:19 Dose: Not Given Documented By: JAMES Trimethoprim/Sulfamethoxazole (Trimeth/Sulfa 160/800 (Ds) Tablet) 1 tab PO NOW ONE Stop: 02/14/23 15:32 Last Admin: 02/14/23 16:17 Dose: 1 tab Documented By: NR Vital Signs Vital signs: Vital Signs - 8 hr 02/14/23 14:17 Temperature 97.4 F L Pulse Rate 86 Respiratory Rate 18 Blood Pressure 131/82 Pulse Oximetry 96 Oxygen Delivery Method Room Air <Radha Mandel DO - Last Filed: 02/16/23 12:43> Orders Ordered: Discontinued Medications Cephalexin HCl (Cephalexin 250 Mg Capsule) 500 mg PO NOW ONE Stop: 02/14/23 15:32 Last Admin: 02/14/23 16:16 Dose: 500 mg Documented By: JAMES Ketorolac Tromethamine (Ketorolac 30 Mg/Ml Vial) 30 mg IM NOW ONE Stop: 02/14/23 15:32 Last Admin: 02/14/23 16:19 Dose: Not Given Documented By: NR Trimethoprim/Sulfamethoxazole (Trimeth/Sulfa 160/800 (Ds) Tablet) 1 tab PO NOW ONE Stop: 02/14/23 15:32 Last Admin: 02/14/23 16:17 Dose: 1 tab Documented By: NR Vital Signs Vital signs: Vital Signs - 8 hr 02/14/23 14:17 Temperature 97.4 F L Pulse Rate 86 Respiratory Rate 18 Blood Pressure 131/82 Pulse Oximetry 96 Oxygen Delivery Method Room Air MDM - Skin/Abscess/Foreign Bdy <Danita Laws, [facility] - Last Filed: 02/14/23 16:08> [facility] Narrative Medical decision making narrative: Chief Complaint: Left arm abscess Independent historian: Patient Differential diagnoses include but are not limited to: Abscess, cellulitis, necrotizing fasciitis, foreign body I have independently reviewed the patient's vital signs and nursing notes as well as prior records if available. Course of care: Incision and drainage x2 areas of fluctuance to the left shoulder was completed, a large amount of purulence drainage removed, approximately 30-40 mL. Thoroughly irrigated with normal saline afterwards until clear with sanguinous drainage. Both wounds were packed with iodoform dressing, thoroughly probed and loculations were broke up. And patient states that he feels much better afterwards. He was treated with cephalexin and Bactrim today, wound culture obtained, most recent wound culture growing MRSA with resistance to ciprofloxacin, clindamycin, levofloxacin, oxacillin but showing sensitivity to Bactrim, tetracycline. Patient has wound care provider, he will follow-up with her in the next 1-2 days for packing change. Social considerations that may affect disposition: none Questions are addressed and there is agreement with the plan and for follow-up. Patient is appropriate for outpatient management. MIPS: This encounter doesn't have any diagnosis' associated with MIPS criteria. Discharge Plan Departure Patient Disposition: Home Clinical Impression: Abscess or cellulitis of shoulder Instructions: Incision and Drainage of a Skin Abscess, DI for Skin Abscess, How to Pack a Wound Activity Restrictions/Additional Instructions: *You have been diagnosed with a large multilobular abscess to your left shoulder. You have 2 incisions with packing in them. Please have the packing removed by your wound care nurse in 1-2 days, they could be repacked. Thank you for coming in, it was a pleasure to meet you, please chicken picker your antibiotics at [facility], take them for least 8 days. Please follow-up with your primary care provider and wound care provider as needed. If you have worsening of this, please come back. I wish you the best. *What to do: *Please continue to take your regular medications as directed. [x ] New medication prescriptions sent to your pharmacy: [ [facility]] [ ] New medication written as a paper prescription [ ] No new medications given *Please follow up with your primary care provider in 2-3 days, call for an appointment. Let them know you were seen in the Emergency Department and that we asked that you be seen for follow-up. We will electronically transmit a record of today's note if your PCP is in our system *If you do not have a primary care provider please contact [phone] to establish care with one of the [facility] primary care providers. *Return to Emergency Department if you should have any new, worsening, or concerning symptoms, such as [fever greater than 101F, chills, worsening pain, persistent vomiting or other bothersome symptoms]. Prescriptions: New sulfamethoxazole-trimethoprim [Bactrim DS] 800-160 mg tablet 1 tab PO BID 8 Days Qty: 16 0RF cephalexin 500 mg capsule 500 mg PO QID 8 Days Qty: 32 0RF No Action aspirin 325 mg Capsule 325 mg PO DAILY mupirocin 2 % ointment 1 applic topical BID Qty: 15 0RF albuterol sulfate 90 mcg/actuation HFA aerosol inhaler 1 puff Inhalation PRN PRN (Reason: Shortness Of Breath) sulfamethoxazole-trimethoprim [Bactrim DS] 800-160 mg tablet 1 tab PO BID Qty: 14 0RF methadone 40 mg Tablet,Soluble 160 mg PO DAILY Referrals: Remedios Arreguin ARNP [Primary Care Provider] - Stand Alone Forms: Patient Portal/API <Radha Mandel DO - Last Filed: 02/16/23 12:43> [facility] Attestation: I was immediately available in the department for consultation. Supervised by Radha Mandel DO
[2023-02-14] MEDS: cephALEXin 250 MG CAPSULE 500 MG PO (16:16)
[2023-02-14] MEDS: TRIMETH/SULFA 160/800 (DS) TABLET 1 TAB PO (16:17)
--- NOTE | 2023-02-14 16:19 | PC.NURSE ---
informed [facility] that pt declined ketorlac.
== END 2023-02-14 16:20 | disposition home or self-care (01) ==
PROVIDERS: Emergency Provider Nurse Practitioner Critical Care Medicine; PCP Nurse Practitioner Family
DX: L03.114 Cellulitis of left upper limb (principal); L02.414 Cutaneous abscess of left upper limb
CPT/HCPCS: 10060; 87070; 87075; 87077; 87147; 87186; 87205; 99283

== ENCOUNTER 2023-10-03 00:32 | Emergency (ER) | payer OTHER, MEDICAID, SELFPAY ==
[2022-01-09 05:40] VITALS: BMI 32.8
[2023-10-03 00:40] VITALS: PULSE 84; O2SAT 95
[2023-10-03 00:43] VITALS: BP 159/80; PULSE 99; RESP 22; TEMP 37.2; O2SAT 99; BMI 34.8
--- NOTE | 2023-10-03 00:48 | ED_ITS ---
HPI - General Adult General Chief complaint: Shortness of Breath/Dyspnea Stated complaint: hard time breathing, bite by spider? Time Seen by Provider: 10/03/23 00:42 Source: patient Mode of arrival: Ambulatory Limitations: no limitations History of Present Illness HPI narrative: Patient is a 62-year-old male. Earlier today started to have problems breathing. He is also having a cough. Sinus congestion. Headache. Subjective fevers. He was also concerned about a spider bite on his left arm. He states he was looking at some mail and felt something poke him in his left arm. He then found a spider in with a mail. Related Data Home Medications Medication Instructions Recorded Confirmed albuterol sulfate 90 mcg/actuation 1 puff inhalation PRN PRN 05/11/18 06/27/22 aerosol inhaler Shortness Of Breath methadone 40 mg soluble tablet 160 mg PO DAILY 01/03/22 06/27/22 aspirin 325 mg capsule 325 mg PO DAILY 06/27/22 06/27/22 Previous Rx's Medication Instructions Recorded sulfamethoxazole 800 1 tab PO BID celulitis #14 tabs 04/27/20 mg-trimethoprim 160 mg tablet (Bactrim DS) mupirocin 2 % topical ointment 1 applic topical BID #15 grams 06/27/22 nirmatrelvir 300 mg (150 mg See Rx Instructions PO .COMPLEX 10/03/23 x2)-ritonavir 100 mg tablet,dose #30 ea pack (Paxlovid) Allergies Allergy/AdvReac Type Severity Reaction Status Date / Time No Known Drug Allergies Allergy Verified 06/27/22 11:00 Review of Systems Constitutional Constitutional: Reports system reviewed and no additional complaints, except as documented ENT Ears, Nose, Mouth, and Throat: Reports system reviewed and no additional complaints, except as documented Respiratory Respiratory: Reports system reviewed and no additional complaints, except as documented Integumentary/Breasts Skin/Breast: Reports system reviewed and no additional complaints, except as documented Neurologic Neurologic: Reports system reviewed and no additional complaints, except as documented Allergic/Immunologic Allergic/Immunologic: Reports system reviewed and no additional complaints, except as documented Patient History Medical History Lower extremity edema Hepatitis C History of heroin use Methadone dependence Tobacco abuse Lumbar post-laminectomy syndrome Chronic shoulder pain IV drug abuse IV drug user Surgical History History of lithotripsy Family History Mother Diabetes mellitus Father Cancer Social History household members: significant other and friend(s) Smoking Status: Current every day smoker alcohol intake: former substance use type: opiates and IV drugs Smoking Status: Current every day smoker tobacco type: cigarettes alcohol intake frequency: holidays/special occasions only Substance Use Type: heroin, IV drugs and methamphetamine Exam Initial Vital Signs Initial Vital Signs: Vital Signs Pulse Rate 84 10/03/23 00:40 Pulse Oximetry 95 10/03/23 00:40 HENMT Head: normal to inspection and normocephalic Resp Effort & Inspection: normal respiratory effort Auscultation: clear to auscultation bilaterally Cardio Rate: regular rate Rhythm: regular rhythm Skin General: no rashes or lesions noted Neuro General: patient alert and patient awake Extrem Other: There is no redness for drainage in the area that the patient had the symptoms in his left forearm. No abscess felt. No puncture wounds noted. Course Orders Ordered: ED Orders 10/03/23 00:48 XR chest 1V Stat 10/03/23 01:03 Covid-19 + FLU A/B + RSV - PCR Stat 10/03/23 01:12 EKG-12 Lead Stat Vital Signs Vital signs: Vital Signs - 8 hr 10/03/23 00:40 10/03/23 00:43 10/03/23 01:00 Temperature 98.9 F Pulse Rate 84 99 H Respiratory Rate 22 Blood Pressure 159/80 H 122/69 Pulse Oximetry 95 99 Oxygen Delivery Method Room Air 10/03/23 01:00 10/03/23 01:30 10/03/23 01:30 Temperature Pulse Rate 72 70 Respiratory Rate Blood Pressure 145/77 H Pulse Oximetry 95 96 Oxygen Delivery Method Room Air Room Air 10/03/23 02:00 10/03/23 02:00 Temperature Pulse Rate 77 Respiratory Rate Blood Pressure 133/77 Pulse Oximetry 97 Oxygen Delivery Method Medical Decision Making Lab Data Labs: Lab Results 10/03/23 Range/Units 01:03 SARS-CoV-2 (PCR) Positive H (Negative) Influenza A (RT-PCR) Flu a negative (NEGATIVE) Influenza B (RT-PCR) Flu b negative (NEGATIVE) RSV (PCR) Negative (Negative) Imaging Data Chest x-ray: Radiologist's Impression: PROCEDURE: XR CHEST 1V INDICATIONS: SOB TECHNIQUE: One view of the chest was acquired. COMPARISON: [facility], CR, XR CHEST 1 VIEW, 10/15/2022, 16:12. [facility], CR, XR CHEST 1 VIEW, 06/28/2022, 17:09. [facility], CR, XR CHEST 1V, 09/09/2022, 9:22. FINDINGS: Surgical changes and devices: None. Lungs and pleura: Lungs are clear. No pleural effusions or pneumothorax. Mediastinum: Mediastinal contours appear normal. Heart size is normal. Bones and chest wall: No suspicious bony lesions. Overlying soft tissues appear unremarkable. IMPRESSION: Portable chest within normal limits for age. ECG Data Attestation: I personally reviewed and interpreted this ECG as follows: Interpretation: Sinus rhythm Ventricular rate is 71 Normal axis Normal QRS Normal QTC No ST T wave change was MDM Narrative Medical decision making narrative: Patient has not hypoxic. Chest x-ray is unremarkable. He is positive for COVID which very much explains his presenting symptoms today. There are no wounds on his arm where he was concerned about the spider bite. There was no signs of infection. I did offer him Paxlovid given his age and other medical problems and he is in agreement with this. Will discharge patient home with return precautions. Discharge Plan Departure Patient Disposition: Home Clinical Impression: COVID-19 Instructions: COVID-19 Activity Restrictions/Additional Instructions: You were positive for COVID-19 today. I recommend that you follow all of the current CDC guidelines with regard to quarantine. These can be found on the CDC website. A [facility] Please ta ke it as directed. Return to the emergency department for new symptoms. Prescriptions: New Paxlovid 300 mg (150 mg x 2)-100 mg tablets,dose pack See Rx Instructions .ROUTE .COMPLEX Qty: 30 0RF Rx Instructions: take TWO 150 mg tablets of nirmatrelvir with ONE 100 mg tablet of ritonavir twice daily for 5 days No Action aspirin 325 mg Capsule 325 mg PO DAILY mupirocin 2 % ointment 1 applic topical BID Qty: 15 0RF albuterol sulfate 90 mcg/actuation HFA aerosol inhaler 1 puff Inhalation PRN PRN (Reason: Shortness Of Breath) sulfamethoxazole-trimethoprim [Bactrim DS] 800-160 mg tablet 1 tab PO BID Qty: 14 0RF methadone 40 mg Tablet,Soluble 160 mg PO DAILY Referrals: Remedios Arreguin ARNP [Primary Care Provider] - Stand Alone Forms: Patient Portal/API
--- NOTE | 2023-10-03 00:48 | DI.RAD.S_ITS ---
PROCEDURE: XR CHEST 1V INDICATIONS: SOB TECHNIQUE: One view of the chest was acquired. COMPARISON: [facility], CR, XR CHEST 1 VIEW, 10/15/2022, 16:12. [facility], CR, XR CHEST 1 VIEW, 06/28/2022, 17:09. [facility], CR, XR CHEST 1V, 09/09/2022, 9:22. FINDINGS: Surgical changes and devices: None. Lungs and pleura: Lungs are clear. No pleural effusions or pneumothorax. Mediastinum: Mediastinal contours appear normal. Heart size is normal. Bones and chest wall: No suspicious bony lesions. Overlying soft tissues appear unremarkable. IMPRESSION: Portable chest within normal limits for age. Dictated by: Alok Sharpe M.D. on 10/03/2023 at 1:04 Approved by: Alok Sharpe M.D. on 10/03/2023 at 1:06
[2023-10-03 01:00] VITALS: BP 122/69; PULSE 72; O2SAT 95
[2023-10-03 01:30] VITALS: BP 145/77; PULSE 70; O2SAT 96
[2023-10-03 01:48] LABS: Influenza A - CEPHEID Flu A NEGATIVE (NEGATIVE); Influenza B - CEPHEID Flu B NEGATIVE (NEGATIVE); Respiratory Syncytial Virus Negative (Negative)
[2023-10-03 02:00] VITALS: BP 133/77; PULSE 77; O2SAT 97
[2023-10-03 02:22] LABS: COVID-19 CEPHEID 4-PLEX PCR POSITIVE (Negative)
[2023-10-03 02:30] VITALS: PULSE 66; O2SAT 98
== END 2023-10-03 02:38 | disposition home or self-care (01) ==
PROVIDERS: Emergency Provider Emergency Medicine; PCP Nurse Practitioner Family
DX: U07.1 COVID-19 (principal); R06.00 Dyspnea, unspecified; R03.0 Elevated blood-pressure reading, without diagnosis of hypertension
CPT/HCPCS: 0241U; 71045; 93005; 99282; 99284

== ENCOUNTER 2023-11-11 12:11 | Emergency (ER) | payer OTHER, MEDICAID, SELFPAY ==
[2022-01-09 05:40] VITALS: BMI 32.8
[2023-11-11 12:24] VITALS: BP 128/88; PULSE 79; RESP 22; TEMP 36.9; O2SAT 98; BMI 72.0
--- NOTE | 2023-11-11 12:24 | ED_ITS ---
HPI - Arrhythmia/Palpitations General Chief Complaint: Arrhythmia/Palpitations Stated Complaint: afib rvr Time Seen by Provider: 11/11/23 12:15 Source: patient, EMS, RN notes reviewed and old records reviewed Mode of arrival: EMS Limitations: no limitations History of Present Illness HPI narrative: 62-year-old male with history of opiate use disorder, multiple continuous abscesses, mild COPD, hypertension, prior hep C on methadone daily and intermittent atrial fibrillation who presents with complaint of AFib RVR. Patient is brought by EMS he felt dizzy but no syncope. Patient states no chest pain or shortness of breath. He does not feel any palpitations. He states no diaphoresis. No nausea, no vomiting. Denies any issues with bowel movements or urination. States no new swelling of extremities. He was at the did while at clinic to receive his methadone today and was feeling dizzy. They performed an EKG was found to be in AFib with RVR with a heart rate of 140. Was transported by EMS. Did not receive anything EN route was difficult to obtain access. Patient states he is had several episodes in the past he takes an aspirin 324 mg daily on his own. He states he is on aspirin 324 mg, metoprolol 50 mg daily and methadone daily for the past 10 years. Patient states he is had back surgery x2 with laminectomy. Has had surgery for abscess his on his hip. He is still denies any prior cardiac interventions stents heart catheterization or interventions. States he was told he had COPD after a CT earlier this week and quit tobacco, alcohol and methamphetamines yesterday. He states he did use some heroin today. Patient denies any drug allergies. He says he does have a primary care physician. He does follow with Cardiology at [facility]. Related Data Home Medications Medication Instructions Recorded Confirmed albuterol sulfate 90 mcg/actuation 1 puff inhalation PRN PRN 05/11/18 06/27/22 aerosol inhaler Shortness Of Breath methadone 40 mg soluble tablet 160 mg PO DAILY 01/03/22 06/27/22 aspirin 325 mg capsule 325 mg PO DAILY 06/27/22 06/27/22 Previous Rx's Medication Instructions Recorded sulfamethoxazole 800 1 tab PO BID celulitis #14 tabs 04/27/20 mg-trimethoprim 160 mg tablet (Bactrim DS) mupirocin 2 % topical ointment 1 applic topical BID #15 grams 06/27/22 nirmatrelvir 300 mg (150 mg See Rx Instructions PO .COMPLEX 10/03/23 x2)-ritonavir 100 mg tablet,dose #30 ea pack (Paxlovid) Allergies Allergy/AdvReac Type Severity Reaction Status Date / Time No Known Drug Allergies Allergy Verified 06/27/22 11:00 Review of Systems Review of Systems ROS Unobtainable: All systems reviewed & are unremarkable except as noted in HPI and below Patient History Medical History Lower extremity edema Hepatitis C History of heroin use Methadone dependence Tobacco abuse Lumbar post-laminectomy syndrome Chronic shoulder pain IV drug abuse IV drug user Surgical History History of lithotripsy Family History Mother Diabetes mellitus Father Cancer Social History household members: significant other and friend(s) Smoking Status: Current every day smoker alcohol intake: former substance use type: opiates and IV drugs Smoking Status: Current every day smoker tobacco type: cigarettes alcohol intake frequency: holidays/special occasions only Substance Use Type: heroin, IV drugs and methamphetamine Exam Narrative Exam Narrative: GENERAL: Alert and oriented x three, male who appears older than his stated age in mild distress. HEENT: Head normocephalic, atraumatic, EOMI, pupils reactive, face symmetric, moist mucous membranes NECK: Supple, full range of motion CARDIOVASCULAR: Tachycardic and irregularly irregular rate and rhythm without murmurs, rubs or gallops. No JVD. Trace edema bilateral lower extremities. RESPIRATORY: Breath sounds equal bilaterally, no wheezes rales or rhonchi. No tachypnea or accessory muscle use. ABDOMEN: Soft, nontender. Normoactive bowel sounds all 4 quadrants. No guarding or rebound, rigidity, no mass : No CVA tenderness EXTREMITIES: Normal range of motion. Neurovascularly intact NEUROLOGICAL: Cranial nerves II through XII grossly intact. Moving all extremities SKIN: Warm, dry, no petechiae, no rashes or lesions noted. Initial Vital Signs Initial Vital Signs: Vital Signs Temperature 98.5 F 11/11/23 12:24 Pulse Rate 79 11/11/23 12:24 Respiratory Rate 22 11/11/23 12:24 Blood Pressure 128/88 11/11/23 12:24 Pulse Oximetry 98 11/11/23 12:24 Oxygen Delivery Method Room Air 11/11/23 12:24 Scores CHADS-VASc Congestive heart failure: yes Hypertension: yes Age 75 years or older: no Diabetes mellitus: no Stroke, TIA, or TE: no Vascular disease: no Age 65 to 74 years: no Sex category (female): Male CHADS-VASc Score: 2 Course Orders Ordered: ED Orders 11/11/23 12:22 XR chest 1V Stat 11/11/23 12:36 Covid-19 + FLU A/B + RSV - PCR Stat 11/11/23 12:56 Complete Blood Count AUTO DIFF Stat Comprehensive Metabolic Panel Stat Lipase Stat MAG [Magnesium] Stat NT-proBNP (BNP-Adult 18+) Stat PTT Partial Thromboplastin Cedric Stat Prothrombin Time INR Stat Troponin & CK Cardiac Panel Stat 11/11/23 13:32 EKG-12 Lead Stat Discontinued Medications Diltiazem HCl (Diltiazem 5 Mg/Ml Sdv) 10 mg IV NOW ONE Stop: 11/11/23 12:24 Last Admin: 11/11/23 12:42 Dose: Not Given Documented By: ARJUN Sodium Chloride (Normal Saline 0.9%) 1,000 mls @ 1,000 mls/hr IV BOLUS ONE Stop: 11/11/23 13:20 Last Admin: 11/11/23 12:54 Dose: 1,000 mls/hr Documented By: ARJUN Vital Signs Vital signs: Vital Signs - 8 hr 11/11/23 12:24 11/11/23 13:02 11/11/23 13:30 Temperature 98.5 F Pulse Rate 79 72 72 Respiratory Rate 22 24 18 Blood Pressure 128/88 Pulse Oximetry 98 97 Oxygen Delivery Method Room Air 11/11/23 13:31 11/11/23 13:31 11/11/23 13:46 Temperature Pulse Rate 80 72 Respiratory Rate 28 H 20 Blood Pressure 147/70 H 147/76 H Pulse Oximetry 98 99 Oxygen Delivery Method Room Air MDM - Arrhythmia/Palpitations Lab Data 11/11/23 12:56 11/11/23 12:56 Labs: Lab Results 11/11/23 11/11/23 Range/Units 12:36 12:56 WBC 7.8 (4.5-11.0) X10^3/uL RBC 5.53 (4.5-5.9) X10^6/uL Hgb 14.8 (13.5-17.5) g/dL Hct 45.1 (41-53) % MCV 81.4 (80-100) fL MCH 26.7 (26-34) PG MCHC 32.7 (30-36) % RDW 14.2 (11.6-14.8) % Plt Count 249 (150-400) X10^3/uL Neut % (Auto) 58.3 (50-75) % Lymph % (Auto) 25.8 (25-40) % Amelia % (Auto) 8.4 (3-14) % Eos % (Auto) 6.4 H (2-4) % Baso % (Auto) 1.1 (0-2) % Neut # (Auto) 4500 (9069-8432) /uL Lymph # (Auto) 2000 (1335-9449) /uL Amelia # (Auto) 700 (0-900) /uL Eos # (Auto) 500 H (0-450) /uL Baso # (Auto) 100 (0-100) /uL PT 11.7 (9.4-12.5) SECONDS INR 1.0 (0.9-1.3) APTT 32 (25.1-36.5) SECONDS Sodium 134 L (137-145) mmol/L Potassium 4.2 (3.4-5.1) mmol/L Chloride 99 (98-107) mmol/L Carbon Dioxide 31 (22-32) mmol/L BUN 21 H (9-20) mg/dL Creatinine 0.89 (0.66-1.25) mg/dL Estimated GFR > 60 (>60) mL/min BUN/Creatinine Ratio 23.6 H (6-22) Glucose 97 (80-110) mg/dL Calcium 9.6 (8.4-10.2) mg/dL Magnesium 1.8 (1.6-2.3) mg/dL Total Bilirubin 0.5 (0.2-1.3) mg/dL AST 25 (17-59) IU/L ALT 18 (<50) IU/L Alkaline Phosphatase 66 (38-126) U/L Total Creatine Kinase 77 (55-170) U/L Troponin I < 0.012 (0.01-0.034) ng/mL NT-Pro-B Natriuret Pep 533 H (<125) pg/mL Total Protein 7.7 (6.3-8.2) g/dL Albumin 3.8 (3.5-5.0) g/dL Globulin 3.9 (1.7-4.1) g/dL Albumin/Globulin Ratio 1.0 (1.0-2.8) Lipase 93 (23-300) U/L SARS-CoV-2 (PCR) Negative (Negative) Influenza A (RT-PCR) Flu a negative (NEGATIVE) Influenza B (RT-PCR) Flu b negative (NEGATIVE) RSV (PCR) Negative (Negative) Imaging Data Chest x-ray: Radiologist's Impresson: [address] [address] XRay Report Signed Patient: Tahir Mittal MR#: [id number] : 1960 Acct:[id number] Age/Sex: 62 / M Date of Service: 11/11/23 Loc: ED Accession Number: [id number] Procedure: XR chest 1V Ordering Provider: Radha Mandel D.O. PROCEDURE: XR CHEST 1V INDICATIONS: afib rvr. TECHNIQUE: One view of the chest was acquired. COMPARISON: [facility], , XR CHEST 1V, 10/03/2023, 0:52. FINDINGS: Surgical changes and devices: None. Lungs and pleura: Lungs are clear. No pleural effusions or pneumothorax. Mediastinum: Mediastinal contours appear normal. Heart size is normal. Bones and chest wall: No suspicious bony lesions. Overlying soft tissues appear unremarkable. IMPRESSION: No acute cardiopulmonary abnormality is seen. Dictated by: Roger Willis M.D. on 11/11/2023 at 12:57 Approved by: Roger Willis M.D. on 11/11/2023 at 12:58 ECG Data Attestation: I personally reviewed and interpreted this ECG as follows: Prior ECG tracings: available for review Interpretation: EKG from outside facility shows AFib with RVR. EMS telemetry also shows atrial fibrillation with RVR. Patient appears to have cardioverted here in the department his EKG here shows a rate of 73, [place] 198 QRS is 78 QTC of 440. No acute ST elevation or depression appreciated. Patient has prior from 10/03/2023 which appears similar. MDM Narrative Medical decision making narrative: This is a 62-year-old male with known history of paroxysmal atrial fibrillation, opiate use disorder on methadone daily but also still continues to use heroin and methamphetamines. Does have history of tobacco use and states new diagnosis of mild COPD and hypertension. Patient's anticoagulant with aspirin daily which he takes it 325 mg. He was dizzy but otherwise asymptomatic. Blood pressure was appropriate upon arrival. Patient appears to have cardioverted on his own he does appear to be in a sinus rhythm at this time he has EKG from the did while at clinic as well with EMS that show AFib with RVR. Labs including CBC shows no acute change. Coags are negative, sodium is 134 potassium is 4 2. Magnesium is 1.8, chloride 99 with a CO2 of 31 BUN 21 appropriate creatinine, glucose of 97 and otherwise normal LFTs. Troponins negative at 0.012 and BNP is 533. EKG shows normal sinus rhythm. Chest x-ray shows no acute change. Respiratory panel is negative. Patient's no longer in atrial fibrillation felt appropriate for discharge home to continue home medication. Discharge Plan Departure Patient Disposition: Home Clinical Impression: Atrial fibrillation Activity Restrictions/Additional Instructions: You were in atrial fibrillation with a rapid heart rate. You have since cardioverted back into a normal rhythm. Please continue your home medications as prescribed. I would talk with your physician about being on a stronger anticoagulants. You are partially protected from strokes with the aspirin but you are not fully protected. Please return if you have recurrent episodes of dizziness, new chest pain or shortness of breath, fast heartbeat, persistent vomiting, new swelling of her extremities or other new or concerning changes. Prescriptions: No Action aspirin 325 mg Capsule 325 mg PO DAILY mupirocin 2 % ointment 1 applic topical BID Qty: 15 0RF albuterol sulfate 90 mcg/actuation HFA aerosol inhaler 1 puff Inhalation PRN PRN (Reason: Shortness Of Breath) sulfamethoxazole-trimethoprim [Bactrim DS] 800-160 mg tablet 1 tab PO BID Qty: 14 0RF methadone 40 mg Tablet,Soluble 160 mg PO DAILY Paxlovid 300 mg (150 mg x 2)-100 mg tablets,dose pack See Rx Instructions .ROUTE .COMPLEX Qty: 30 0RF Rx Instructions: take TWO 150 mg tablets of nirmatrelvir with ONE 100 mg tablet of ritonavir twice daily for 5 days Referrals: Remedios Arreguin ARNP [Primary Care Provider] - Stand Alone Forms: Patient Portal/API
[2023-11-11] MEDS: SODIUM CHLORIDE 0.9% 1,000 ML 1000 ML IV (12:54)
[2023-11-11 12:59] LABS: Add Manual Diff / Slide Review NO; Basophils Absolute Auto 100 /uL (0-100); Basophils Percent Auto 1.1 % (0-2); Eosinophils Absolute Auto 500 /uL (0-450); Eosinophils Percent Auto 6.4 % (2-4); Hematocrit 45.1 % (41-53); Hemoglobin 14.8 g/dL (13.5-17.5); Lymphocytes Absolute Auto 2000 /uL (1100-4500); Lymphocytes Percent Auto 25.8 % (25-40); Mean Corpuscular HGB Conc 32.7 % (30-36); Mean Corpuscular Hemoglobin 26.7 PG (26-34); Mean Corpuscular Volume 81.4 fL (80-100); Monocytes Absolute Auto 700 /uL (0-900); Monocytes Percent Auto 8.4 % (3-14); Neutrophils Absolute Auto 4500 /uL (1500-7000); Neutrophils Percent Auto 58.3 % (50-75); Platelet Count 249 X10^3/uL (150-400); Red Blood Cell Count 5.53 X10^6/uL (4.5-5.9); Red Cell Distribution Width 14.2 % (11.6-14.8); White Blood Cell Count 7.8 X10^3/uL (4.5-11.0)
[2023-11-11 13:02] VITALS: PULSE 72; RESP 24
[2023-11-11 13:07] LABS: Prothrombin Time 11.7 SECONDS (9.4-12.5)
[2023-11-11 13:10] LABS: PTT Partial Thromboplastin Tim 32 SECONDS (25.1-36.5)
[2023-11-11 13:13] LABS: Magnesium 1.8 mg/dL (1.6-2.3)
[2023-11-11 13:14] LABS: Alanine Aminotransferase 18 IU/L (<50); Albumin 3.8 g/dL (3.5-5.0); Alkaline Phosphatase 66 U/L (38-126); Aspartate Aminotransferase 25 IU/L (17-59); BUN Creatinine Ratio 23.6 (6-22); Bilirubin Total 0.5 mg/dL (0.2-1.3); Blood Urea Nitrogen 21 mg/dL (9-20); Calcium 9.6 mg/dL (8.4-10.2); Carbon Dioxide 31 mmol/L (22-32); Chloride 99 mmol/L (98-107); Creatine Kinase 77 U/L (55-170); Estimated Glomerular Filt Rate > 60 mL/min (>60); Globulin 3.9 g/dL (1.7-4.1); Glucose 97 mg/dL (80-110); HEMOLYSIS < 15 (0-50); Lipase 93 U/L (23-300); Potassium 4.2 mmol/L (3.4-5.1); Sodium 134 mmol/L (137-145); Total Protein 7.7 g/dL (6.3-8.2)
[2023-11-11 13:26] LABS: NT-proBNP (BNP-Adult 18+) 533 pg/mL (<125); Troponin I < 0.012 ng/mL (0.01-0.034)
[2023-11-11 13:30] VITALS: PULSE 72; RESP 18; O2SAT 97
[2023-11-11 13:31] VITALS: BP 147/70; PULSE 80; RESP 28; O2SAT 98
[2023-11-11 13:38] LABS: COVID-19 CEPHEID 4-PLEX PCR Negative (Negative); Influenza A - CEPHEID Flu A NEGATIVE (NEGATIVE); Influenza B - CEPHEID Flu B NEGATIVE (NEGATIVE); Respiratory Syncytial Virus Negative (Negative)
[2023-11-11 13:46] VITALS: BP 147/76; PULSE 72; RESP 20; O2SAT 99
== END 2023-11-11 13:49 | disposition home or self-care (01) ==
PROVIDERS: Emergency Provider Emergency Medicine; PCP Nurse Practitioner Family
DX: I48.91 Unspecified atrial fibrillation (principal); J44.9 Chronic obstructive pulmonary disease, unspecified; I10 Essential (primary) hypertension; Z79.01 Long term (current) use of anticoagulants; Z11.52 Encounter for screening for COVID-19
CPT/HCPCS: 0241U; 36415; 71045; 80053; 82550; 83690; 83735; 83880; 84484; 85025; 85610; 85730; 93005; 93010; 99284

== ENCOUNTER 2024-03-24 04:01 | Emergency (ER) | payer MEDICARE, MEDICAID, SELFPAY ==
[2022-01-09 05:40] VITALS: BMI 32.8
[2024-03-24 04:11] VITALS: BP 148/74; PULSE 76; RESP 20; TEMP 36.5; O2SAT 97; BMI 32.8
--- NOTE | 2024-03-24 04:14 | ED.GENADULT ---
HPI - General Adult General Chief complaint: Wound/Laceration Stated complaint: doctor sent him for wounds on legs possible septic Time Seen by Provider: 03/24/24 04:03 History of Present Illness HPI narrative: 63-year-old male with history of AFib on Eliquis, COPD, tobacco abuse, methadone use presents by private vehicle for evaluation of wounds on his right lower extremity. Patient states that he gets weekly wound care at [facility], and yesterday a fluid blister ripped on his right lower extremity. He states that he was told by the doctors at the wound care center that he should come to the ER for evaluation because ?he was at great risk of becoming septic?. Patient states he was not able to get a ride to the emergency department until this morning. Related Data Home Medications Medication Instructions Recorded Confirmed albuterol sulfate 90 mcg/actuation 1 puff inhalation PRN PRN 05/11/18 01/21/24 aerosol inhaler Shortness Of Breath methadone 40 mg soluble tablet 160 mg PO DAILY 01/03/22 01/21/24 apixaban 5 mg tablet (Eliquis) 5 mg PO BID 01/21/24 01/21/24 metoprolol succinate 100 mg 100 mg PO DAILY 01/21/24 01/21/24 tablet,extended release 24 hr Previous Rx's Medication Instructions Recorded fluticasone fur. 100 mcg-umeclid 1 inh inhalation DAILY #60 ea 03/09/24 62.5 mcg-vilant 25 mcg inhalat.powder (Trelegy Ellipta) Allergies Allergy/AdvReac Type Severity Reaction Status Date / Time No Known Drug Allergies Allergy Verified 03/24/24 04:16 Review of Systems Review of Systems Narrative: See HPI Patient History Medical History Lower extremity edema Hepatitis C History of heroin use Methadone dependence Tobacco abuse Lumbar post-laminectomy syndrome Chronic shoulder pain IV drug abuse IV drug user Surgical History History of lithotripsy Family History Mother Diabetes mellitus Father Cancer Social History household members: significant other and friend(s) Smoking Status: Current every day smoker alcohol intake: former substance use type: opiates and IV drugs Smoking Status: Current every day smoker tobacco type: cigarettes alcohol intake frequency: holidays/special occasions only Substance Use Type: heroin, IV drugs and methamphetamine Exam Initial Vital Signs Initial Vital Signs: Vital Signs Temperature 97.7 F 03/24/24 04:11 Pulse Rate 76 03/24/24 04:11 Respiratory Rate 20 03/24/24 04:11 Blood Pressure 148/74 H 03/24/24 04:11 Pulse Oximetry 97 03/24/24 04:11 Oxygen Delivery Method Room Air 03/24/24 04:11 Const: Awake, alert, no acute distress, appears chronically unwell, older than stated age Cardiac: regular rate, regular rhythm RESP: unlabored, clear bilaterally, no wheezing GI: Soft, nontender, nondistended MSK: Patient did not want us to unwrap his left leg, right leg with chronic venous stasis changes Skin: Chronic venous stasis changes right lower extremity, no excessive warmth. Previously burst blister on anterior hawk without evidence of superimposed infection Neuro: AO x3, CN II-XII grossly intact, moves all extremities Course Orders Ordered: ED Orders 03/24/24 04:14 UA Complete [Urinalysis and Microscopic] Stat EKG-12 Lead Stat 03/24/24 04:42 CBC Auto Diff [Complete Blood Count AUTO DIFF] Stat CMP [Comprehensive Metabolic Panel] Stat Lactate (Lactic Acid) Stat MAG [Magnesium] Stat PT [Prothrombin Time INR] Stat Procalcitonin Stat Troponin & CK Cardiac Panel Stat Vital Signs Vital signs: Vital Signs - 8 hr 03/24/24 04:11 03/24/24 05:06 Temperature 97.7 F Pulse Rate 76 66 Respiratory Rate 20 22 Blood Pressure 148/74 H 139/68 Pulse Oximetry 97 96 Oxygen Delivery Method Room Air Room Air Medical Decision Making Differential Diagnosis Differential Diagnosis: cellulitis, venous stasis, sepsis Lab Data 03/24/24 04:42 03/24/24 04:42 Labs: Lab Results 03/24/24 Range/Units 04:42 WBC 9.3 (4.5-11.0) X10^3/uL RBC 5.36 (4.5-5.9) X10^6/uL Hgb 14.2 (13.5-17.5) g/dL Hct 43.8 (41-53) % MCV 81.7 (80-100) fL MCH 26.5 (26-34) PG MCHC 32.4 (30-36) % RDW 14.8 (11.6-14.8) % Plt Count 247 (150-400) X10^3/uL Neut % (Auto) 60.0 (50-75) % Lymph % (Auto) 23.8 L (25-40) % [place] % (Auto) 8.6 (3-14) % Eos % (Auto) 6.7 H (2-4) % Baso % (Auto) 0.9 (0-2) % Neut # (Auto) 5600 (0897-9928) /uL Lymph # (Auto) 2200 (9362-0252) /uL [place] # (Auto) 800 (0-900) /uL Eos # (Auto) 600 H (0-450) /uL Baso # (Auto) 100 (0-100) /uL PT 12.6 H (9.4-12.5) SECONDS INR 1.1 (0.9-1.3) Sodium 137 (137-145) mmol/L Potassium 4.1 (3.4-5.1) mmol/L Chloride 100 (98-107) mmol/L Carbon Dioxide 33 H (22-32) mmol/L BUN 21 H (9-20) mg/dL Creatinine 0.98 (0.66-1.25) mg/dL Estimated GFR > 60 (>60) mL/min BUN/Creatinine Ratio 21.4 (6-22) Glucose 82 (80-110) mg/dL Lactate 0.9 (0.7-2.1) mmol/L Calcium 9.6 (8.4-10.2) mg/dL Magnesium 2.0 (1.6-2.3) mg/dL Total Bilirubin 0.4 (0.2-1.3) mg/dL AST 26 (17-59) IU/L ALT 16 (<50) IU/L Alkaline Phosphatase 77 (38-126) U/L Total Creatine Kinase 94 (55-170) U/L Troponin I < 0.012 (0.01-0.034) ng/mL Total Protein 8.1 (6.3-8.2) g/dL Albumin 4.3 (3.5-5.0) g/dL Globulin 3.8 (1.7-4.1) g/dL Albumin/Globulin Ratio 1.1 (1.0-2.8) Procalcitonin 0.04 (<0.5) ng/mL MDM Narrative Medical decision making narrative: Chronically unwell but not acutely toxic patient presenting for evaluation of lower extremity wound that appears somewhat worse than usual. After unwrapping the patient's dressings there appeared to be chronic venous stasis changes as well as a burst fluid blister on the anterior lower extremity, however no signs of acute superimposed infection. Patient states that he is felt somewhat sluggish over the week and so blood work was ordered. Blood work showed WBC count 9.3, hemoglobin 14.2, platelets 247, no increased neutrophil predominance. Troponin undetectable, procalcitonin 0.04. Patient declined to give a urine sample stating ?you do not need a urine sample?. Patient does not appear to be septic or near sepsis at this time. He was relieved to know that he does not need IV antibiotics. He states that if he leaves now he can make it to his wound care clinic at 7:00 a.m. to have his right leg rewrapped. Discharge Plan Departure Patient Disposition: Home Clinical Impression: Venous stasis dermatitis Instructions: How to Wrap Multilayer Compression Bandage for Leg Wounds Activity Restrictions/Additional Instructions: Your laboratory work shows no signs of sepsis or bloodstream infection. Follow up at 7:00 a.m. at your clinic to get your wounds rewrapped. Prescriptions: No Action Trelegy Ellipta 100-62.5-25 mcg blister with device 1 inh inhalation DAILY Qty: 60 11RF albuterol sulfate 90 mcg/actuation HFA aerosol inhaler 1 puff Inhalation PRN PRN (Reason: Shortness Of Breath) methadone 40 mg Tablet,Soluble 160 mg PO DAILY metoprolol succinate 100 mg tablet extended release 24 hr 100 mg PO DAILY Eliquis 5 mg tablet 5 mg PO BID Referrals: Remedios Arreguin ARNP [Primary Care Provider] - Stand Alone Forms: Patient Portal/API
[2024-03-24 04:51] LABS: Add Manual Diff / Slide Review NO; Basophils Absolute Auto 100 /uL (0-100); Basophils Percent Auto 0.9 % (0-2); Eosinophils Absolute Auto 600 /uL (0-450); Eosinophils Percent Auto 6.7 % (2-4); Hematocrit 43.8 % (41-53); Hemoglobin 14.2 g/dL (13.5-17.5); Lymphocytes Absolute Auto 2200 /uL (1100-4500); Lymphocytes Percent Auto 23.8 % (25-40); Mean Corpuscular HGB Conc 32.4 % (30-36); Mean Corpuscular Hemoglobin 26.5 PG (26-34); Mean Corpuscular Volume 81.7 fL (80-100); Monocytes Absolute Auto 800 /uL (0-900); Monocytes Percent Auto 8.6 % (3-14); Neutrophils Absolute Auto 5600 /uL (1500-7000); Platelet Count 247 X10^3/uL (150-400); Red Blood Cell Count 5.36 X10^6/uL (4.5-5.9); Red Cell Distribution Width 14.8 % (11.6-14.8); White Blood Cell Count 9.3 X10^3/uL (4.5-11.0)
[2024-03-24 05:04] LABS: INR 1.1 (0.9-1.3); Prothrombin Time 12.6 SECONDS (9.4-12.5)
[2024-03-24 05:06] VITALS: BP 139/68; PULSE 66; RESP 22; O2SAT 96
[2024-03-24 05:10] LABS: Lactate (Lactic Acid) 0.9 mmol/L (0.7-2.1)
[2024-03-24 05:11] LABS: Creatine Kinase 94 U/L (55-170)
[2024-03-24 05:12] LABS: Alanine Aminotransferase 16 IU/L (<50); Albumin 4.3 g/dL (3.5-5.0); Albumin Globulin Ratio 1.1 (1.0-2.8); Alkaline Phosphatase 77 U/L (38-126); Aspartate Aminotransferase 26 IU/L (17-59); BUN Creatinine Ratio 21.4 (6-22); Bilirubin Total 0.4 mg/dL (0.2-1.3); Blood Urea Nitrogen 21 mg/dL (9-20); Calcium 9.6 mg/dL (8.4-10.2); Carbon Dioxide 33 mmol/L (22-32); Chloride 100 mmol/L (98-107); Estimated Glomerular Filt Rate > 60 mL/min (>60); Globulin 3.8 g/dL (1.7-4.1); Glucose 82 mg/dL (80-110); HEMOLYSIS < 15 (0-50); Potassium 4.1 mmol/L (3.4-5.1); Sodium 137 mmol/L (137-145); Total Protein 8.1 g/dL (6.3-8.2)
[2024-03-24 05:23] LABS: Troponin I < 0.012 ng/mL (0.01-0.034)
[2024-03-24 05:29] LABS: Procalcitonin 0.04 ng/mL (<0.5)
--- NOTE | 2024-03-24 05:38 | PC.NURSE ---
Addendum entered by Jorgito Richard R.N. 03/24/24 05:50: EMD notified Original Note: Pt asked if he could give a urine sample. Pt questions why a urine sample is needed and states that a urine sample is not needed.
[2024-03-24 06:05] VITALS: BP 139/68; PULSE 63; RESP 16; O2SAT 97
== END 2024-03-24 06:08 | disposition home or self-care (01) ==
PROVIDERS: Emergency Provider Emergency Medicine; PCP Nurse Practitioner Family
DX: I87.8 Other specified disorders of veins (principal); I87.2 Venous insufficiency (chronic) (peripheral)
CPT/HCPCS: 36415; 80053; 82550; 83605; 83735; 84145; 84484; 85025; 85610; 99283

== ENCOUNTER 2024-06-15 23:51 | Emergency (ER) | payer MEDICARE, MEDICAID, SELFPAY ==
[2022-01-09 05:40] VITALS: BMI 32.8
--- NOTE | 2024-06-15 23:59 | ED_ITS ---
HPI - General Adult General Chief complaint: Recheck/Abnormal Lab/Rx Stated complaint: states sent for a fib Time Seen by Provider: 06/15/24 23:59 History of Present Illness HPI narrative: 63-year-old gentleman with a history of hypertension, paroxysmal atrial fibrillation on metoprolol and anticoagulated on Eliquis, history of opioid use disorder currently on methadone maintenance and followed by primary care at the [facility] presents after an episode of atrial fibrillation yesterday. He notes that he ran out of his metoprolol 3 days ago, on day 3 had a proximally 4 hour episode of atrial fibrillation, was seen by medics with recommendation come into the emergency department but he was unable to do so because he had his dog with him. He comes back today to follow up. After taking his usual dose of metoprolol that he picked up yesterday afternoon, he went back into sinus rhythm. He continues to take his Eliquis. He reports some blurry vision over the last couple of days that is now improving. He has wound care dressings in place that were placed this morning for his chronic venous stasis dermatitis and ulcerations that all seem to be healing nicely. He notes that he has a follow up appointment with his new primary care physician through the [facility] clinic coming up in about a week. He has all of his medications and refills remaining. He has reporting no current chest pain, palpitations, abdominal pain, orthopnea. No recent fevers or chills. He does note that his right shoulder has been bothering him for a number of months. He was picking up a heavy moving battery and felt some pulling and tugging in the right shoulder he is having difficulty with reaching forward on the right side and abducting. Neurovascularly intact otherwise. Related Data Home Medications Medication Instructions Recorded Confirmed albuterol sulfate 90 mcg/actuation 1 puff inhalation PRN PRN 05/11/18 01/21/24 aerosol inhaler Shortness Of Breath methadone 40 mg soluble tablet 160 mg PO DAILY 01/03/22 01/21/24 apixaban 5 mg tablet (Eliquis) 5 mg PO BID 01/21/24 01/21/24 metoprolol succinate 100 mg 100 mg PO DAILY 01/21/24 01/21/24 tablet,extended release 24 hr Previous Rx's Medication Instructions Recorded fluticasone fur. 100 mcg-umeclid 1 inh inhalation DAILY #60 ea 03/09/24 62.5 mcg-vilant 25 mcg inhalat.powder (Trelegy Ellipta) Allergies Allergy/AdvReac Type Severity Reaction Status Date / Time No Known Drug Allergies Allergy Verified 03/24/24 04:16 Review of Systems Review of Systems Narrative: Pertinent positive and negative findings as per HPI Patient History Medical History Lower extremity edema Hepatitis C History of heroin use Methadone dependence Tobacco abuse Lumbar post-laminectomy syndrome Chronic shoulder pain IV drug abuse IV drug user Surgical History History of lithotripsy Family History Mother Diabetes mellitus Father Cancer Social History household members: significant other and friend(s) Smoking Status: Current every day smoker alcohol intake: former substance use type: opiates and IV drugs Smoking Status: Current every day smoker tobacco type: cigarettes alcohol intake frequency: holidays/special occasions only Substance Use Type: heroin, IV drugs and methamphetamine Exam Initial Vital Signs Initial Vital Signs: General: Chronically ill-appearing but in no acute distress. Somewhat pressured speech but appropriate thought content HEENT: Moist mucous membranes, normal sclera with reactive pupils, Neck: No JVD, supple Respiratory: Lungs are clear to auscultation, no wheezing no rales no rhonchi. Full and symmetrical air movement Cardiac: Regular rate and rhythm no murmurs no bruits Abdomen: Soft, nontender, good bowel tones, no flank pain Skin: Multiple scars from prior abscesses, no new areas of concern, lower extremities are wrapped in wound care dressings up to the knees bilaterally Neurologic: Grossly neurologically intact with no obvious asymmetries or abnormalities Psych: Cooperative, appropriate insight and affect Medical Decision Making MDM Narrative Medical decision making narrative: CC: Brief episode of spontaneous AFib now returned to sinus rhythm. Right shoulder pain Complicating co-morbidities: History of paroxysmal atrial fibrillation on metoprolol and Eliquis, primary care doctor at the [facility] recently left new 1 to see and evaluate him next week, continues care in the [facility] for chronic lower extremity ulcerations Data collected from: patient Medical records reviewed: Previous ER visits for venous stasis dermatitis, paroxysmal atrial fibrillation, COVID-19 and abscesses are reviewed Differential considered: Paroxysmal atrial fibrillation now back in sinus rhythm. Congestive heart failure, rotator cuff tear Exam documented above, pertinent findings include: Patient appears close to his baseline. Able to speak in complete sentences. Heart and lungs are benign. He does have some tenderness over the right anterior shoulder and painful abduction and difficulty with reaching forward on the right side. Arm is neurovascularly intact there was no evidence of septic arthritis or abscess. Lab Test results independently reviewed as above. Pertinent findings: With shared decision-making, in light of the fact that his atrial fibrillation has resolved after he restarted his metoprolol, we decided to do no additional blood work today Imaging studies independently reviewed: Again with shared decision-making, suspecting a rotator cuff tear that is going to need advanced imaging we did begin with x-rays today to better assist his primary care physician in proceeding with MRI approval in the near future. X- rays of the right shoulder do not show acute injury. Discussion: 63-year-old gentleman with multiple chronic medical problems p resents 24 hours after a resolved episode of approximately 12 hours of atrial fibrillation with rapid ventricular response. He would run out of his metoprolol he is since refilled it and after taking it returned to sinus rhythm. He continues with his Eliquis, he is following up with the [facility] clinic and wound care. He does seem to be actually making significant progress and moving toward regular care. At this point he does not need any medication refills, shoulder x-ray does not suggest acute bony injury. He is safe for discharge and will follow up with his primary care physician a for each of these issues. Discharge Plan Departure Patient Disposition: Home Clinical Impression: AF (paroxysmal atrial fibrillation) Injury of right shoulder Qualifiers: Encounter type: initial encounter Qualified Code(s): S49.91XA - Unspecified injury of right shoulder and upper arm, initial encounter Instructions: DI for Rotator Cuff Injury, DI for Atrial Fibrillation Activity Restrictions/Additional Instructions: Thank you for coming in today It does sound like you had a brief episode of atrial fibrillation and once you restarted all appropriate medications, have returned back to sinus rhythm. Please do continue all prescribed medication and do make sure you follow up with your primary care doctor Regarding your right shoulder pain, x-rays did not show acute fractures. Based on your exam and history I suspect that you do have a partial if not complete rotator cuff injury and likely will need advanced imaging in the form of MRI. Additional workup and imaging ordering will need to be arranged through outpatient follow up with your primary care doctor If you find that you are getting worse or develop any new symptoms, please feel free to return to the emergency department for further evaluation. Prescriptions: No Action Trelegy Ellipta 100-62.5-25 mcg blister with device 1 inh inhalation DAILY Qty: 60 11RF albuterol sulfate 90 mcg/actuation HFA aerosol inhaler 1 puff Inhalation PRN PRN (Reason: Shortness Of Breath) methadone 40 mg Tablet,Soluble 160 mg PO DAILY metoprolol succinate 100 mg tablet extended release 24 hr 100 mg PO DAILY Eliquis 5 mg tablet 5 mg PO BID Referrals: Remedios Arreguin ARNP [Primary Care Provider] - Stand Alone Forms: Patient Portal/API
[2024-06-16 00:15] VITALS: BP 125/73; PULSE 67; RESP 16; TEMP 36.3; O2SAT 96; BMI 33.1
--- NOTE | 2024-06-16 00:36 | DI.RAD.S_ITS ---
PROCEDURE: XR SHOULDER RT MIN 2V INDICATIONS: shoulder pain TECHNIQUE: 3 views of the shoulder were acquired. COMPARISON: [facility], CR, XR SHOULDER LT MIN 2V, 09/09/2022, 9:47. FINDINGS: Bones: No fractures or dislocations. No suspicious bony lesions. Visualized ribs appear intact. Severe acromioclavicular and moderate glenohumeral arthritic change. Periarticular osteophytes are present as well as subchondral sclerosis. Soft tissues: No suspicious soft tissue calcifications. IMPRESSION: Acromioclavicular and glenohumeral arthritic change. Dictated by: Layla Benitez M.D. on 06/16/2024 at 1:06 Approved by: Layla Benitez M.D. on 06/16/2024 at 1:07
== END 2024-06-16 01:12 | disposition home or self-care (01) ==
PROVIDERS: Emergency Provider Emergency Medicine; PCP Nurse Practitioner Family
DX: I48.91 Unspecified atrial fibrillation (principal); S49.91XA Unspecified injury of right shoulder and upper arm, initial encounter; X50.0XXA Overexertion from strenuous movement or load, initial encounter
CPT/HCPCS: 73030; 99281; 99283

== ENCOUNTER → 2024-08-06 06:57 | Outpatient (CLI) | payer MEDICARE, MEDICAID, SELFPAY ==
[2022-01-09 05:40] VITALS: BMI 32.8
--- NOTE | 2024-08-06 06:58 | DI.US.S_ITS ---
PROCEDURE: US ABD AORTA ANEURYSM SCREEN INDICATIONS: HISTORY OF NICOTINE DEPENDENCE >20YEARS TECHNIQUE: Real time scanning was performed of the aorta and iliac arteries, with image documentation. COMPARISON: None. FINDINGS: Aorta: Proximal aortic diameter measures 2.8 cm. Mid-aorta measures 2.4 cm. Distal aortic diameter is 2.0 cm. Iliac arteries: Not well seen. There is appearance of suspected prominent hydronephrosis on the right. It is poorly visualized. Hepatic steatosis is present. No definitive left renal hydronephrosis. IMPRESSION: No aneurysmal dilation. Poorly visualized right hydronephrosis. Dictated by: Layla Benitez M.D. on 08/06/2024 at 9:57 Approved by: Layla Benitez M.D. on 08/06/2024 at 9:59
== END ==
LOC: US 06:58
PROVIDERS: PCP Nurse Practitioner Family; Referring Provider Family Medicine; Visit Provider Family Medicine
DX: Z00.00 Encounter for general adult medical examination without abnormal findings (principal); Z87.891 Personal history of nicotine dependence; N13.30 Unspecified hydronephrosis
CPT/HCPCS: 76706

== ENCOUNTER 2024-12-14 21:32 | Inpatient (IN) | payer MEDICARE, MEDICAID, SELFPAY ==
[2022-01-09 05:40] VITALS: BMI 32.8
[2024-12-14] VITALS (7 sets, daily range): BP systolic 125–159; BP diastolic 65–84; PULSE 74–97; RESP 18–21; TEMP 38.2; O2SAT 95–98; BMI 32.2
--- NOTE | 2024-12-14 22:07 | PC.NURSE ---
Pt declines the 4pack respiratory swab. Pt c/o right sided flank pain. Hx of kidney stones. Pain was so bad yesterday it reached around and into my testicle. Pt is a poor historian and answers questions inconsistently. He is alert and oriented.
[2024-12-14 22:24] LABS: RBC Urine 5-10/HPF (0-5/HPF); Urine Volume 10mL (spun)
[2024-12-14 22:25] LABS: Bacteria Urine Few (2-10); Culture Indicated Urine Specimen Cultured; Squamous Epithelial Cell Urine 0-1 /HPF (0-5/HPF); WBC Urine 1-5/HPF (0-5/HPF)
--- NOTE | 2024-12-14 23:11 | ED_ITS ---
HPI - General Adult <Radha Mandel DO - Last Filed: 12/16/24 05:44> General Chief complaint: Fever Stated complaint: back pain, rt kidney pain Time Seen by Provider: 12/14/24 23:11 Source: patient, RN notes reviewed and old records reviewed Mode of arrival: Ambulatory Limitations: no limitations History of Present Illness HPI narrative: 63-year-old male history of hypertension, paroxysmal atrial fibrillation anticoagulants Eliquis, history of opiate use disorder on methadone presents with complaint of back pain. Patient states it started yesterday he states it did wrap around to the front and towards his testicle. He states sort of waxed and waned in intensity it is gone currently. He was unaware of any fevers but was febrile here in the department. He denies any nausea or vomiting. No chest pain or shortness of breath. States he has had some urinary difficulties yesterday but states that is resolved in his urine is clear today. Denies any issues with bowel movements. Patient states he went to [place] yesterday but the wait was too long and then ultimately ended up here. He does have a history of kidney stones has had lithotripsy it sounds like had a ureteral stent placed for a 9mm stone which then started to come out of the penis he cut part off and then had the rest extracted by Urology at [facility]. He states this pain feels similar. Patient notes he was currently on methadone but did inject heroin in the last 24 hours. No reported drug allergies. Does use tobacco daily, occasional alcohol, history of heroin and methamphetamine use most recent use in the last 24 hours. Related Data Home Medications Medication Instructions Recorded Confirmed albuterol sulfate 90 mcg/actuation 1 puff inhalation PRN PRN 05/11/18 12/15/24 aerosol inhaler Shortness Of Breath methadone 40 mg soluble tablet 155 mg PO DAILY 01/03/22 12/15/24 apixaban 5 mg tablet (Eliquis) 5 mg PO BID 12/15/24 12/15/24 metoprolol succinate 100 mg 100 mg PO DAILY 12/15/24 12/15/24 tablet,extended release 24 hr Previous Rx's Medication Instructions Recorded fluticasone fur. 100 mcg-umeclid 1 inh inhalation DAILY #60 ea 03/09/24 62.5 mcg-vilant 25 mcg inhalat.powder (Trelegy Ellipta) amoxicillin 500 mg-potassium 1 tab PO BID #14 tabs 12/16/24 clavulanate 125 mg tablet (Augmentin) Allergies Allergy/AdvReac Type Severity Reaction Status Date / Time No Known Drug Allergies Allergy Verified 12/15/24 08:35 Review of Systems <Radha Mandel DO - Last Filed: 12/16/24 05:44> Review of Systems ROS Unobtainable: All systems reviewed & are unremarkable except as noted in HPI and below Patient History <Radha Mandel DO - Last Filed: 12/16/24 05:44> Medical History Fever Hypotension Right ureteral calculus Lower extremity edema Hepatitis C History of heroin use Methadone dependence Tobacco abuse Lumbar post-laminectomy syndrome Chronic shoulder pain IV drug abuse IV drug user Surgical History History of lithotripsy Family History Mother Diabetes mellitus Father Cancer Social History household members: friend(s) Smoking Status: Current every day smoker alcohol intake: former substance use type: opiates and IV drugs Smoking Status: Current every day smoker tobacco type: cigarettes alcohol intake frequency: holidays/special occasions only Exam <Radha Mandel DO - Last Filed: 12/16/24 05:44> Narrative Exam Narrative: GENERAL: Alert and oriented x three, male in mild distress HEENT: Head normocephalic, atraumatic, EOMI, pupils reactive, face symmetric, moist mucous membranes NECK: Supple, full range of motion CARDIOVASCULAR: Regular rate and rhythm without murmurs, rubs or gallops. RESPIRATORY: Breath sounds equal bilaterally, no wheezes rales or rhonchi. ABDOMEN: Soft, nontender. Normoactive bowel sounds all 4 quadrants. No guarding or rebound, rigidity, no mass : No CVA tenderness EXTREMITIES: Normal range of motion, no clubbing or edema. Neurovascularly intact NEUROLOGICAL: Cranial nerves II through XII grossly intact. Moving all extremities SKIN: Warm, dry, no petechiae, no rashes or lesions. Initial Vital Signs Initial Vital Signs: Vital Signs Temperature 100.7 F H 12/14/24 21:38 Pulse Rate 85 12/14/24 21:38 Respiratory Rate 18 12/14/24 21:38 Blood Pressure 156/84 H 12/14/24 21:38 Pulse Oximetry 97 12/14/24 21:38 Oxygen Delivery Method Room Air 12/14/24 21:38 <Rachel Dailey MD - Last Filed: 12/17/24 07:18> Initial Vital Signs Initial Vital Signs: Vital Signs Temperature 100.7 F H 12/14/24 21:38 Pulse Rate 85 12/14/24 21:38 Respiratory Rate 18 12/14/24 21:38 Blood Pressure 156/84 H 12/14/24 21:38 Pulse Oximetry 97 12/14/24 21:38 Oxygen Delivery Method Room Air 12/14/24 21:38 Course <Radha Mandel DO - Last Filed: 12/16/24 05:44> Orders Ordered: Discontinued Medications Acetaminophen (Acetaminophen 325 Mg Tablet) 650 mg PO NOW ONE Stop: 12/14/24 23:24 Last Admin: 12/15/24 00:00 Dose: 650 mg Documented By: WILNER Albuterol (Albuterol 2.5 Mg/3 Ml Neb (Adult)) 2.5 mg INH Q4H PRN PRN Reason: Shortness Of Breath Albuterol/Ipratropium (Albuterol/Ipratropium 3 Ml Ampul) 3 ml INH [id number] [facility] Last Admin: 12/16/24 08:01 Dose: 3 ml Documented By: Admin: 12/15/24 23:11 Dose: Not Given Documented By: Admin: 12/15/24 19:20 Dose: Not Given Documented By: CLARE Albuterol/Ipratropium (Albuterol/Ipratropium 3 Ml Ampul) 3 ml INH [id number] [facility] Budesonide (Budesonide 0.5 Mg/2 Ml Neb) 0.5 mg INH RTBID [facility] Last Admin: 12/16/24 08:02 Dose: 0.5 mg Documented By: Admin: 12/15/24 19:20 Dose: Not Given Documented By: CLARE Ceftriaxone Sodium (Ceftriaxone 2,000 Mg Vial) 1,000 mg IM NOW ONE Stop: 12/15/24 00:34 Last Admin: 12/15/24 00:48 Dose: 1,000 mg Documented By: WILNER Ciprofloxacin (Ciprofloxacin 250 Mg Tablet) 500 mg PO NOW ONE Stop: 12/15/24 01:26 Last Admin: 12/15/24 01:44 Dose: 500 mg Documented By: ALLAN Fentanyl (Fentanyl 100 Mcg/2 Ml Inj) 0 mcg IV Q5M PRN PRN Reason: Pain, Moderate (4-6) Hydromorphone HCl (Hydromorphone 0.5 Mg Inj) 1 mg IV Q1H PRN PRN Reason: Pain, Severe (7-10) Hydromorphone HCl (Hydromorphone 0.5 Mg Inj) 0.5 mg IV Q1H PRN PRN Reason: Pain, Moderate (4-6) Last Admin: 12/15/24 21:14 Dose: 0.5 mg Documented By: Admin: 12/15/24 15:52 Dose: 0.5 mg Documented By: ALTAGRACIA Hydromorphone HCl (Hydromorphone 1 Mg Inj) 1 mg IV Q1H PRN PRN Reason: Pain, Severe (7-10) Last Admin: 12/16/24 05:25 Dose: 1 mg Documented By: Admin: 12/16/24 02:21 Dose: 1 mg Documented By: Admin: 12/15/24 22:34 Dose: 1 mg Documented By: ALMA Ceftriaxone Sodium 1,000 mg/ (Sodium Chloride) 100 mls @ 200 mls/hr IV NOW ONE Stop: 12/14/24 23:26 Last Admin: 12/15/24 00:47 Dose: Not Given Documented By: WILNER Lactated Ringer's (Lactated Ringers) 1,000 mls @ 100 mls/hr IV CONT [facility] Last Admin: 12/15/24 02:00 Dose: Not Given Documented By: AB Acetaminophen (Ofirmev) 1,000 mg in 100 mls @ 400 mls/hr IV Q6H PRN PRN Reason: Fever/Mild Pain (1-3) Last Infusion: 12/16/24 05:50 Dose: Infused Documented By: Admin: 12/16/24 05:25 Dose: 400 mls/hr Documented By: Infusion: 12/15/24 23:10 Dose: Infused Documented By: Admin: 12/15/24 22:34 Dose: 400 mls/hr Documented By: ALMA Ceftriaxone Sodium 1,000 mg/ (Sodium Chloride) 100 mls @ 200 mls/hr IV Q24H [facility] Last Infusion: 12/15/24 23:04 Dose: Infused Documented By: Admin: 12/15/24 21:14 Dose: 200 mls/hr Documented By: FM Sodium Chloride (Normal Saline 0.9%) 1,000 mls @ 1,000 mls/hr IV BOLUS ONE Stop: 12/15/24 08:35 Last Infusion: 12/15/24 10:41 Dose: Infused Documented By: Admin: 12/15/24 07:48 Dose: 1,000 mls/hr Documented By: ARJUN Piperacillin Sod/Tazobactam (Sod 4.5 gm/ Sodium Chloride) 100 mls @ 200 mls/hr IV NOW ONE Stop: 12/15/24 07:37 Last Infusion: 12/15/24 18:45 Dose: Infused Documented By: Admin: 12/15/24 07:49 Dose: 200 mls/hr Documented By: ARJUN Lactated Ringer's (Lactated Ringers) 1,000 mls @ 42 mls/hr IV CONT [facility] Last Admin: 12/15/24 18:46 Dose: Not Given Documented By: ALTAGRACIA NOREPINEPHRINE BITARTRATE/D5W (Levophed) 4 mg in 250 mls @ 48.648 mls/hr IV TITRATE [facility]; Protocol Last Titration: 12/15/24 13:30 Dose: 0 mcg/kg/min, 0 mls/hr Documented By: Admin: 12/15/24 10:40 Dose: 0.1 mcg/kg/min, 48.648 mls/hr Documented By: JUAN JOSÉ Sodium Chloride (Normal Saline 0.9%) 1,000 mls @ 175 mls/hr IV CONT CHELO Last Infusion: 12/16/24 09:42 Dose: 0 mls/hr Documented By: Admin: 12/16/24 06:51 Dose: 175 mls/hr Documented By: Infusion: 12/16/24 06:48 Dose: Infused Documented By: Admin: 12/16/24 01:05 Dose: 175 mls/hr Documented By: Infusion: 12/15/24 23:00 Dose: Infused Documented By: Admin: 12/15/24 17:17 Dose: 175 mls/hr Documented By: Infusion: 12/15/24 17:17 Dose: Infused Documented By: Admin: 12/15/24 13:40 Dose: 175 mls/hr Documented By: AIDEN Ibuprofen (Ibuprofen 400 Mg Tablet) 800 mg PO NOW ONE Stop: 12/15/24 01:46 Last Admin: 12/15/24 02:04 Dose: 800 mg Documented By: Iopamidol (Iopamidol 30 Ml Vial) 30 ml INJ NOW ONE Stop: 12/15/24 09:29 Last Admin: 12/15/24 09:29 Dose: 30 ml Documented By: Lidocaine HCl (Lidocaine 2% (Glydo) 6 Ml Gel) 6 ml TOP NOW ONE Stop: 12/15/24 09:34 Last Admin: 12/15/24 09:33 Dose: 6 ml Documented By: Methadone HCl (Methadone Intensol 10 Mg/Ml Oral.Conc) 155 mg PO 1200 [facility] Last Admin: 12/16/24 11:18 Dose: 155 mg Documented By: Admin: 12/15/24 13:40 Dose: 155 mg Documented By: AIDEN Metoprolol Tartrate (Metoprolol Tartrate 5 Mg/5 Ml Inj) 5 mg IV Q2HR PRN PRN Reason: Heart Rate- High, > 120 Metoprolol Tartrate (Metoprolol Tartrate 5 Mg/5 Ml Inj) 5 mg IV Q2HR PRN PRN Reason: Heart Rate- High, > 120 Naloxone HCl (Naloxone 0.4 Mg/Ml Vial) 0.2 mg IV Q2MIN PRN PRN Reason: Opiate Reversal Naloxone HCl (Naloxone 0.4 Mg/Ml Vial) 0.2 mg IV Q2MIN PRN PRN Reason: Opiate Reversal Nicotine (Nicotine 21 Mg Patch) 21 mg TOP DAILY PRN PRN Reason: smoker Non-Formulary Medication (Eaoeyzxmbgf-Dfewzuvzx-Yetutbok [Trelegy Ellipta]) 1 inhalation INH DAILY [facility] Last Admin: 12/15/24 14:43 Dose: Not Given Documented By: ALTAGRACIA Ondansetron HCl (Ondansetron 4 Mg Odt) 4 mg SL NOW ONE Stop: 12/15/24 05:19 Last Admin: 12/15/24 05:21 Dose: 4 mg Documented By: Ondansetron HCl (Ondansetron 4 Mg Odt) 4 mg SL Q4HR PRN PRN Reason: Nausea Ondansetron HCl (Ondansetron 4 Mg/2 Ml Inj) 4 mg IV NOW PRN PRN Reason: Nausea And Vomiting Oxycodone HCl (Oxycodone Ir 5 Mg Tablet) 5 mg PO PACUNOW PRN PRN Reason: Mild or moderate pain Vital Signs Vital signs: Vital Signs - 8 hr 12/15/24 00:24 12/15/24 00:30 12/15/24 00:37 Pulse Rate 83 84 Respiratory Rate Blood Pressure 170/75 H Pulse Oximetry Oxygen Delivery Method 12/15/24 00:37 12/15/24 00:59 12/15/24 00:59 Pulse Rate 94 H 83 Respiratory Rate 20 21 Blood Pressure 148/68 H Pulse Oximetry 100 Oxygen Delivery Method Room Air 12/15/24 01:00 12/15/24 01:00 12/15/24 01:30 Pulse Rate 84 84 Respiratory Rate 22 31 H Blood Pressure 144/69 H Pulse Oximetry 94 96 Oxygen Delivery Method Room Air Room Air <Rachel Dailey MD - Last Filed: 12/17/24 07:18> Orders Ordered: Discontinued Medications Acetaminophen (Acetaminophen 325 Mg Tablet) 650 mg PO NOW ONE Stop: 12/14/24 23:24 Last Admin: 12/15/24 00:00 Dose: 650 mg Documented By: WILNER Albuterol (Albuterol 2.5 Mg/3 Ml Neb (Adult)) 2.5 mg INH Q4H PRN PRN Reason: Shortness Of Breath Albuterol/Ipratropium (Albuterol/Ipratropium 3 Ml Ampul) 3 ml INH [id number] [facility] Last Admin: 12/16/24 08:01 Dose: 3 ml Documented By: Admin: 12/15/24 23:11 Dose: Not Given Documented By: Admin: 12/15/24 19:20 Dose: Not Given Documented By: CLARE Albuterol/Ipratropium (Albuterol/Ipratropium 3 Ml Ampul) 3 ml INH [id number] Budesonide (Budesonide 0.5 Mg/2 Ml Neb) 0.5 mg INH RTBID [facility] Last Admin: 12/16/24 08:02 Dose: 0.5 mg Documented By: Admin: 12/15/24 19:20 Dose: Not Given Documented By: CLARE Ceftriaxone Sodium (Ceftriaxone 2,000 Mg Vial) 1,000 mg IM NOW ONE Stop: 12/15/24 00:34 Last Admin: 12/15/24 00:48 Dose: 1,000 mg Documented By: WILNER Ciprofloxacin (Ciprofloxacin 250 Mg Tablet) 500 mg PO NOW ONE Stop: 12/15/24 01:26 Last Admin: 12/15/24 01:44 Dose: 500 mg Documented By: ALLAN Fentanyl (Fentanyl 100 Mcg/2 Ml Inj) 0 mcg IV Q5M PRN PRN Reason: Pain, Moderate (4-6) Hydromorphone HCl (Hydromorphone 0.5 Mg Inj) 1 mg IV Q1H PRN PRN Reason: Pain, Severe (7-10) Hydromorphone HCl (Hydromorphone 0.5 Mg Inj) 0.5 mg IV Q1H PRN PRN Reason: Pain, Moderate (4-6) Last Admin: 12/15/24 21:14 Dose: 0.5 mg Documented By: Admin: 12/15/24 15:52 Dose: 0.5 mg Documented By: ALTAGRACIA Hydromorphone HCl (Hydromorphone 1 Mg Inj) 1 mg IV Q1H PRN PRN Reason: Pain, Severe (7-10) Last Admin: 12/16/24 05:25 Dose: 1 mg Documented By: Admin: 12/16/24 02:21 Dose: 1 mg Documented By: Admin: 12/15/24 22:34 Dose: 1 mg Documented By: ALMA Ceftriaxone Sodium 1,000 mg/ (Sodium Chloride) 100 mls @ 200 mls/hr IV NOW ONE Stop: 12/14/24 23:26 Last Admin: 12/15/24 00:47 Dose: Not Given Documented By: WILNER Lactated Ringer's (Lactated Ringers) 1,000 mls @ 100 mls/hr IV CONT [facility] Last Admin: 12/15/24 02:00 Dose: Not Given Documented By: Acetaminophen (Ofirmev) 1,000 mg in 100 mls @ 400 mls/hr IV Q6H PRN PRN Reason: Fever/Mild Pain (1-3) Last Infusion: 12/16/24 05:50 Dose: Infused Documented By: Admin: 12/16/24 05:25 Dose: 400 mls/hr Documented By: Infusion: 12/15/24 23:10 Dose: Infused Documented By: Admin: 12/15/24 22:34 Dose: 400 mls/hr Documented By: FM Ceftriaxone Sodium 1,000 mg/ (Sodium Chloride) 100 mls @ 200 mls/hr IV Q24H [facility] Last Infusion: 12/15/24 23:04 Dose: Infused Documented By: Admin: 12/15/24 21:14 Dose: 200 mls/hr Documented By: FM Sodium Chloride (Normal Saline 0.9%) 1,000 mls @ 1,000 mls/hr IV BOLUS ONE Stop: 12/15/24 08:35 Last Infusion: 12/15/24 10:41 Dose: Infused Documented By: Admin: 12/15/24 07:48 Dose: 1,000 mls/hr Documented By: ARJUN Piperacillin Sod/Tazobactam (Sod 4.5 gm/ Sodium Chloride) 100 mls @ 200 mls/hr IV NOW ONE Stop: 12/15/24 07:37 Last Infusion: 12/15/24 18:45 Dose: Infused Documented By: Admin: 12/15/24 07:49 Dose: 200 mls/hr Documented By: ARJUN Lactated Ringer's (Lactated Ringers) 1,000 mls @ 42 mls/hr IV CONT [facility] Last Admin: 12/15/24 18:46 Dose: Not Given Documented By: ALTAGRACIA NOREPINEPHRINE BITARTRATE/D5W (Levophed) 4 mg in 250 mls @ 48.648 mls/hr IV TITRATE [facility]; Protocol Last Titration: 12/15/24 13:30 Dose: 0 mcg/kg/min, 0 mls/hr Documented By: Admin: 12/15/24 10:40 Dose: 0.1 mcg/kg/min, 48.648 mls/hr Documented By: JUAN JOSÉ Sodium Chloride (Normal Saline 0.9%) 1,000 mls @ 175 mls/hr IV CONT [facility] Last Infusion: 12/16/24 09:42 Dose: 0 mls/hr Documented By: Admin: 12/16/24 06:51 Dose: 175 mls/hr Documented By: Infusion: 12/16/24 06:48 Dose: Infused Documented By: Admin: 12/16/24 01:05 Dose: 175 mls/hr Documented By: Infusion: 12/15/24 23:00 Dose: Infused Documented By: Admin: 12/15/24 17:17 Dose: 175 mls/hr Documented By: Infusion: 12/15/24 17:17 Dose: Infused Documented By: Admin: 12/15/24 13:40 Dose: 175 mls/hr Documented By: AIDEN Ibuprofen (Ibuprofen 400 Mg Tablet) 800 mg PO NOW ONE Stop: 12/15/24 01:46 Last Admin: 12/15/24 02:04 Dose: 800 mg Documented By: Iopamidol (Iopamidol 30 Ml Vial) 30 ml INJ NOW ONE Stop: 12/15/24 09:29 Last Admin: 12/15/24 09:29 Dose: 30 ml Documented By: Lidocaine HCl (Lidocaine 2% (Glydo) 6 Ml Gel) 6 ml TOP NOW ONE Stop: 12/15/24 09:34 Last Admin: 12/15/24 09:33 Dose: 6 ml Documented By: Methadone HCl (Methadone Intensol 10 Mg/Ml Oral.Conc) 155 mg PO 1200 [facility] Last Admin: 12/16/24 11:18 Dose: 155 mg Documented By: Admin: 12/15/24 13:40 Dose: 155 mg Documented By: AIDEN Metoprolol Tartrate (Metoprolol Tartrate 5 Mg/5 Ml Inj) 5 mg IV Q2HR PRN PRN Reason: Heart Rate- High, > 120 Metoprolol Tartrate (Metoprolol Tartrate 5 Mg/5 Ml Inj) 5 mg IV Q2HR PRN PRN Reason: Heart Rate- High, > 120 Naloxone HCl (Naloxone 0.4 Mg/Ml Vial) 0.2 mg IV Q2MIN PRN PRN Reason: Opiate Reversal Naloxone HCl (Naloxone 0.4 Mg/Ml Vial) 0.2 mg IV Q2MIN PRN PRN Reason: Opiate Reversal Nicotine (Nicotine 21 Mg Patch) 21 mg TOP DAILY PRN PRN Reason: smoker Non-Formulary Medication (Whihsknrmhh-Ctmajauzj-Nvfjdiwr [Trelegy Ellipta]) 1 inhalation INH DAILY [facility] Last Admin: 12/15/24 14:43 Dose: Not Given Documented By: ALTAGRACIA Ondansetron HCl (Ondansetron 4 Mg Odt) 4 mg SL NOW ONE Stop: 12/15/24 05:19 Last Admin: 12/15/24 05:21 Dose: 4 mg Documented By: AB Ondansetron HCl (Ondansetron 4 Mg Odt) 4 mg SL Q4HR PRN PRN Reason: Nausea Ondansetron HCl (Ondansetron 4 Mg/2 Ml Inj) 4 mg IV NOW PRN PRN Reason: Nausea And Vomiting Oxycodone HCl (Oxycodone Ir 5 Mg Tablet) 5 mg PO PACUNOW PRN PRN Reason: Mild or moderate pain Vital Signs Vital signs: Vital Signs - 8 hr 12/15/24 00:24 12/15/24 00:30 12/15/24 00:37 Pulse Rate 83 84 Respiratory Rate Blood Pressure 170/75 H Pulse Oximetry Oxygen Delivery Method 12/15/24 00:37 12/15/24 00:59 12/15/24 00:59 Pulse Rate 94 H 83 Respiratory Rate 20 21 Blood Pressure 148/68 H Pulse Oximetry 100 Oxygen Delivery Method Room Air 12/15/24 01:00 12/15/24 01:00 12/15/24 01:30 Pulse Rate 84 84 Respiratory Rate 22 31 H Blood Pressure 144/69 H Pulse Oximetry 94 96 Oxygen Delivery Method Room Air Room Air Medical Decision Making <Radha Mandel, - Last Filed: 12/16/24 05:44> Lab Data 12/16/24 05:20 12/16/24 05:20 Labs: Lab Results 12/14/24 12/15/24 Range/Units 21:59 00:10 WBC 14.3 H (4.5-11.0) X10^3/uL RBC 5.80 (4.5-5.9) X10^6/uL Hgb 15.5 (13.5-17.5) g/dL Hct 47.5 (41-53) % MCV 82.0 (80-100) fL MCH 26.8 (26-34) PG MCHC 32.6 (30-36) % RDW 15.2 H (11.6-14.8) % Plt Count 210 (150-400) X10^3/uL Neut % (Auto) 82.7 H (50-75) % Lymph % (Auto) 6.9 L (25-40) % Cass % (Auto) 10.0 (3-14) % Eos % (Auto) 0.1 L (2-4) % Baso % (Auto) 0.3 (0-2) % Neut # (Auto) 08631 H (3576-9996) /uL Lymph # (Auto) 1000 L (6876-3499) /uL Cass # (Auto) 1400 H (0-900) /uL Eos # (Auto) 0 (0-450) /uL Baso # (Auto) 0 (0-100) /uL Sodium 133 L (137-145) mmol/L Potassium 5.4 H (3.4-5.1) mmol/L Chloride 97 L (98-107) mmol/L Carbon Dioxide 31 (22-32) mmol/L BUN 21 H (9-20) mg/dL Creatinine 0.89 (0.66-1.25) mg/dL Estimated GFR > 60 (>60) mL/min BUN/Creatinine Ratio 23.6 H (6-22) Glucose 80 (80-110) mg/dL Calcium 9.5 (8.4-10.2) mg/dL Total Bilirubin 0.9 (0.2-1.3) mg/dL AST 53 (17-59) IU/L ALT 27 (<50) IU/L Alkaline Phosphatase 55 (38-126) U/L Total Protein 8.2 (6.3-8.2) g/dL Albumin 4.3 (3.5-5.0) g/dL Globulin 3.9 (1.7-4.1) g/dL Albumin/Globulin Ratio 1.1 (1.0-2.8) Lipase 13 L (23-300) U/L Urine RBC 5-10/hpf H (0-5/HPF) Urine WBC 1-5/hpf (0-5/HPF) Ur Squamous Epith Cells 0-1 /hpf (0-5/HPF) Urine Bacteria Few (2-10) H (None) Ur Culture Indicated? Specimen cultured Vol Urine Centrifuged 10ml (spun) Urine Dip Bedside Urine Glucose Negative Bedside Urine Bilirubin - Negative Bedside Urine Ketone - Negative Urine Specific Josephine 1.025 Bedside Urine Occult Blood +++ Bedside Urine pH 6.0 Bedside Urine Protein +/- 15 Bedside Urine Urobilinogen - Negative Bedside Urine Nitrite - Negative Bedside Urine Leukocytes +/- 15 Esterase Point of care testing: Urine Dip Bedside Urine Glucose Negative Bedside Urine Bilirubin - Negative Bedside Urine Ketone - Negative Urine Specific Josephine 1.025 Bedside Urine Occult Blood +++ Bedside Urine pH 6.0 Bedside Urine Protein +/- 15 Bedside Urine Urobilinogen - Negative Bedside Urine Nitrite - Negative Bedside Urine Leukocytes +/- 15 Esterase MDM Narrative Medical decision making narrative: Patient was febrile otherwise appropriate vitals he was overall well-appearing but has had history of kidney stones he states pain is improved at this time but was waxing waning today felt appropriate to be little bit more prudent and obtain labs, CT KUB to evaluate for stone he states it feels very similar. We will give a dose of Rocephin. Labs show white count of 14.3 hemoglobin of 15 platelets of 210, chemistries show sodium 133 potassium is 5.4 but does show hemolysis chloride 97 CO2 is 31 with a BUN 21 creatinine 0.89 glucose [address] KUB shows obstructing distal right ureter 8 mm calculus with moderate to severe upstream hydroureteronephrosis. Urine Point of care urine positive for blood, leukocyte esterase, urine micro shows 5-10 red cells 1-5 white cells 1 squamous few bacteria was sent for culture. Patient received Rocephin IM. Tylenol po. Patient also given ciprofloxacin po 500mg. Multiple attempts for IV access without luck, production tech midline contacted. 0120: Spoke with Dr. Hicks, urology: Stable take patient for stent during daytime hours patient is nontoxic currently but has not 8 mm stone was febrile does have a white count of 14. Does ask if patient can be admitted to Medicine with Urology to consult. 0155 Dr. Power accepts for inpatient for suspected UTI, fever with 8 mm right-sided kidney stone and moderate hydronephrosis. Will hold in ED till have access. PICC line team will be here around 0800. Will placed central line if patient decompensates. Patient is agreeable to stay. We did discuss placing a central line but patient states he does not want 1 of these unless absolutely necessary this time he appears to be stable so we will wait for PICC team for midline. Patient is admitted and Dr. Power saw patient on telemonitor. Midline placed as I was leaving department. <Rachel Dailey MD - Last Filed: 12/17/24 07:18> Lab Data Labs: Lab Results 12/14/24 12/15/24 Range/Units 21:59 00:10 WBC 14.3 H (4.5-11.0) X10^3/uL RBC 5.80 (4.5-5.9) X10^6/uL Hgb 15.5 (13.5-17.5) g/dL Hct 47.5 (41-53) % MCV 82.0 (80-100) fL MCH 26.8 (26-34) PG MCHC 32.6 (30-36) % RDW 15.2 H (11.6-14.8) % Plt Count 210 (150-400) X10^3/uL Neut % (Auto) 82.7 H (50-75) % Lymph % (Auto) 6.9 L (25-40) % Cass % (Auto) 10.0 (3-14) % Eos % (Auto) 0.1 L (2-4) % Baso % (Auto) 0.3 (0-2) % Neut # (Auto) 70595 H (2890-5407) /uL Lymph # (Auto) 1000 L (8801-7707) /uL Cass # (Auto) 1400 H (0-900) /uL Eos # (Auto) 0 (0-450) /uL Baso # (Auto) 0 (0-100) /uL Sodium 133 L (137-145) mmol/L Potassium 5.4 H (3.4-5.1) mmol/L Chloride 97 L (98-107) mmol/L Carbon Dioxide 31 (22-32) mmol/L BUN 21 H (9-20) mg/dL Creatinine 0.89 (0.66-1.25) mg/dL Estimated GFR > 60 (>60) mL/min BUN/Creatinine Ratio 23.6 H (6-22) Glucose 80 (80-110) mg/dL Calcium 9.5 (8.4-10.2) mg/dL Total Bilirubin 0.9 (0.2-1.3) mg/dL AST 53 (17-59) IU/L ALT 27 (<50) IU/L Alkaline Phosphatase 55 (38-126) U/L Total Protein 8.2 (6.3-8.2) g/dL Albumin 4.3 (3.5-5.0) g/dL Globulin 3.9 (1.7-4.1) g/dL Albumin/Globulin Ratio 1.1 (1.0-2.8) Lipase 13 L (23-300) U/L Urine RBC 5-10/hpf H (0-5/HPF) Urine WBC 1-5/hpf (0-5/HPF) Ur Squamous Epith Cells 0-1 /hpf (0-5/HPF) Urine Bacteria Few (2-10) H (None) Ur Culture Indicated? Specimen cultured Vol Urine Centrifuged 10ml (spun) Urine Dip Bedside Urine Glucose Negative Bedside Urine Bilirubin - Negative Bedside Urine Ketone - Negative Urine Specific Josephine 1.025 Bedside Urine Occult Blood +++ Bedside Urine pH 6.0 Bedside Urine Protein +/- 15 Bedside Urine Urobilinogen - Negative Bedside Urine Nitrite - Negative Bedside Urine Leukocytes +/- 15 Esterase Point of care testing: Urine Dip Bedside Urine Glucose Negative Bedside Urine Bilirubin - Negative Bedside Urine Ketone - Negative Urine Specific Josephine 1.025 Bedside Urine Occult Blood +++ Bedside Urine pH 6.0 Bedside Urine Protein +/- 15 Bedside Urine Urobilinogen - Negative Bedside Urine Nitrite - Negative Bedside Urine Leukocytes +/- 15 Esterase MDM Narrative Additional Information: 730am patient has been in boarding in the emergency department all night. PICC line has just been placed, patient is re-evaluated and pressure systolic has fallen to 75-85. Over the course of the evening patient received a L of fluid 1 g of IM ceftriaxone. Will add another L of fluid, expand antibiotics given his history of IV drug use to include Zosyn, repeat blood work including lactic acid this morning and will review with the hospitalist to ensure appropriate transfer of care at shift change. Patient is independently evaluated. He is slightly flushed, pale only complaint is a headache that has been present since arrival. He is alert and appropriate cognitively. Discharge Plan Departure Patient Disposition: Admitted As Inpatient Clinical Impression: Kidney stone on right side Admit Date/Time: 12/15/24 01:57 Admit Provider: Shekhar Bridges
--- NOTE | 2024-12-14 23:23 | DI.CT.S_ITS ---
PROCEDURE: CT KIDNEY URETER BLADDER (KUB) INDICATIONS: back pain, hematuria TECHNIQUE: Axial sections were acquired from the lung bases to the pubic symphysis. Coronal and sagittal reformats were performed. For radiation dose reduction, the following was used: automated exposure control, adjustment of mA and/or kV according to patient size. COMPARISON: None. FINDINGS: Image quality: Diagnostic. Lower Chest: No significant findings. URINARY: Right Kidney: Severe hydronephrosis. No cholelithiasis Right Ureter: 8 mm obstructing distal right ureter calculus which ([id number]) with moderate upstream hydroureter. Left Kidney: No stones or hydronephrosis. Left Ureter: No hydroureter. Bladder: Normal wall thickness. No stones. ABDOMEN: Liver: No contour-deforming solid mass. Gallbladder: No radiopaque gallstones or wall thickening. Biliary ducts: No biliary dilation. Pancreas: No ductal dilation. Spleen: Size is within normal limits. Adrenal Glands: No adrenal nodules. Stomach and Bowel: Normal colonic caliber, without significant wall thickening. Peritoneum: No abnormal intraperitoneal fluid. No free air. Ventral Wall: No hernia. Abdominal Nodes: No enlarged retroperitoneal or mesenteric lymph nodes. Vessels: Aorta and inferior vena cava are normal in size. PELVIS: Pelvic Organs: Unremarkable. Pelvic Nodes: Unremarkable. Miscellaneous: No inguinal hernias are seen. Bones: Unremarkable. IMPRESSION: Obstructing distal right ureter 8 mm calculus with moderate to severe upstream hydroureteronephrosis. Approved by: Eleonora Jay M.D.,Ph.D. on 12/14/2024 at 23:55
[2024-12-15] VITALS (68 sets, daily range): BP systolic 70–170; BP diastolic 37–80; PULSE 61–94; RESP 14–36; TEMP 36.2–37.4; O2SAT 90–100; BMI 33.0
[2024-12-15] MEDS: ACETAMINOPHEN 325 MG TABLET 650 MG PO
--- NOTE | 2024-12-15 | DI.RAD.S_ITS ---
PROCEDURE: RETROGRADE URETHROGRAM INDICATIONS: rt stent with contrast COMPARISON: None. FINDINGS: A single fluoroscopic image from an operative urological procedure demonstrates the top portion of a double-J right ureteral stent. IMPRESSION: Fluoroscopic imaging utilized for performance of a right double-J stent placement. Dictated by: Josue Stout M.D. on 12/15/2024 at 13:17 Approved by: Josue Stout M.D. on 12/15/2024 at 13:17
--- NOTE | 2024-12-15 00:28 | PC.NURSE ---
Addendum entered by Maryann Stratton R.N. 12/15/24 01:00: Lab is able to draw a little bit of blood, but not all that is needed. Provider Robertok is aware. Original Note: This RN, LOIS Lubin and LOIS Hitchcock attempt multiple IV's with no success. Provider Ministerio is made aware. Lab at bedside to attempt butterfly draw.
[2024-12-15 00:41] LABS: Add Manual Diff / Slide Review NO; Basophils Absolute Auto 0 /uL (0-100); Basophils Percent Auto 0.3 % (0-2); Eosinophils Absolute Auto 0 /uL (0-450); Eosinophils Percent Auto 0.1 % (2-4); Hematocrit 47.5 % (41-53); Hemoglobin 15.5 g/dL (13.5-17.5); Lymphocytes Absolute Auto 1000 /uL (1100-4500); Lymphocytes Percent Auto 6.9 % (25-40); Mean Corpuscular HGB Conc 32.6 % (30-36); Mean Corpuscular Hemoglobin 26.8 PG (26-34); Monocytes Absolute Auto 1400 /uL (0-900); Neutrophils Absolute Auto 11800 /uL (1500-7000); Neutrophils Percent Auto 82.7 % (50-75); Platelet Count 210 X10^3/uL (150-400); Red Cell Distribution Width 15.2 % (11.6-14.8); White Blood Cell Count 14.3 X10^3/uL (4.5-11.0)
[2024-12-15] MEDS: cefTRIAXone 2,000 MG VIAL 1000 MG IM (00:48)
[2024-12-15 00:53] LABS: Alanine Aminotransferase 27 IU/L (<50); Albumin 4.3 g/dL (3.5-5.0); Albumin Globulin Ratio 1.1 (1.0-2.8); Alkaline Phosphatase 55 U/L (38-126); Aspartate Aminotransferase 53 IU/L (17-59); BUN Creatinine Ratio 23.6 (6-22); Bilirubin Total 0.9 mg/dL (0.2-1.3); Blood Urea Nitrogen 21 mg/dL (9-20); Calcium 9.5 mg/dL (8.4-10.2); Carbon Dioxide 31 mmol/L (22-32); Chloride 97 mmol/L (98-107); Estimated Glomerular Filt Rate > 60 mL/min (>60); Globulin 3.9 g/dL (1.7-4.1); Glucose 80 mg/dL (80-110); HEMOLYSIS 192 (0-50); Lipase 13 U/L (23-300); Potassium 5.4 mmol/L (3.4-5.1); Sodium 133 mmol/L (137-145); Total Protein 8.2 g/dL (6.3-8.2)
[2024-12-15] MEDS: CIPROFLOXACIN 250 MG TABLET 500 MG PO (01:44)
--- NOTE | 2024-12-15 01:58 | PC.NURSE ---
Pt had painter and grader cork and vape at bedside. At this time placed in bag with pt label and removed from room for safety. Pt states that his girlfriend will be coming to pickling solution maker.
[2024-12-15] MEDS: IBUPROFEN 400 MG TABLET 800 MG PO (02:04)
--- NOTE | 2024-12-15 02:28 | P.HP_ITS ---
History of Present Illness History of Present Illness Chief complaint: back pain, rt kidney pain Narrative: 63 y/o with PMH of Rt kidney stone, lithotripsy / stent in 2004, smoking, heroin abuse, on methadone therapy, hepatitis C, HTN, PAF, came to ER for severe LBP, Rt flank pain, radiating to groin. Images showing [id number] Rt ureterohydronephrosis from obstructing, 8 mm, distal ureteral stone. Febrile, tachypneic, not hypotensive. Likely UTI. Had 1 BC sent prior to empiric Rocephin and Cipro, w/o adequate IV access. Discussed with urology. Admitted to medicine for management of multiple co- morbidities, UTI, sepsis, PAF, opiate abuse and urology for cystoscopy / stenting [facility] Medical History Lower extremity edema Hepatitis C History of heroin use Methadone dependence Tobacco abuse Lumbar post-laminectomy syndrome Chronic shoulder pain IV drug abuse IV drug user Surgical History History of lithotripsy Family History Mother Diabetes mellitus Father Cancer Social History household members: significant other and friend(s) Smoking Status: Current every day smoker alcohol intake: former substance use type: opiates and IV drugs Meds Home Medications and Allergies Home Medications Medication Instructions Recorded Confirmed Type albuterol sulfate 90 mcg/actuation 1 puff inhalation PRN PRN 05/11/18 01/21/24 History aerosol inhaler Shortness Of Breath methadone 40 mg soluble tablet 160 mg PO DAILY 01/03/22 01/21/24 History apixaban 5 mg tablet (Eliquis) 5 mg PO BID 01/21/24 01/21/24 History metoprolol succinate 100 mg 100 mg PO DAILY 01/21/24 01/21/24 History tablet,extended release 24 hr fluticasone fur. 100 mcg-umeclid 1 inh inhalation DAILY #60 ea 03/09/24 Rx 62.5 mcg-vilant 25 mcg inhalat.powder (Trelegy Ellipta) Allergies Allergy/AdvReac Type Severity Reaction Status Date / Time No Known Drug Allergies Allergy Verified 01/14/25 21:38 Review of Systems Constitutional Comments: fever and chills Cardiovascular Comments: w/o chest pain or palpitations Respiratory Comments: w/o cough Genitourinary Comments: see hpi, had dysuria a day earlier Exam Vital Signs (past 8 hours): - 12/14/24 21:38 12/14/24 21:59 12/14/24 22:00 Temperature 100.7 F H Pulse Rate 85 97 H 96 H Respiratory Rate 18 Blood Pressure 156/84 H Pulse Oximetry 97 98 98 Oxygen Delivery Method Room Air 12/14/24 22:01 12/14/24 22:01 12/14/24 22:30 Temperature Pulse Rate 92 H 80 Respiratory Rate Blood Pressure 159/79 H Pulse Oximetry 98 95 Oxygen Delivery Method Room Air 12/14/24 22:31 12/14/24 22:31 12/14/24 23:00 Temperature Pulse Rate 82 Respiratory Rate Blood Pressure 125/77 135/65 Pulse Oximetry 97 Oxygen Delivery Method 12/14/24 23:00 12/15/24 00:24 12/15/24 00:30 Temperature Pulse Rate 74 83 84 Respiratory Rate 21 Blood Pressure Pulse Oximetry Oxygen Delivery Method 12/15/24 00:37 12/15/24 00:37 12/15/24 00:59 Temperature Pulse Rate 94 H Respiratory Rate 20 Blood Pressure 170/75 H 148/68 H Pulse Oximetry 100 Oxygen Delivery Method Room Air 12/15/24 00:59 12/15/24 01:00 12/15/24 01:00 Temperature Pulse Rate 83 84 Respiratory Rate 21 22 Blood Pressure 144/69 H Pulse Oximetry 94 Oxygen Delivery Method Room Air 12/15/24 01:30 12/15/24 02:00 Temperature Pulse Rate 84 83 Respiratory Rate 31 H 36 H Blood Pressure Pulse Oximetry 96 Oxygen Delivery Method Room Air Oxygen Delivery Method Room Air Const Other: in no distress Resp Other: tachypnea Cardio Other: irregular Neuro Other: w/o deficits Psych Other: lucid Objective Labs 12/15/24 00:10 12/15/24 00:10 Labs: Laboratory Results - last 24 hr 12/14/24 12/15/24 21:59 00:10 WBC 14.3 H RBC 5.80 Hgb 15.5 Hct 47.5 MCV 82.0 MCH 26.8 MCHC 32.6 RDW 15.2 H Plt Count 210 Neut % (Auto) 82.7 H Lymph % (Auto) 6.9 L [place] % (Auto) 10.0 Eos % (Auto) 0.1 L Baso % (Auto) 0.3 Neut # (Auto) 30983 H Lymph # (Auto) 1000 L [place] # (Auto) 1400 H Eos # (Auto) 0 Baso # (Auto) 0 Sodium 133 L Potassium 5.4 H Chloride 97 L Carbon Dioxide 31 BUN 21 H Creatinine 0.89 Estimated GFR > 60 BUN/Creatinine Ratio 23.6 H Glucose 80 Calcium 9.5 Total Bilirubin 0.9 AST 53 ALT 27 Alkaline Phosphatase 55 Total Protein 8.2 Albumin 4.3 Globulin 3.9 Albumin/Globulin Ratio 1.1 Lipase 13 L Urine RBC 5-10/hpf H Urine WBC 1-5/hpf Ur Squamous Epith Cells 0-1 /hpf Urine Bacteria Few (2-10) H Ur Culture Indicated? Specimen cultured Vol Urine Centrifuged 10ml (spun) Assessment & Plan Assessment and plan (1) Obstruction of ureter: Status: Acute (2) Hydroureter on right: Status: Acute (3) Hydronephrosis concurrent with and due to calculi of kidney and ureter: Status: Acute (4) UTI (urinary tract infection): Status: Acute (5) Sepsis: Status: Acute (6) Centrilobular emphysema: Status: Acute (7) Tobacco abuse: Status: Chronic (8) Lumbar post-laminectomy syndrome: Status: Chronic (9) Methadone dependence: Status: Chronic (10) Hepatitis C: Status: Acute (11) Heroin abuse: Status: Acute (12) IV drug user: Status: Acute (13) HTN (hypertension): Status: Acute Assessment & Plan narrative: Acute Rt Hydroureter and hydrnephrosis / Obstructing distal ureteral stone - 8 mm, NPO for cystoscopy, stent - UTI / sepsis - mild, empiric Cipro / Rocephin - pain management COPD / Smoking - albuterol prn - Trelegy Ellipta - nicotine patch prn Methadone maintenance program - occasionally using heroin - waiting for midline/PICC PAF / HTN - Eliquis and Toprol XL on hold - telemetry monitoring - iv metoprolol Time-Based Coding :: [TOTAL MINUTES] spent with patient and on the chart (including review of chart, obtaining history, exam, reviewing outside data, placing orders, documenting exam and treatment plan, and counseling patient) on [DATE].
--- NOTE | 2024-12-15 03:17 | PC.NURSE ---
Pt declining continuous O2 monitoring. IVF held due to lack of IV access.
[2024-12-15] MEDS: ONDANSETRON 4 MG ODT SL (05:21)
--- NOTE | 2024-12-15 05:28 | PC.NURSE ---
Pt ambulates with Walker independently
--- NOTE | 2024-12-15 07:16 | P.PN_ITS ---
Subjective Subjective Date Patient Seen: 12/15/24 Interval history: He is seen today to follow up his kidney stone, opioid use disorder, hypotension and sepsis. The blood pressure this morning before surgery was in the 70s. He was given a 2 L saline bolus with recovery backup into the 80s and then he was taken for surgery to stent the kidney stone causing the infection. His antibiotics were changed to Zosyn. The white count is 14.3. The blood pressure was 144/69 before he became hypotensive. He tells me that he no longer has any kidney stone pain after he took ?10 shots of heroin. ? He was placed on a norepinephrine drip in the OR and will be admitted to the ICU. Exam Vital Signs (past 8 hours): - 12/15/24 00:24 12/15/24 00:30 12/15/24 00:37 Temperature Pulse Rate 83 84 Respiratory Rate Blood Pressure 170/75 H Pulse Oximetry Oxygen Delivery Method 12/15/24 00:37 12/15/24 00:59 12/15/24 00:59 Temperature Pulse Rate 94 H 83 Respiratory Rate 20 21 Blood Pressure 148/68 H Pulse Oximetry 100 Oxygen Delivery Method Room Air 12/15/24 01:00 12/15/24 01:00 12/15/24 01:30 Temperature Pulse Rate 84 84 Respiratory Rate 22 31 H Blood Pressure 144/69 H Pulse Oximetry 94 96 Oxygen Delivery Method Room Air Room Air 12/15/24 02:00 12/15/24 03:01 Temperature 99.4 F Pulse Rate 83 Respiratory Rate 36 H Blood Pressure Pulse Oximetry Oxygen Delivery Method Oxygen Delivery Method Room Air Narrative Exam Narrative: Alert and oriented x3. No apparent distress. He Does not appear as ill as his numbers would suggest. Heart is regular rate and rhythm without murmur Lungs are clear to auscultation bilaterally There is no flank or abdominal tenderness. There is no ankle edema. Objective Labs 12/15/24 07:20 12/15/24 07:20 Labs: Laboratory Results - last 24 hr 12/14/24 12/15/24 21:59 00:10 WBC 14.3 H RBC 5.80 Hgb 15.5 Hct 47.5 MCV 82.0 MCH 26.8 MCHC 32.6 RDW 15.2 H Plt Count 210 Neut % (Auto) 82.7 H Lymph % (Auto) 6.9 L [place] % (Auto) 10.0 Eos % (Auto) 0.1 L Baso % (Auto) 0.3 Neut # (Auto) 83885 H Lymph # (Auto) 1000 L [place] # (Auto) 1400 H Eos # (Auto) 0 Baso # (Auto) 0 Sodium 133 L Potassium 5.4 H Chloride 97 L Carbon Dioxide 31 BUN 21 H Creatinine 0.89 Estimated GFR > 60 BUN/Creatinine Ratio 23.6 H Glucose 80 Calcium 9.5 Total Bilirubin 0.9 AST 53 ALT 27 Alkaline Phosphatase 55 Total Protein 8.2 Albumin 4.3 Globulin 3.9 Albumin/Globulin Ratio 1.1 Lipase 13 L Urine RBC 5-10/hpf H Urine WBC 1-5/hpf Ur Squamous Epith Cells 0-1 /hpf Urine Bacteria Few (2-10) H Ur Culture Indicated? Specimen cultured Vol Urine Centrifuged 10ml (spun) PFSH Medical History Fever Hypotension Right ureteral calculus Lower extremity edema Hepatitis C History of heroin use Methadone dependence Tobacco abuse Lumbar post-laminectomy syndrome Chronic shoulder pain IV drug abuse IV drug user Surgical History History of lithotripsy Family History Mother Diabetes mellitus Father Cancer Social History household members: friend(s) Smoking Status: Current every day smoker alcohol intake: former substance use type: opiates and IV drugs Assessment & Plan Assessment & Plan narrative: Acute Rt Hydroureter and hydronephrosis / Obstructing distal ureteral stone - Cystoscopy and successful stent placement with Dr. Hikcs today. Small ureteral injury with extravasation noted. - UTI / sepsis - mild, empiric Cipro / Rocephin - Urine culture pending - pain management with Methadone and IV Dilaudid Sepsis/Hypotension -Did not recover with 2+ L of NS bolus -Began Levophed in the OR -Continue 175 ml/h IV NS and taper Levophed as tolerated -Ceftriaxone pending urine culture COPD / Smoking - albuterol prn - Trelegy Ellipta - nicotine patch prn Methadone maintenance program - occasionally using heroin - Resume home Methadone dose - 155 mg - IV Dilaudid for postop pain, transition to oral Oxycodone soon. PAF / HTN - Eliquis and Toprol XL on hold - telemetry monitoring Plan to resume Eliquis for AF and DVT prevention on POD #1. Time-Based Coding :: [TOTAL MINUTES] spent with patient and on the chart (including review of chart, obtaining history, exam, reviewing outside data, placing orders, documenting exam and treatment plan, and counseling patient) on [DATE].
--- NOTE | 2024-12-15 07:31 | PC.NURSE ---
Addendum entered by Charlotte Hicks R.N. 12/15/24 08:27: Pt bp improving after 1L NS bolus. Dr Hicks to take pt down to surgery & aware of pt's current VS. Pt remains a&ox4. Original Note: Assumed care of pt at 0700. RN at pt bedside for assessment after midline placement. BP cuff not on pt and pt not connected to contracting support specialist. BP cuff placed and pt reconnected to contracting support specialist. Pt hypotensive (see vitals). Denies any dizziness, lightheadedness, sob or cp. Denies pain. Pt states that he is feeling somewhat anxious. A&Ox4. Dr Dailey notified of pt status and to put in orders. IV fluid bolus started.
[2024-12-15 07:40] LABS: Lactate (Lactic Acid) 0.9 mmol/L (0.7-2.1)
[2024-12-15] MEDS: SODIUM CHLORIDE 0.9% 1,000 ML 1000 ML IV (07:48)
[2024-12-15] MEDS: PIPERACILLIN/TAZO 4.5 GM in SODIUM CHLORIDE 0.9% 100 ML IV (07:49)
[2024-12-15 08:08] LABS: Add Manual Diff / Slide Review NO; Basophils Absolute Auto 100 /uL (0-100); Basophils Percent Auto 0.9 % (0-2); Eosinophils Absolute Auto 0 /uL (0-450); Eosinophils Percent Auto 0.1 % (2-4); Hematocrit 42.8 % (41-53); Hemoglobin 13.8 g/dL (13.5-17.5); Lymphocytes Absolute Auto 700 /uL (1100-4500); Lymphocytes Percent Auto 4.4 % (25-40); Mean Corpuscular HGB Conc 32.3 % (30-36); Mean Corpuscular Hemoglobin 26.4 PG (26-34); Mean Corpuscular Volume 81.8 fL (80-100); Monocytes Absolute Auto 1300 /uL (0-900); Monocytes Percent Auto 8.8 % (3-14); Neutrophils Absolute Auto 12800 /uL (1500-7000); Neutrophils Percent Auto 85.8 % (50-75); Platelet Count 197 X10^3/uL (150-400); Red Blood Cell Count 5.23 X10^6/uL (4.5-5.9); Red Cell Distribution Width 14.8 % (11.6-14.8)
--- NOTE | 2024-12-15 08:09 | PM.CN ---
History of Present Illness Consult details Date Patient Seen: 12/15/24 Time Patient Seen: 08:09 Chief complaint: back pain, rt kidney pain Reason for consult: Right ureteral calculus/hypotension/fever Requesting provider: Radha Mandel Narrative: This 63-year-old male presented to the emergency department with complaint of fever and abdominal/flank pain. Through the workup was found to have a distal right ureteral calculus was obstructing with hydronephrosis. He did have a few white blood cells in his urine his white count is elevated at 14. He had done over well overnight but at this point his blood pressure had dropped and is in the 80s. It appears that he maybe headed toward sepsis. The patient's condition is complicated by multiple comorbidities including methadone use and use of heroin yesterday the procedure, risks, alternatives were discussed with the patient his questions were answered and he wishes to proceed. The patient has been NPO stating he has not had anything to eat for 2 days in his had not anything to drink other than a mount swab. We will proceed with cystoscopy with right stent placement and then allow the hospitalist service to sort out his other medical conditions. Meds Home Medications and Allergies Home Medications Medication Instructions Recorded Confirmed Type albuterol sulfate 90 mcg/actuation 1 puff inhalation PRN PRN 05/11/18 01/21/24 History aerosol inhaler Shortness Of Breath methadone 40 mg soluble tablet 160 mg PO DAILY 01/03/22 01/21/24 History fluticasone fur. 100 mcg-umeclid 1 inh inhalation DAILY #60 ea 03/09/24 Rx 62.5 mcg-vilant 25 mcg inhalat.powder (Trelegy Ellipta) apixaban 5 mg tablet (Eliquis) 5 mg PO BID 12/15/24 12/15/24 History metoprolol succinate 100 mg 100 mg PO BID 12/15/24 12/15/24 History tablet,extended release 24 hr Allergies Allergy/AdvReac Type Severity Reaction Status Date / Time No Known Drug Allergies Allergy Verified 12/14/24 21:38 Review of Systems Review of Systems ROS: Yes All systems reviewed with the patient and are negative except as otherwise documented (And problem list) Exam Vital Signs (past 8 hours): - 12/15/24 00:24 12/15/24 00:30 12/15/24 00:37 Temperature Pulse Rate 83 84 Respiratory Rate Blood Pressure 170/75 H Pulse Oximetry Oxygen Delivery Method 12/15/24 00:37 12/15/24 00:59 12/15/24 00:59 Temperature Pulse Rate 94 H 83 Respiratory Rate 20 21 Blood Pressure 148/68 H Pulse Oximetry 100 Oxygen Delivery Method Room Air 12/15/24 01:00 12/15/24 01:00 12/15/24 01:30 Temperature Pulse Rate 84 84 Respiratory Rate 22 31 H Blood Pressure 144/69 H Pulse Oximetry 94 96 Oxygen Delivery Method Room Air Room Air 12/15/24 02:00 12/15/24 02:06 12/15/24 03:01 Temperature 99.4 F Pulse Rate 83 84 Respiratory Rate 36 H 28 H Blood Pressure Pulse Oximetry Oxygen Delivery Method 12/15/24 07:20 12/15/24 07:22 12/15/24 07:23 Temperature Pulse Rate 65 75 Respiratory Rate 18 Blood Pressure 88/56 L 74/37 L Pulse Oximetry 95 92 Oxygen Delivery Method Room Air 12/15/24 07:24 12/15/24 07:24 12/15/24 07:28 Temperature 98.2 F Pulse Rate 76 Respiratory Rate Blood Pressure 88/53 L Pulse Oximetry 92 Oxygen Delivery Method 12/15/24 07:30 Temperature Pulse Rate 74 Respiratory Rate 21 Blood Pressure Pulse Oximetry 92 Oxygen Delivery Method Oxygen Delivery Method Room Air Narrative Exam Narrative: General: This is an awake, alert, oriented, pale appearing male lying on a hospital gurney. Abdominal exam: Obese, soft, some right-sided tenderness. Genitourinary exam: Not done to be performed at cystoscopy with stent placement. Upper extremities with obvious ?tract [place]?. Objective Labs 12/15/24 07:20 12/15/24 00:10 Labs: Laboratory Results - last 24 hr 12/14/24 12/15/24 12/15/24 21:59 00:10 07:20 WBC 14.3 H 15.0 H RBC 5.80 5.23 Hgb 15.5 13.8 Hct 47.5 42.8 MCV 82.0 81.8 MCH 26.8 26.4 MCHC 32.6 32.3 RDW 15.2 H 14.8 Plt Count 210 197 Neut % (Auto) 82.7 H 85.8 H Lymph % (Auto) 6.9 L 4.4 L [place] % (Auto) 10.0 8.8 Eos % (Auto) 0.1 L 0.1 L Baso % (Auto) 0.3 0.9 Neut # (Auto) 62345 H 82662 H Lymph # (Auto) 1000 L 700 L [place] # (Auto) 1400 H 1300 H Eos # (Auto) 0 0 Baso # (Auto) 0 100 Sodium 133 L Potassium 5.4 H Chloride 97 L Carbon Dioxide 31 BUN 21 H Creatinine 0.89 Estimated GFR > 60 BUN/Creatinine Ratio 23.6 H Glucose 80 Lactate 0.9 Calcium 9.5 Total Bilirubin 0.9 AST 53 ALT 27 Alkaline Phosphatase 55 Total Protein 8.2 Albumin 4.3 Globulin 3.9 Albumin/Globulin Ratio 1.1 Lipase 13 L Urine RBC 5-10/hpf H Urine WBC 1-5/hpf Ur Squamous Epith Cells 0-1 /hpf Urine Bacteria Few (2-10) H Ur Culture Indicated? Specimen cultured Vol Urine Centrifuged 10ml (spun) PFSH Medical History Fever Hypotension Right ureteral calculus Lower extremity edema Hepatitis C History of heroin use Methadone dependence Tobacco abuse Lumbar post-laminectomy syndrome Chronic shoulder pain IV drug abuse IV drug user Surgical History History of lithotripsy Family History Mother Diabetes mellitus Father Cancer Social History household members: significant other and friend(s) Tobacco & Substance Use Smoking Status: Current every day smoker alcohol intake: former substance use type: opiates and IV drugs Assessment & Plan Assessment and plan (1) Hydronephrosis concurrent with and due to calculi of kidney and ureter: Status: Acute (2) Hydroureter on right: Status: Acute (3) Kidney stone on right side: Status: Acute (4) Heroin abuse: Status: Acute (5) Hypotension: Qualifiers: Hypotension type: unspecified hypotension type Qualified Code(s): I95.9 - Hypotension, unspecified Status: Acute Plan Assessment and plan: Right ureteral calculus with obstruction, hydronephrosis, fever, hypotension. Patient appears to be heading toward sepsis. Does have an elevated white blood count has received antibiotics, is NPO and plan would be for cystoscopy with right stent placement as expeditiously as possible. Patient has been admitted by the hospitalist service who will be and are managing his other medical concerns.. Time-Based Coding :: [TOTAL MINUTES] spent with patient and on the chart (including review of chart, obtaining history, exam, reviewing outside data, placing orders, documenting exam and treatment plan, and counseling patient) on [DATE].
[2024-12-15 08:12] LABS: BUN Creatinine Ratio 20.4 (6-22); Blood Urea Nitrogen 20 mg/dL (9-20); Carbon Dioxide 28 mmol/L (22-32); Chloride 98 mmol/L (98-107); Estimated Glomerular Filt Rate > 60 mL/min (>60); Glucose 86 mg/dL (80-110); HEMOLYSIS < 15 (0-50); Potassium 3.8 mmol/L (3.4-5.1); Sodium 131 mmol/L (137-145)
--- NOTE | 2024-12-15 08:30 | PM.PREOP ---
Pre-operative Note COVID-19 COVID-19 status: Not tested Interval Note History & Physical reviewed/Exam performed by Physician: Yes Changes to H&P: No
[2024-12-15] MEDS: iopamidoL 30 ML VIAL INJ (09:29)
[2024-12-15] MEDS: LIDOCAINE 2% (GLYDO) 6 ML GEL TOP (09:33)
--- NOTE | 2024-12-15 10:19 | PM.OP.1 ---
Procedure & Clinicians Procedure: Cystoscopy, right ureteroscopy, right retrograde pyelogram, right ureteral stent placement Same procedure as scheduled: Yes Indications: This 63-year-old male presented to the emergency department with complaints of fever abdominal pain and was found to have a distal obstructing right ureteral calculus with hydronephrosis. Patient subsequently became hypotensive tachycardic did have an elevated white count of 14 and presents this time for placement of stent. Surgeon: Taihr Hicks Click Yes if Unassisted: Yes Anesthesia Type: General Operative Notes Findings: Findings: Urethral meatus is normal urethra is normal along its length sphincter as well coapted mucosa is normal throughout the prostate exhibits moderate obstructive character. The right and left ureteral orifice was in normal position. There was no efflux observed from the right there was normal on the left. There was moderate to severe trabeculation and cellules no other mucosal abnormality was noted within the bladder. The 8 mm to 9 mm stone was noted in the distal right ureter and was quite tightly impacted. Was not initially able to pass either a hybrid or a Glidewire 0.035. Placed some viscous lidocaine and again was able to pass the wire. Retrograde was performed and evidence of extravasation was noted even though only gentle pressure is had been applied. At this point it was elected to pass the wire under direct vision in his semi rigid ureteral scope was passed and there was a small opening in the urine noted. Was able to pass the wire up into the collecting system which was confirmed by retrograde pyelogram. The stent was then passed and left in good position. Given the rent in the ureter it was decided that breaking the stone up would not be in the patient's best interest in that there could be potentially infected fragments of stone outside the ureter. Therefore a stent was placed in time we will be allowed for things to heal and the stone will be treated at a later date.. The amount of extravasation with small. At the end of the procedure the stent was left in good position with its string removed. Closure Type: not applicable Specimen(s): none sent Prosthetic devices, grafts, tissues, transplants, or devices: Seven Namibian by multi length stent in the right collecting system in good position without a string. Estimated Blood Loss (mL): 0 Procedure in detail: Procedure in detail: After informed consent was obtained, the patient was identified brought to the operating room where he is placed in his supine position on the table. Anesthesia was induced and maintained. Ensuring adequate level of anesthesia the patient was transition to the lithotomy position where he was prepped and draped in a sterile fashion. After ensuring an adequate level of anesthesia, time-out, prepping and draping in a sterile fashion, (antibiotics he had been administered in the emergency department) 22 [place]ibian cystoscope was passed through the urethra prostate and in the bladder where cystoscopy is performed. The right ureteral orifice was identified and an attempt to made to pass a hybrid wire pass the stone which met with failure. This was then augmented by the addition of a [place] catheter and again was unable to pass the wire pass the stone. With the tip the appearing to curl in the ureter. Then tried a Glidewire again this met with failure. I then instilled 2% viscous lidocaine and again attempted to pass the wires and again this failed at this point I instilled some contrast and the extravasation was noted. With the wire in place a semi-rigid ureteral scope was then passed up to the level of the stone and I was able to manipulate the wire pass the stone and up into the collecting system. The ureteral scope was backed out and a [place] catheter passed over the wire up into the collecting system where the Seattle catheter was used to instill contrast confirm and intrarenal position. The wire was then passed back up the [place] catheter and the [place] catheter backed out. The stent was passed over the wire and positioned in the renal pelvis under fluoroscopic visualization in the bladder under direct vision the wire was removed. The stent was confirmed to be in good position there was good efflux via the stent the nylon harness was removed in the stent was left in good position. Again it was observed for efflux and it was quite vigorous and not particularly purulent. At this point the bladder was drained the scope was removed and the patient was awakened to be taken to the postanesthesia care unit for recovery. Patient is then to go onto the hospitalist who is admitting the patient to the hospital. The patient will follow-up in my office after discharge in approximately 14 days. There were no complications other than the small volume of extravasation. Complications: other (Please see above) Post-operative Condition: other (Improved) Disposition: PACU Plan for aftercare: Once the patient is recovered he will be and or is admitted to the hospitalist service and will be transferred to acute care with care per the hospitalist.
[2024-12-15] MEDS: NOREPINEPHRINE BITARTRATE/D5W 4 MG/250 ML PLAST..BAG 48.648 MG IV (10:40)
[2024-12-15] MEDS: METHADONE INTENSOL 10 MG/ML ORAL.CONC 155 MG PO (13:40)
[2024-12-15] MEDS: SODIUM CHLORIDE 0.9% 1,000 ML 175 ML IV ×2 (13:40→17:17)
[2024-12-15 14:20] LABS: MRSA (Nasal) PCR DETECTED (Not Detect)
[2024-12-15] MEDS: HYDROMORPHONE 0.5 MG INJ IV ×2 (15:52→21:14)
--- NOTE | 2024-12-15 19:01 | PC.NURSE ---
shift note - 1235 Pt arrived from PACU with norepi @ 0.1mcg. NS@175ml/hr. Pt denied pain at that time. Norepi weaned off and bp remained stable with NS IV. medicated with dilaudid for pain as needed.
[2024-12-15] MEDS: cefTRIAXone 1,000 MG in SODIUM CHLORIDE 0.9% 100 ML 200 MG IV (21:14)
[2024-12-15] MEDS: ACETAMINOPHEN IV 1,000 MG/100 ML VIAL 400 MG IV (22:34)
[2024-12-15] MEDS: HYDROMORPHONE 1 MG INJ IV (22:34)
[2024-12-16] VITALS (15 sets, daily range): BP systolic 89–148; BP diastolic 50–76; PULSE 66–97; RESP 13–35; TEMP 36.1–36.6; O2SAT 90–95
[2024-12-16] MEDS: SODIUM CHLORIDE 0.9% 1,000 ML 175 ML IV ×2 (01:05→06:51)
[2024-12-16] MEDS: HYDROMORPHONE 1 MG INJ IV ×2 (02:21→05:25)
[2024-12-16] MEDS: ACETAMINOPHEN IV 1,000 MG/100 ML VIAL 400 MG IV (05:25)
[2024-12-16 05:32] LABS: Add Manual Diff / Slide Review NO; Basophils Absolute Auto 0 /uL (0-100); Basophils Percent Auto 0.3 % (0-2); Eosinophils Absolute Auto 0 /uL (0-450); Eosinophils Percent Auto 0.4 % (2-4); Hemoglobin 12.2 g/dL (13.5-17.5); Lymphocytes Absolute Auto 800 /uL (1100-4500); Mean Corpuscular HGB Conc 32.1 % (30-36); Mean Corpuscular Hemoglobin 26.3 PG (26-34); Mean Corpuscular Volume 81.9 fL (80-100); Monocytes Absolute Auto 1400 /uL (0-900); Monocytes Percent Auto 10.3 % (3-14); Neutrophils Absolute Auto 11000 /uL (1500-7000); Platelet Count 165 X10^3/uL (150-400); Red Blood Cell Count 4.63 X10^6/uL (4.5-5.9); Red Cell Distribution Width 15.5 % (11.6-14.8); White Blood Cell Count 13.2 X10^3/uL (4.5-11.0)
[2024-12-16 05:48] LABS: BUN Creatinine Ratio 17.8 (6-22); Blood Urea Nitrogen 21 mg/dL (9-20); Calcium 7.9 mg/dL (8.4-10.2); Carbon Dioxide 27 mmol/L (22-32); Chloride 103 mmol/L (98-107); Estimated Glomerular Filt Rate > 60 mL/min (>60); Glucose 116 mg/dL (80-110); Sodium 130 mmol/L (137-145)
[2024-12-16 05:54] LABS: HEMOLYSIS 76 (0-50); Potassium 3.9 mmol/L (3.4-5.1)
[2024-12-16] MEDS: ALBUTEROL/IPRATROPIUM 3 ML AMPUL INH (08:01)
[2024-12-16] MEDS: BUDESONIDE 0.5 MG/2 ML NEB INH (08:02)
--- NOTE | 2024-12-16 08:15 | PM.PN.1 ---
Subjective Subjective Date Patient Seen: 12/16/24 Exam Vital Signs (past 8 hours): - 12/16/24 01:00 12/16/24 01:00 12/16/24 02:00 Temperature Pulse Rate 66 66 Respiratory Rate 13 14 Blood Pressure 99/55 L Pulse Oximetry 95 95 Oxygen Flow Rate 0 0 12/16/24 02:00 12/16/24 02:26 12/16/24 02:26 Temperature Pulse Rate 71 Respiratory Rate 25 H Blood Pressure 89/52 L 108/60 Pulse Oximetry 95 Oxygen Flow Rate 12/16/24 03:00 12/16/24 03:00 12/16/24 04:00 Temperature 97.0 F L Pulse Rate 69 71 Respiratory Rate 17 18 Blood Pressure 134/76 Pulse Oximetry 95 95 Oxygen Flow Rate 0 0 12/16/24 04:00 12/16/24 05:00 12/16/24 05:00 Temperature Pulse Rate 79 Respiratory Rate 23 Blood Pressure 106/58 L 101/60 Pulse Oximetry 94 Oxygen Flow Rate 0 12/16/24 06:00 12/16/24 06:00 12/16/24 07:00 Temperature Pulse Rate 75 81 Respiratory Rate 19 35 H Blood Pressure 91/50 L Pulse Oximetry 95 93 Oxygen Flow Rate 0 12/16/24 07:01 12/16/24 07:01 Temperature Pulse Rate 81 Respiratory Rate 26 H Blood Pressure 112/61 Pulse Oximetry 90 L Oxygen Flow Rate Oxygen Delivery Method Room Air Oxygen Flow Rate 0 Objective Labs 12/16/24 05:20 12/16/24 05:20 Labs: Laboratory Results - last 24 hr 12/15/24 12/16/24 11:35 05:20 WBC 13.2 H RBC 4.63 Hgb 12.2 L Hct 38.0 L MCV 81.9 MCH 26.3 MCHC 32.1 RDW 15.5 H Plt Count 165 Neut % (Auto) 83.0 H Lymph % (Auto) 6.0 L Bracken % (Auto) 10.3 Eos % (Auto) 0.4 L Baso % (Auto) 0.3 Neut # (Auto) 34697 H Lymph # (Auto) 800 L Bracken # (Auto) 1400 H Eos # (Auto) 0 Baso # (Auto) 0 Sodium 130 L Potassium 3.9 Chloride 103 Carbon Dioxide 27 BUN 21 H Creatinine 1.18 Estimated GFR > 60 BUN/Creatinine Ratio 17.8 Glucose 116 H Calcium 7.9 L Nasal Screen MRSA (PCR) Detected H PFSH Medical History Fever Hypotension Right ureteral calculus Lower extremity edema Hepatitis C History of heroin use Methadone dependence Tobacco abuse Lumbar post-laminectomy syndrome Chronic shoulder pain IV drug abuse IV drug user Surgical History History of lithotripsy Family History Mother Diabetes mellitus Father Cancer Social History household members: friend(s) Smoking Status: Current every day smoker alcohol intake: former substance use type: opiates and IV drugs Assessment & Plan Assessment & Plan narrative: Acute Rt Hydroureter and hydronephrosis / Obstructing distal ureteral stone - Cystoscopy and successful stent placement with Dr. Hicks today. Small ureteral injury with extravasation noted. - UTI / sepsis - mild, empiric Cipro / Rocephin - Urine culture pending - pain management with Methadone and IV Dilaudid Sepsis/Hypotension -Did not recover with 2+ L of NS bolus -Began Levophed in the OR -Continue 175 ml/h IV NS and taper Levophed as tolerated -Ceftriaxone pending urine culture COPD / Smoking - albuterol prn - Trelegy Ellipta - nicotine patch prn Methadone maintenance program - occasionally using heroin - Resume home Methadone dose - 155 mg - IV Dilaudid for postop pain, transition to oral Oxycodone soon. PAF / HTN - Eliquis and Toprol XL on hold - telemetry monitoring Plan to resume Eliquis for AF and DVT prevention on POD #1. Time-Based Coding :: [TOTAL MINUTES] spent with patient and on the chart (including review of chart, obtaining history, exam, reviewing outside data, placing orders, documenting exam and treatment plan, and counseling patient) on [DATE]. Quality VTE Deep Vein Thrombosis/Pulmonary Embolism Present on Admission: No
--- NOTE | 2024-12-16 10:30 | PT-IP ANOTE ---
Pt discussed in rounds and MD recommends d/c PT order.
--- NOTE | 2024-12-16 10:46 | PC.NURSE ---
1030 Pt wanting to get dressed and leave. informed.
[2024-12-16] MEDS: METHADONE INTENSOL 10 MG/ML ORAL.CONC 155 MG PO (11:18)
--- NOTE | 2024-12-16 16:17 | PM.DS.1 ---
History of Present Illness History of Present Illness Date Patient Seen: 12/16/24 Chief complaint: back pain, rt kidney pain Narrative: 63 y/o with PMH of Rt kidney stone, lithotripsy / stent in 2004, smoking, heroin abuse, on methadone therapy, hepatitis C, HTN, PAF, came to ER for severe LBP, Rt flank pain, radiating to groin. Images showing [id number] Rt ureterohydronephrosis from obstructing, 8 mm, distal ureteral stone. Febrile, tachypneic, not hypotensive. Likely UTI. Had 1 BC sent prior to empiric Rocephin and Cipro, w/o adequate IV access. Discussed with urology. Admitted to medicine for management of multiple co-morbidities, UTI, sepsis, PAF, opiate abuse and urology for cystoscopy / stenting Discharge Providers Provider Date of admission: 12/15/24 01:57 Discharge Date: 12/16/24 Primary care physician: MEMO Davies Consults: 12/15/24 01:45 Consult After Hours PICC Line RN Stat Comment: 12/15/24 02:53 Consult to Urology Routine Comment: Consulting Provider: Tahir Hicks Reason for consultation: 8mm ureteral stone, fever, uti Has provider been notified: Yes 12/15/24 12:45 Consult to Discharge Planning Routine Comment: Consult to Physical Therapy Evaluate & Treat Comment: Physician Instructions: Evaluate and Treat Discharge provider: Neto Floyd MD Summary Hospital Course Discharge Diagnosis: Acute Rt Hydroureter and hydronephrosis / Obstructing distal ureteral stone - Cystoscopy and successful stent placement with Dr. Hicks. Small ureteral injury with extravasation noted. - UTI / sepsis -he was treated with Rocephin and on his Against Medical Advice discharge was placed on Augmentin. - Urine culture identification still pending - pain management with Methadone and IV Dilaudid while inpatient. Sepsis/Hypotension -Did not recover with 2+ L of NS bolus -Began Levophed in the OR -treated with 175 ml/h IV NS and tapered off Levophed quite quickly. The patient insists that his blood pressure is usually ?this low. ? -Ceftriaxone since admission pending urine culture COPD / Smoking - albuterol prn - Trelegy Ellipta - nicotine patch prn Methadone maintenance program - occasionally using heroin - Resume home Methadone dose - 155 mg - IV Dilaudid for postop pain, transition to oral Oxycodone did not occur as he left Against Medical Advice. PAF / HTN - Eliquis and Toprol XL on hold - telemetry monitoring Plan to resume Eliquis for AF and DVT prevention on POD #1. Hospital Course: On postoperative day 1. He became agitated by the hospital routine and decided he was going to leave before medically stable. The main issue is the identification of the correct antibiotic to treat his UTI/pyelonephritis. Since he did not stay he was placed on Augmentin. He is on methadone and uses heroin at home. He pressured me to prescribe oxycodone which I declined as he has had his kidney stone treated and the methadone should be sufficient at the dose he is on. He insisted that his methadone does not help pain at all. Status at Discharge Cognitive/behavioral status at discharge: at baseline, oriented Functional status at discharge: independent ambulation Overall status at discharge: patient is back to baseline Exam Vital Signs (past 8 hours): - 12/16/24 09:00 12/16/24 09:16 12/16/24 09:16 Pulse Rate 82 91 H Respiratory Rate 22 28 H Blood Pressure 148/70 H Pulse Oximetry 91 93 12/16/24 10:00 Pulse Rate 97 H Respiratory Rate 30 H Blood Pressure Pulse Oximetry Fraction of Inspired Oxygen 21 SaO2/FiO2 Ratio 442 Oxygen Delivery Method Room Air Oxygen Flow Rate 0 Narrative Exam Narrative: He is alert and oriented x3. The 1st time I see him he mentions some left arm numbness to the nurse but does not bring it up with me. The 2nd time I see him he is agitated and had recently been demanding to be discharged AMA. He tells me that he does not want to be discharged and instead only wanted his bedding moved around. He is inconsistent. Heart is regular rate and rhythm without murmur Lungs are clear to auscultation bilaterally Abdomen is soft, bowel sounds positive, nontender, no organomegaly Extremities have no ankle edema Objective Labs 12/16/24 05:20 12/16/24 05:20 Labs: Laboratory Results - last 24 hr 12/16/24 05:20 WBC 13.2 H RBC 4.63 Hgb 12.2 L Hct 38.0 L MCV 81.9 MCH 26.3 MCHC 32.1 RDW 15.5 H Plt Count 165 Neut % (Auto) 83.0 H Lymph % (Auto) 6.0 L [place] % (Auto) 10.3 Eos % (Auto) 0.4 L Baso % (Auto) 0.3 Neut # (Auto) 46905 H Lymph # (Auto) 800 L Potter # (Auto) 1400 H Eos # (Auto) 0 Baso # (Auto) 0 Sodium 130 L Potassium 3.9 Chloride 103 Carbon Dioxide 27 BUN 21 H Creatinine 1.18 Estimated GFR > 60 BUN/Creatinine Ratio 17.8 Glucose 116 H Calcium 7.9 L PFSH Medical History Fever Hypotension Right ureteral calculus Lower extremity edema Hepatitis C History of heroin use Methadone dependence Tobacco abuse Lumbar post-laminectomy syndrome Chronic shoulder pain IV drug abuse IV drug user Surgical History History of lithotripsy Family History Mother Diabetes mellitus Father Cancer Social History household members: friend(s) Smoking Status: Current every day smoker alcohol intake: former substance use type: opiates and IV drugs Discharge Plan Discharge Plan Patient Disposition: Left Against Medical Advice Provider Discharge Comment: Discharging before medical stability/UC bacterial Identification -- at his request. Follow up with Dr. Hicks for stent and stone treatment - 2w. Discharge orders & Medications Discharge Orders: Discharge (Order); Ordered 12/16/24 Ordered By: Neto Floyd Prescriptions: New amoxicillin-pot clavulanate [Augmentin] 500-125 mg tablet 1 tab PO BID Qty: 14 0RF Continued Trelegy Ellipta 100-62.5-25 mcg blister with device 1 inh inhalation DAILY Qty: 60 11RF albuterol sulfate 90 mcg/actuation HFA aerosol inhaler 1 puff Inhalation PRN PRN (Reason: Shortness Of Breath) methadone 40 mg Tablet,Soluble 155 mg PO DAILY metoprolol succinate 100 mg tablet extended release 24 hr 100 mg PO DAILY Eliquis 5 mg tablet 5 mg PO BID Follow up/Referrals: Remedios Arreguin ARNP [Primary Care Provider] - Tahir Hicks MD [Physician] - Diet/Activity/Treatments Diet: Diet as Tolerated and Regular Visit Report/Discharge Packet Stand Alone Forms: Patient Portal/API, Stroke Signs & Symptoms Discharge Data Primary Care Provider: Remedios Arreguin VTE Deep Vein Thrombosis/Pulmonary Embolism Present on Admission: No
== END 2024-12-16 11:57 | disposition left against medical advice (07) | DRG 854 ==
LOC: ED 12-15 01:57 → AC 12-15 01:58 → ICU 12-15 11:25
PROVIDERS: Emergency Medicine; Family Medicine; Urology; Admitting Provider Internal Medicine; Emergency Provider Emergency Medicine; PCP Nurse Practitioner Family; Referring Provider Emergency Medicine; Visit Provider Internal Medicine
PROC: 0T768DZ Dilation of Right Ureter with Intraluminal Device, Via Natural or Artificial Opening Endoscopic (ICD-10-PCS; principal; 2024-12-15 08:45)
DX: A41.9 Sepsis, unspecified organism (principal); F11.20 Opioid dependence, uncomplicated; N13.6 Pyonephrosis; B19.20 Unspecified viral hepatitis C without hepatic coma; I10 Essential (primary) hypertension; I48.0 Paroxysmal atrial fibrillation; I95.9 Hypotension, unspecified; J44.9 Chronic obstructive pulmonary disease, unspecified; F17.200 Nicotine dependence, unspecified, uncomplicated; Z87.442 Personal history of urinary calculi; Z79.01 Long term (current) use of anticoagulants; Z53.29 Procedure and treatment not carried out because of patient's decision for other reasons
CPT/HCPCS: 36415; 51610; 74176; 74450; 80048; 80053; 81003; 81015; 82962; 83605; 83690; 85025; 87040; 87077; 87086; 87186; 87797; 94640; 96365; 96372; 99284; 99285; J0134; J0330; J0696; J1171; J2405; J2543; J2704; J3010; Q9967

== ENCOUNTER 2024-12-21 03:01 | Inpatient (IN) | payer MEDICARE, MEDICAID, SELFPAY ==
[2024-12-15 12:48] VITALS: BMI 33.0
[2024-12-21] VITALS (12 sets, daily range): BP systolic 106–157; BP diastolic 61–86; PULSE 62–80; RESP 16–20; TEMP 36.1–36.6; O2SAT 92–98; BMI 33.0; BMI 33.8
--- NOTE | 2024-12-21 03:21 | ED_ITS ---
HPI - SOB/Dyspnea General Chief Complaint: Shortness of Breath/Dyspnea Stated Complaint: Kidney Stone Time Seen by Provider: 12/21/24 03:19 Source: EMS Mode of arrival: EMS Limitations: no limitations History of Present Illness HPI Narrative: 63-year-old male with a history of hypertension, paroxysmal AFib on Eliquis, opiate use disorder on methadone, COPD, comes into the ED from home via EMS for evaluation of increased shortness of breath, states that this all started after he had a stent placed which was when he was previously here on 12/14/2024. He states that now he is having worsening shortness of breath with exertion, has been compliant with all his other medications. Not complaining of any chest pain fever chills nausea vomiting abdominal pain or any other GI/ symptoms time. Upon review of records it was noted that patient left against medical advice on 12/16/2024 discharged home on Augmentin, urinary cultures were not back at that time yet. Related Data Home Medications Medication Instructions Recorded Confirmed albuterol sulfate 90 mcg/actuation 1 puff inhalation PRN PRN 05/11/18 12/15/24 aerosol inhaler Shortness Of Breath methadone 40 mg soluble tablet 155 mg PO DAILY 01/03/22 12/15/24 apixaban 5 mg tablet (Eliquis) 5 mg PO BID 12/15/24 12/15/24 metoprolol succinate 100 mg 100 mg PO DAILY 12/15/24 12/15/24 tablet,extended release 24 hr Previous Rx's Medication Instructions Recorded fluticasone fur. 100 mcg-umeclid 1 inh inhalation DAILY #60 ea 03/09/24 62.5 mcg-vilant 25 mcg inhalat.powder (Trelegy Ellipta) amoxicillin 500 mg-potassium 1 tab PO BID #14 tabs 12/16/24 clavulanate 125 mg tablet (Augmentin) Allergies Allergy/AdvReac Type Severity Reaction Status Date / Time No Known Drug Allergies Allergy Verified 12/15/24 08:35 Review of Systems Review of Systems Narrative: General: Denies fever, chills, weight loss HEENT: Denies headache, eye drainage, eye irritation, head trauma, sore throat, voice change Cardiovascular: Denies any chest pain, palpitations, shortness of breath, tachycardia Respiratory: Positive shortness of breath, denies cough wheeze stridor GI/: Denies any abdominal pain, nausea, vomiting, diarrhea, bright red blood per rectum, melanotic stools, urinary frequency, urinary retention, dysuria, hematuria MSK: Denies any joint pain, muscle pains, swelling Skin: Denies any rashes, lesions, discoloration Neuro: Denies any headache, lightheadedness, dizziness, fainting, weakness Psych: Denies SI/HI Patient History Medical History Fever Hypotension Right ureteral calculus Lower extremity edema Hepatitis C History of heroin use Methadone dependence Tobacco abuse Lumbar post-laminectomy syndrome Chronic shoulder pain IV drug abuse IV drug user Surgical History History of lithotripsy Family History Mother Diabetes mellitus Father Cancer Social History household members: friend(s) Smoking Status: Current every day smoker alcohol intake: former substance use type: opiates and IV drugs Smoking Status: Current every day smoker tobacco type: cigarettes alcohol intake frequency: holidays/special occasions only Exam Narrative Exam Narrative: General: Cooperative, comfortable, well-developed, not in acute distress HEENT: Normocephalic, atraumatic, PERRLA, normal sclera, eyelids normal, Neck: Active full range of motion, atraumatic Chest: Normal to inspection, negative crepitus, no overlying erythema ecchymosis Respiratory: Normal respiratory effort, not in acute respiratory distress, clear to auscultation bilaterally negative cough, wheeze, tachypnea, rhonchi, rales Cardiology: Regular rate rhythm negative gallop, murmur, rubs GI/: Normal to inspection, soft, nonrigid, no tenderness to palpation, exam deferred MSK: Full range of active range of motion of all 4 extremities, atraumatic, +2 pitting edema bilateral lower extremities Skin: No rashes lesions noted Neuro: Alert awake oriented x3, moves all 4 extremities spontaneously, cranial nerves intact, able to answer all questions appropriately follows commands appropriately Psych: Cooperative, negative suicidal or homicidal ideations Initial Vital Signs Initial Vital Signs: Vital Signs Temperature 97.9 F 12/21/24 03:03 Pulse Rate 73 12/21/24 03:03 Respiratory Rate 18 12/21/24 03:03 Blood Pressure 157/79 H 12/21/24 03:03 Pulse Oximetry 94 12/21/24 03:03 Oxygen Delivery Method Room Air 12/21/24 03:03 Course Orders Ordered: ED Orders 12/21/24 03:16 EKG-12 Lead Stat 12/21/24 03:30 CT angio chest PE protocol Stat 12/21/24 03:31 Covid-19 + FLU A/B + RSV - PCR Stat 12/21/24 03:50 Complete Blood Count AUTO DIFF Stat Comprehensive Metabolic Panel Stat Lipase Stat NT-proBNP (BNP-Adult 18+) Stat PT [Prothrombin Time INR] Stat PTT Partial Thromboplastin Cedric Stat Troponin & CK Cardiac Panel Stat Discontinued Medications Furosemide (Furosemide 40 Mg/4 Ml Vial) 20 mg IV NOW ONE Stop: 12/21/24 04:42 Vital Signs Vital signs: Vital Signs - 8 hr 12/21/24 03:03 Temperature 97.9 F Pulse Rate 73 Respiratory Rate 18 Blood Pressure 157/79 H Pulse Oximetry 94 Oxygen Delivery Method Room Air MDM - SOB/Dyspnea Differential Diagnosis Differential diagnosis: Likely congestive heart failure, pulmonary embolism and other (Pneumonia,) Lab Data 12/21/24 03:50 12/21/24 03:50 Labs: Lab Results 12/21/24 Range/Units 03:50 WBC 13.9 H (4.5-11.0) X10^3/uL RBC 4.85 (4.5-5.9) X10^6/uL Hgb 13.0 L (13.5-17.5) g/dL Hct 39.0 L (41-53) % MCV 80.3 (80-100) fL MCH 26.8 (26-34) PG MCHC 33.3 (30-36) % RDW 15.9 H (11.6-14.8) % Plt Count 342 (150-400) X10^3/uL Neut % (Auto) 75.8 H (50-75) % Lymph % (Auto) 12.6 L (25-40) % [place] % (Auto) 8.0 (3-14) % Eos % (Auto) 3.0 (2-4) % Baso % (Auto) 0.6 (0-2) % Neut # (Auto) 57578 H (5946-0969) /uL Lymph # (Auto) 1800 (2179-6289) /uL [place] # (Auto) 1100 H (0-900) /uL Eos # (Auto) 400 (0-450) /uL Baso # (Auto) 100 (0-100) /uL PT 16.3 H (9.4-12.5) SECONDS INR 1.5 H (0.9-1.3) APTT 39 H (25.1-36.5) SECONDS Sodium 136 L (137-145) mmol/L Potassium 3.5 (3.4-5.1) mmol/L Chloride 103 (98-107) mmol/L Carbon Dioxide 31 (22-32) mmol/L BUN 17 (9-20) mg/dL Creatinine 0.98 (0.66-1.25) mg/dL Estimated GFR > 60 (>60) mL/min BUN/Creatinine Ratio 17.3 (6-22) Glucose 106 (80-110) mg/dL Calcium 8.8 (8.4-10.2) mg/dL Total Bilirubin 0.5 (0.2-1.3) mg/dL AST 24 (17-59) IU/L ALT 21 (<50) IU/L Alkaline Phosphatase 95 (38-126) U/L Total Creatine Kinase 41 L (55-170) U/L Troponin I 0.014 (0.01-0.034) ng/mL NT-Pro-B Natriuret Pep 6650 H (<125) pg/mL Total Protein 6.8 (6.3-8.2) g/dL Albumin 3.3 L (3.5-5.0) g/dL Globulin 3.5 (1.7-4.1) g/dL Albumin/Globulin Ratio 0.9 L (1.0-2.8) Lipase 17 L (23-300) U/L Imaging Data CT scan - chest: Radiologist's Impression: Preliminary read showing no PE aortic dissection or aneurysm, bilateral pleural effusions and bibasilar consolidation atelectasis versus pulmonary infiltrates, emphysema otherwise chronic findings and no other acute findings ECG Data Interpretation: EKG interpreted ED physician sinuses 73 beats per minute QTC 478, normal axis, nonspecific ST changes, no STEMI MDM Narrative Medical decision making narrative: 63-year-old male with a history of hypertension, paroxysmal AFib on Eliquis, opiate use disorder on methadone, COPD, comes into the ED from home via EMS for evaluation of increased shortness of breath, states that this all started after he had a stent placed which was when he was previously here on 12/14/2024. He states that now he is having worsening shortness of breath with exertion, has been compliant with all his other medications. Not complaining of any chest pain fever chills nausea vomiting abdominal pain or any other GI/ symptoms time. Upon review of records it was noted that patient left against medical advice on 12/16/2024 discharged home on Augmentin, urinary cultures were not back at that time yet. While here in the emergency department patient had lab work imaging performed. Patient with leukocytosis of 13.9, unremarkable Chem panel, however BNP significantly elevated at 6650. CT PE scan without signs of PE however consistent with new onset CHF with bilateral pleural effusions, also preliminary read saying atelectasis consolidation versus pulmonary infiltrates, given recent hospitalization and leukocytosis will treat patient for hospital acquired pneumonia, vancomycin Zosyn ordered. I have also ordered 20 mg of IV Lasix given patient naive to Lasix and new onset CHF. Informed patient of need for admission he understands and agrees with this plan Call placed out to hospitalist for admission. The patient's management plan was discussed Dr. Power, who agrees to admit the patient to their service and assumes care of this patient at this time. Full admission orders will be placed by the primary team. Discharge Plan Departure Patient Disposition: Admitted As Inpatient Clinical Impression: New onset of congestive heart failure, Pneumonia
--- NOTE | 2024-12-21 03:25 | EKG_ITS ---
[facility] [address] [place] [address] Test Date: 2024-12-21 Pat Name: Tahir Mittal Department: [facility] Room: Gender: Male Renal Nurse: : 1960 Requested By: Order Number: [id number] Reading MD: Measurements Intervals [place] Rate: 73 P: -15 WI: 168 QRS: 12 QRSD: 86 T: 26 QT: 434 QTc: 478 Interpretive Statements Normal sinus rhythm
--- NOTE | 2024-12-21 03:30 | DI.CT.S_ITS ---
PROCEDURE: CT ANGIO CHEST PE PROTOCOL INDICATIONS: sob TECHNIQUE: After the administration of intravenous contrast, 2 mm thick sections acquired from the pulmonary apices to the posterior costophrenic angles. 3-dimensional maximum intensity projection (MIP) coronal and sagittal reformats were then acquired through the thorax. For radiation dose reduction, the following was used: automated exposure control, adjustment of mA and/or kV according to patient size. COMPARISON: [facility], CT, CT KIDNEY URETER BLADDER (KUB), 12/14/2024, 23:27. FINDINGS: Image quality: Diagnostic. Pulmonary arteries: Pulmonary arteries are normal in size, and demonstrate no intraluminal filling defects to suggest central pulmonary embolism. Lower Neck: Prominent supraclavicular lymph nodes. Thyroid: No thyroid nodules which require sonographic follow up, per consensus guidelines. Axillae: No enlarged lymph nodes. Chest Wall: Unremarkable. Bones: Unremarkable. Lungs and Pleura: Moderate centrilobular emphysema. Smooth interstitial thickening. Small pleural effusions. Bronchial thickening. Bibasilar atelectasis, including the nodular atelectasis in the lingula, which was not present on a CT dated 12/14/2024. Heart: Heart size is enlarged, with three-vessel coronary calcifications. No pericardial effusion. Mitral valve calcification. Thoracic Vessels: No aortic aneurysm. Mediastinum and [place]: Prominent number and size of mediastinal lymph nodes, without adenopathy by size criteria. Esophagus: No wall thickening. No hiatal hernia. Upper Abdomen: Visualized upper abdomen solid organs and bowel loops appear normal. IMPRESSION: No pulmonary embolus. Moderate pulmonary edema and small pleural effusions. Dictated by: Gerry Solis M.D. on 12/21/2024 at 8:22 Approved by: Gerry Solis M.D. on 12/21/2024 at 8:25
[2024-12-21 04:00] LABS: Add Manual Diff / Slide Review NO; Basophils Absolute Auto 100 /uL (0-100); Basophils Percent Auto 0.6 % (0-2); Eosinophils Absolute Auto 400 /uL (0-450); Lymphocytes Absolute Auto 1800 /uL (1100-4500); Lymphocytes Percent Auto 12.6 % (25-40); Mean Corpuscular HGB Conc 33.3 % (30-36); Mean Corpuscular Hemoglobin 26.8 PG (26-34); Mean Corpuscular Volume 80.3 fL (80-100); Monocytes Absolute Auto 1100 /uL (0-900); Neutrophils Absolute Auto 10600 /uL (1500-7000); Neutrophils Percent Auto 75.8 % (50-75); Platelet Count 342 X10^3/uL (150-400); Red Blood Cell Count 4.85 X10^6/uL (4.5-5.9); Red Cell Distribution Width 15.9 % (11.6-14.8); White Blood Cell Count 13.9 X10^3/uL (4.5-11.0)
[2024-12-21 04:08] LABS: INR 1.5 (0.9-1.3); Prothrombin Time 16.3 SECONDS (9.4-12.5)
[2024-12-21 04:10] LABS: Alanine Aminotransferase 21 IU/L (<50); Albumin 3.3 g/dL (3.5-5.0); Albumin Globulin Ratio 0.9 (1.0-2.8); Alkaline Phosphatase 95 U/L (38-126); Aspartate Aminotransferase 24 IU/L (17-59); BUN Creatinine Ratio 17.3 (6-22); Bilirubin Total 0.5 mg/dL (0.2-1.3); Blood Urea Nitrogen 17 mg/dL (9-20); Calcium 8.8 mg/dL (8.4-10.2); Carbon Dioxide 31 mmol/L (22-32); Chloride 103 mmol/L (98-107); Creatine Kinase 41 U/L (55-170); Estimated Glomerular Filt Rate > 60 mL/min (>60); Globulin 3.5 g/dL (1.7-4.1); Glucose 106 mg/dL (80-110); HEMOLYSIS < 15 (0-50); Lipase 17 U/L (23-300); PTT Partial Thromboplastin Tim 39 SECONDS (25.1-36.5); Potassium 3.5 mmol/L (3.4-5.1); Sodium 136 mmol/L (137-145); Total Protein 6.8 g/dL (6.3-8.2)
[2024-12-21 04:22] LABS: NT-proBNP (BNP-Adult 18+) 6650 pg/mL (<125); Troponin I 0.014 ng/mL (0.01-0.034)
[2024-12-21] MEDS: FUROSEMIDE 40 MG/4 ML VIAL 20 MG IV (04:53)
--- NOTE | 2024-12-21 04:56 | PC.NURSE ---
pt keeps pulling O2 sat off, explained to parents it needs to stay on to monitor pt's oxygen level,
[2024-12-21 05:18] LABS: Influenza A - CEPHEID Flu A NEGATIVE (NEGATIVE); Influenza B - CEPHEID Flu B NEGATIVE (NEGATIVE); Respiratory Syncytial Virus Negative (Negative)
[2024-12-21 05:19] LABS: COVID-19 CEPHEID 4-PLEX PCR Negative (Negative)
[2024-12-21] MEDS: PIPERACILLIN/TAZO 4.5 GM in SODIUM CHLORIDE 0.9% 100 ML IV (05:27)
[2024-12-21 06:26] LABS: Troponin I 0.017 ng/mL (0.01-0.034)
[2024-12-21] MEDS: VANCOMYCIN 2,000 MG/400 ML PIGGYBACK 200 MG IV (06:39)
--- NOTE | 2024-12-21 06:54 | P.HP_ITS ---
History of Present Illness History of Present Illness Date Patient Seen: 12/21/24 Time Patient Seen: 06:40 Chief complaint: Shortness of breath Narrative: 63 y/o with PMH of Rt kidney stone, lithotripsy / stent in 2004, smoking, heroin abuse, on methadone therapy, hepatitis C, HTN, PAF, hospitalization on 12/15-12/16 for Rt ureterohydronephrosis from obstructing, 8 mm, distal ureteral stone -s/p stenting, he left AMA, came back complaining on shortness of breath. ED workup suggestive of new onset heart failure. PFSH Medical History Fever Hypotension Right ureteral calculus Lower extremity edema Hepatitis C History of heroin use Methadone dependence Tobacco abuse Lumbar post-laminectomy syndrome Chronic shoulder pain IV drug abuse IV drug user Surgical History History of lithotripsy Family History Mother Diabetes mellitus Father Cancer Social History household members: friend(s) Smoking Status: Current every day smoker alcohol intake: former substance use type: opiates and IV drugs Meds Home Medications and Allergies Home Medications Medication Instructions Recorded Confirmed Type albuterol sulfate 90 mcg/actuation 1 puff inhalation PRN PRN 05/11/18 12/21/24 History aerosol inhaler Shortness Of Breath methadone 40 mg soluble tablet 160 mg PO DAILY 01/03/22 12/21/24 History fluticasone fur. 100 mcg-umeclid 1 inh inhalation DAILY #60 ea 03/09/24 12/21/24 Rx 62.5 mcg-vilant 25 mcg inhalat.powder (Trelegy Ellipta) apixaban 5 mg tablet (Eliquis) 5 mg PO BID 12/15/24 12/21/24 History metoprolol succinate 100 mg 100 mg PO DAILY 12/15/24 12/21/24 History tablet,extended release 24 hr amoxicillin 500 mg-potassium 1 tab PO BID #14 tabs 12/16/24 12/21/24 Rx clavulanate 125 mg tablet (Augmentin) Allergies Allergy/AdvReac Type Severity Reaction Status Date / Time No Known Drug Allergies Allergy Verified 12/15/24 08:35 Review of Systems Cardiovascular Comments: w/o chest pain or palpitations swollen legs Respiratory Comments: short of breath Genitourinary Comments: right flank tenderness Exam Vital Signs (past 8 hours): - 12/21/24 03:03 12/21/24 03:05 12/21/24 03:30 Temperature 97.9 F Pulse Rate 73 80 71 Respiratory Rate 18 Blood Pressure 157/79 H Pulse Oximetry 94 94 98 Oxygen Delivery Method Room Air Oxygen Flow Rate 12/21/24 04:00 12/21/24 04:56 12/21/24 04:56 Temperature Pulse Rate 71 76 Respiratory Rate 20 Blood Pressure 142/80 H Pulse Oximetry 96 98 Oxygen Delivery Method Oxygen Flow Rate 12/21/24 05:59 Temperature 96.9 F L Pulse Rate 75 Respiratory Rate 16 Blood Pressure 150/86 H Pulse Oximetry 94 Oxygen Delivery Method Oxygen Flow Rate 0 Oxygen Delivery Method Room Air Oxygen Flow Rate 0 Const Other: in no distress HENMT Other: poor dentition Neck Other: w/o JVD Cardio Other: irregular GI Other: obese abdomen Skin Other: w/o rashes Neuro Other: w/o deficits Extrem Other: swollen legs Psych Other: appropriate mood and affect, lucid, appropriate judgment Objective Labs 12/21/24 03:50 12/21/24 03:50 Labs: Laboratory Results - last 24 hr 12/21/24 12/21/24 12/21/24 03:50 03:58 05:50 WBC 13.9 H RBC 4.85 Hgb 13.0 L Hct 39.0 L MCV 80.3 MCH 26.8 MCHC 33.3 RDW 15.9 H Plt Count 342 Neut % (Auto) 75.8 H Lymph % (Auto) 12.6 L [place] % (Auto) 8.0 Eos % (Auto) 3.0 Baso % (Auto) 0.6 Neut # (Auto) 56237 H Lymph # (Auto) 1800 [place] # (Auto) 1100 H Eos # (Auto) 400 Baso # (Auto) 100 PT 16.3 H INR 1.5 H APTT 39 H Sodium 136 L Potassium 3.5 Chloride 103 Carbon Dioxide 31 BUN 17 Creatinine 0.98 Estimated GFR > 60 BUN/Creatinine Ratio 17.3 Glucose 106 Calcium 8.8 Total Bilirubin 0.5 AST 24 ALT 21 Alkaline Phosphatase 95 Total Creatine Kinase 41 L Troponin I 0.014 0.017 NT-Pro-B Natriuret Pep 6650 H Total Protein 6.8 Albumin 3.3 L Globulin 3.5 Albumin/Globulin Ratio 0.9 L Lipase 17 L SARS-CoV-2 (PCR) Negative Influenza A (RT-PCR) Flu a negative Influenza B (RT-PCR) Flu b negative RSV (PCR) Negative Assessment & Plan Assessment and plan (1) New onset of congestive heart failure: Status: Acute (2) Pneumonia: Status: Acute (3) Hydronephrosis concurrent with and due to calculi of kidney and ureter: Status: Acute (4) Methadone dependence: Status: Chronic (5) Hepatitis C: Status: Acute Assessment & Plan narrative: CHF - Hx of A-fib, HTN and drug use - had 20 mg of Lasix in the ED IVP - Lasix 40 mg daily, monitored BMP - Is/Os, daily weights, echocardiogram Suspected PNA - Vancomycin, Zosyn A-fib / HTN - Eliquis - metoprolol Emphysema - abuterol, fluticasone Rt Hydronephrosis / obstructing ureteral stone / s/p stenting - he was on Augmentin since he left AMA - Zosyn - f/u with nephrology as scheduled Methadone Tx - 160 mg q noon Time-Based Coding :: [TOTAL MINUTES] spent with patient and on the chart (including review of chart, obtaining history, exam, reviewing outside data, placing orders, documenting exam and treatment plan, and counseling patient) on [DATE].
--- NOTE | 2024-12-21 07:15 | P.PN_ITS ---
Subjective Subjective Date Patient Seen: 12/21/24 Interval history: He is seen today to follow-up his congestive heart failure and urinary infection/kidney stones. He returned to the hospital short of breath with a BNP of 6650. He has a history of atrial fibrillation but does not appear to be in AFib now. He is on medication for hypertension but says he has never had congestive heart failure before. An echocardiogram will be done. His recent Enterococcus urinary culture was sensitive to ampicillin so the UTI is presumably resolved. He had a ureteral stent placed by Urology. The chest x- ray shows bilateral pleural effusions and evidence for pneumonia. His flu/COVID/RSV testing was negative. The potassium is 3.5. The INR is 1.5. The white blood count is 13.9. The blood pressure is 150/86. Exam Vital Signs (past 8 hours): - 12/21/24 03:03 12/21/24 03:05 12/21/24 03:30 Temperature 97.9 F Pulse Rate 73 80 71 Respiratory Rate 18 Blood Pressure 157/79 H Pulse Oximetry 94 94 98 Oxygen Delivery Method Room Air Oxygen Flow Rate 12/21/24 04:00 12/21/24 04:56 12/21/24 04:56 Temperature Pulse Rate 71 76 Respiratory Rate 20 Blood Pressure 142/80 H Pulse Oximetry 96 98 Oxygen Delivery Method Oxygen Flow Rate 12/21/24 05:59 Temperature 96.9 F L Pulse Rate 75 Respiratory Rate 16 Blood Pressure 150/86 H Pulse Oximetry 94 Oxygen Delivery Method Oxygen Flow Rate 0 Oxygen Delivery Method Room Air Oxygen Flow Rate 0 Narrative Exam Narrative: He is alert and oriented x3. No apparent distress. No obvious dyspnea. Heart is regular rate and rhythm without murmur Lungs are clear to auscultation bilaterally Extremities have no ankle edema Objective Labs 12/21/24 09:20 12/21/24 09:20 Labs: Laboratory Results - last 24 hr 12/21/24 12/21/24 12/21/24 03:50 03:58 05:50 WBC 13.9 H RBC 4.85 Hgb 13.0 L Hct 39.0 L MCV 80.3 MCH 26.8 MCHC 33.3 RDW 15.9 H Plt Count 342 Neut % (Auto) 75.8 H Lymph % (Auto) 12.6 L [place] % (Auto) 8.0 Eos % (Auto) 3.0 Baso % (Auto) 0.6 Neut # (Auto) 74916 H Lymph # (Auto) 1800 [place] # (Auto) 1100 H Eos # (Auto) 400 Baso # (Auto) 100 PT 16.3 H INR 1.5 H APTT 39 H Sodium 136 L Potassium 3.5 Chloride 103 Carbon Dioxide 31 BUN 17 Creatinine 0.98 Estimated GFR > 60 BUN/Creatinine Ratio 17.3 Glucose 106 Calcium 8.8 Total Bilirubin 0.5 AST 24 ALT 21 Alkaline Phosphatase 95 Total Creatine Kinase 41 L Troponin I 0.014 0.017 NT-Pro-B Natriuret Pep 6650 H Total Protein 6.8 Albumin 3.3 L Globulin 3.5 Albumin/Globulin Ratio 0.9 L Lipase 17 L SARS-CoV-2 (PCR) Negative Influenza A (RT-PCR) Flu a negative Influenza B (RT-PCR) Flu b negative RSV (PCR) Negative PFSH Medical History Fever Hypotension Right ureteral calculus Lower extremity edema Hepatitis C History of heroin use Methadone dependence Tobacco abuse Lumbar post-laminectomy syndrome Chronic shoulder pain IV drug abuse IV drug user Surgical History History of lithotripsy Family History Mother Diabetes mellitus Father Cancer Social History household members: friend(s) Smoking Status: Current every day smoker alcohol intake: former substance use type: opiates and IV drugs Assessment & Plan Assessment & Plan narrative: [address] [address] History & Physical Report Assessment & Plan Assessment & Plan narrative: CHF - Hx of A-fib, HTN and drug use - EKG SR, Normal EKG - Troponin 0.017 - had 20 mg of Lasix in the ED IVP - Lasix 40 mg daily, monitored BMP - Is/Os, daily weights, echocardiogram Suspected PNA - Vancomycin, Zosyn A-fib / HTN - Eliquis - metoprolol Emphysema - abuterol, fluticasone Rt Hydronephrosis / obstructing ureteral stone / s/p stenting Enterococcus Bacteremia - he was on Augmentin since he left AMA - Zosyn resumed - f/u with nephrology as scheduled Methadone Tx - 160 mg q noon Eliquis for DVT prevention. Time-Based Coding :: [TOTAL MINUTES] spent with patient and on the chart (including review of chart, obtaining history, exam, reviewing outside data, placing orders, documenting exam and treatment plan, and counseling patient) on [DATE].
[2024-12-21] MEDS: METOPROLOL ER 50 MG TABLET 100 MG PO (08:52)
[2024-12-21] MEDS: FUROSEMIDE 40 MG TABLET PO (08:52)
[2024-12-21] MEDS: APIXABAN 5 MG TABLET PO ×2 (08:52→22:16)
[2024-12-21] MEDS: METHADONE INTENSOL 10 MG/ML ORAL.CONC 160 MG PO (09:28)
[2024-12-21] MEDS: PIPERACILLIN/TAZO 3.375 GM in SODIUM CHLORIDE 0.9% 100 ML IV ×2 (09:28→19:27)
[2024-12-21 09:36] LABS: Add Manual Diff / Slide Review NO; Basophils Absolute Auto 200 /uL (0-100); Basophils Percent Auto 1.3 % (0-2); Eosinophils Absolute Auto 400 /uL (0-450); Eosinophils Percent Auto 3.2 % (2-4); Hematocrit 38.2 % (41-53); Hemoglobin 12.2 g/dL (13.5-17.5); Lymphocytes Absolute Auto 1900 /uL (1100-4500); Lymphocytes Percent Auto 15.9 % (25-40); Mean Corpuscular HGB Conc 31.9 % (30-36); Mean Corpuscular Hemoglobin 25.9 PG (26-34); Mean Corpuscular Volume 81.1 fL (80-100); Monocytes Absolute Auto 900 /uL (0-900); Monocytes Percent Auto 7.5 % (3-14); Neutrophils Absolute Auto 8400 /uL (1500-7000); Neutrophils Percent Auto 72.1 % (50-75); Platelet Count 351 X10^3/uL (150-400); Red Blood Cell Count 4.71 X10^6/uL (4.5-5.9); Red Cell Distribution Width 15.6 % (11.6-14.8); White Blood Cell Count 11.7 X10^3/uL (4.5-11.0)
[2024-12-21] MEDS: BUDESONIDE 0.5 MG/2 ML NEB INH (09:57)
[2024-12-21] MEDS: ALBUTEROL/IPRATROPIUM 3 ML AMPUL INH ×2 (10:00→15:24)
[2024-12-21 10:21] LABS: BUN Creatinine Ratio 14.6 (6-22); Blood Urea Nitrogen 15 mg/dL (9-20); Calcium 8.5 mg/dL (8.4-10.2); Carbon Dioxide 30 mmol/L (22-32); Chloride 103 mmol/L (98-107); Estimated Glomerular Filt Rate > 60 mL/min (>60); Glucose 130 mg/dL (80-110); HEMOLYSIS < 15 (0-50); Potassium 3.5 mmol/L (3.4-5.1); Sodium 137 mmol/L (137-145)
--- NOTE | 2024-12-21 11:09 | DI.ECHO.S_ITS ---
[facility]---------+ [facility] : : [address] [place] : : [id number] : : Phone: [phone] Echocardiogram Report + :Name: LAURENCE MACIAS Study Date: 12/21/2024 Height: 78 in : :[facility] ReadingLocation: Weight: 293 lb : : Gender: Male BSA: 2.7 m2 : :: 1960 Age: 63 yrs BP: 150/86 mmHg: :Reason For Study: CONGESTIVE HEART FAILURE : :Ordering Physician: DILEEP : :GALLO GIFFORD Performed By: Zaynab Toro : :Referring: GALLO LONGO : + Interpretation Summary Normal LV size and systolic function. LVEF is 60-65% Normal RV size and function. Mild LA dilation. Likely moderate mitral regurgitation is present. Mild-moderate TR is noted. Elevated biventricular filling pressures are noted. When compared to TTE dated 08/27/22, new MR and diastolic dysfunction has developed. Procedure: A two-dimensional transthoracic echocardiogram with color flow and Doppler was performed. The study quality was technically adequate. Comparison is made with the echocardiogram of 08/27/2022. The patient was in sinus rhythm with heart rates between 60-75 bpm during the exam. Left Ventricle: The left ventricle is normal in size and wall thickness. The ejection fraction is estimated to be 60-65%. Diastolic parameters suggest a relaxation abnormality of the left ventricle, consistent with probable normal filling pressures. Right Ventricle: The right ventricle is normal in size and function. Atria: The left atrium is mildly dilated. Right atrial size is normal. There is no Doppler evidence for an interatrial shunt. Mitral Valve: There is mild mitral annular calcification. The mitral valve leaflets appear mildly thickened, but open well. There is moderate mitral regurgitation. Aortic Valve: The aortic valve is trileaflet. The aortic valve opens well. There is no aortic valve stenosis. No aortic regurgitation is present. Tricuspid Valve: The tricuspid valve leaflets are thin and pliable. There is mild to moderate tricuspid regurgitation. The right ventricular systolic pressure is estimated to be at least 40 mmHg based on an estimated right atrial pressure of 8 mm Hg. Pulmonic Valve: The pulmonic valve leaflets are thin and pliable; valve motion is normal. There is a trace or physiologic amount of pulmonic regurgitation. Great Vessels: The aortic root is normal size. The dimensions of the ascending aorta are normal. The IVC is dilated (diameter is greater than 2.1 cm) yet it collapses greater than 50% with a sniff. This suggests a right atrial pressure of 8 mm Hg. Pericardium/ Pleura There is no pericardial effusion. There is no pleural effusion. MMode/2D Measurements & Calculations LVIDd: 4.9 cm LVOT diam: 2.3 cm LVIDs: 3.1 cm Ao root diam: 3.2 cm FS: 36.2 % asc Aorta Diam: 3.4 cm IVSd: 1.0 cm LVPWd: 1.0 cm LV peguero. diameter/BSA (cm/m^2): 1.8 LV sys. diameter/BSA (cm/m^2): 1.2 LA A2 area: 25.1 cm2 RA long axis: 4.9 cm LA A4 area: 22.0 cm2 RA area: 19.0 cm2 LA length (vol): 6.4 cm RA vol: 62.7 ml LA vol: 73.7 ml RA : 23.6 ml/m2 LA vol index: 27.7 ml/m2 IVC diam: 2.2 cm RVD1 (basal): 4.0 cm TAPSE: 2.5 cm Doppler Measurements & Calculations Ao V2 max: 121.3 cm/sec LVOT Max Jefe: 106.4 cm/sec Ao V2 mean: 81.6 cm/sec LV V1 max P.5 mmHg Ao max P.9 mmHg LV V1 VTI: 23.6 cm Ao mean P.0 mmHg BENIGNO(I,D): 3.5 cm2 Ao V2 VTI: 27.6 cm BENIGNO(V,D): 3.6 cm2 sev ratio: 0.85 BENIGNO indexed to BSA (cm^2/m^2): 1.3 MV E max jefe: 136.0 cm/sec TR max jefe: 280.4 cm/sec MV A max jefe: 73.4 cm/sec TR max P.5 mmHg MV E/A: 1.9 PA V2 max: 100.8 cm/sec Med Peak E' Jefe: 8.8 cm/sec PA V2 mean: 69.7 cm/sec E/E' med: 15.5 PA mean P.1 mmHg Lat Peak E' Jefe: 7.7 cm/sec PA pr(Accel): 25.9 mmHg E/E' lat: 17.6 E/e' average: 16.6 MV dec time: 0.25 sec [facility] 97.1 ml Reading Physician:04:27 PM
[2024-12-21 11:39] LABS: MRSA (Nasal) PCR NOT DETECTED (Not Detect)
--- NOTE | 2024-12-21 13:27 | CM.DANOTE ---
Initial DCP Assessment Visit Note Reviewed EMR and team rounds for status updates, met with pt at bedside to introduce self and role. Pt was found to be alert/oriented, sitting on the side of the bed. Pt lives independently at baseline in his own home in [place] with a friend. He also has a Significant Other, Sarah, who can assist with post-d/c care needs and likely transport home once he's medically cleared for d/c. Payor: [facility] PCP: Dr. Arreguin Pt is a 63 year-old M with a hx of COPD, opiate/heroin dependence, on methadone, hx of chronic kidney stones. Pt was recently admitted form 12/14-12/16/24 for a kidney stone, a stent was placed, pt was receiving IV ABO's, however he discharged AMA. He presented to the ED last night via EMS with c/o worsening SOB, as well as a new onset of pain that he states feels like he has another kidney stone. CT chest was positive for pneumonia and bilateral pleural effusions. Pt was started on IV fluids and ABO's while in the ED, CT imaging also showed an obstructing right-ureter. A PICC line was placed, and pt was brought to the unit for continued eval and tx. Dr. Hicks will be consulting on potentially placing another ureteral stent. DCP will continue to monitor for final d/c recommendations and needs. Discharge Planning/Care Management CM Discharge Assessment Start: 12/21/24 13:11 Freq: Status: Active Protocol: Document 12/21/24 13:11 DPL (Rec: 12/21/24 13:27 DPL [id number]) Discharge Planning Assessment Assigned Project Crew Worker WILLIE Cohen Advance Directives? No Advance Directives on File No History Provided By Patient,Medical Record Has Patient been admitted in last 30 Yes days? Comment 12/14-12/16/24 for same issues Prior Living Arrangements House Household Members friend(s) Type of transporation used prior to Drives own vehicle admit Independent with ADL's No: modified independent with a walker Is patient alert and oriented? Yes Caregiver for Another No DME Already Rented / Owned FWW / Walker Comment OP Urology Comment Current IV-heroin abuse and may need IV-Abx Discharge Plan Home Transportation Arrangement States his vehicle is in the parking lot Referrals Initiated None needed Additional Comment Pending culture results and abx needs Whiteboard Updated in Patient Room with Yes name and ext. # of Project Crew Worker Review Status In Process Please Provide Date Initial DC 12/21/24 Assessment Was Performed
--- NOTE | 2024-12-21 14:30 | P.HP_ITS ---
History of Present Illness History of Present Illness Date Patient Seen: 12/21/24 Time Patient Seen: 14:30 Chief complaint: Shortness of breath Narrative: This is a 63-year-old male [facility] Medical History Fever Hypotension Right ureteral calculus Lower extremity edema Hepatitis C History of heroin use Methadone dependence Tobacco abuse Lumbar post-laminectomy syndrome Chronic shoulder pain IV drug abuse IV drug user Surgical History History of lithotripsy Family History Mother Diabetes mellitus Father Cancer Social History household members: friend(s) Smoking Status: Current every day smoker alcohol intake: former substance use type: opiates and IV drugs Meds Home Medications and Allergies Home Medications Medication Instructions Recorded Confirmed Type albuterol sulfate 90 mcg/actuation 1 puff inhalation PRN PRN 05/11/18 12/21/24 History aerosol inhaler Shortness Of Breath methadone 40 mg soluble tablet 160 mg PO DAILY 01/03/22 12/21/24 History fluticasone fur. 100 mcg-umeclid 1 inh inhalation DAILY #60 ea 03/09/24 12/21/24 Rx 62.5 mcg-vilant 25 mcg inhalat.powder (Trelegy Ellipta) apixaban 5 mg tablet (Eliquis) 5 mg PO BID 12/15/24 12/21/24 History metoprolol succinate 100 mg 100 mg PO DAILY 12/15/24 12/21/24 History tablet,extended release 24 hr amoxicillin 500 mg-potassium 1 tab PO BID #14 tabs 12/16/24 12/21/24 Rx clavulanate 125 mg tablet (Augmentin) Allergies Allergy/AdvReac Type Severity Reaction Status Date / Time No Known Drug Allergies Allergy Verified 12/15/24 08:35 Exam Vital Signs (past 8 hours): - 12/21/24 08:00 12/21/24 08:52 12/21/24 10:01 Temperature Pulse Rate 69 70 Respiratory Rate 18 Blood Pressure 119/67 Pulse Oximetry 93 Oxygen Delivery Method Room Air Room Air Oxygen Flow Rate 12/21/24 14:00 Temperature 97.0 F L Pulse Rate 71 Respiratory Rate 18 Blood Pressure 125/70 Pulse Oximetry 96 Oxygen Delivery Method Oxygen Flow Rate 0 Oxygen Delivery Method Room Air Oxygen Flow Rate 0 Objective Labs 12/21/24 09:20 12/21/24 09:20 Labs: Laboratory Results - last 24 hr 12/21/24 12/21/24 12/21/24 03:50 03:58 05:50 WBC 13.9 H RBC 4.85 Hgb 13.0 L Hct 39.0 L MCV 80.3 MCH 26.8 MCHC 33.3 RDW 15.9 H Plt Count 342 Neut % (Auto) 75.8 H Lymph % (Auto) 12.6 L [place] % (Auto) 8.0 Eos % (Auto) 3.0 Baso % (Auto) 0.6 Neut # (Auto) 84096 H Lymph # (Auto) 1800 [place] # (Auto) 1100 H Eos # (Auto) 400 Baso # (Auto) 100 PT 16.3 H INR 1.5 H APTT 39 H Sodium 136 L Potassium 3.5 Chloride 103 Carbon Dioxide 31 BUN 17 Creatinine 0.98 Estimated GFR > 60 BUN/Creatinine Ratio 17.3 Glucose 106 Calcium 8.8 Total Bilirubin 0.5 AST 24 ALT 21 Alkaline Phosphatase 95 Total Creatine Kinase 41 L Troponin I 0.014 0.017 NT-Pro-B Natriuret Pep 6650 H Total Protein 6.8 Albumin 3.3 L Globulin 3.5 Albumin/Globulin Ratio 0.9 L Lipase 17 L Nasal Screen MRSA (PCR) SARS-CoV-2 (PCR) Negative Influenza A (RT-PCR) Flu a negative Influenza B (RT-PCR) Flu b negative RSV (PCR) Negative 12/21/24 12/21/24 09:20 09:50 WBC 11.7 H RBC 4.71 Hgb 12.2 L Hct 38.2 L MCV 81.1 MCH 25.9 L MCHC 31.9 RDW 15.6 H Plt Count 351 Neut % (Auto) 72.1 Lymph % (Auto) 15.9 L [place] % (Auto) 7.5 Eos % (Auto) 3.2 Baso % (Auto) 1.3 Neut # (Auto) 8400 H Lymph # (Auto) 1900 [place] # (Auto) 900 Eos # (Auto) 400 Baso # (Auto) 200 H PT INR APTT Sodium 137 Potassium 3.5 Chloride 103 Carbon Dioxide 30 BUN 15 Creatinine 1.03 Estimated GFR > 60 BUN/Creatinine Ratio 14.6 Glucose 130 H Calcium 8.5 Total Bilirubin AST ALT Alkaline Phosphatase Total Creatine Kinase Troponin I NT-Pro-B Natriuret Pep Total Protein Albumin Globulin Albumin/Globulin Ratio Lipase Nasal Screen MRSA (PCR) Not detected SARS-CoV-2 (PCR) Influenza A (RT-PCR) Influenza B (RT-PCR) RSV (PCR) Assessment & Plan Time-Based Coding :: [TOTAL MINUTES] spent with patient and on the chart (including review of chart, obtaining history, exam, reviewing outside data, placing orders, documenting exam and treatment plan, and counseling patient) on [DATE].
[2024-12-21] MEDS: POTASSIUM CHLORIDE 20 MEQ TAB 40 MEQ PO (14:56)
[2024-12-21] MEDS: VANCOMYCIN 1,500 MG/300 ML PIGGYBACK 200 MG IV (17:48)
[2024-12-21] MEDS: SENNOSIDES 8.6 MG TABLET 17.2 MG PO (22:16)
[2024-12-21] MEDS: SODIUM CHLORIDE 0.9% FLUSH 10 ML IV (22:16)
[2024-12-21] MEDS: OXYCODONE IR 5 MG TABLET PO (23:57)
[2024-12-22] VITALS (8 sets, daily range): BP systolic 111–136; BP diastolic 58–69; PULSE 62–77; RESP 16–22; TEMP 35.7–36.5; O2SAT 93–98
[2024-12-22] MEDS: OXYCODONE IR 5 MG TABLET 10 MG PO ×5 (01:54→20:00)
[2024-12-22] MEDS: ACETAMINOPHEN 325 MG TABLET 650 MG PO ×3 (01:55→20:01)
[2024-12-22] MEDS: PIPERACILLIN/TAZO 3.375 GM in SODIUM CHLORIDE 0.9% 100 ML IV ×2 (01:58→10:12)
--- NOTE | 2024-12-22 04:33 | PC.NURSE ---
0100 Pt called stating he was having a panic attack and SOB. Listened and stayed present, validating pt's concerns. Offered to contact MD valente: medication; patient declined. Offered to have RT come up for a breathing treatment; patient declined. Pt found moaning and crying out in room and grasping genital area, appearing anxious and SOB. Pt reported 6/10 flank and right testicle pain that felt like it was up inside him. Pt stated that previously administered Oxycodone 5mg PO PRN 1 hr previous did not help. Pt stated that he felt like he was about to pass his kidney stone. VSWNL, SpO2 99%, no visual abnormalities in genital area, able to talk and walk to bathroom and back. Pt stated preference for IV dilaudid. Notified coordinator Suzanne Rizvi and MD Power who put in new orders for 10mg oxycodone PO Q3hrs. Administered medication (see MAR), pt resting in bed. Care continues. 0230 Pt sleeping comfortably. 0438 Over the course of the night, urine started at clear, red/brown but improved to clear, yellow by 0300.
[2024-12-22] MEDS: VANCOMYCIN 1,500 MG/300 ML PIGGYBACK 200 MG IV (06:21)
[2024-12-22 06:26] LABS: BUN Creatinine Ratio 16.2 (6-22); Blood Urea Nitrogen 16 mg/dL (9-20); Calcium 8.7 mg/dL (8.4-10.2); Carbon Dioxide 28 mmol/L (22-32); Chloride 104 mmol/L (98-107); Estimated Glomerular Filt Rate > 60 mL/min (>60); Glucose 114 mg/dL (80-110); HEMOLYSIS < 15 (0-50); Potassium 4.1 mmol/L (3.4-5.1); Sodium 135 mmol/L (137-145)
[2024-12-22 06:35] LABS: NT-proBNP (BNP-Adult 18+) 4100 pg/mL (<125)
--- NOTE | 2024-12-22 07:13 | PM.PN.1 ---
Subjective Subjective Date Patient Seen: 12/22/24 Interval history: He is seen today to follow-up his congestive heart failure and recent pyelonephritis. The BNP has dropped from 05/06 5 0 down to 03/01/2000. The sodium is 135 with a potassium of 4.1 and a creatinine of 0.99. He says that he had a panic attack last night but the nursing staff report that he had a severe right flank pain kidney stone/stent pain attack that responded to oxycodone. He does mention right ureteral stent pain after urination. This sounds like ureteral spasm pain. His echocardiogram shows new mitral regurgitation-moderate and diastolic dysfunction with an EF of 60-65%. Exam Vital Signs (past 8 hours): - 12/22/24 01:00 12/22/24 06:00 Temperature 97.7 F 97.2 F L Pulse Rate 76 66 Respiratory Rate 22 18 Blood Pressure 136/58 L 130/65 Pulse Oximetry 97 93 Oxygen Flow Rate 0 0 Oxygen Delivery Method Room Air Oxygen Flow Rate 0 Narrative Exam Narrative: He is alert and oriented x3. No apparent distress Heart is regular rate and rhythm without murmur Lungs are clear to auscultation bilaterally Extremities have no ankle edema Objective Labs 12/21/24 09:20 12/22/24 06:05 Labs: Laboratory Results - last 24 hr 12/21/24 12/21/24 12/22/24 09:20 09:50 06:05 WBC 11.7 H RBC 4.71 Hgb 12.2 L Hct 38.2 L MCV 81.1 MCH 25.9 L MCHC 31.9 RDW 15.6 H Plt Count 351 Neut % (Auto) 72.1 Lymph % (Auto) 15.9 L [place] % (Auto) 7.5 Eos % (Auto) 3.2 Baso % (Auto) 1.3 Neut # (Auto) 8400 H Lymph # (Auto) 1900 [place] # (Auto) 900 Eos # (Auto) 400 Baso # (Auto) 200 H Sodium 137 135 L Potassium 3.5 4.1 Chloride 103 104 Carbon Dioxide 30 28 BUN 15 16 Creatinine 1.03 0.99 Estimated GFR > 60 > 60 BUN/Creatinine Ratio 14.6 16.2 Glucose 130 H 114 H Calcium 8.5 8.7 NT-Pro-B Natriuret Pep 4100 H Nasal Screen MRSA (PCR) Not detected PFSH Medical History Fever Hypotension Right ureteral calculus Lower extremity edema Hepatitis C History of heroin use Methadone dependence Tobacco abuse Lumbar post-laminectomy syndrome Chronic shoulder pain IV drug abuse IV drug user Surgical History History of lithotripsy Family History Mother Diabetes mellitus Father Cancer Social History household members: friend(s) Smoking Status: Current every day smoker alcohol intake: former substance use type: opiates and IV drugs Assessment & Plan Assessment & Plan narrative: Diastolic CHF - Hx of A-fib, HTN and drug use - EKG SR, Normal EKG - Troponin 0.017 - had 20 mg of Lasix in the ED IVP - Lasix 40 mg daily, monitored BMP - echocardiogram read as new diastolic dysfunction and new moderate mitral regurgitation with LVEF 60-65%. Suspected PNA - ruled out, antibiotics stopped on 12/22/24 A-fib / HTN - Eliquis - metoprolol Emphysema - abuterol, fluticasone Rt Hydronephrosis / obstructing ureteral stone / s/p stenting Enterococcus Pyelonephritis - he was on Augmentin since he left AMA - Zosyn completed 12/21 - f/u with nephrology as scheduled Methadone Tx - 160 mg q noon Eliquis for DVT prevention. Disposition: home on 12/23. Time-Based Coding :: [TOTAL MINUTES] spent with patient and on the chart (including review of chart, obtaining history, exam, reviewing outside data, placing orders, documenting exam and treatment plan, and counseling patient) on [DATE].
[2024-12-22] MEDS: BUDESONIDE 0.5 MG/2 ML NEB INH ×2 (07:14→20:07)
[2024-12-22] MEDS: ALBUTEROL/IPRATROPIUM 3 ML AMPUL INH ×3 (07:15→20:07)
[2024-12-22] MEDS: APIXABAN 5 MG TABLET PO ×2 (08:16→20:06)
[2024-12-22] MEDS: METOPROLOL ER 50 MG TABLET 100 MG PO (08:16)
[2024-12-22] MEDS: polyethylene glycoL 3350 17 GM POWD.PACK PO (08:16)
[2024-12-22] MEDS: FUROSEMIDE 40 MG TABLET PO (08:16)
[2024-12-22] MEDS: MAGNESIUM HYDROXIDE 30 ML UDC PO (08:16)
[2024-12-22] MEDS: METHADONE INTENSOL 10 MG/ML ORAL.CONC 160 MG PO (08:18)
[2024-12-22] MEDS: SODIUM CHLORIDE 0.9% FLUSH 10 ML IV (21:03)
[2024-12-23] VITALS: BP 117/65; PULSE 70; RESP 18; TEMP 36.2; O2SAT 93
[2024-12-23] MEDS: OXYCODONE IR 5 MG TABLET 10 MG PO ×2 (00:45→05:26)
[2024-12-23] MEDS: ACETAMINOPHEN 325 MG TABLET 650 MG PO (05:26)
[2024-12-23 05:33] VITALS: BP 126/63; PULSE 70; RESP 18; TEMP 36.4; O2SAT 97
[2024-12-23] MEDS: FUROSEMIDE 40 MG TABLET PO (08:21)
[2024-12-23] MEDS: METHADONE INTENSOL 10 MG/ML ORAL.CONC 160 MG PO (08:21)
[2024-12-23] MEDS: APIXABAN 5 MG TABLET PO (08:21)
[2024-12-23 08:23] VITALS: BP 126/63; PULSE 70
[2024-12-23] MEDS: METOPROLOL ER 50 MG TABLET 100 MG PO (08:23)
[2024-12-23] MEDS: BUDESONIDE 0.5 MG/2 ML NEB INH (08:52)
[2024-12-23] MEDS: ALBUTEROL/IPRATROPIUM 3 ML AMPUL INH (08:52)
[2024-12-23 08:53] VITALS: PULSE 70; RESP 14; O2SAT 97
[2024-12-23 09:00] VITALS: BP 135/75; PULSE 74; RESP 17; TEMP 36.4; O2SAT 94
--- NOTE | 2024-12-23 09:16 | CM.DPC ---
DCP Cont. Reviewed EMR and team rounds for status updates. Met with pt at bedside to discuss his d/c and resource needs. Per his request, this ASSEMBLER [employer] provided pt with resources for [facility] housing assistance. Pt has been medically cleared for home d/c. His friend will be picking him up today at 11:00am. No further d/c assistance needs identified at this time.
--- NOTE | 2024-12-23 10:30 | PM.DS.1 ---
History of Present Illness History of Present Illness Chief complaint: Shortness of breath Narrative: From H&P: 63 y/o with PMH of Rt kidney stone, lithotripsy / stent in 2004, smoking, heroin abuse, on methadone therapy, hepatitis C, HTN, PAF, hospitalization on 12/15-12/16 for Rt ureterohydronephrosis from obstructing, 8 mm, distal ureteral stone -s/p stenting, he left AMA, came back complaining on shortness of breath. ED workup suggestive of new onset heart failure. Discharge Providers Provider Date of admission: 12/21/24 05:36 Discharge Date: 12/23/24 Primary care physician: MEMO Davies Consults: 12/22/24 10:00 Consult to ASSISTANT COUNTY ATTORNEY - Project Archivist Routine Comment: Per pt request Project Archivist Consult needed for:: Unable to care for self Comment: Unsafe housing situation (black mold) per pt Discharge provider: Sunil Acosta MD Summary Hospital Course Discharge Diagnosis: Diastolic CHF - Hx of A-fib, HTN and drug use - EKG SR, Normal EKG - Troponin 0.017 - had 20 mg of Lasix in the ED IVP - Lasix 40 mg daily, monitored BMP - echocardiogram read as new diastolic dysfunction and new moderate mitral regurgitation with LVEF 60-65%. A-fib - Eliquis - metoprolol HTN COPD - abuterol, fluticasone Rt Hydronephrosis / obstructing ureteral stone / s/p stenting Enterococcus Pyelonephritis - he was on Augmentin since he left AMA - Zosyn completed 12/21 - f/u with nephrology as scheduled Methadone Tx - 160 mg q noon Hospital Course: He was admitted and diuresed for acute diastolic heart failure. He improved. His edema improved. He also was comfortable with his breathing and did not require oxygen in the day of discharge. He states he was followed by Dr. Seaman of [facility] and we will see him again soon. The patient completed antibiotics on December 21 for right hydronephrosis and a pyelonephritis with Enterococcus. He was status post a recent stent placement and is reminded to follow up with Urology to have his next steps pursued in the next couple of weeks. Echo did reveal bpja-dj-[id number] mitral regurgitation and an EF of 60-65%. Status at Discharge Cognitive/behavioral status at discharge: oriented Functional status at discharge: independent ambulation Overall status at discharge: patient is progressing back to baseline Time Spent with Patient Time spent: Greater than 30 minutes Exam Vital Signs (past 8 hours): - 12/23/24 05:33 12/23/24 08:23 12/23/24 08:53 Temperature 97.5 F L Pulse Rate 70 70 70 Respiratory Rate 18 14 Blood Pressure 126/63 126/63 Pulse Oximetry 97 97 Oxygen Delivery Method Room Air Oxygen Flow Rate 0 12/23/24 09:00 Temperature 97.6 F Pulse Rate 74 Respiratory Rate 17 Blood Pressure 135/75 Pulse Oximetry 94 Oxygen Delivery Method Oxygen Flow Rate 0 Oxygen Delivery Method Room Air Oxygen Flow Rate 0 Narrative Exam Narrative: NAD, alert and oriented. Fluent speech. Lungs are clear, normal rate and effort. Heart is regular, no murmur gallop or rub. Abdomen is soft, non distended. Extremities are free of edema. Objective ECG Impression: Normal sinus rhythm Imaging Multiple studies:: Radiologist's impression: Echo: Normal LV size and systolic function. LVEF is 60-65% Normal RV size and function. Mild LA dilation. Likely moderate mitral regurgitation is present. Mild-moderate TR is noted. Elevated biventricular filling pressures are noted. When compared to TTE dated 08/27/22, new MR and diastolic dysfunction has developed. Chest CTA: No pulmonary embolus. Moderate pulmonary edema and small pleural effusions. Labs 12/21/24 09:20 12/22/24 06:05 [facility] Medical History Fever Hypotension Right ureteral calculus Lower extremity edema Hepatitis C History of heroin use Methadone dependence Tobacco abuse Lumbar post-laminectomy syndrome Chronic shoulder pain IV drug abuse IV drug user Surgical History History of lithotripsy Family History Mother Diabetes mellitus Father Cancer Social History household members: friend(s) Smoking Status: Current every day smoker alcohol intake: former substance use type: opiates and IV drugs Discharge Assessment & Plan Assessment and Plan Assessment: 1. Acute diastolic heart failure, present on admission and improved. Plan of Treatment: Discharge home with Lasix 40 mg daily. Asked to see his primary care within the next week. In addition a low-salt diet is recommended. He was also reminded to call Dr. Hicks, urology, to pursue next steps regarding his stent removal and stone removal. Discharge Plan Discharge Plan Patient Disposition: Home Provider Discharge Comment: Stable for discharge home on a diuretic with close follow up with PCP. He is followed by Dr. Seaman of Cardiology. Discharge orders & Medications Prescriptions: New furosemide 40 mg Tablet 40 mg PO DAILY Qty: 30 0RF Continued Trelegy Ellipta 100-62.5-25 mcg blister with device 1 inh inhalation DAILY Qty: 60 11RF albuterol sulfate 90 mcg/actuation HFA aerosol inhaler 1 puff Inhalation PRN PRN (Reason: Shortness Of Breath) methadone 40 mg Tablet,Soluble 160 mg PO DAILY metoprolol succinate 100 mg tablet extended release 24 hr 100 mg PO DAILY Eliquis 5 mg tablet 5 mg PO BID amoxicillin-pot clavulanate [Augmentin] 500-125 mg tablet 1 tab PO BID Qty: 14 0RF Follow up/Referrals: Remedios Arreguin ARNP [Primary Care Provider] - (patient aware to schedule follow up appointment with 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 Visit Report/Discharge Packet Instructions: DI for Heart Failure, Furosemide Stand Alone Forms: Patient Portal/API, Stroke Signs & Symptoms Discharge Data Primary Care Provider: Remedios Arreguin
== END 2024-12-23 11:26 | disposition home or self-care (01) | DRG 291 ==
LOC: ED 05:13 → AC 05:37
PROVIDERS: Family Medicine; Admitting Provider Internal Medicine; Emergency Provider Student in an Organized Health Care Education/Training Program; PCP Nurse Practitioner Family; Referring Provider Student in an Organized Health Care Education/Training Program; Visit Provider Internal Medicine
DX: I11.0 Hypertensive heart disease with heart failure (principal); I50.31 Acute diastolic (congestive) heart failure; F11.20 Opioid dependence, uncomplicated; N13.6 Pyonephrosis; B19.20 Unspecified viral hepatitis C without hepatic coma; B95.2 Enterococcus as the cause of diseases classified elsewhere; I34.0 Nonrheumatic mitral (valve) insufficiency; I48.0 Paroxysmal atrial fibrillation; J44.9 Chronic obstructive pulmonary disease, unspecified; F17.210 Nicotine dependence, cigarettes, uncomplicated; Z79.01 Long term (current) use of anticoagulants; Z96.0 Presence of urogenital implants; Z87.442 Personal history of urinary calculi
CPT/HCPCS: 0241U; 36415; 71275; 80048; 80053; 82550; 83690; 83880; 84484; 85025; 85610; 85730; 87797; 93005; 93306; 94640; 96365; 96375; 99284; 99406; J1940; J2543; Q9967

== ENCOUNTER → 2024-12-30 12:09 | Outpatient (CLI) | payer MEDICARE, MEDICAID, SELFPAY ==
[2024-12-21 09:09] VITALS: BMI 33.8
--- NOTE | 2024-12-30 12:11 | DI.RAD.S_ITS ---
PROCEDURE: XR KUB INDICATIONS: Follow-up right ureteral calculus TECHNIQUE: One view of the abdomen acquired. COMPARISON: None. FINDINGS: Stool gas pattern: Normal-no evidence of ileus or obstruction. No free intraperitoneal or extraperitoneal air. No gross evidence of ascites Soft tissues: No abnormal calcifications. No soft tissue masses. Right double pigtail ureteral stent overlies the expected location of the right upper collecting system ureter urinary bladder. No definite stones a identified Organs: No gross evidence for organomegaly. IMPRESSION: No acute disease. Right ureteral stent expected location. No definite stones identified Dictated by: Guru Franklin M.D. on 12/31/2024 at 12:33 Approved by: Guru Franklin M.D. on 12/31/2024 at 12:34
== END ==
PROVIDERS: PCP Nurse Practitioner Family; Referring Provider Urology; Visit Provider Urology
DX: N13.2 Hydronephrosis with renal and ureteral calculous obstruction (principal); N39.0 Urinary tract infection, site not specified; Z96.0 Presence of urogenital implants; Z87.440 Personal history of urinary (tract) infections; Z86.19 Personal history of other infectious and parasitic diseases
CPT/HCPCS: 74018; 81002; 99213; 99214

== ENCOUNTER 2025-01-06 21:52 | Emergency (ER) | payer MEDICARE, MEDICAID, SELFPAY ==
[2024-12-21 09:09] VITALS: BMI 33.8
[2025-01-07 00:08] LABS: Appearance Urine UA CLOUDY; Bilirubin Urine UA NEGATIVE (NEGATIVE); Color Urine UA BROWN; Glucose Urine UA NEGATIVE (Negative); Ketones Urine UA NEGATIVE (NEGATIVE); Leukocyte Esterase Urine UA NEGATIVE (NEGATIVE); Nitrite Urine UA NEGATIVE (Negative); Occult Blood Urine UA 3+ (Negative); Protein Urine UA 2+ (Negative); Specific Gravity Urine UA >=1.030 (1.000-1.035); Urobilinogen Urine UA 0.2 E.U./dL (0.2)
[2025-01-07 00:09] LABS: Bacteria Urine None Seen; Culture Indicated Urine Cult Not Indicated; RBC Urine >100/HPF (0-5/HPF); Squamous Epithelial Cell Urine None Seen (0-5/HPF); Urine Volume 10mL (spun); WBC Urine None Seen (0-5/HPF)
== END 2025-01-06 22:18 | disposition left against medical advice (07) ==
PROVIDERS: Emergency Provider Student in an Organized Health Care Education/Training Program; PCP Nurse Practitioner Family
DX: R82.90 Unspecified abnormal findings in urine (principal)
CPT/HCPCS: 81001; 99281

== ENCOUNTER → 2025-01-18 12:45 | Outpatient (CLI) | payer MEDICARE, MEDICAID, SELFPAY ==
[2024-12-21 09:09] VITALS: BMI 33.8
--- NOTE | 2025-01-18 12:47 | DI.RAD.S_ITS ---
PROCEDURE: XR KUB INDICATIONS: right ureteral calculus TECHNIQUE: One view of the abdomen acquired. COMPARISON: [facility], , XR KUB, 12/30/2024, 12:12. FINDINGS: Surgical changes and devices: Right ureteral stent in place. Bowel: Bowel gas pattern is normal. Large predominately right-sided stool burden. Soft tissues: Possible calcification measuring 6 millimeters adjacent to the distal aspect of the stent. Visualized solid organ contours appear normal in size. Bones: No suspicious bony lesions. IMPRESSION: Right ureteral stent in place. Questionable calcification measuring 6 millimeters near the distal aspect of the stent. Dictated by: Moe Lim M.D. on 01/18/2025 at 13:31 Approved by: Moe Lim M.D. on 01/18/2025 at 13:33
== END ==
PROVIDERS: PCP Nurse Practitioner Family; Referring Provider Urology; Visit Provider Urology
DX: N13.2 Hydronephrosis with renal and ureteral calculous obstruction (principal); Z96.0 Presence of urogenital implants
CPT/HCPCS: 74018

== ENCOUNTER → 2025-01-19 08:48 | Outpatient (CLI) | payer MEDICARE, MEDICAID, SELFPAY ==
[2024-12-21 09:09] VITALS: BMI 33.8
== END ==
PROVIDERS: PCP Nurse Practitioner Family; Visit Provider Urology
DX: N39.0 Urinary tract infection, site not specified (principal); N20.1 Calculus of ureter; I50.9 Heart failure, unspecified; J43.9 Emphysema, unspecified; F11.20 Opioid dependence, uncomplicated; Z96.0 Presence of urogenital implants; Z87.440 Personal history of urinary (tract) infections; Z87.898 Personal history of other specified conditions; Z86.19 Personal history of other infectious and parasitic diseases
CPT/HCPCS: 81002; 87086; 99214

== ENCOUNTER 2025-02-02 21:18 | Emergency (ER) | payer MEDICARE, SELFPAY ==
[2024-12-21 09:09] VITALS: BMI 33.8
[2025-02-02] VITALS (12 sets, daily range): BP systolic 137–160; BP diastolic 64–71; PULSE 72–83; RESP 18–21; TEMP 37.7–38.1; O2SAT 91–97; BMI 31.1
--- NOTE | 2025-02-02 21:30 | DI.RAD.S_ITS ---
PROCEDURE: XR CHEST 1V INDICATIONS: suspected sepsis TECHNIQUE: One view of the chest was acquired. COMPARISON: [facility], CR, XR CHEST 1V, 11/11/2023, 12:30. FINDINGS: Surgical changes and devices: None. Lungs and pleura: Lungs are clear. No pleural effusions or pneumothorax. Mediastinum: Mediastinal contours appear normal. Heart size is normal. Bones and chest wall: No suspicious bony lesions. Overlying soft tissues appear unremarkable. IMPRESSION: No acute cardiopulmonary pathology. Dictated by: Jesse Yip M.D. on 02/02/2025 at 22:03 Approved by: Jesse Yip M.D. on 02/02/2025 at 22:04
--- NOTE | 2025-02-02 21:30 | EKG_ITS ---
[address] [address] Test Date: 2025-02-02 Pat Name: Tahir Mittal Department: [facility] Room: Gender: Male Tactical Intelligence Officer: GLO JESÚS : 1960 Requested By: Order Number: [id number] Reading MD: Sunil Acosta Measurements Intervals [place] Rate: 76 P: 55 [place]: 170 QRS: 48 QRSD: 84 T: 57 QT: 398 QTc: 447 Interpretive Statements Normal sinus rhythm Electronically Signed On 02-03-2025 7:50:20 PST by Sunil Acosta
[2025-02-02 21:49] LABS: Add Manual Diff / Slide Review NO; Basophils Absolute Auto 0 /uL (0-100); Basophils Percent Auto 0.4 % (0-2); Eosinophils Absolute Auto 0 /uL (0-450); Eosinophils Percent Auto 0.1 % (2-4); Hematocrit 40.5 % (41-53); Hemoglobin 13.1 g/dL (13.5-17.5); Lymphocytes Absolute Auto 900 /uL (1100-4500); Lymphocytes Percent Auto 7.4 % (25-40); Mean Corpuscular HGB Conc 32.2 % (30-36); Mean Corpuscular Hemoglobin 25.8 PG (26-34); Mean Corpuscular Volume 80.1 fL (80-100); Monocytes Absolute Auto 900 /uL (0-900); Neutrophils Absolute Auto 10700 /uL (1500-7000); Neutrophils Percent Auto 85.1 % (50-75); Platelet Count 290 X10^3/uL (150-400); Red Blood Cell Count 5.06 X10^6/uL (4.5-5.9); Red Cell Distribution Width 14.7 % (11.6-14.8); White Blood Cell Count 12.5 X10^3/uL (4.5-11.0)
[2025-02-02 21:57] LABS: INR 1.4 (0.9-1.3); Prothrombin Time 15.8 SECONDS (9.4-12.5)
[2025-02-02 21:59] LABS: PTT Partial Thromboplastin Tim 40 SECONDS (25.1-36.5)
[2025-02-02 22:02] LABS: Alanine Aminotransferase 21 IU/L (<50); Albumin Globulin Ratio 1.1 (1.0-2.8); Alkaline Phosphatase 73 U/L (38-126); Aspartate Aminotransferase 30 IU/L (17-59); BUN Creatinine Ratio 16.8 (6-22); Bilirubin Total 0.4 mg/dL (0.2-1.3); Blood Urea Nitrogen 16 mg/dL (9-20); Calcium 9.1 mg/dL (8.4-10.2); Carbon Dioxide 33 mmol/L (22-32); Chloride 95 mmol/L (98-107); Estimated Glomerular Filt Rate > 60 mL/min (>60); Globulin 3.8 g/dL (1.7-4.1); Glucose 96 mg/dL (80-110); HEMOLYSIS < 15 (0-50); Lactate (Lactic Acid) 1.1 mmol/L (0.7-2.1); Lipase 15 U/L (23-300); Potassium 4.6 mmol/L (3.4-5.1); Sodium 132 mmol/L (137-145); Total Protein 7.8 g/dL (6.3-8.2)
--- NOTE | 2025-02-02 22:11 | ED_ITS ---
HPI - General Adult General Chief complaint: Urogenital-Male Stated complaint: kidney stone Time Seen by Provider: 02/02/25 21:42 Source: patient and EMS Mode of arrival: EMS History of Present Illness HPI narrative: 64-year-old male with history of known right-sided kidney stone status post ureteral stenting by local urologist Dr. Hicks on 12/06/2024, complains of recurrent/increasing right-sided flank discomfort. No nausea or vomiting. Has chronic pain for which he takes methadone. Patient also takes Eliquis chronic anticoagulation. Denies anterior abdominal pain, diarrhea, black stools, red stools. Denies recent vomiting. Takes methadone for chronic pain. Related Data Home Medications Medication Instructions Recorded Confirmed albuterol sulfate 90 mcg/actuation 1 puff inhalation PRN PRN 05/11/18 01/28/25 aerosol inhaler Shortness Of Breath methadone 40 mg soluble tablet 160 mg PO DAILY 01/03/22 01/28/25 apixaban 5 mg tablet (Eliquis) 5 mg PO BID 12/15/24 01/28/25 metoprolol succinate 100 mg 100 mg PO DAILY 12/15/24 01/28/25 tablet,extended release 24 hr Previous Rx's Medication Instructions Recorded fluticasone fur. 100 mcg-umeclid 1 inh inhalation DAILY #28 ea 01/28/25 62.5 mcg-vilant 25 mcg inhalat.powder (Trelegy Ellipta) cefdinir 300 mg capsule 300 mg PO BID 14 days #28 caps 02/03/25 Allergies Allergy/AdvReac Type Severity Reaction Status Date / Time No Known Drug Allergies Allergy Verified 01/28/25 11:44 Patient History Medical History History of urinary tract infection History of sepsis Retained ureteral stent Fever Hypotension Right ureteral calculus Lower extremity edema Hepatitis C History of heroin use Methadone dependence Tobacco abuse Lumbar post-laminectomy syndrome Chronic shoulder pain IV drug abuse IV drug user Surgical History History of lithotripsy Family History Mother Diabetes mellitus Father Cancer Social History (Updated 12/30/24 @ 13:15 by Rebecca Child MA) marital status: number of children: 5 household members: friend(s) Smoking Status: Current every day smoker alcohol intake: former substance use type: opiates and IV drugs Smoking Status: Current every day smoker tobacco type: cigarettes alcohol intake frequency: holidays/special occasions only Exam Narrative Exam Narrative: GENERAL: Well-developed patient, in mild distress. HEAD: Atraumatic. Normocephalic. EYES: Pupils equal round and reactive. Extraocular motions intact. No scleral icterus. No injection or drainage. ENT: Nose without bleeding, purulent drainage. Throat without erythema, tonsillar hypertrophy or exudate. Airway patent. NECK: Trachea midline. Non tender CARDIOVASCULAR: Regular rate and rhythm without murmurs, gallops, or rubs. RESPIRATORY: Clear to auscultation. Breath sounds equal bilaterally. No wheezes, rales, or rhonchi. GASTROINTESTINAL: Abdomen soft, non-tender, nondistended. EXTREMITIES: No edema or joint tenderness. BACK: Nontender without deformity or crepitance. No flank tenderness. NEURO: AOx3. Motor functions grossly nonfocal SKIN: No rash or erythema of visible areas Initial Vital Signs Initial Vital Signs: Vital Signs Blood Pressure 152/70 H 02/02/25 21:21 Course Orders Ordered: ED Orders 02/02/25 21:30 XR chest 1V Stat EKG-12 Lead Stat RT Consult Eval and Treat NOW 02/02/25 21:40 Complete Blood Count AUTO DIFF Stat Comprehensive Metabolic Panel Stat Lactate (Lactic Acid) Stat Lipase Stat PTT Partial Thromboplastin Cedric Stat Procalcitonin Stat Prothrombin Time INR Stat 02/02/25 22:08 Blood Culture Stat Urinalysis Screen (Dip Only) Stat Urine Culture Stat Urine Microscopic Stat 02/02/25 22:46 CT abdomen pelvis w con Stat Discontinued Medications Acetaminophen (Acetaminophen 325 Mg Tablet) 650 mg PO NOW ONE Stop: 02/02/25 23:53 Last Admin: 02/02/25 23:59 Dose: 650 mg Documented By: ALLAN Hydromorphone HCl (Hydromorphone 0.5 Mg Inj) 0.5 mg IV NOW ONE Stop: 02/02/25 22:50 Last Admin: 02/02/25 23:03 Dose: 0.5 mg Documented By: VALERI Hydromorphone HCl (Hydromorphone 0.5 Mg Inj) 0.5 mg IV NOW ONE Stop: 02/03/25 00:03 Last Admin: 02/03/25 00:19 Dose: 0.5 mg Documented By: ALLAN Ceftriaxone Sodium 1,000 mg/ (Sodium Chloride) 100 mls @ 200 mls/hr IV NOW ONE Stop: 02/02/25 22:48 Last Infusion: 02/02/25 23:52 Dose: Infused Documented By: Admin: 02/02/25 23:01 Dose: 200 mls/hr Documented By: VALERI Ondansetron HCl (Ondansetron 4 Mg/2 Ml Inj) 4 mg IV NOW PRN PRN Reason: Nausea And Vomiting Last Admin: 02/03/25 01:11 Dose: 4 mg Documented By: ALLAN Ondansetron HCl (Ondansetron 4 Mg Odt) 4 mg SL NOW PRN PRN Reason: Nausea And Vomiting Vital Signs Vital signs: Vital Signs - 8 hr 02/02/25 21:21 02/02/25 21:22 02/02/25 21:26 Temperature 99.9 F H Pulse Rate 77 83 Respiratory Rate 20 Blood Pressure 152/70 H 152/70 H Pulse Oximetry 96 Oxygen Delivery Method Room Air 02/02/25 21:30 02/02/25 22:00 02/02/25 22:12 Temperature Pulse Rate 80 80 Respiratory Rate Blood Pressure 150/66 H Pulse Oximetry 97 91 Oxygen Delivery Method Room Air 02/02/25 22:12 02/02/25 22:30 02/02/25 22:30 Temperature Pulse Rate 79 81 Respiratory Rate 19 21 Blood Pressure 137/64 Pulse Oximetry 93 92 Oxygen Delivery Method Room Air 02/02/25 23:15 02/02/25 23:21 02/02/25 23:21 Temperature Pulse Rate 72 80 Respiratory Rate 19 Blood Pressure 160/71 H Pulse Oximetry 93 Oxygen Delivery Method 02/02/25 23:30 02/02/25 23:51 02/02/25 23:59 Temperature 100.5 F H 100.5 F H Pulse Rate 81 Respiratory Rate 18 Blood Pressure Pulse Oximetry Oxygen Delivery Method 02/03/25 00:00 02/03/25 00:30 02/03/25 01:00 Temperature Pulse Rate 87 83 79 Respiratory Rate 22 20 20 Blood Pressure Pulse Oximetry 92 Oxygen Delivery Method 02/03/25 01:16 02/03/25 01:17 Temperature 100.2 F H Pulse Rate 88 Respiratory Rate 18 Blood Pressure 146/82 H 146/82 H Pulse Oximetry 94 Oxygen Delivery Method Room Air Medical Decision Making Lab Data Lab results reviewed: Yes I reviewed the patient's lab results. Lab results narrative: White blood cell count 53637, hemoglobin 13.1, platelets adequate. BUN 16 with creatinine 0.95, glucose 96. Sodium 132 with potassium 4.6, serum CO2 33 elevated, serum chloride 95 low. Liver functions and lipase not elevated. 02/02/25 21:40 02/02/25 21:40 Labs: Lab Results 02/02/25 02/02/25 Range/Units 21:40 22:08 WBC 12.5 H (4.5-11.0) X10^3/uL RBC 5.06 (4.5-5.9) X10^6/uL Hgb 13.1 L (13.5-17.5) g/dL Hct 40.5 L (41-53) % MCV 80.1 (80-100) fL MCH 25.8 L (26-34) PG MCHC 32.2 (30-36) % RDW 14.7 (11.6-14.8) % Plt Count 290 (150-400) X10^3/uL Neut % (Auto) 85.1 H (50-75) % Lymph % (Auto) 7.4 L (25-40) % [place] % (Auto) 7.0 (3-14) % Eos % (Auto) 0.1 L (2-4) % Baso % (Auto) 0.4 (0-2) % Neut # (Auto) 62377 H (8836-7439) /uL Lymph # (Auto) 900 L (9380-6070) /uL [place] # (Auto) 900 (0-900) /uL Eos # (Auto) 0 (0-450) /uL Baso # (Auto) 0 (0-100) /uL PT 15.8 H (9.4-12.5) SECONDS INR 1.4 H (0.9-1.3) APTT 40 H (25.1-36.5) SECONDS Sodium 132 L (137-145) mmol/L Potassium 4.6 (3.4-5.1) mmol/L Chloride 95 L (98-107) mmol/L Carbon Dioxide 33 H (22-32) mmol/L BUN 16 (9-20) mg/dL Creatinine 0.95 (0.66-1.25) mg/dL Estimated GFR > 60 (>60) mL/min BUN/Creatinine Ratio 16.8 (6-22) Glucose 96 (80-110) mg/dL Lactate 1.1 (0.7-2.1) mmol/L Calcium 9.1 (8.4-10.2) mg/dL Total Bilirubin 0.4 (0.2-1.3) mg/dL AST 30 (17-59) IU/L ALT 21 (<50) IU/L Alkaline Phosphatase 73 (38-126) U/L Total Protein 7.8 (6.3-8.2) g/dL Albumin 4.0 (3.5-5.0) g/dL Globulin 3.8 (1.7-4.1) g/dL Albumin/Globulin Ratio 1.1 (1.0-2.8) Lipase 15 L (23-300) U/L Procalcitonin 0.292 (<0.5) ng/mL Urine Color Radha Urine Appearance Cloudy Urine pH 6.5 (4.5-8.0) Ur Specific [place] 1.015 (1.000-1.035) Urine Protein 2+ H (Negative) Urine Glucose (UA) Negative (Negative) g/dL Urine Ketones Negative (NEGATIVE) Urine Occult Blood 3+ H (Negative) Urine Nitrate Positive H (Negative) Urine Bilirubin Negative (NEGATIVE) Urine Urobilinogen 1.0 (0.2) E.U./dL Ur Leukocyte Esterase 2+ H (NEGATIVE) Urine RBC >100/hpf H (0-5/HPF) Urine WBC 30-100/hpf H (0-5/HPF) Ur Squamous Epith Cells 0-1 /hpf (0-5/HPF) Urine Bacteria Few (2-10) H (None) Ur Culture Indicated? Specimen cultured Vol Urine Centrifuged 10ml (spun) Imaging Data CT scan - abdomen/pelvis: Radiologist's Impression: [address] [address] [address] Scan Report Signed Patient: Tahir Mittal MR#: [id number] : 1960 Acct:[id number] Age/Sex: 64 / M Date of Service: 02/02/25 Loc: ED Accession Number: [id number] Procedure: CT abdomen pelvis w con Ordering Provider: Hao Holden MD PROCEDURE: CT ABDOMEN PELVIS W CON INDICATIONS: R flank pain, exsiting R ureteral stent TECHNIQUE: After the administration of intravenous contrast, axial sections acquired from the lung bases to the pubic symphysis. Coronal and sagittal reformats were performed. For radiation dose reduction, the following was used: automated exposure control, adjustment of mA and/or kV according to patient size. COMPARISON: [facility], CT, CT KIDNEY URETER BLADDER (KUB), 12/14/2024, 23:27. FINDINGS: Image quality: Diagnostic. Lower Chest: No significant findings. ABDOMEN: Liver: No solid mass. Gallbladder: Gallbladder is distended. No radiopaque gallstones or wall thickening. Biliary ducts: No biliary dilation. Pancreas: No ductal dilation. Spleen: Size is within normal limits. Adrenal Glands: No adrenal nodules. Kidneys and Ureters: There is interval placement of right-sided ureteral stent. Mild residual right hydronephrosis is seen. No hydroureter. Significant right perinephric fat stranding and periureteral fat stranding. No perinephric fluid collection. No left-sided renal stones or hydronephrosis. No left hydroureter. No solid appearing renal lesion. Stomach and Bowel: No bowel obstruction or abnormal bowel wall thickening. Normal appendix. Moderate fecal stasis in the colon is seen. No abscess collection. Peritoneum: No abnormal intraperitoneal fluid. No free air. Ventral Wall: No significant ventral hernia. Abdominal Nodes: No retroperitoneal or mesenteric adenopathy by size criteria. Vessels: Aorta and inferior vena cava are normal in size. PELVIS: Pelvic Organs: Unremarkable. Bladder: No bladder wall thickening, accounting for underdistention. Pelvic Nodes: No enlarged lymph nodes. Miscellaneous: No inguinal hernias are seen. Bones: No aggressive osseous abnormality. IMPRESSION: 1. Interval placement of right-sided ureteral stent with very mild residual right hydronephrosis. No hydroureter. No left-sided renal stones or hydronephrosis. 2. Significant right perinephric fat stranding and periureteral fat stranding, infectious process such as pyelonephritis is suspected suggest urological correlation. Normal appearing urinary bladder. 3. [id number]-ipawqkoy constipation. Normal appendix. No bowel obstruction. No free fluid or free air. Dictated by: Jesse Yip M.D. on 02/02/2025 at 23:33 Approved by: Jesse Yip M.D. on 02/02/2025 at 23:35 ECG Data Attestation: I personally reviewed and interpreted this ECG as follows: Interpretation: Normal sinus rhythm with rate of 76, no obvious ST segment elevation or depression changes. WI 170, QRS 84, QTC 447. MDM Narrative Medical decision making narrative: 64-year-old male status post right ureteral stenting 12/06/2024 now with increasing right-sided flank pain, low-grade fever present, normotensive, no tachycardia. He takes methadone for chronic pain. Having pain, IV Dilaudid ordered, still having pain, repeat dose Dilaudid also given. CT abdomen and pelvis imaging requested. Urinalysis suspicious for infection, blood and urine cultures requested, IV ceftriaxone ordered. CT shows right-sided ureteral stent in place, mild right-sided hydro, no ureteral stone identified, some ureteral stranding and perinephric stranding noted, consider pyelonephritis. No description of abscess formation. See radiology report. 0100, case discussed with Urology Dr. Soto, seemed to be familiar with case, suggest treatment with 14 day course cefdinir, he will contact Dr. Hicks tomorrow to contact patient for further follow up plan. Patient would like to go home, further treatment as an outpatient for now. Continue methadone pain management regular scheduled medications for now. Ceftriaxone given here, prescription sent for cefdinir 14 day course as above. Discharged home, follow up with his urologist Dr. Hicks advised. Return precautions discussed. Discharge Plan Departure Patient Disposition: Home Clinical Impression: Acute pyelonephritis Instructions: DI for Urinary Tract Infection (UTI) Activity Restrictions/Additional Instructions: Mr Mittal, you described previous right ureter stenting procedure by local urologist Dr. Hicks in December 2024, now with increasing right-sided pain flank, low-grade fever noted, urinalysis suspicious for infection tonight, IV ceftriaxone given, blood cultures requested. Urine culture done prior by protocol due to abnormal urinalysis results. You have history of chronic pain, on methadone. IV Dilaudid doses given in the emergency department. You are on blood thinner Eliquis, so we avoided Toradol medication for now, that could cause bleeding. Case discussed with on-call Urology Dr. Soto who seemed to be aware of your case and situation, who said he would communicate with your urologist Dr. Hicks tomorrow. Call the office of Dr. Hicks tomorrow for further instructions. Dr. Soto suggested 14 day course of cefdinir antibiotic, this was called to your pharmacy. Take antibiotics as directed. Continue your other chronic pain medications and other regular chronic prescribed medications. Follow up with your urologist. Return earlier to this/nearest emergency department for any change worsening symptoms or any concerns prior. Thank you for allowing our team to evaluate you tonight. Prescriptions: New cefdinir 300 mg capsule 300 mg PO BID 14 Days Qty: 28 0RF No Action albuterol sulfate 90 mcg/actuation HFA aerosol inhaler 1 puff Inhalation PRN PRN (Reason: Shortness Of Breath) methadone 40 mg Tablet,Soluble 160 mg PO DAILY metoprolol succinate 100 mg tablet extended release 24 hr 100 mg PO DAILY Eliquis 5 mg tablet 5 mg PO BID Trelegy Ellipta 100-62.5-25 mcg blister with device 1 inh inhalation DAILY Qty: 28 11RF Referrals: Sofie Barrera DO [Primary Care Provider] - Yamil Soto DO [Physician] - Tahir Hicks MD [Physician] - Stand Alone Forms: Patient Portal/API/Survey
[2025-02-02 22:18] LABS: Procalcitonin 0.292 ng/mL (<0.5)
[2025-02-02 22:29] LABS: RBC Urine >100/HPF (0-5/HPF); Urine Volume 10mL (spun); WBC Urine 30-100/HPF (0-5/HPF)
[2025-02-02 22:30] LABS: Bacteria Urine Few (2-10); Culture Indicated Urine Specimen Cultured; Squamous Epithelial Cell Urine 0-1 /HPF (0-5/HPF)
[2025-02-02 22:45] LABS: Bilirubin Urine UA NEGATIVE (NEGATIVE); Glucose Urine UA NEGATIVE (Negative); Ketones Urine UA NEGATIVE (NEGATIVE); Leukocyte Esterase Urine UA 2+ (NEGATIVE); Nitrite Urine UA POSITIVE (Negative); Occult Blood Urine UA 3+ (Negative); Protein Urine UA 2+ (Negative); Specific Gravity Urine UA 1.015 (1.000-1.035); pH Urine UA 6.5 (4.5-8.0)
--- NOTE | 2025-02-02 22:46 | DI.CT.S_ITS ---
PROCEDURE: CT ABDOMEN PELVIS W CON INDICATIONS: R flank pain, exsiting R ureteral stent TECHNIQUE: After the administration of intravenous contrast, axial sections acquired from the lung bases to the pubic symphysis. Coronal and sagittal reformats were performed. For radiation dose reduction, the following was used: automated exposure control, adjustment of mA and/or kV according to patient size. COMPARISON: [facility], CT, CT KIDNEY URETER BLADDER (KUB), 12/14/2024, 23:27. FINDINGS: Image quality: Diagnostic. Lower Chest: No significant findings. ABDOMEN: Liver: No solid mass. Gallbladder: Gallbladder is distended. No radiopaque gallstones or wall thickening. Biliary ducts: No biliary dilation. Pancreas: No ductal dilation. Spleen: Size is within normal limits. Adrenal Glands: No adrenal nodules. Kidneys and Ureters: There is interval placement of right-sided ureteral stent. Mild residual right hydronephrosis is seen. No hydroureter. Significant right perinephric fat stranding and periureteral fat stranding. No perinephric fluid collection. No left-sided renal stones or hydronephrosis. No left hydroureter. No solid appearing renal lesion. Stomach and Bowel: No bowel obstruction or abnormal bowel wall thickening. Normal appendix. Moderate fecal stasis in the colon is seen. No abscess collection. Peritoneum: No abnormal intraperitoneal fluid. No free air. Ventral Wall: No significant ventral hernia. Abdominal Nodes: No retroperitoneal or mesenteric adenopathy by size criteria. Vessels: Aorta and inferior vena cava are normal in size. PELVIS: Pelvic Organs: Unremarkable. Bladder: No bladder wall thickening, accounting for underdistention. Pelvic Nodes: No enlarged lymph nodes. Miscellaneous: No inguinal hernias are seen. Bones: No aggressive osseous abnormality. IMPRESSION: 1. Interval placement of right-sided ureteral stent with very mild residual right hydronephrosis. No hydroureter. No left-sided renal stones or hydronephrosis. 2. Significant right perinephric fat stranding and periureteral fat stranding, infectious process such as pyelonephritis is suspected suggest urological correlation. Normal appearing urinary bladder. 3. Ralq-un-jifhllpm constipation. Normal appendix. No bowel obstruction. No free fluid or free air. Dictated by: Jesse Yip M.D. on 02/02/2025 at 23:33 Approved by: Jesse Yip M.D. on 02/02/2025 at 23:35
[2025-02-02 22:47] LABS: Appearance Urine UA Cloudy; Color Urine UA Amber
[2025-02-02] MEDS: cefTRIAXone 1,000 MG in SODIUM CHLORIDE 0.9% 100 ML 200 MG IV (23:01)
[2025-02-02] MEDS: HYDROMORPHONE 0.5 MG INJ IV (23:03)
[2025-02-02] MEDS: ACETAMINOPHEN 325 MG TABLET 650 MG PO (23:59)
[2025-02-03] VITALS: PULSE 87; RESP 22; O2SAT 92
[2025-02-03] MEDS: HYDROMORPHONE 0.5 MG INJ IV (00:19)
[2025-02-03 00:30] VITALS: PULSE 83; RESP 20
[2025-02-03 01:00] VITALS: PULSE 79; RESP 20
[2025-02-03] MEDS: ONDANSETRON 4 MG/2 ML INJ IV (01:11)
[2025-02-03 01:16] VITALS: BP 146/82
[2025-02-03 01:17] VITALS: BP 146/82; PULSE 88; RESP 18; TEMP 37.9; O2SAT 94
[2025-02-03 12:03] LABS: Acinetobacter calcoa-baumannii Not Detected (Not Detect); Bacteroides fragilis Not Detected (Not Detect); Candida albicans Not Detected (Not Detect); Candida auris Not Detected (Not Detect); Candida glabrata Not Detected (Not Detect); Candida krusei Not Detected (Not Detect); Candida parapsilosis Not Detected (Not Detect); Candida tropicalis Not Detected (Not Detect); Cryptococcus neoformans/gatti Not Detected (Not Detect); Enterobacter cloacae complex Not Detected (Not Detect); Enterobacterales Not Detected (Not Detect); Enterococcus faecalis Detected (Not Detect); Enterococcus faecium Not Detected (Not Detect); Haemophilus influenzae Not Detected (Not Detect); Klebsiella aerogenes Not Detected (Not Detect); Listeria monocytogenes Not Detected (Not Detect); Neisseria meningitidis Not Detected (Not Detect); Proteus species Not Detected (Not Detect); Pseudomonas aeruginosa Not Detected (Not Detect); Salmonella species Not Detected (Not Detect); Serratia marcescens Not Detected (Not Detect); Staphylococcus epidermidis Not Detected (Not Detect); Staphylococcus lugdunensis Not Detected (Not Detect); Staphylococcus species Not Detected (Not Detect); Stenotrophomonas maltophilia Not Detected (Not Detect); Streptococcus agalactiae (Gr B Not Detected (Not Detect); Streptococcus pneumonia Not Detected (Not Detect); Streptococcus pyogenes (Gr A) Not Detected (Not Detect); Streptococcus species Not Detected (Not Detect); Vancomycin-rest genes A/B Not Detected (Not Detect)
== END 2025-02-03 01:42 | disposition home or self-care (01) ==
PROVIDERS: Emergency Provider Emergency Medicine; PCP Family Medicine
DX: N10 Acute pyelonephritis (principal); Z87.442 Personal history of urinary calculi
CPT/HCPCS: 36415; 71045; 74177; 80053; 81003; 81015; 83605; 83690; 84145; 85025; 85610; 85730; 87040; 87086; 87154; 93005; J0696; J1171; J2405; Q9967

== ENCOUNTER 2025-02-03 09:05 | Inpatient (IN) | payer MEDICARE, MEDICAID, SELFPAY ==
[2024-12-21 09:09] VITALS: BMI 33.8
[2025-02-03] VITALS (36 sets, daily range): BP systolic 90–139; BP diastolic 49–73; PULSE 72–89; RESP 12–29; TEMP 36.4–38.2; O2SAT 89–98; BMI 31.1
--- NOTE | 2025-02-03 09:16 | ED_ITS ---
HPI - General Adult General Chief complaint: Abdominal Pain Stated complaint: Abd pain Time Seen by Provider: 02/03/25 09:27 History of Present Illness HPI narrative: 64-year-old gentleman with a history of hep C, opioid use disorder currently stable on methadone, recently diagnosed kidney stone with a ureteral stent placed on December [address] Hicks. Was seen in the emergency room last night with increasing right-sided flank pain with CT scan showing the right-sided ureteral stent appropriately placed but significant right perinephric fat stranding and periureteral fat stranding. Patient was given IV ceftriaxone, care was discussed with on-call urology who suggested 14 day course of cefdinir with continued outpatient follow up. Pain 2 and was discharged home but pain was unable to be controlled at home and you returns by ambulance this morning. Patient is having difficulty taking care of himself. He was not able to fill the antibiotic prescription, has not been able to get to the clinic to take his methadone yesterday or today, pain is increasing as well as general body aches and now developing a fever Related Data Home Medications Medication Instructions Recorded Confirmed albuterol sulfate 90 mcg/actuation 1 puff inhalation PRN PRN 05/11/18 02/03/25 aerosol inhaler Shortness Of Breath methadone 40 mg soluble tablet 160 mg PO DAILY 01/03/22 02/03/25 apixaban 5 mg tablet (Eliquis) 5 mg PO BID 12/15/24 02/03/25 metoprolol succinate 100 mg 100 mg PO DAILY 12/15/24 02/03/25 tablet,extended release 24 hr Allergies Allergy/AdvReac Type Severity Reaction Status Date / Time No Known Drug Allergies Allergy Verified 01/28/25 11:44 Review of Systems Review of Systems Narrative: Pertinent positive and negative findings as per HPI Patient History Medical History History of urinary tract infection History of sepsis Retained ureteral stent Fever Hypotension Right ureteral calculus Lower extremity edema Hepatitis C History of heroin use Methadone dependence Tobacco abuse Lumbar post-laminectomy syndrome Chronic shoulder pain IV drug abuse IV drug user Surgical History History of lithotripsy Family History Mother Diabetes mellitus Father Cancer Social History marital status: number of children: 5 household members: other Smoking Status: Current every day smoker alcohol intake: former substance use type: opiates and IV drugs Smoking Status: Current every day smoker tobacco type: cigarettes alcohol intake frequency: holidays/special occasions only Exam Initial Vital Signs Initial Vital Signs: Vital Signs Temperature 100.8 F H 02/03/25 09:16 Pulse Rate 86 02/03/25 09:16 Respiratory Rate 24 02/03/25 09:16 Blood Pressure 139/73 02/03/25 09:16 Pulse Oximetry 95 02/03/25 09:16 Oxygen Delivery Method Room Air 02/03/25 09:16 General: Chronically ill-appearing, disheveled HEENT: Moist mucous membranes, normal sclera with reactive pupils, Respiratory: Lungs are clear to auscultation, no wheezing no rales no rhonchi. Full and symmetrical air movement Cardiac: Regular rate and rhythm no murmurs no bruits Abdomen: Soft, mild tenderness without rebound or guarding, mild right flank pain radiating into the right lower quadrant Skin: Pale, track shelton, no signs of obvious infection Neurologic: Grossly neurologically intact with no obvious asymmetries or abnormalities Extremities: Overall perfusion appears to be at his baseline Psych: Cooperative, good eye contact, appropriate speech and affect Course Orders Ordered: ED Orders 02/03/25 10:40 Blood Culture Stat Complete Blood Count AUTO DIFF Stat Comprehensive Metabolic Panel Stat Lactate (Lactic Acid) Stat Hydromorphone HCl (Hydromorphone 0.5 Mg Inj) 0.5 mg IV Q2H PRN PRN Reason: Pain, Severe (7-10) Last Admin: 02/03/25 15:58 Dose: 0.5 mg Documented By: CHRISTY Sodium Chloride (Normal Saline 0.9%) 1,000 mls @ 100 mls/hr IV CONT CHELO Last Admin: 02/03/25 16:19 Dose: 100 mls/hr Documented By: CJW Ampicillin Sodium/Sulbactam (Sodium 3 gm/ Sodium Chloride) 100 mls @ 200 mls/hr IV Q6H CHELO Last Admin: 02/03/25 18:18 Dose: 200 mls/hr Documented By: ESV Vancomycin HCl/Dextrose (Vancomycin) 1,500 mg in 300 mls @ 200 mls/hr IV Q12H CHELO Naloxone HCl (Naloxone 0.4 Mg/Ml Vial) 0.2 mg IV Q2MIN PRN PRN Reason: Opiate Reversal Ondansetron HCl (Ondansetron 4 Mg/2 Ml Inj) 4 mg IV Q8HR PRN PRN Reason: Nausea And Vomiting Last Admin: 02/03/25 15:58 Dose: 4 mg Documented By: CHRISTY Oxycodone HCl (Oxycodone Ir 10 Mg Tablet) 10 mg PO Q3H PRN PRN Reason: Pain, Severe (7-10) Last Admin: 02/03/25 16:21 Dose: 10 mg Documented By: CHRISTY Vancomycin HCl (Vancomycin Per Pharmacy) 1 request MISC NOW PRN PRN Reason: PROTOCOL Vancomycin HCl (Vancomycin Trough) 1 [place] [facility] [place] [place] Stop: 02/04/25 01:31 Discontinued Medications Levofloxacin (Levaquin) 750 mg in 150 mls @ 100 mls/hr IV NOW ONE Stop: 02/03/25 12:13 Last Infusion: 02/03/25 13:30 Dose: Infused Documented By: Admin: 02/03/25 12:02 Dose: 100 mls/hr Documented By: DOROTHY Ampicillin Sodium/Sulbactam (Sodium 3 gm/ Sodium Chloride) 100 mls @ 200 mls/hr IV NOW ONE Stop: 02/03/25 10:51 Last Infusion: 02/03/25 12:02 Dose: Infused Documented By: Admin: 02/03/25 11:20 Dose: 200 mls/hr Documented By: DOROTHY Vancomycin HCl/Dextrose (Vancomycin) 2,000 mg in 400 mls @ 200 mls/hr IV NOW ONE Stop: 02/03/25 13:14 Last Admin: 02/03/25 13:46 Dose: 200 mls/hr Documented By: COLIN Methadone HCl (Methadone Intensol 10 Mg/Ml Oral.Conc) 160 mg PO NOW ONE Stop: 02/03/25 09:49 Last Admin: 02/03/25 11:17 Dose: 160 mg Documented By: DOROTHY Vancomycin HCl (Vancomycin Per Pharmacy) 1 request MISC NOW ONE Stop: 02/03/25 10:52 Last Admin: 02/03/25 11:28 Dose: Not Given Documented By: DOROTHY Vital Signs Vital signs: Vital Signs - 8 hr 02/03/25 10:30 02/03/25 10:30 02/03/25 11:00 Pulse Rate 80 75 Respiratory Rate 12 22 Blood Pressure 106/57 L Pulse Oximetry 94 02/03/25 11:00 02/03/25 11:30 02/03/25 11:30 Pulse Rate 82 Respiratory Rate Blood Pressure 99/55 L 105/57 L Pulse Oximetry 91 02/03/25 11:35 02/03/25 11:35 02/03/25 11:40 Pulse Rate 82 80 Respiratory Rate 28 H 29 H Blood Pressure 97/65 Pulse Oximetry 95 95 02/03/25 11:40 02/03/25 11:45 02/03/25 11:45 Pulse Rate 74 Respiratory Rate 28 H Blood Pressure 100/58 L 90/55 L Pulse Oximetry 92 02/03/25 11:50 02/03/25 11:50 02/03/25 11:55 Pulse Rate 76 74 Respiratory Rate 25 H 24 Blood Pressure 94/58 L Pulse Oximetry 92 92 02/03/25 11:55 02/03/25 12:00 02/03/25 12:00 Pulse Rate 75 Respiratory Rate 27 H Blood Pressure 93/58 L 92/59 L Pulse Oximetry 91 02/03/25 12:05 02/03/25 12:05 02/03/25 12:10 Pulse Rate 75 73 Respiratory Rate 24 24 Blood Pressure 101/57 L Pulse Oximetry 89 L 91 02/03/25 12:10 02/03/25 12:15 02/03/25 12:15 Pulse Rate 74 Respiratory Rate 25 H Blood Pressure 97/57 L 98/54 L Pulse Oximetry 90 L 02/03/25 12:20 02/03/25 12:20 02/03/25 12:25 Pulse Rate 73 73 Respiratory Rate 24 25 H Blood Pressure 91/51 L Pulse Oximetry 90 L 90 L 02/03/25 12:25 02/03/25 12:30 02/03/25 12:30 Pulse Rate 72 Respiratory Rate 22 Blood Pressure 92/54 L 91/54 L Pulse Oximetry 91 02/03/25 12:35 02/03/25 12:35 02/03/25 12:40 Pulse Rate 73 73 Respiratory Rate 22 23 Blood Pressure 93/57 L Pulse Oximetry 90 L 92 02/03/25 12:40 02/03/25 12:45 02/03/25 12:45 Pulse Rate 74 Respiratory Rate 25 H Blood Pressure 93/57 L 98/61 Pulse Oximetry 91 02/03/25 12:50 02/03/25 12:50 02/03/25 12:55 Pulse Rate 73 73 Respiratory Rate 20 26 H Blood Pressure 100/63 Pulse Oximetry 92 91 02/03/25 12:55 02/03/25 13:00 02/03/25 13:00 Pulse Rate 74 Respiratory Rate 24 Blood Pressure 98/64 98/62 Pulse Oximetry 92 02/03/25 13:05 02/03/25 13:05 02/03/25 13:10 Pulse Rate 74 73 Respiratory Rate 23 25 H Blood Pressure 94/62 Pulse Oximetry 91 92 02/03/25 13:10 02/03/25 13:15 02/03/25 13:15 Pulse Rate 74 Respiratory Rate 22 Blood Pressure 100/66 103/64 Pulse Oximetry 92 02/03/25 13:20 02/03/25 13:20 02/03/25 13:25 Pulse Rate 75 75 Respiratory Rate 25 H 25 H Blood Pressure 106/61 Pulse Oximetry 91 91 02/03/25 13:25 02/03/25 13:30 02/03/25 13:30 Pulse Rate 75 Respiratory Rate 22 Blood Pressure 103/63 112/68 Pulse Oximetry 91 Medical Decision Making Lab Data 02/03/25 10:40 02/03/25 10:40 Labs: Lab Results 02/03/25 Range/Units 10:40 WBC 16.9 H (4.5-11.0) X10^3/uL RBC 4.99 (4.5-5.9) X10^6/uL Hgb 13.1 L (13.5-17.5) g/dL Hct 39.8 L (41-53) % MCV 79.8 L (80-100) fL MCH 26.2 (26-34) PG MCHC 32.8 (30-36) % RDW 14.4 (11.6-14.8) % Plt Count 263 (150-400) X10^3/uL Neut % (Auto) 88.9 H (50-75) % Lymph % (Auto) 3.4 L (25-40) % Pitkin % (Auto) 7.2 (3-14) % Eos % (Auto) 0.1 L (2-4) % Baso % (Auto) 0.4 (0-2) % Neut # (Auto) 60170 H (2430-2861) /uL Lymph # (Auto) 600 L (8499-9658) /uL Pitkin # (Auto) 1200 H (0-900) /uL Eos # (Auto) 0 (0-450) /uL Baso # (Auto) 100 (0-100) /uL Sodium 129 L (137-145) mmol/L Potassium 4.0 (3.4-5.1) mmol/L Chloride 95 L (98-107) mmol/L Carbon Dioxide 27 (22-32) mmol/L BUN 15 (9-20) mg/dL Creatinine 1.00 (0.66-1.25) mg/dL Estimated GFR > 60 (>60) mL/min BUN/Creatinine Ratio 15.0 (6-22) Glucose 106 (80-110) mg/dL Lactate 1.2 (0.7-2.1) mmol/L Calcium 8.8 (8.4-10.2) mg/dL Total Bilirubin 0.6 (0.2-1.3) mg/dL AST 33 (17-59) IU/L ALT 23 (<50) IU/L Alkaline Phosphatase 79 (38-126) U/L Total Protein 7.7 (6.3-8.2) g/dL Albumin 3.8 (3.5-5.0) g/dL Globulin 3.9 (1.7-4.1) g/dL Albumin/Globulin Ratio 1.0 (1.0-2.8) Imaging Data CT scan - abdomen/pelvis: Radiologist's Impression: ROCEDURE: CT ABDOMEN PELVIS W CON INDICATIONS: R flank pain, exsiting R ureteral stent TECHNIQUE: After the administration of intravenous contrast, axial sections acquired from the lung bases to the pubic symphysis. Coronal and sagittal reformats were performed. For radiation dose reduction, the following was used: automated exposure control, adjustment of mA and/or kV according to patient size. COMPARISON: [facility], CT, CT KIDNEY URETER BLADDER (KUB), 12/14/2024, 23:27. FINDINGS: Image quality: Diagnostic. Lower Chest: No significant findings. ABDOMEN: Liver: No solid mass. Gallbladder: Gallbladder is distended. No radiopaque gallstones or wall thickening. Biliary ducts: No biliary dilation. Pancreas: No ductal dilation. Spleen: Size is within normal limits. Adrenal Glands: No adrenal nodules. Kidneys and Ureters: There is interval placement of right-sided ureteral stent. Mild residual right hydronephrosis is seen. No hydroureter. Significant right perinephric fat stranding and periureteral fat stranding. No perinephric fluid collection. No left-sided renal stones or hydronephrosis. No left hydroureter. No solid appearing renal lesion. Stomach and Bowel: No bowel obstruction or abnormal bowel wall thickening. Normal appendix. Moderate fecal stasis in the colon is seen. No abscess collection. Peritoneum: No abnormal intraperitoneal fluid. No free air. Ventral Wall: No significant ventral hernia. Abdominal Nodes: No retroperitoneal or mesenteric adenopathy by size criteria. Vessels: Aorta and inferior vena cava are normal in size. PELVIS: Pelvic Organs: Unremarkable. Bladder: No bladder wall thickening, accounting for underdistention. Pelvic Nodes: No enlarged lymph nodes. Miscellaneous: No inguinal hernias are seen. Bones: No aggressive osseous abnormality. IMPRESSION: 1. Interval placement of right-sided ureteral stent with very mild residual right hydronephrosis. No hydroureter. No left-sided renal stones or hydronephrosis. 2. Significant right perinephric fat stranding and periureteral fat stranding, infectious process such as pyelonephritis is suspected suggest urological correlation. Normal appearing urinary bladder. 3. [id number] constipation. Normal appendix. No bowel obstruction. No free fluid or free air. Dictated by: Jesse Yip M.D. on 02/02/2025 at 23:33 MDM Narrative Medical decision making narrative: CC: Worsening flank pain Complicating co-morbidities: Known kidney stone, ureteral stent, Data collected from: patient Social determinants of health that may influence the patients condition: Difficulty caring for himself, opioid use disorder currently on methadone, continued intermittent heroin and methamphetamine use Medical records reviewed: Records from ER visit last night are reviewed Most recent urine culture shows Urine Culture Final 12/18/24 Organism 1 Enterococcus faecalis Margie Count >100,000 CFU/ml 1. Enterococcus faecalis M.I.C. RX --------- --- * Ampicillin <=2 S * Vancomycin 1 S * Ciprofloxacin 1 S * Gentamicin 500 SYN-S S * Levofloxacin 2 S * Linezolid 2 S * Nitrofurantoin <=16 S * Streptomycin 2000 SYN-R R * Tetracycline >=16 R Differential considered: Pyelonephritis, uncontrolled pain, sepsis, narcotic withdrawal Exam documented above, pertinent findings include: Patient is pale, appears chronically ill, right-sided abdominal flank pain without rebound or guarding. He has not tachycardic Lab Test results independently reviewed as above. Pertinent findings: Call from the lab, blood cultures were positive x2 from last night CBC shows increasing leukocytosis now at 16.9. Chemistries show slightly decreased sodium to 129. Normal renal function otherwise no concerns with liver studies Lactic acid is not elevated Imaging studies independently reviewed: CT scan from last night above Consultations: Dr Hicks: From urologic perspective, patient is stented and draining. Reviewed the CT scan and noted that the perinephric stranding could be related to simply inflammation from the recent stent placement. Agrees with IV treatment and further inpatient care. At this point there was no additional emergent urologic intervention required. We will happily consults if the hospitalist would like him to Dr. Hicks plans eventually to laser the kidney stone that this patient has. He does need some type of cardiac clearance for anesthesia to be willing to put him to sleep. Patient has not been able to get to the cover seamer. We will discuss this with admitting hospitalist to see if we can help facilitate preoperative clearance in anticipation of outpatient laser stone treatment Treatments: IV Unasyn and vancomycin. Patient is able to eat and drink. Re-evaluations: Blood cultures done last night returned positive with Gram-positive cocci Discussion: 64-year-old gentleman with known kidney stone, stent already in place, increasing pain concern for pyelonephritis was given antibiotics last night and he returns now with increased urinary incontinence, increased flank pain and feeling worse. Blood cultures are positive in 2/4 bottles for Gram- positive cocci from last night's workup. Based on urine sample earlier this month, he is started on Unasyn and vancomycin. He is not septic, normal lactic acid, no hypotension, no tachycardia. He was given his usual 160 mg of methadone orally this morning after discussing with [facility]. Very likely did use additional heroin and methamphetamine last night because he felt so poorly. We will need social service consult. Care is reviewed with Dr. Hicks who does not feel that additional urologic consultation is required with this visit but happy to add input if requested by hospitalist. Reviewed with hospitalist service and patient will be admitted Discharge Plan Departure Patient Disposition: Admitted As Inpatient Clinical Impression: Kidney calculus, Methadone dependence, Acute pyelonephritis, Active intravenous drug use, Blood bacterial culture positive Admit Date/Time: 02/03/25 13:34 Admit Provider: Sunil Acosta
--- NOTE | 2025-02-03 09:42 | PC.NURSE ---
This RN called [facility] and confirmed patient receives methadone from their clinic daily. Patient last got dose 02/01/2025 and received 160mg which is his daily dose. Dr. Dailey asked this RN to place order for this dose and call pharmacy for this medication. This RN called Raymond from pharmacy about this medication order and he asked to confirm ordering provider. He will fill order and bring to the department for this RN to administer.
[2025-02-03 10:51] LABS: Add Manual Diff / Slide Review NO; Basophils Absolute Auto 100 /uL (0-100); Basophils Percent Auto 0.4 % (0-2); Eosinophils Absolute Auto 0 /uL (0-450); Eosinophils Percent Auto 0.1 % (2-4); Hematocrit 39.8 % (41-53); Hemoglobin 13.1 g/dL (13.5-17.5); Lymphocytes Absolute Auto 600 /uL (1100-4500); Lymphocytes Percent Auto 3.4 % (25-40); Mean Corpuscular HGB Conc 32.8 % (30-36); Mean Corpuscular Hemoglobin 26.2 PG (26-34); Mean Corpuscular Volume 79.8 fL (80-100); Monocytes Absolute Auto 1200 /uL (0-900); Monocytes Percent Auto 7.2 % (3-14); Neutrophils Absolute Auto 15000 /uL (1500-7000); Neutrophils Percent Auto 88.9 % (50-75); Platelet Count 263 X10^3/uL (150-400); Red Blood Cell Count 4.99 X10^6/uL (4.5-5.9); Red Cell Distribution Width 14.4 % (11.6-14.8); White Blood Cell Count 16.9 X10^3/uL (4.5-11.0)
[2025-02-03 11:02] LABS: Alanine Aminotransferase 23 IU/L (<50); Albumin 3.8 g/dL (3.5-5.0); Alkaline Phosphatase 79 U/L (38-126); Aspartate Aminotransferase 33 IU/L (17-59); Bilirubin Total 0.6 mg/dL (0.2-1.3); Blood Urea Nitrogen 15 mg/dL (9-20); Calcium 8.8 mg/dL (8.4-10.2); Carbon Dioxide 27 mmol/L (22-32); Chloride 95 mmol/L (98-107); Estimated Glomerular Filt Rate > 60 mL/min (>60); Globulin 3.9 g/dL (1.7-4.1); Glucose 106 mg/dL (80-110); HEMOLYSIS 17 (0-50); Lactate (Lactic Acid) 1.2 mmol/L (0.7-2.1); Sodium 129 mmol/L (137-145); Total Protein 7.7 g/dL (6.3-8.2)
[2025-02-03] MEDS: METHADONE INTENSOL 10 MG/ML ORAL.CONC 160 MG PO (11:17)
[2025-02-03] MEDS: AMPICILLIN/SULBACTAM 3 GM 3 GM in SODIUM CHLORIDE 0.9% 100 ML IV ×2 (11:20→18:18)
[2025-02-03] MEDS: levoFLOXacin 750 MG/150 ML PIGGYBACK 100 MG IV (12:02)
--- NOTE | 2025-02-03 13:39 | DI.US.S_ITS ---
PROCEDURE: US RENAL COMPLETE INDICATIONS: RIGHT URETERAL STONE WITH STENT ?HYDRONEPHROSIS TECHNIQUE: Real-time scanning was performed of the kidneys and bladder, with image documentation. COMPARISON: [facility], CT, CT ABDOMEN PELVIS W CON, 02/02/2025, 22:52. FINDINGS: Kidneys: Kidneys are normal in size. Right kidney measures 11.8 cm long; left kidney measures 10.9 cm long. Right renal cortical thickness is 2.0 cm; left renal cortical thickness is 1.7 cm. Patient's known right ureteral stent is not well seen. No hydronephrosis. No suspicious solid mass lesions. Bladder: Pre-void bladder volume is 57 mL. Post-void images were not obtained. Pre-void images demonstrate no intraluminal masses or stones. Right-sided ureteral stent is noted. On pre-void images, no ureteral jets are noted with color Doppler interrogation. (Of note, ureteral jets may not be detectable in up to 25% of cases due to insufficient differences in specific gravity between ureteral and bladder urine). Miscellaneous: No free pelvic fluid. IMPRESSION: 1. Presence of right ureteral stent. No hydronephrosis or gross solid appearing renal lesion is seen. 2. No gross abnormality is seen in partially distended urinary bladder. Dictated by: Jesse Yip M.D. on 02/03/2025 at 22:25 Approved by: Jesse Yip M.D. on 02/03/2025 at 22:27
[2025-02-03] MEDS: VANCOMYCIN 2,000 MG/400 ML PIGGYBACK 200 MG IV (13:46)
--- NOTE | 2025-02-03 14:58 | P.HP_ITS ---
History of Present Illness History of Present Illness Date Patient Seen: 02/03/25 Time Patient Seen: 14:30 Chief complaint: Abd pain Narrative: The patient was a 64-year-old male with a history of heroin use, methamphetamine use, and chronic methadone at 160 mg daily. He also has history of hepatitis-C. He was recently diagnosed with a kidney stone and had a ureter stent placed on December [address] Hicks. He was seen on February 02 for increased right-sided flank pain. A CT was obtained revealing an intact stent but with associated right perinephric fat stranding. The patient was given IV ceftriaxone and oral antibiotics. He came back today and was given methadone in the ED. Patient's blood cultures then became positive for Gram-positive cocci. He does have an Enterococcus UTI in the recent past. The patient lives with roommates, and has a chronic right great toe ulcer which appears to be entirely through the skin. He also notes a headache today. He does use heroin intravenously and sheets in his arms. He was given a prescription for antibiotics, cefdinir for 14 days but was not able to fill that prescription. 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 He denies any acute withdrawal symptoms upon arrival to the [facility]. He also has a history of diastolic heart failure and is followed by Dr. Seaman of [facility]. He was admitted for diuresis and discharged on December 23. He also has known [id number] mitral regurgitation with an EF of 60- 65%. [facility] Medical History History of urinary tract infection History of sepsis Retained ureteral stent Fever Hypotension Right ureteral calculus Lower extremity edema Hepatitis C History of heroin use Methadone dependence Tobacco abuse Lumbar post-laminectomy syndrome Chronic shoulder pain IV drug abuse IV drug user Surgical History History of lithotripsy Family History Mother Diabetes mellitus Father Cancer Social History marital status: number of children: 5 household members: other Smoking Status: Current every day smoker alcohol intake: former substance use type: opiates and IV drugs Meds Home Medications and Allergies Home Medications Medication Instructions Recorded Confirmed Type albuterol sulfate 90 mcg/actuation 1 puff inhalation PRN PRN 05/11/18 02/03/25 History aerosol inhaler Shortness Of Breath methadone 40 mg soluble tablet 160 mg PO DAILY 01/03/22 02/03/25 History apixaban 5 mg tablet (Eliquis) 5 mg PO BID 12/15/24 02/03/25 History metoprolol succinate 100 mg 100 mg PO DAILY 12/15/24 02/03/25 History tablet,extended release 24 hr Allergies Allergy/AdvReac Type Severity Reaction Status Date / Time No Known Drug Allergies Allergy Verified 01/28/25 11:44 Review of Systems Review of Systems Narrative: He also has a 2 day history of migraine headache. He was chronic leg edema. He was not had a bowel movement for the last week. Exam Vital Signs (past 8 hours): - 02/03/25 09:16 02/03/25 09:37 02/03/25 09:37 Temperature 100.8 F H Pulse Rate 86 89 Respiratory Rate 24 26 H Blood Pressure 139/73 120/66 Pulse Oximetry 95 Oxygen Delivery Method Room Air 02/03/25 10:00 02/03/25 10:00 02/03/25 10:30 Temperature Pulse Rate 82 80 Respiratory Rate 22 12 Blood Pressure 96/54 L Pulse Oximetry 94 Oxygen Delivery Method 02/03/25 10:30 02/03/25 11:00 02/03/25 11:00 Temperature Pulse Rate 75 Respiratory Rate 22 Blood Pressure 106/57 L 99/55 L Pulse Oximetry 94 Oxygen Delivery Method 02/03/25 11:30 02/03/25 11:30 02/03/25 11:35 Temperature Pulse Rate 82 82 Respiratory Rate 28 H Blood Pressure 105/57 L Pulse Oximetry 91 95 Oxygen Delivery Method 02/03/25 11:35 02/03/25 11:40 02/03/25 11:40 Temperature Pulse Rate 80 Respiratory Rate 29 H Blood Pressure 97/65 100/58 L Pulse Oximetry 95 Oxygen Delivery Method 02/03/25 11:45 02/03/25 11:45 02/03/25 11:50 Temperature Pulse Rate 74 Respiratory Rate 28 H Blood Pressure 90/55 L 94/58 L Pulse Oximetry 92 Oxygen Delivery Method 02/03/25 11:50 02/03/25 11:55 02/03/25 11:55 Temperature Pulse Rate 76 74 Respiratory Rate 25 H 24 Blood Pressure 93/58 L Pulse Oximetry 92 92 Oxygen Delivery Method 02/03/25 12:00 02/03/25 12:00 02/03/25 12:05 Temperature Pulse Rate 75 75 Respiratory Rate 27 H 24 Blood Pressure 92/59 L Pulse Oximetry 91 89 L Oxygen Delivery Method 02/03/25 12:05 02/03/25 12:10 02/03/25 12:10 Temperature Pulse Rate 73 Respiratory Rate 24 Blood Pressure 101/57 L 97/57 L Pulse Oximetry 91 Oxygen Delivery Method 02/03/25 12:15 02/03/25 12:15 02/03/25 12:20 Temperature Pulse Rate 74 Respiratory Rate 25 H Blood Pressure 98/54 L 91/51 L Pulse Oximetry 90 L Oxygen Delivery Method 02/03/25 12:20 02/03/25 12:25 02/03/25 12:25 Temperature Pulse Rate 73 73 Respiratory Rate 24 25 H Blood Pressure 92/54 L Pulse Oximetry 90 L 90 L Oxygen Delivery Method 02/03/25 12:30 02/03/25 12:30 02/03/25 12:35 Temperature Pulse Rate 72 73 Respiratory Rate 22 22 Blood Pressure 91/54 L Pulse Oximetry 91 90 L Oxygen Delivery Method 02/03/25 12:35 02/03/25 12:40 02/03/25 12:40 Temperature Pulse Rate 73 Respiratory Rate 23 Blood Pressure 93/57 L 93/57 L Pulse Oximetry 92 Oxygen Delivery Method 02/03/25 12:45 02/03/25 12:45 02/03/25 12:50 Temperature Pulse Rate 74 73 Respiratory Rate 25 H 20 Blood Pressure 98/61 Pulse Oximetry 91 92 Oxygen Delivery Method 02/03/25 12:50 02/03/25 12:55 02/03/25 12:55 Temperature Pulse Rate 73 Respiratory Rate 26 H Blood Pressure 100/63 98/64 Pulse Oximetry 91 Oxygen Delivery Method 02/03/25 13:00 02/03/25 13:00 02/03/25 13:05 Temperature Pulse Rate 74 74 Respiratory Rate 24 23 Blood Pressure 98/62 Pulse Oximetry 92 91 Oxygen Delivery Method 02/03/25 13:05 02/03/25 13:10 02/03/25 13:10 Temperature Pulse Rate 73 Respiratory Rate 25 H Blood Pressure 94/62 100/66 Pulse Oximetry 92 Oxygen Delivery Method 02/03/25 13:15 02/03/25 13:15 02/03/25 13:20 Temperature Pulse Rate 74 75 Respiratory Rate 22 25 H Blood Pressure 103/64 Pulse Oximetry 92 91 Oxygen Delivery Method 02/03/25 13:20 02/03/25 13:25 02/03/25 13:25 Temperature Pulse Rate 75 Respiratory Rate 25 H Blood Pressure 106/61 103/63 Pulse Oximetry 91 Oxygen Delivery Method 02/03/25 13:30 02/03/25 13:30 02/03/25 13:35 Temperature Pulse Rate 75 74 Respiratory Rate 22 25 H Blood Pressure 112/68 Pulse Oximetry 91 92 Oxygen Delivery Method 02/03/25 13:35 02/03/25 13:40 02/03/25 13:40 Temperature Pulse Rate 75 Respiratory Rate 27 H Blood Pressure 117/63 117/66 Pulse Oximetry 89 L Oxygen Delivery Method Oxygen Delivery Method Room Air Narrative Exam Narrative: NAD, alert and oriented, fluent speech, calm. The patient appears to be unkempt and chronically ill in appearance. He was some mottling of his lower extremities around the knees and both sides but also has 1+ edema. His skin is somewhat pale. He was a large ulcer on the right great toe which appears to be entirely through the skin. He was also somewhat somnolent, but complains of a headache. Normocephalic skull, EOMI, anicteric sclera, symmetric pupils. Oropharynx unremarkable, no droop. Neck supple, midline trachea, no adenopathy. Lungs clear, normal rate and effort. Heart regular, no murmur gallop or rub. Abdomen is soft, non distended and non tender. Extremities with 1+ bilateral edema. Skin is notable for some mottling of the knees bilaterally Joints are not swollen or deformed. Judgment appears to be abnormal. Objective Imaging CT scan - abdomen: Radiologist's impression: 1. Interval placement of right-sided ureteral stent with very mild residual right hydronephrosis. No hydroureter. No left-sided renal stones or hydronephrosis. 2. Significant right perinephric fat stranding and periureteral fat stranding, infectious process such as pyelonephritis is suspected suggest urological correlation. Normal appearing urinary bladder. 3. Pegx-zb-cregllbl constipation. Normal appendix. No bowel obstruction. No free fluid or free air. 3/5. Chest x-ray: Radiologist's impression: No acute cardiopulmonary pathology. 02/02. Labs 02/03/25 10:40 02/03/25 10:40 Labs: Laboratory Results - last 24 hr 02/03/25 10:40 WBC 16.9 H RBC 4.99 Hgb 13.1 L Hct 39.8 L MCV 79.8 L MCH 26.2 MCHC 32.8 RDW 14.4 Plt Count 263 Neut % (Auto) 88.9 H Lymph % (Auto) 3.4 L [facility] % (Auto) 7.2 Eos % (Auto) 0.1 L Baso % (Auto) 0.4 Neut # (Auto) 04627 H Lymph # (Auto) 600 L [facility] # (Auto) 1200 H Eos # (Auto) 0 Baso # (Auto) 100 Sodium 129 L Potassium 4.0 Chloride 95 L Carbon Dioxide 27 BUN 15 Creatinine 1.00 Estimated GFR > 60 BUN/Creatinine Ratio 15.0 Glucose 106 Lactate 1.2 Calcium 8.8 Total Bilirubin 0.6 AST 33 ALT 23 Alkaline Phosphatase 79 Total Protein 7.7 Albumin 3.8 Globulin 3.9 Albumin/Globulin Ratio 1.0 Assessment & Plan Assessment & Plan narrative: 1. Complicated pyelonephritis associated with a right ureter stent, present on admission and active. 2. Gram-positive bacteremia, present on admission and active. 2. Opiate dependence with chronic methadone and IV heroin, present on admission and active. 3. IV drug use, present on admission and active. 4. Tobacco dependence, present on admission and active. 5. Chronic diastolic heart failure and edema, present on admission and active. 6. Right nephrolithiasis, present on admission and active. He was a stent placed in December. 7. Hepatitis-C, present on admission and active. Plan: -Dr. Hicks notes that the next steps with the patient would be a laser procedure for stone removal but this would happen on an outpatient basis after cardiac clearance. He requests a repeat echo and possibly a cardiology referral. There was no recommendation for acute intervention. -IV antibiotics, initially with Unasyn and vancomycin. Vancomycin was given as a 1 time dose. This is likely Enterococcus which has been sensitive to amoxicillin. However with his history of IVDU, staph aureus is a concern as his endocarditis. -continue methadone at 160 mg p.o. daily. Dilaudid as needed for pain, oxycodone as needed for pain. -the patient had normal lactic acid. We will use IV fluids with saline at 100 and hour for the next 24 hours. -he was on chronic anticoagulation, for unclear reasons. We will hold this for the 1st 24 hours and follow clinically. -echo to assess cardiac function and evaluate valves given his history of IVDU and bacteremia. Anticipate 2 midnights of hospital stay and required, supports inpatient status. JAMES is February 06. Full resuscitation, no proxy decision maker is known. Time-Based Coding :: 40 min spent with patient and on the chart (including review of chart, obtaining history, exam, reviewing outside data, placing orders, documenting exam and treatment plan, and counseling patient) on 02/03. Quality MIPS - Admit I confirm the patient?s Advance Care Plan is present, Code status is documented, Surrogate decision maker is in patient?s record [If Yes, STOP here]: Yes MIPS - Meds 'Current medications' to include all prescriptions, [id number] products, herbals, cannabis/cannabidiol products, and vitamin/mineral/dietary (nutritional) supplements. I have utilized all available resources to obtain, update, or review the patient?s current medications. [If Yes, STOP here]: Yes
[2025-02-03] MEDS: ONDANSETRON 4 MG/2 ML INJ IV (15:58)
[2025-02-03] MEDS: HYDROMORPHONE 0.5 MG INJ IV (15:58)
[2025-02-03] MEDS: SODIUM CHLORIDE 0.9% 1,000 ML 100 ML IV (16:19)
[2025-02-03] MEDS: OXYCODONE IR 10 MG TABLET PO ×2 (16:21→22:36)
[2025-02-03] MEDS: SODIUM CHLORIDE 0.9% 1,000 ML 150 ML IV (21:19)
[2025-02-03] MEDS: ACETAMINOPHEN 325 MG TABLET 650 MG PO (22:36)
[2025-02-04] VITALS (8 sets, daily range): BP systolic 92–121; BP diastolic 45–76; PULSE 74–95; RESP 14–18; TEMP 36.2–37.2; O2SAT 94–99
[2025-02-04] MEDS: AMPICILLIN/SULBACTAM 3 GM 3 GM in SODIUM CHLORIDE 0.9% 100 ML IV ×5 (00:25→23:33)
[2025-02-04] MEDS: HYDROMORPHONE 0.5 MG INJ IV ×3 (01:50→18:51)
[2025-02-04] MEDS: VANCOMYCIN TROUGH 1 REQUEST MISC (02:06)
--- NOTE | 2025-02-04 02:14 | DI.RAD.S_ITS ---
PROCEDURE: XR CHEST 1V INDICATIONS: SOB TECHNIQUE: One view of the chest was acquired. COMPARISON: [facility], CR, XR CHEST 1V, 02/02/2025, 21:41. [facility], CR, XR CHEST 1V, 11/11/2023, 12:30. FINDINGS: Surgical changes and devices: None. Lungs and pleura: Mildly low lung volumes. Mild right lower lobe opacities may be secondary to atelectasis versus aspiration or pneumonia. Bilateral emphysematous changes. No pleural effusion or pneumothorax. Mediastinum: Mediastinal contours appear normal. Heart size is normal. Bones and chest wall: No suspicious bony lesions. Overlying soft tissues appear unremarkable. IMPRESSION: Mildly low lung volumes. Mild right lower lobe opacities may be secondary to atelectasis versus aspiration or pneumonia. There is no significant discrepancy when compared to the overnight preliminary report. Approved by: Derik Green M.D. on 02/04/2025 at 8:17
[2025-02-04 02:29] LABS: BUN Creatinine Ratio 17.1 (6-22); Blood Urea Nitrogen 20 mg/dL (9-20); Calcium 8.3 mg/dL (8.4-10.2); Carbon Dioxide 27 mmol/L (22-32); Chloride 96 mmol/L (98-107); Estimated Glomerular Filt Rate > 60 mL/min (>60); Glucose 117 mg/dL (80-110); HEMOLYSIS < 15 (0-50); Potassium 3.7 mmol/L (3.4-5.1); Sodium 128 mmol/L (137-145)
[2025-02-04 02:31] LABS: Add Manual Diff / Slide Review NO; Basophils Absolute Auto 200 /uL (0-100); Basophils Percent Auto 1.1 % (0-2); Eosinophils Absolute Auto 100 /uL (0-450); Eosinophils Percent Auto 0.5 % (2-4); Hematocrit 37.2 % (41-53); Hemoglobin 12.1 g/dL (13.5-17.5); Lymphocytes Absolute Auto 500 /uL (1100-4500); Mean Corpuscular HGB Conc 32.6 % (30-36); Mean Corpuscular Volume 79.8 fL (80-100); Monocytes Absolute Auto 1100 /uL (0-900); Monocytes Percent Auto 6.2 % (3-14); Neutrophils Absolute Auto 15800 /uL (1500-7000); Neutrophils Percent Auto 89.2 % (50-75); Platelet Count 224 X10^3/uL (150-400); Red Blood Cell Count 4.67 X10^6/uL (4.5-5.9); Red Cell Distribution Width 14.9 % (11.6-14.8); White Blood Cell Count 17.7 X10^3/uL (4.5-11.0)
[2025-02-04 02:55] LABS: Vancomycin Trough 9.4 ug/mL (10-20)
[2025-02-04] MEDS: VANCOMYCIN 1,500 MG/300 ML PIGGYBACK 200 MG IV ×2 (03:14→13:38)
[2025-02-04] MEDS: ONDANSETRON 4 MG/2 ML INJ IV (03:19)
--- NOTE | 2025-02-04 07:10 | PC.WOUNDPHOT ---
Late Entry: photos 02/03.
[2025-02-04] MEDS: ACETAMINOPHEN 325 MG TABLET 650 MG PO ×2 (08:51→18:08)
[2025-02-04] MEDS: OXYCODONE IR 10 MG TABLET PO ×3 (09:40→23:03)
[2025-02-04] MEDS: METHADONE INTENSOL 10 MG/ML ORAL.CONC 160 MG PO (11:22)
--- NOTE | 2025-02-04 11:59 | DI.ECHO.S_ITS ---
[facility] : : [address] : : [place] : : [id number] : : Phone: [phone] Echocardiogram Report + + :Name: LAURENCE MACIAS Study Date: 02/04/2025 Height: 79 in : :Hospital ReadingLocation: Weight: 276 lb: : Gender: Male BSA: 2.6 m2 : :: 1960 Age: 64 yrs BP: 92/45 mmHg: :Reason For Study: BACTEREMIA, R/O ENDOCARDITIS : :Ordering Physician: MARCO ANTONIO, : :BOBBY Performed By: Jorge Rodriguez : :Referring: BOBBY BERNARD : + + Interpretation Summary Normal biventricular systolic function. LVEF is 55-60%. Tricuspid valve was not well visualized. Pulmonic valve appears within normal limits. Aortic valve appears within normal limits. There is a mobile, echogenic structure attached to the anterior leaflet of the mitral valve. Although, this most likely represents subvalvular calcification and appears unchanged from prior TTE dated 12/21/2024. Please note the limitations of TTE in the evaluation of endocarditis. Procedure: A two-dimensional transthoracic echocardiogram with color flow and Doppler was performed in limited views only. The study quality was technically adequate. Comparison is made with the echocardiogram of 12/21/2024. The patient was in normal sinus rhythm during the exam. Left Ventricle: The left ventricle is normal in size. Left ventricular wall thickness is mildly increased. The ejection fraction is estimated to be 55- 60%. Mitral Valve: There is mild mitral annular calcification. The mitral valve leaflets are mildly calcified. There is mild to moderate mitral regurgitation. Aortic Valve: The aortic valve is trileaflet. The aortic valve opens well. No aortic regurgitation is present. Tricuspid Valve: The tricuspid valve is not well visualized. There is trace tricuspid regurgitation. Pulmonic Valve: The pulmonic valve leaflets are thin and pliable; valve motion is normal. There is no pulmonic valvular regurgitation. Pericardium/ Pleura There is no pericardial effusion. There is no pleural effusion. MMode/2D Measurements & Calculations LVIDd: 5.2 cm LVIDs: 3.7 cm FS: 28.8 % IVSd: 1.2 cm LVPWd: 1.2 cm LV peguero. diameter/BSA (cm/m^2): 2.0 LV sys. diameter/BSA (cm/m^2): 1.4 Reading Physician:05:24 PM
--- NOTE | 2025-02-04 11:59 | P.PN_ITS ---
Subjective Subjective Date Patient Seen: 02/04/25 Time Patient Seen: 09:35 Interval history: Narrative: The patient was a 64-year-old male with a history of heroin use, methamphetamine use, and chronic methadone at 160 mg daily. He also has history of hepatitis-C. He was recently diagnosed with a kidney stone and had a ureter stent placed on December [address] Hicks. He was seen on February 02 for increased right-sided flank pain. A CT was obtained revealing an intact stent but with associated right perinephric fat stranding. The patient was given IV ceftriaxone and oral antibiotics. He came back today and was given methadone in the ED. Patient's blood cultures then became positive for Gram-positive cocci. He does have an Enterococcus UTI in the recent past. The patient lives with roommates, and has a chronic right great toe ulcer which appears to be entirely through the skin. He also notes a headache today. He does use heroin intravenously and sheets in his arms. He was given a prescription for antibiotics, cefdinir for 14 days but was not able to fill that prescription. 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 He denies any acute withdrawal symptoms upon arrival to the [facility]. He also has a history of diastolic heart failure and is followed by Dr. Seaman of [facility]. He was admitted for diuresis and discharged on December 23. He also has known [id number]-tv-gnirvqrz mitral regurgitation with an EF of 60- 65%. Subjective: The patient reports feeling better. He denies pain complaints presently. He requests his usual 160 mg of methadone daily for methadone maintenance of heroin abuse, with his last dose of heroin the day prior to admission. Exam Vital Signs (past 8 hours): - 02/04/25 06:00 02/04/25 08:34 Temperature 98.6 F 99.0 F Pulse Rate 74 89 Respiratory Rate 18 18 Blood Pressure 110/66 105/52 L Pulse Oximetry 96 95 Oxygen Flow Rate 0 Oxygen Delivery Method Nasal Cannula Oxygen Flow Rate 0 Narrative Exam Narrative: NAD, alert and oriented, fluent speech, calm. The patient appears to be unkempt and chronically ill in appearance. He was some mottling of his lower extremities around the knees and both sides but also has 1+ edema. His skin is somewhat pale. He was a large ulcer on the right great toe which appears to be entirely through the skin. He was also somewhat somnolent, but complains of a headache. Normocephalic skull, EOMI, anicteric sclera, symmetric pupils. Oropharynx unremarkable, no droop. Neck supple, midline trachea, no adenopathy. Lungs clear, normal rate and effort. Heart regular, no murmur gallop or rub. Abdomen is soft, non distended and non tender. Extremities with 1+ bilateral edema. Skin is notable for some mottling of the knees bilaterally Joints are not swollen or deformed. Judgment appears to be abnormal. Objective Imaging CT scan - abdomen: Radiologist's impression: 1. Interval placement of right-sided ureteral stent with very mild residual right hydronephrosis. No hydroureter. No left-sided renal stones or hydronephrosis. 2. Significant right perinephric fat stranding and periureteral fat stranding, infectious process such as pyelonephritis is suspected suggest urological correlation. Normal appearing urinary bladder. 3. Gube-ar-fvplarop constipation. Normal appendix. No bowel obstruction. No free fluid or free air. 5. Chest x-ray: Radiologist's impression: No acute cardiopulmonary pathology. 02/02. Renal US: Radiologist's impression: 1. Presence of right ureteral stent. No hydronephrosis or gross solid appearing renal lesion is seen. 2. No gross abnormality is seen in partially distended urinary bladder. 02/03 Chest x-ray 02/03/2025:: Radiologist's impression: Mildly low lung volumes. Mild right lower lobe opacities may be secondary to atelectasis versus aspiration or pneumonia. Labs 02/04/25 02:06 02/04/25 02:06 Labs: Laboratory Results - last 24 hr 02/04/25 02:06 WBC 17.7 H RBC 4.67 Hgb 12.1 L Hct 37.2 L MCV 79.8 L MCH 26.0 MCHC 32.6 RDW 14.9 H Plt Count 224 Neut % (Auto) 89.2 H Lymph % (Auto) 3.0 L [facility] % (Auto) 6.2 Eos % (Auto) 0.5 L Baso % (Auto) 1.1 Neut # (Auto) 83613 H Lymph # (Auto) 500 L [facility] # (Auto) 1100 H Eos # (Auto) 100 Baso # (Auto) 200 H Sodium 128 L Potassium 3.7 Chloride 96 L Carbon Dioxide 27 BUN 20 Creatinine 1.17 Estimated GFR > 60 BUN/Creatinine Ratio 17.1 Glucose 117 H Calcium 8.3 L Vancomycin Trough 9.4 L PFSH Medical History Chronic shoulder pain Fever Hepatitis C History of heroin use History of sepsis History of urinary tract infection Hypotension IV drug abuse IV drug user Lower extremity edema Lumbar post-laminectomy syndrome Methadone dependence Retained ureteral stent Right ureteral calculus Tobacco abuse Surgical History History of lithotripsy Family History Mother Diabetes mellitus Father Cancer Social History marital status: number of children: 5 household members: other Smoking Status: Current every day smoker alcohol intake: former substance use type: opiates and IV drugs Assessment & Plan Assessment & Plan narrative: 1. Complicated pyelonephritis associated with a right ureter stent, present on admission and active. 2. Gram-positive bacteremia, present on admission and active. 2. Opiate dependence with chronic methadone and IV heroin, present on admission and active. 3. IV drug use, present on admission and active. 4. Tobacco dependence, present on admission and active. 5. Chronic diastolic heart failure and edema, present on admission and active. 6. Right nephrolithiasis, present on admission and active. He was a stent placed in December. 7. Hepatitis-C, present on admission and active. 8. Chronic anticoagulation. Indication unclear. Resume Eliquis and clarify. Plan: -Dr. Hicks notes that the next steps with the patient would be a laser procedure for stone removal but this would happen on an outpatient basis after cardiac clearance. -Echocardiogram is ordered to rule out endocarditis. -IV antibiotics on Unasyn and vancomycin. This is likely Enterococcus which has been sensitive to amoxicillin. However with his history of IVDU, staph aureus is a concern as his endocarditis. -continue methadone at 160 mg p.o. daily. Dilaudid as needed for pain, oxycodone as needed for pain. -stop IVF -he was on chronic anticoagulation, for unclear reasons. Resume Eliquis and clarify. Anticipate 2 midnights of hospital stay and required, supports inpatient status. JAMES is February 06. Full resuscitation, no proxy decision maker is known. PROFEE Zoning Technician Document charge(s): No Charge Codes Subsequent inpatient/observation care: [id number]
--- NOTE | 2025-02-04 12:27 | CM.DANOTE ---
Initial DCP Assessment Note Pt is a 64 yo male, resident of [place], history of heroin use- last use two days ago, hx methamphetamine use, and chronic methadone maintenance at [facility], admitted for management of pyelonephritis, Gram-positive bacteremia, IV abx started, echo pending, medical management. PCP: Sofie Barrera Payer: [facility]AM[facility] Reviewed chart, pt discussed in multidisciplinary rounds this morning. JAMES 02/06. Met w/patient to review discharge plan. Patient reports he lives independently in his 3 bedroom mobile home in [place]. Patient allows a 70+yo man who lives in his van to park on his property, patient reports the police asked if he could. Patient denies current illicit drug use, says he goes to [facility] daily for methadone maintenance and uses Heroin as needed for pain that is out of control. Patient receives all his medical care at the [facility] and speaks very highly of the staff, stating he can have medical care, dentist, counseling and more as needed. Patient reports no issues with transportation, reports I have a very nice car. 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 No barriers identified at this time to patient's safe discharge home w/SO to transport home; close outpatient f/u recommended. CM team will plan to follow clinical course closely in case any DC needs or concerns arise. WILLIE Kong Discharge Planning/Care Management CM Discharge Assessment Start: 02/04/25 12:25 Freq: Status: Active Protocol: Document 02/04/25 12:25 CRISTINA (Rec: 02/04/25 12:26 CRISTINA [id number]) Discharge Planning Assessment Assigned Teachers' Aide WILLIE Blas DPOA/Assigned Designee Name Ele Marie MALLORY Contact Information [phone] Advance Directives? No Advance Directives on File No History Provided By Patient,Medical Record Prior Living Arrangements Mobile home Household Members significant other Type of transporation used prior to Drives own vehicle admit Independent with ADL's Yes Is patient alert and oriented? Yes Barriers to Discharge No Discharge Plan Home Transportation Arrangement States girlfriend will take him home Referrals Initiated None needed
--- NOTE | 2025-02-04 17:08 | DI.RAD.S_ITS ---
PROCEDURE: XR TOE RT MIN 2V INDICATIONS: ulcer right big toe, r/o osteomyelitis TECHNIQUE: AP view of the foot in two views of the great toe acquired. COMPARISON: None. FINDINGS: Bones: No acute osseous fracture or dislocation. Mild loss of cortical definition along the medial aspect of the 1st distal phalangeal tuft is suspicious for osteomyelitis. Chronic calcifications adjacent to the fibular tip. Soft tissues: Soft tissue edema is seen in the great toe. Small linear radiopaque foreign body is seen in the plantar subcutaneous tissues. Nonspecific soft tissue edema in the dorsum of the forefoot. IMPRESSION: 1. Loss of cortical definition at the medial aspect of the 1st distal phalangeal tuft adjacent to the area of ulceration edema is suspicious for osteomyelitis. 2. Small linear radiopaque foreign body in the soft tissues along the plantar aspect of the distal great toe. Approved by: Derik Green M.D. on 02/04/2025 at 17:41
[2025-02-04] MEDS: APIXABAN 5 MG TABLET PO (21:17)
[2025-02-04] MEDS: METOPROLOL TARTRATE 5 MG/5 ML INJ IV (23:10)
--- NOTE | 2025-02-04 23:53 | PC.NURSE ---
Woke up coughing & reported headache still hurts. Reported when I coughed, my head hurts, requested some Dilaudid, that will put me to sleep. Will monitor & continue plan of care.
[2025-02-05] VITALS (10 sets, daily range): BP systolic 90–130; BP diastolic 57–81; PULSE 83–111; RESP 12–19; TEMP 35.9–37; O2SAT 92–96
[2025-02-05] MEDS: HYDROMORPHONE 0.5 MG INJ IV ×4 (00:32→18:47)
[2025-02-05] MEDS: METOPROLOL IR 50 MG TABLET PO (00:44)
[2025-02-05 02:10] LABS: Vancomycin Trough 12.4 ug/mL (10-20)
[2025-02-05] MEDS: METOPROLOL TARTRATE 5 MG/5 ML INJ IV (02:17)
[2025-02-05] MEDS: VANCOMYCIN TROUGH 1 REQUEST MISC (02:24)
[2025-02-05] MEDS: VANCOMYCIN 1,500 MG/300 ML PIGGYBACK 200 MG IV ×2 (02:30→15:03)
[2025-02-05 05:11] LABS: Add Manual Diff / Slide Review NO; Basophils Absolute Auto 100 /uL (0-100); Basophils Percent Auto 0.4 % (0-2); Eosinophils Absolute Auto 100 /uL (0-450); Eosinophils Percent Auto 0.7 % (2-4); Hemoglobin 12.7 g/dL (13.5-17.5); Lymphocytes Absolute Auto 1000 /uL (1100-4500); Lymphocytes Percent Auto 8.2 % (25-40); Mean Corpuscular HGB Conc 32.5 % (30-36); Mean Corpuscular Volume 79.9 fL (80-100); Monocytes Absolute Auto 1400 /uL (0-900); Monocytes Percent Auto 11.3 % (3-14); Neutrophils Absolute Auto 10000 /uL (1500-7000); Neutrophils Percent Auto 79.4 % (50-75); Platelet Count 220 X10^3/uL (150-400); Red Blood Cell Count 4.89 X10^6/uL (4.5-5.9); Red Cell Distribution Width 14.9 % (11.6-14.8); White Blood Cell Count 12.6 X10^3/uL (4.5-11.0)
[2025-02-05] MEDS: AMPICILLIN/SULBACTAM 3 GM 3 GM in SODIUM CHLORIDE 0.9% 100 ML IV ×4 (05:30→23:29)
[2025-02-05 05:32] LABS: BUN Creatinine Ratio 21.1 (6-22); Blood Urea Nitrogen 19 mg/dL (9-20); Calcium 8.1 mg/dL (8.4-10.2); Carbon Dioxide 24 mmol/L (22-32); Chloride 98 mmol/L (98-107); Estimated Glomerular Filt Rate > 60 mL/min (>60); Glucose 115 mg/dL (80-110); HEMOLYSIS 26 (0-50); Potassium 3.9 mmol/L (3.4-5.1); Sodium 129 mmol/L (137-145)
--- NOTE | 2025-02-05 05:51 | PC.NURSE ---
Medicated with 5 mg Metoprolol IVP X 2 doses & 50 mg. Metoprolol IR PO. Called [facility] [employer]. his HR 90's to low 100 at this time. Pt. requesting IV Dilaudid reported 10 mg. Oxycodone not helping my pain & headache. Will monitor & report to day RN.
[2025-02-05 06:05] LABS: Vancomycin Peak 26.4 ug/mL (20-40)
[2025-02-05] MEDS: VANCOMYCIN PEAK 1 REQUEST MISC (06:27)
--- NOTE | 2025-02-05 07:37 | PM.PN.IH.1 ---
Subjective Subjective Date Patient Seen: 02/05/25 Time Patient Seen: 09: Interval history: Narrative: The patient was a 64-year-old male with a history of heroin use, methamphetamine use, and chronic methadone at 160 mg daily. He also has history of hepatitis-C. He was recently diagnosed with a kidney stone and had a ureter stent placed on December [address] Hicks. He was seen on February 02 for increased right-sided flank pain. A CT was obtained revealing an intact stent but with associated right perinephric fat stranding. The patient was given IV ceftriaxone and oral antibiotics. He came back today and was given methadone in the ED. Patient's blood cultures then became positive for Gram-positive cocci. He does have an Enterococcus UTI in the recent past. The patient lives with roommates, and has a chronic right great toe ulcer which appears to be entirely through the skin. He also notes a headache today. He does use heroin intravenously and sheets in his arms. He was given a prescription for antibiotics, cefdinir for 14 days but was not able to fill that prescription. He did not product picker his methadone at methadone clinic on February 02 or . He denies any acute withdrawal symptoms upon arrival to the [facility]. He also has a history of diastolic heart failure and is followed by Dr. Seaman of [facility]. He was admitted for diuresis and discharged on December 23. He also has known [id number] mitral regurgitation with an EF of 60-65%. Subjective: The patient reports he is feeling better. No chest pain or palpitations. Exam Vital Signs (past 8 hours): - 02/04/25 23:52 02/05/25 02:17 02/05/25 06:00 Temperature 98.6 F Pulse Rate 95 H 111 H 101 H Respiratory Rate 19 Blood Pressure 120/67 115/62 97/65 Pulse Oximetry 94 Oxygen Flow Rate 2 Fraction of Inspired Oxygen 28 SaO2/FiO2 Ratio 335 Oxygen Delivery Method Nasal Cannula Oxygen Flow Rate 2 Narrative Exam Narrative: NAD, alert and oriented, fluent speech, calm. Normocephalic skull, EOMI, anicteric sclera, symmetric pupils. Oropharynx unremarkable, no droop. Neck supple, midline trachea, no adenopathy. Lungs clear, normal rate and effort. Heart regular, no murmur gallop or rub. Abdomen is soft, non distended and non tender. Extremities with 1+ bilateral edema. Skin is notable for some mottling of the knees bilaterally, 2cm right toe tip ulceration and several hawk superficial ulcers R>L. Toe xrays are ordered. Joints are not swollen or deformed. Judgment appears to be abnormal. Objective Imaging CT scan - abdomen: Radiologist's impression: 1. Interval placement of right-sided ureteral stent with very mild residual right hydronephrosis. No hydroureter. No left-sided renal stones or hydronephrosis. 2. Significant right perinephric fat stranding and periureteral fat stranding, infectious process such as pyelonephritis is suspected suggest urological correlation. Normal appearing urinary bladder. 3. Nfms-nu-vuvrrhih constipation. Normal appendix. No bowel obstruction. No free fluid or free air. 02/02. Chest x-ray: Radiologist's impression: No acute cardiopulmonary pathology. 02/02. Renal US: Radiologist's impression: 1. Presence of right ureteral stent. No hydronephrosis or gross solid appearing renal lesion is seen. 2. No gross abnormality is seen in partially distended urinary bladder. 02/03 Chest x-ray 02/03/2025:: Radiologist's impression: Mildly low lung volumes. Mild right lower lobe opacities may be secondary to atelectasis versus aspiration or pneumonia. Echo: Radiologist's impression: Normal biventricular systolic function. LVEF is 55-60%. Tricuspid valve was not well visualized. Pulmonic valve appears within normal limits. Aortic valve appears within normal limits. There is a mobile, echogenic structure attached to the anterior leaflet of the mitral valve. Although, this most likely represents subvalvular calcification and appears unchanged from prior TTE dated 12/21/2024. Please note the limitations of TTE in the evaluation of endocarditis. 02/04 Right foot/toe xray: Radiologist's impression: 1. Loss of cortical definition at the medial aspect of the 1st distal phalangeal tuft adjacent to the area of ulceration edema is suspicious for osteomyelitis. 2. Small linear radiopaque foreign body in the soft tissues along the plantar aspect of the distal great toe. 02/04 Labs 02/05/25 05:00 02/05/25 05:00 Labs: Laboratory Results - last 24 hr 02/05/25 02/05/25 01:29 05:00 WBC 12.6 H RBC 4.89 Hgb 12.7 L Hct 39.0 L MCV 79.9 L MCH 26.0 MCHC 32.5 RDW 14.9 H Plt Count 220 Neut % (Auto) 79.4 H Lymph % (Auto) 8.2 L [place] % (Auto) 11.3 Eos % (Auto) 0.7 L Baso % (Auto) 0.4 Neut # (Auto) 74168 H Lymph # (Auto) 1000 L [place] # (Auto) 1400 H Eos # (Auto) 100 Baso # (Auto) 100 Sodium 129 L Potassium 3.9 Chloride 98 Carbon Dioxide 24 BUN 19 Creatinine 0.90 Estimated GFR > 60 BUN/Creatinine Ratio 21.1 Glucose 115 H Calcium 8.1 L Vancomycin Peak 26.4 Vancomycin Trough 12.4 PFSH Medical History Chronic shoulder pain Fever Hepatitis C History of heroin use History of sepsis History of urinary tract infection Hypotension IV drug abuse IV drug user Lower extremity edema Lumbar post-laminectomy syndrome Methadone dependence Retained ureteral stent Right ureteral calculus Tobacco abuse Surgical History History of lithotripsy Family History Mother Diabetes mellitus Father Cancer Social History marital status: number of children: 5 household members: significant other Smoking Status: Current every day smoker alcohol intake: former substance use type: opiates and IV drugs Assessment & Plan Assessment & Plan narrative: 1. Complicated pyelonephritis due to Enterococcus faecalis, associated with a functioning right ureter stent, present on admission and active. 2. Enterococcal bacteremia, ampicillin-sensitive, present on admission and active. No evidence of endocarditis. Leukocytosis is improving. 3. Right great toe ulcer, probable osteomyelitis, present on admission and active, with radiopaque foreign body. 2. Opiate dependence with chronic methadone and IV heroin, present on admission and active. 3. IV drug use, present on admission and active. 4. Tobacco dependence, present on admission and active. 5. Chronic diastolic heart failure and edema, present on admission and active. 6. Right nephrolithiasis, present on admission and active, status post right ureteral stent 12/15/2024. He is followed by Dr. Adam Hicks. 7. Hepatitis-C, present on admission and active. 8. Paroxysmal atrial fibrillation on chronic anticoagulation. Continue metoprolol ER 100mg daily and Eliquis. 9. Hyponatremia, likely SIADH. Monitor. Appears stable. Plan: -Dr. Hicks notes that the next steps with the patient would be a laser procedure for stone removal but this would happen on an outpatient basis after cardiac clearance. -Continue Unasyn and vancomycin for Enterococcal UTI/bacteremia and osteomyelitis coverage pending cultures. -continue methadone at 160 mg p.o. daily. Dilaudid as needed for pain, oxycodone as needed for pain. -repeat blood cultures today to assess for clearance of bacteremia. -plan PICC line and ID consult Friday. -toe wound culture. -he will need surgical debridement when bacteremia cleared and wound care consult. Anticipate 2 midnights of hospital stay and required, supports inpatient status. JAMES is February 07-. Full resuscitation, no proxy decision maker is known. PROFEE [employer] Worker Document charge(s): No Charge Codes Subsequent inpatient/observation care: [id number]
[2025-02-05] MEDS: APIXABAN 5 MG TABLET PO ×2 (09:57→21:42)
[2025-02-05] MEDS: METHADONE INTENSOL 10 MG/ML ORAL.CONC 160 MG PO (09:57)
[2025-02-05] MEDS: METOPROLOL ER 50 MG TABLET 100 MG PO (10:06)
--- NOTE | 2025-02-05 14:54 | CM.DPC ---
DCP Cont: Per MD, pt with multiple medical conditions and currently treating his bacteremia with IV abx and cultures sent but likely another couple days for them to result. Pt also with ulcer to the bone on his toe and would benefit from Ortho Consult for likely bone biopsy needed but will need to wait for cultures and treatment of his bacteremia before moving forward with toe ulcer. Ideally pt would benefit from IV Abx at d/c but given pt's current EILEEN use and risks of PICC placement and risk for ID MD to follow, pt likely will d/c on PO abx. Plan: SW to follow closely for culture results and then further workup of his toe ulcer to determine d/c planning needs. Likely here another 3-4 days. WILLIE Bourgeois
[2025-02-06] MEDS: CALCIUM CARBONATE 500 MG TAB 1000 MG PO (00:47)
[2025-02-06] MEDS: HYDROMORPHONE 0.5 MG INJ IV ×2 (01:26→23:55)
[2025-02-06] MEDS: METOPROLOL TARTRATE 5 MG/5 ML INJ IV (01:30)
[2025-02-06] MEDS: VANCOMYCIN 1,500 MG/300 ML PIGGYBACK 200 MG IV ×2 (01:37→15:10)
--- NOTE | 2025-02-06 01:54 | PC.NURSE ---
Pt heart rate tonight when up to 150's, started fluctuating between 100's 150's pt gieven a dose if metoprolol 5 mg ivp and dilaudid ivp too. heart rate more under control after the metoprolol ivp.
[2025-02-06 04:00] VITALS: BP 122/76; PULSE 97; RESP 19; TEMP 36.6; O2SAT 96
[2025-02-06 05:30] LABS: Add Manual Diff / Slide Review NO; Basophils Absolute Auto 100 /uL (0-100); Basophils Percent Auto 0.7 % (0-2); Eosinophils Absolute Auto 200 /uL (0-450); Eosinophils Percent Auto 1.9 % (2-4); Hematocrit 39.6 % (41-53); Lymphocytes Absolute Auto 1200 /uL (1100-4500); Lymphocytes Percent Auto 12.5 % (25-40); Mean Corpuscular HGB Conc 32.7 % (30-36); Mean Corpuscular Hemoglobin 26.2 PG (26-34); Mean Corpuscular Volume 80.1 fL (80-100); Monocytes Absolute Auto 1100 /uL (0-900); Monocytes Percent Auto 11.3 % (3-14); Neutrophils Absolute Auto 7300 /uL (1500-7000); Neutrophils Percent Auto 73.6 % (50-75); Platelet Count 256 X10^3/uL (150-400); Red Blood Cell Count 4.94 X10^6/uL (4.5-5.9); Red Cell Distribution Width 15.3 % (11.6-14.8); White Blood Cell Count 9.9 X10^3/uL (4.5-11.0)
[2025-02-06 05:42] LABS: BUN Creatinine Ratio 19.5 (6-22); Blood Urea Nitrogen 16 mg/dL (9-20); Calcium 8.6 mg/dL (8.4-10.2); Carbon Dioxide 27 mmol/L (22-32); Chloride 99 mmol/L (98-107); Estimated Glomerular Filt Rate > 60 mL/min (>60); Glucose 84 mg/dL (80-110); HEMOLYSIS 30 (0-50); Potassium 3.8 mmol/L (3.4-5.1); Sodium 134 mmol/L (137-145)
[2025-02-06] MEDS: AMPICILLIN/SULBACTAM 3 GM 3 GM in SODIUM CHLORIDE 0.9% 100 ML IV ×4 (05:54→23:44)
[2025-02-06 08:00] VITALS: BP 102/66; PULSE 102; RESP 18; TEMP 36.1; O2SAT 94
[2025-02-06] MEDS: METHADONE INTENSOL 10 MG/ML ORAL.CONC 160 MG PO (08:20)
--- NOTE | 2025-02-06 08:24 | P.PN_ITS ---
Subjective Subjective Date Patient Seen: 02/06/25 Time Patient Seen: 07:55 Interval history: Narrative: The patient was a 64-year-old male with a history of heroin use, methamphetamine use, and chronic methadone at 160 mg daily. He also has history of hepatitis-C. He was recently diagnosed with a kidney stone and had a ureter stent placed on December [address] Hicks. He was seen on February 02 for increased right-sided flank pain. A CT was obtained revealing an intact stent but with associated right perinephric fat stranding. The patient was given IV ceftriaxone and oral antibiotics. He came back today and was given methadone in the ED. Patient's blood cultures then became positive for Gram-positive cocci. He does have an Enterococcus UTI in the recent past. The patient lives with roommates, and has a chronic right great toe ulcer which appears to be entirely through the skin. He also notes a headache today. He does use heroin intravenously and sheets in his arms. He was given a prescription for antibiotics, cefdinir for 14 days but was not able to fill that prescription. He did not picking tech his methadone at methadone clinic on February 02 or . He denies any acute withdrawal symptoms upon arrival to the [facility]. He also has a history of diastolic heart failure and is followed by Dr. Seaman of [facility]. He was admitted for diuresis and discharged on December 23. He also has known [id number] mitral regurgitation with an EF of 60- 65%. Subjective: The patient reports he is feeling better. He has been up walking in the halls with mild lightheadedness noted. No chest pain or palpitations. Exam Vital Signs (past 8 hours): - 02/05/25 23:44 02/06/25 04:00 Temperature 96.6 F L 97.8 F Pulse Rate 98 H 97 H Respiratory Rate 16 19 Blood Pressure 103/68 122/76 Pulse Oximetry 96 96 Oxygen Flow Rate 0 0 Fraction of Inspired Oxygen 28 SaO2/FiO2 Ratio 335 Oxygen Delivery Method Nasal Cannula Oxygen Flow Rate 0 Narrative Exam Narrative: NAD, alert and oriented, fluent speech, calm. Normocephalic skull, EOMI, anicteric sclera, symmetric pupils. Oropharynx unremarkable, no droop. Neck supple, midline trachea, no adenopathy. Lungs clear, normal rate and effort. Heart regular, no murmur gallop or rub. Abdomen is soft, non distended and non tender. Extremities with trace to 1+ bilateral edema. Skin is notable for some mottling of the knees bilaterally, 2cm right toe tip ulceration and several hawk superficial ulcers R>L. Joints are not swollen or deformed. Judgment appears to be abnormal. Objective Imaging CT scan - abdomen: Radiologist's impression: 1. Interval placement of right-sided ureteral stent with very mild residual right hydronephrosis. No hydroureter. No left-sided renal stones or hydronephrosis. 2. Significant right perinephric fat stranding and periureteral fat stranding, infectious process such as pyelonephritis is suspected suggest urological correlation. Normal appearing urinary bladder. 3. Pqcj-za-cwdunjri constipation. Normal appendix. No bowel obstruction. No free fluid or free air. 02/02. Chest x-ray: Radiologist's impression: No acute cardiopulmonary pathology. 02/02. Renal US: Radiologist's impression: 1. Presence of right ureteral stent. No hydronephrosis or gross solid appearing renal lesion is seen. 2. No gross abnormality is seen in partially distended urinary bladder. 02/03 Chest x-ray 02/03/2025:: Radiologist's impression: Mildly low lung volumes. Mild right lower lobe opacities may be secondary to atelectasis versus aspiration or pneumonia. Echo: Radiologist's impression: Normal biventricular systolic function. LVEF is 55-60%. Tricuspid valve was not well visualized. Pulmonic valve appears within normal limits. Aortic valve appears within normal limits. There is a mobile, echogenic structure attached to the anterior leaflet of the mitral valve. Although, this most likely represents subvalvular calcification and appears unchanged from prior TTE dated 12/21/2024. Please note the limitations of TTE in the evaluation of endocarditis. 02/04 Right foot/toe xray: Radiologist's impression: 1. Loss of cortical definition at the medial aspect of the 1st distal phalangeal tuft adjacent to the area of ulceration edema is suspicious for osteomyelitis. 2. Small linear radiopaque foreign body in the soft tissues along the plantar aspect of the distal great toe. 02/04 Labs 02/06/25 05:10 02/06/25 05:10 Labs: Laboratory Results - last 24 hr 02/06/25 05:10 WBC 9.9 RBC 4.94 Hgb 13.0 L Hct 39.6 L MCV 80.1 MCH 26.2 MCHC 32.7 RDW 15.3 H Plt Count 256 Neut % (Auto) 73.6 Lymph % (Auto) 12.5 L [place] % (Auto) 11.3 Eos % (Auto) 1.9 L Baso % (Auto) 0.7 Neut # (Auto) 7300 H Lymph # (Auto) 1200 [place] # (Auto) 1100 H Eos # (Auto) 200 Baso # (Auto) 100 Sodium 134 L Potassium 3.8 Chloride 99 Carbon Dioxide 27 BUN 16 Creatinine 0.82 Estimated GFR > 60 BUN/Creatinine Ratio 19.5 Glucose 84 Calcium 8.6 PFSH Medical History Chronic shoulder pain Fever Hepatitis C History of heroin use History of sepsis History of urinary tract infection Hypotension IV drug abuse IV drug user Lower extremity edema Lumbar post-laminectomy syndrome Methadone dependence Retained ureteral stent Right ureteral calculus Tobacco abuse Surgical History History of lithotripsy Family History Mother Diabetes mellitus Father Cancer Social History marital status: number of children: 5 household members: significant other Smoking Status: Current every day smoker alcohol intake: former substance use type: opiates and IV drugs Assessment & Plan Assessment & Plan narrative: 1. Complicated pyelonephritis due to Enterococcus faecalis, associated with a functioning right ureter stent, present on admission and active. 2. Enterococcal bacteremia, ampicillin-sensitive, present on admission and active. No evidence of endocarditis. Leukocytosis is resolved. 3. Right great toe ulcer, probable osteomyelitis, present on admission and active, with radiopaque foreign body on xray. 2. Opiate dependence with chronic methadone and IV heroin, present on admission and active. 3. IV drug use, present on admission and active. He states he only uses heroin when pain is uncontrolled and he can't make it to the rehab clinic for his usual methadone. Its not a problem. 4. Tobacco dependence, present on admission and active. 5. Chronic diastolic heart failure and edema, present on admission and active. 6. Right nephrolithiasis, present on admission and active, status post right ureteral stent 12/15/2024. He is followed by Dr. Adam Hicks. 7. Hepatitis-C, present on admission and active. 8. Paroxysmal atrial fibrillation on chronic anticoagulation. Continue metoprolol ER 100mg daily and Eliquis. 9. Hyponatremia, likely SIADH. Improved at 134 today. Plan: -Continue Unasyn and vancomycin for Enterococcal UTI/bacteremia and osteomyelitis coverage pending cultures. -continue methadone at 160 mg p.o. daily. Dilaudid as needed for pain, oxycodone as needed for pain. -followup repeat 02/05 blood cultures to assess for clearance of bacteremia. -Orthopedics/wound care/ID consult Friday for toe osteomyelitis/foreign body. -toe wound culture ordered. -he will need surgical debridement when bacteremia cleared and wound care consult. Anticipate 2 midnights of hospital stay and required, supports inpatient status. JAMES is February 07-. Full resuscitation, no proxy decision maker is known. PROFEE Ticket Taker Document charge(s): No Charge Codes Subsequent inpatient/observation care: [id number]
[2025-02-06] MEDS: APIXABAN 5 MG TABLET PO ×2 (09:36→20:20)
[2025-02-06] MEDS: METOPROLOL ER 50 MG TABLET 100 MG PO (09:37)
[2025-02-06 12:00] VITALS: BP 118/80; PULSE 99; RESP 18; TEMP 36; O2SAT 93
[2025-02-06 16:00] VITALS: BP 104/72; PULSE 69; RESP 15; TEMP 35.8; O2SAT 93
[2025-02-06 19:00] VITALS: BP 102/58; PULSE 69; RESP 20; TEMP 35.3; O2SAT 95
[2025-02-06 23:00] VITALS: BP 112/71; PULSE 65; RESP 20; TEMP 36; O2SAT 96
[2025-02-07] MEDS: OXYCODONE IR 10 MG TABLET PO ×2 (01:32→04:33)
[2025-02-07] MEDS: VANCOMYCIN 1,500 MG/300 ML PIGGYBACK 200 MG IV (01:33)
[2025-02-07] MEDS: HYDROMORPHONE 0.5 MG INJ IV (03:52)
[2025-02-07] MEDS: HYDROMORPHONE 1 MG INJ IV (04:33)
--- NOTE | 2025-02-07 04:45 | PC.NURSE ---
pt has been c/o pain 10 to all his joints/extremities, pt c/o anxiety and pacing in the room, pt taking more pain medications tonight. security shift manager MD notified, pt dilaudid increased to 1 mg IVP every 2 hours. Pt seemed in the room scratching his legs and right great toe where his wound is located. Pt insisting in doing his own wound care. pt educated in the importance of good hygiene during wound care.
[2025-02-07] MEDS: AMPICILLIN/SULBACTAM 3 GM 3 GM in SODIUM CHLORIDE 0.9% 100 ML IV (06:13)
--- NOTE | 2025-02-07 07:44 | PM.PN.1 ---
Subjective Subjective Interval history: S: Exam Vital Signs (past 8 hours): Fraction of Inspired Oxygen 28 SaO2/FiO2 Ratio 335 Oxygen Delivery Method Nasal Cannula Oxygen Flow Rate 0 Narrative Exam Narrative: NAD, alert and oriented. Fluent speech. Lungs are clear, normal rate and effort. Heart is regular, no murmur gallop or rub. Abdomen is soft, non distended. Extremities are free of edema. Objective Labs 02/06/25 05:10 02/06/25 05:10 [facility] Medical History History of urinary tract infection History of sepsis Retained ureteral stent Fever Hypotension Right ureteral calculus Lower extremity edema Hepatitis C History of heroin use Methadone dependence Tobacco abuse Lumbar post-laminectomy syndrome Chronic shoulder pain IV drug abuse IV drug user Surgical History History of lithotripsy Family History Mother Diabetes mellitus Father Cancer Social History marital status: number of children: 5 household members: significant other Smoking Status: Current every day smoker alcohol intake: former substance use type: opiates and IV drugs Assessment & Plan Assessment & Plan narrative: 1. Complicated pyelonephritis due to Enterococcus faecalis, associated with a functioning right ureter stent, present on admission and active. 2. Enterococcal bacteremia, ampicillin-sensitive, present on admission and active. No evidence of endocarditis. Leukocytosis is resolved. 3. Right great toe ulcer, probable osteomyelitis, present on admission and active, with radiopaque foreign body on xray. 2. Opiate dependence with chronic methadone and IV heroin, present on admission and active. 3. IV drug use, present on admission and active. He states he only uses heroin when pain is uncontrolled and he can't make it to the rehab clinic for his usual methadone. Its not a problem. 4. Tobacco dependence, present on admission and active. 5. Chronic diastolic heart failure and edema, present on admission and active. 6. Right nephrolithiasis, present on admission and active, status post right ureteral stent 12/15/2024. He is followed by Dr. Adam Hicks. 7. Hepatitis-C, present on admission and active. 8. Paroxysmal atrial fibrillation on chronic anticoagulation. Continue metoprolol ER 100mg daily and Eliquis. 9. Hyponatremia, likely SIADH. Improved at 134 today. Plan: -Continue Unasyn and vancomycin for Enterococcal UTI/bacteremia and osteomyelitis coverage pending cultures. -continue methadone at 160 mg p.o. daily. Dilaudid as needed for pain, oxycodone as needed for pain. -followup repeat 02/05 blood cultures to assess for clearance of bacteremia. -Orthopedics/wound care/ID consult Friday for toe osteomyelitis/foreign body. -toe wound culture ordered. -he will need surgical debridement when bacteremia cleared and wound care consult. Anticipate 2 midnights of hospital stay and required, supports inpatient status. JAMES is February 07-. Full resuscitation, no proxy decision maker is known. Time-Based Coding :: [TOTAL MINUTES] spent with patient and on the chart (including review of chart, obtaining history, exam, reviewing outside data, placing orders, documenting exam and treatment plan, and counseling patient) on [DATE].
[2025-02-07 08:00] VITALS: BP 109/53; PULSE 82; RESP 16; TEMP 36.3; O2SAT 93
[2025-02-07] MEDS: METHADONE INTENSOL 10 MG/ML ORAL.CONC 160 MG PO (09:18)
[2025-02-07] MEDS: APIXABAN 5 MG TABLET PO (09:18)
[2025-02-07] MEDS: METOPROLOL ER 50 MG TABLET 100 MG PO (09:18)
--- NOTE | 2025-02-07 11:18 | P.DS_ITS ---
History of Present Illness History of Present Illness Chief complaint: Abd pain Narrative: The patient was a 64-year-old male with a history of heroin use, methamphetamine use, and chronic methadone at 160 mg daily. He also has history of hepatitis-C. He was recently diagnosed with a kidney stone and had a ureter stent placed on December [address] Hicks. He was seen on February 02 for increased right-sided flank pain. A CT was obtained revealing an intact stent but with associated right perinephric fat stranding. The patient was given IV ceftriaxone and oral antibiotics. He came back today and was given methadone in the ED. Patient's blood cultures then became positive for Gram-positive cocci. He does have an Enterococcus UTI as well. The patient lives with roommates, and has a chronic right great toe ulcer which appears to be entirely through the skin. He also notes a headache today. He does use heroin intravenously and sheets in his arms. He was given a prescription for antibiotics, cefdinir for 14 days but was not able to fill that prescription. He did not pick pulling machine tender his methadone at methadone clinic on February 02 or . He denies any acute withdrawal symptoms upon arrival to the [facility]. He also has a history of diastolic heart failure and is followed by Dr. Seaman of [facility]. He was admitted for diuresis and discharged on December 23. He also has known [id number] mitral regurgitation with an EF of 60- 65%. Discharge Providers Provider Date of admission: 02/03/25 13:34 Discharge Date: 02/07/25 Primary care physician: Sofie Barrera DO Discharge provider: Sunil Acosta MD Summary Hospital Course Discharge Diagnosis: 1. Complicated pyelonephritis due to Enterococcus faecalis, associated with a functioning right ureter stent, present on admission and active. 2. Enterococcal bacteremia, ampicillin-sensitive, present on admission and active. No evidence of endocarditis. Leukocytosis is resolved. 3. Right great toe ulcer, probable osteomyelitis, present on admission and active, with radiopaque foreign body on xray. 2. Opiate dependence with chronic methadone and IV heroin, present on admission and active. 3. IV drug use, present on admission and active. He states he only uses heroin when pain is uncontrolled and he can't make it to the rehab clinic for his usual methadone. Its not a problem. 4. Tobacco dependence, present on admission and active. 5. Chronic diastolic heart failure and edema, present on admission and active. 6. Right nephrolithiasis, present on admission and active, status post right ureteral stent 12/15/2024. He is followed by Dr. Adam Hicks. 7. Hepatitis-C, present on admission and active. 8. Paroxysmal atrial fibrillation on chronic anticoagulation. Continue metoprolol ER 100mg daily and Eliquis. 9. Hyponatremia, likely SIADH. Improved at 134 today. Hospital Course: The patient was admitted for abdominal pain in context of here and use, methamphetamine use, and chronic methadone. The patient has a recent known history of a kidney stone with a ureter stent placed. He was recently on cefdinir for 14 days but did not fill that prescription. He presented with pyelonephritis and Gram-positive bacteremia. Ultimately he would Enterobacter in his blood. He was treated with IV antibiotics and cleared his blood cultures. The Enterococcus was ampicillin sensitive. The patient does also have a chronic great toe wound which likely extends to the bone. He was following at [facility] near his home. The patient does use IV heroin periodically. Ultimately he was felt to not be a safe candidate for IV access and IV antibiotics outside of the hospital setting. Given that he was doing so well clinically the choice was made to treat him with oral antibiotics and have very close follow up. He takes methadone 160 daily and agrees to follow up at the [facility] as well [facility] Status at Discharge Cognitive/behavioral status at discharge: oriented Functional status at discharge: uses cane/walker Overall status at discharge: patient is back to baseline Time Spent with Patient Time spent: Greater than 30 minutes Exam Vital Signs (past 8 hours): - 02/07/25 08:00 Temperature 97.4 F L Pulse Rate 82 Respiratory Rate 16 Blood Pressure 109/53 L Pulse Oximetry 93 Oxygen Flow Rate 0 Fraction of Inspired Oxygen 28 SaO2/FiO2 Ratio 335 Oxygen Delivery Method Nasal Cannula Oxygen Flow Rate 0 Narrative Exam Narrative: NAD, alert and oriented. Fluent speech. Lungs are clear, normal rate and effort. Heart is regular, no murmur gallop or rub. Abdomen is soft, non distended. Extremities are free of edema. Great toe unchanged with a chronic distal ulcer. No associated redness. No associated discharge. Objective ECG Impression: Normal sinus rhythm Imaging Multiple Studies:: Radiologist's impression: CT scan - abdomen: Radiologist's impression: 1. Interval placement of right-sided ureteral stent with very mild residual right hydronephrosis. No hydroureter. No left-sided renal stones or hydronephrosis. 2. Significant right perinephric fat stranding and periureteral fat stranding, infectious process such as pyelonephritis is suspected suggest urological correlation. Normal appearing urinary bladder. 3. Cutk-cn-phegucle constipation. Normal appendix. No bowel obstruction. No free fluid or free air. 02/02. Chest x-ray: Radiologist's impression: No acute cardiopulmonary pathology. 02/02. Renal US: Radiologist's impression: 1. Presence of right ureteral stent. No hydronephrosis or gross solid appearing renal lesion is seen. 2. No gross abnormality is seen in partially distended urinary bladder. 02/03 Chest x-ray 02/03/2025:: Radiologist's impression: Mildly low lung volumes. Mild right lower lobe opacities may be secondary to atelectasis versus aspiration or pneumonia. Echo: Radiologist's impression: Normal biventricular systolic function. LVEF is 55-60%. Tricuspid valve was not well visualized. Pulmonic valve appears within normal limits. Aortic valve appears within normal limits. There is a mobile, echogenic structure attached to the anterior leaflet of the mitral valve. Although, this most likely represents subvalvular calcification and appears unchanged from prior TTE dated 12/21/2024. Please note the limitations of TTE in the evaluation of endocarditis. 02/04 Right foot/toe xray: Radiologist's impression: 1. Loss of cortical definition at the medial aspect of the 1st distal phalangeal tuft adjacent to the area of ulceration edema is suspicious for osteomyelitis. 2. Small linear radiopaque foreign body in the soft tissues along the plantar aspect of the distal great toe. Labs 02/06/25 05:10 02/06/25 05:10 [facility] Medical History History of urinary tract infection History of sepsis Retained ureteral stent Fever Hypotension Right ureteral calculus Lower extremity edema Hepatitis C History of heroin use Methadone dependence Tobacco abuse Lumbar post-laminectomy syndrome Chronic shoulder pain IV drug abuse IV drug user Surgical History History of lithotripsy Family History Mother Diabetes mellitus Father Cancer Social History marital status: number of children: 5 household members: significant other Smoking Status: Current every day smoker alcohol intake: former substance use type: opiates and IV drugs Discharge Assessment & Plan Assessment and Plan Assessment: 1. Complicated pyelonephritis due to Enterococcus faecalis, associated with a functioning right ureter stent, present on admission and active. 2. Enterococcal bacteremia, ampicillin-sensitive, present on admission and active. No evidence of endocarditis. Leukocytosis is resolved. 3. Right great toe ulcer, probable osteomyelitis, present on admission and active, with radiopaque foreign body on xray. 2. Opiate dependence with chronic methadone and IV heroin, present on admission and active. 3. IV drug use, present on admission and active. He states he only uses heroin when pain is uncontrolled and he can't make it to the rehab clinic for his usual methadone. Its not a problem. 4. Tobacco dependence, present on admission and active. 5. Chronic diastolic heart failure and edema, present on admission and active. 6. Right nephrolithiasis, present on admission and active, status post right ureteral stent 12/15/2024. He is followed by Dr. Adam Hicks. 7. Hepatitis-C, present on admission and active. 8. Paroxysmal atrial fibrillation on chronic anticoagulation. Continue metoprolol ER 100mg daily and Eliquis. 9. Hyponatremia, likely SIADH. Improved at 134 today. Plan of Treatment: Discharge home with 14 days of oral antibiotics, Augmentin [id number] b.i.d.. Follow up with wound care at the clinic as well as with the physician (Joy). Discharge Plan Discharge Plan Patient Disposition: Home Provider Discharge Comment: Stable for discharge on oral antibiotics, likely for 2-4 weeks plus ongoing wound care. He was not a candidate for IV antibiotics with a history of IVDU. Discharge orders & Medications Prescriptions: New amoxicillin-pot clavulanate 875-125 mg tablet 1 tab PO BID Qty: 30 1RF Continued albuterol sulfate 90 mcg/actuation HFA aerosol inhaler 1 puff Inhalation PRN PRN (Reason: Shortness Of Breath) methadone 40 mg Tablet,Soluble 160 mg PO DAILY metoprolol succinate 100 mg tablet extended release 24 hr 100 mg PO DAILY Eliquis 5 mg tablet 5 mg PO BID Follow up/Referrals: Sofie Barrera DO [Primary Care Provider] - Activity Restrictions/Additional Instructions: As tolerated. Discharge Health Status Multidrug resistant organism: No MDRO Diet/Activity/Treatments Diet: Regular Skin/Wound/Dressing Care Other wound treatment: Follow up in Wound Care Clinic within the next several days to resume wound care. You will also need to get a refill for antibiotics in 2 weeks from the wound care doctor for ongoing treatment of your bacteremia and toe infection. Visit Report/Discharge Packet Instructions: DI for Osteomyelitis, DI for Bacteremia-Adult Stand Alone Forms: Patient Portal/API Discharge Data Primary Care Provider: Sofie Barrera
--- NOTE | 2025-02-07 12:01 | CM.DPC ---
DCP Discharge Home Per MD, pt wanting to discharge home today and has been ambulating the hallways with his walker and since pt is not a candidate for PICC placement and IV-Abx due to EILEEN hx and risks then plan of d/c on PO abx and outpt f/u with his Providers at [facility] in [place] for methadone and wound care. Pt's chronic toe ulcer will be followed in the outpt setting. Per RN, pt agreeable with d/c today and was provided with discharge instructions and taken to POV. SW attempted to contact [facility] but left vm and faxed discharge summary for them to review for pt's ongoing care needs. WILLIE Bourgeois
--- NOTE | 2025-02-07 12:28 | PC.NURSE ---
Patient is A&OX4. VSS, afebrile on RA. He is ambulating in the halls with FWW, and denies needing PRN pain medications. He has a good appetite for breakfast. He expresses wanting to discharge. MD at bedside evaluating patient and clears him medically for discharge home with follow up in wound care clinic as well as home with oral antibiotics. He acknowledges understanding of medications and recommendations. 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
== END 2025-02-07 12:00 | disposition home or self-care (01) | DRG 699 ==
LOC: ED 11:30 → AC 13:35
PROVIDERS: Internal Medicine; Admitting Provider Hospitalist; Emergency Provider Emergency Medicine; PCP Family Medicine; Referring Provider Emergency Medicine; Visit Provider Hospitalist
DX: T83.593A Infection and inflammatory reaction due to other urinary stents, initial encounter (principal); E22.2 Syndrome of inappropriate secretion of antidiuretic hormone; N10 Acute pyelonephritis; I50.32 Chronic diastolic (congestive) heart failure; M86.8X7 Other osteomyelitis, ankle and foot; F11.20 Opioid dependence, uncomplicated; I34.0 Nonrheumatic mitral (valve) insufficiency; F15.90 Other stimulant use, unspecified, uncomplicated; N20.0 Calculus of kidney; B19.20 Unspecified viral hepatitis C without hepatic coma; Z79.01 Long term (current) use of anticoagulants; B95.2 Enterococcus as the cause of diseases classified elsewhere; F17.210 Nicotine dependence, cigarettes, uncomplicated
CPT/HCPCS: 36415; 71045; 73660; 74177; 76770; 80048; 80053; 80202; 81003; 81015; 83605; 83690; 84145; 85025; 85610; 85730; 87040; 87077; 87086; 87154; 87186; 93005; 93307; 96365; 96367; 99284; 99406; J0295; J0696; J1171; J1956; J2405; Q9967

== ENCOUNTER 2025-02-20 23:59 | Emergency (ER) | payer MEDICARE, MEDICAID, SELFPAY ==
[2025-02-03 14:22] VITALS: BMI 31.1
[2025-02-21 00:18] VITALS: BP 123/88; PULSE 87; RESP 16; TEMP 36.2; O2SAT 96; BMI 30.3
--- NOTE | 2025-02-21 01:48 | PC.NURSE ---
Pt states that he wants to leave without being seen. States that wound is no longer bleeding and he has wound care and doctor's appointment in the morning. Dr Mandel aware. Dressing applied to L great toe and pt ambulated to lobby with his cane and steady gait. Declined vital signs.
== END 2025-02-21 01:50 | disposition left against medical advice (07) ==
PROVIDERS: Emergency Provider Emergency Medicine; PCP Family Medicine
DX: S91.101A Unspecified open wound of right great toe without damage to nail, initial encounter (principal)
CPT/HCPCS: 99281

== ENCOUNTER → 2025-04-04 14:58 | Outpatient (CLI) | payer MEDICARE, MEDICAID, SELFPAY ==
[2025-02-03 14:22] VITALS: BMI 31.1
[2025-04-04 15:07] LABS: Appearance Urine UA CLOUDY; Bilirubin Urine UA 1+ (NEGATIVE); Color Urine UA RED; Glucose Urine UA TRACE g/dL (Negative); Ketones Urine UA TRACE (NEGATIVE); Leukocyte Esterase Urine UA 2+ (NEGATIVE); Nitrite Urine UA POSITIVE (Negative); Occult Blood Urine UA 3+ (Negative); Protein Urine UA 3+ (Negative); pH Urine UA 6.5 (4.5-8.0)
[2025-04-04 15:16] LABS: Amorphous Sediment Urine 1+; Bacteria Urine Few (2-10); RBC Urine 10-30/HPF (0-5/HPF); Squamous Epithelial Cell Urine 0-1 /HPF (0-5/HPF); Urine Volume 10mL (spun); WBC Urine 5-10/HPF (0-5/HPF)
[2025-04-04 15:19] LABS: Culture Indicated Urine Specimen Cultured; Ictotest Urine Negative (Negative)
== END ==
PROVIDERS: PCP Family Medicine; Visit Provider Urology
DX: Z01.818 Encounter for other preprocedural examination (principal); N39.0 Urinary tract infection, site not specified; N20.1 Calculus of ureter; Z87.440 Personal history of urinary (tract) infections; Z96.0 Presence of urogenital implants
CPT/HCPCS: 81001; 87086; 99214

== ENCOUNTER 2025-04-12 11:42 | Day surgery (SDC) | payer MEDICARE, MEDICAID, SELFPAY ==
[2025-02-03 14:22] VITALS: BMI 31.1
[2025-04-06 09:17] VITALS: BMI 31.5
[2025-04-12] VITALS (7 sets, daily range): BP systolic 92–124; BP diastolic 52–75; PULSE 57–70; RESP 11–16; TEMP 36.3–36.4; O2SAT 94–96; BMI 29.9
[2025-04-12] MEDS: LACTATED RINGERS 1,000 ML 21 ML IV ×2 (12:57→17:41)
[2025-04-12] MEDS: ALBUTEROL/IPRATROPIUM 3 ML AMPUL INH (13:19)
--- NOTE | 2025-04-12 13:20 | PM.PREOP ---
Pre-operative Note COVID-19 COVID-19 status: Not tested Interval Note History & Physical reviewed/Exam performed by Physician: Yes Changes to H&P: No
[2025-04-12] MEDS: CEFAZOLIN VIAL 3 GM in SODIUM CHLORIDE 0.9% 100 ML IV (16:10)
--- NOTE | 2025-04-12 16:21 | SUR.OPER ---
Lithotomy on padded OR bed, head on pillow, arms secured on padded arm boards at <90 degrees abduction. Legs secured in padded yellow fins stirrups.
--- NOTE | 2025-04-12 18:36 | P.OP_ITS ---
Operative Date/Time/Diagnoses Date of procedure: 04/12/25 Time of procedure: 18:36 Pre-op diagnosis: Calculus Post-op diagnosis: same Procedure & Clinicians Procedure: Right ureteroscopy, laser lithotripsy of stone, basketing of stone fragments, stone removal, stent removal and stent replacement right side Same procedure as scheduled: Yes Indications: This 64-year-old male presented with right ureteral calculus had a stent placed. Patient has had multiple medical challenges and finally comes to have his stone treated. Surgeon: Tahir Hicks Click Yes if Unassisted: Yes Anesthesia Type: General Operative Notes Findings: Had cystoscopy urethra and urethral meatus are normal, normal mucosa, sphincter well coapted, prostate with moderate approaching severe obstructive character. Stent is in the right ureteral orifice with minimal encrustation and some bullous edema. No other abnormalities noted within the bladder. At ureteroscopy the stone was quite impacted and at a difficult position with a ?flap? of redundant ureteral tissue obstructing view. It was a difficult and challenging case. Visualization toward the end because of the tissue got to be nearly impossible. I did not and was not able to clear all the fragments. In the patient may need a 2nd procedure once the dust settles. Fragments were removed at it maybe that he will pass the Lion share of the stone as he heals. A 7 Swedish by multilink stent was left in good position in the right collecting system without a string. Closure Type: not applicable Specimen(s): other (Right ureteral stone fragments) Prosthetic devices, grafts, tissues, transplants, or devices: Seven Swedish by multilink stent Estimated Blood Loss (mL): 5 Procedure in detail: Procedure in detail: After informed consent was obtained, the patient was identified brought to the operating room where he was placed in his supine position on the table. Once there anesthesia was induced and maintained. Ensuring an adequate level of anesthesia patient was transition to the lithotomy position. Once there he was prepped and draped in a sterile fashion. After prepping draping, ensuring an adequate level of anesthesia, after time-out, after administration of antibiotics a 22 Swedish cystoscope was passed through the urethra prostate and into the bladder where cystoscopy was performed. A hybrid guidewire was then passed up along the stent and positioned in the renal pelvis. This was reserved as a safety wire. The scope was reinserted grasping forceps was inserted and the stent was grasped and removed in its entirety. A dual-lumen catheter was then used to pass a 2nd wire up and into the collecting system. This was the working wire over this wire a ureteral access sheath was passed up until the level of the stone. A semi-rigid scope was then passed up to the stone which was visualized and then a laser fiber inserted. The stone was at an odd angle had a flap of redundant ureteral tissue that made treatment at a minimum very challenging. I did able to fragment a significant portion of it but it still was quite tight and lodged. Basket was inserted and some of the fragments were removed. Attempt was made at further lasering and I could not get to the stone so a flexible scope was inserted and the stone was busted further but again because of the tissue it became more more challenging to visualize the stone. Eventually all the fragments that could be seen were removed with a basket. And because of lack of visualization the scope and access sheath were backed out and the safety wire backloaded through the cystoscope which was passed through the urethra prostate in the bladder. Once there the stent was passed or with a backloaded wire position of the renal pelvis under fluoroscopic visualization of the bladder under direct vision. The nylon hardness and wire were removed the stent was left in good position in the right collecting system. The bladder was drained scope was removed patient was awakened taken to the postanesthesia care unit having tolerated the procedure well he will be recovered in the postanesthesia care unit and sent home there were no complications. Complications: none Post-operative Condition: stable Disposition: PACU Plan for aftercare: Patient will follow up my office in 10 days with a KUB patient will strain his urine.
[2025-04-12] MEDS: OXYBUTYNIN 5 MG TABLET PO (18:47)
[2025-04-12] MEDS: PHENAZOPYRIDINE 100 MG TABLET 200 MG PO (18:48)
[2025-04-12] MEDS: ACETAMINOPHEN 325 MG TABLET 650 MG PO (19:01)
== END 2025-04-12 19:29 | disposition home or self-care (01) ==
PROVIDERS: PCP Family Medicine; Referring Provider Urology; Visit Provider Urology
PROC: (CPT 52356; principal; 2025-04-12 13:45)
DX: N20.1 Calculus of ureter (principal); Z87.440 Personal history of urinary (tract) infections
CPT/HCPCS: 52356; 82365; C2617; J0330; J0690; J1100; J2405; J2704; J3010; Q9967

== ENCOUNTER 2025-04-16 14:30 | Emergency (ER) | payer MEDICARE, MEDICAID, SELFPAY ==
[2025-02-03 14:22] VITALS: BMI 31.1
[2025-04-16] VITALS (8 sets, daily range): BP systolic 103–118; BP diastolic 68–83; PULSE 85–168; RESP 17–20; TEMP 36.8; O2SAT 96–99; BMI 29.9
--- NOTE | 2025-04-16 14:48 | DI.RAD.S_ITS ---
PROCEDURE: XR CHEST 1V INDICATIONS: Chest Pain TECHNIQUE: One view of the chest was acquired. COMPARISON: [facility], CR, XR CHEST 1V, 02/02/2025, 21:41. [facility], CR, XR TOE RT MIN 2V, 04/16/2025, 15:10. [facility], CR, XR CHEST 1V, 02/04/2025, 2:12. FINDINGS: Surgical changes and devices: None. Lungs and pleura: On this semiupright portable chest examination, no large pneumothorax or large pleural effusions are seen. No focal infiltrates are seen. Mediastinum: Mediastinal contours appear normal. Heart size is normal. Atherosclerotic calcification of the aortic arch is noted. Bones and chest wall: No suspicious bony lesions. Age-appropriate bony degenerative changes are seen. Overlying soft tissues appear unremarkable. IMPRESSION: Portable chest within normal limits for age. Dictated by: Wayne Weber M.D. on 04/16/2025 at 14:38 Approved by: Wayne Weber M.D. on 04/16/2025 at 14:39
--- NOTE | 2025-04-16 14:50 | ED_ITS ---
HPI - Dizziness General Chief Complaint: Dizziness Stated Complaint: Ulcer on Toe, Lightheaded, Infection concerns Time Seen by Provider: 04/16/25 14:48 Source: patient, RN notes reviewed and old records reviewed Mode of arrival: Ambulatory Limitations: no limitations History of Present Illness HPI Narrative: 64-year-old male history of hepatitis-C, opiate use disorder does take methadone, prior kidney stone with ureteral stent, atrial fibrillation normally anticoagulants Eliquis but was stopped to have right ureteroscopy, laser lithotripsy of stone, basket stone fragments, stone removal and stent was removed and replaced on the right side on 04/12/2025. Patient notes that he was supposed to restart his Eliquis soon but had not he also notes that he forgot to take his metoprolol for the last 2 days. He presents with complaint of dizziness. He states last time this happened he had forgotten his metoprolol restarted and felt better. He denies any fevers, denies any chest pain or pressure, no shortness of breath, denies any nausea or vomiting. Denies any hematuria or urinary symptoms. Denies any bowel movement issues. No swelling in his extremities. He notes his chronic ulcer on his great toe which has been slightly larger, he was states no increased pain no drainage no redness or skin changes. He was following with Orthopedic surgery or Podiatry through [facility]. Patient states he was normally on Eliquis 5 mg b.i.d., metoprolol 100 mg daily, methadone daily, uses inhaler denies any other daily medications. He states he was had prior knee surgery and back surgery x3, no other cardiac interventions. No known drug allergies. Uses tobacco, does not drink any alcohol, states he last used methamphetamines in the last several days which he was smoked, states he injected heroin in the last [address] Hicks. Patient states he follows with [facility] for his primary care. Related Data Home Medications Medication Instructions Recorded Confirmed albuterol sulfate 90 mcg/actuation 1 puff inhalation PRN PRN 05/11/18 04/12/25 aerosol inhaler Shortness Of Breath methadone 40 mg soluble tablet 160 mg PO DAILY 01/03/22 04/12/25 apixaban 5 mg tablet (Eliquis) 5 mg PO BID 12/15/24 04/12/25 metoprolol succinate 100 mg 100 mg PO DAILY 12/15/24 04/12/25 tablet,extended release 24 hr Allergies Allergy/AdvReac Type Severity Reaction Status Date / Time No Known Drug Allergies Allergy Verified 04/16/25 14:39 Review of Systems Review of Systems ROS Unobtainable: All systems reviewed & are unremarkable except as noted in HPI and below Patient History Medical History History of urinary tract infection History of sepsis Retained ureteral stent Fever Hypotension Right ureteral calculus Lower extremity edema Hepatitis C History of heroin use Methadone dependence Tobacco abuse Lumbar post-laminectomy syndrome Chronic shoulder pain IV drug abuse IV drug user Surgical History History of lithotripsy Family History Mother Diabetes mellitus Father Cancer Social History marital status: number of children: 5 household members: significant other alcohol intake: former substance use type: opiates and IV drugs tobacco type: cigarettes alcohol intake frequency: holidays/special occasions only Exam Narrative Exam Narrative: GENERAL: Alert and oriented x three, obese male in distress HEENT: Head normocephalic, atraumatic, EOMI, pupils reactive, face symmetric, moist mucous membranes NECK: Supple, full range of motion CARDIOVASCULAR: Tachycardic and irregularly irregular rate and rhythm without murmurs, rubs or gallops. Edema bilateral lower extremities. RESPIRATORY: Breath sounds equal bilaterally, no wheezes rales or rhonchi. No tachypnea. ABDOMEN: Soft, nontender. Normoactive bowel sounds all 4 quadrants. No guarding or rebound, rigidity, no mass : No CVA tenderness EXTREMITIES: Normal range of motion, no clubbing or edema. Neurovascularly intact. Patient has ulcer on the distal end of his right great toe, there is pink granulation tissue there was no warmth, erythema or drainage no foul odor. Patient has a bandage which was removed. NEUROLOGICAL: Cranial nerves II through XII grossly intact. Moving all extremities SKIN: Warm, dry, no petechiae, no rashes or lesions otherwise noted. Initial Vital Signs Initial Vital Signs: Vital Signs Temperature 98.2 F 04/16/25 14:39 Pulse Rate 85 04/16/25 14:39 Respiratory Rate 18 04/16/25 14:39 Blood Pressure 116/82 04/16/25 14:39 Pulse Oximetry 98 04/16/25 14:39 Oxygen Delivery Method Room Air 04/16/25 14:39 Course Orders Ordered: ED Orders 04/16/25 14:48 XR chest 1V Stat EKG-12 Lead Stat RT Consult Eval and Treat NOW 04/16/25 15:00 XR toe RT min 2V Stat 04/16/25 15:05 Complete Blood Count AUTO DIFF Stat Comprehensive Metabolic Panel Stat Lactate (Lactic Acid) Stat Lipase Stat Magnesium Stat NT-proBNP (BNP-Adult 18+) Stat PTT Partial Thromboplastin Cedric Stat Prothrombin Time INR Stat Troponin & CK Cardiac Panel Stat Discontinued Medications Aspirin (Aspirin 81 Mg Chew Tab) 324 mg PO NOW ONE Stop: 04/16/25 14:49 Last Admin: 04/16/25 15:00 Dose: Not Given Documented By: COLIN Metoprolol Succinate (Metoprolol Er 50 Mg Tablet) 100 mg PO DAILY ONE Stop: 04/16/25 15:21 Last Admin: 04/16/25 15:29 Dose: 100 mg Documented By: Metoprolol Tartrate (Metoprolol Tartrate 5 Mg/5 Ml Inj) 5 mg IV NOW ONE Stop: 04/16/25 14:59 Last Admin: 04/16/25 15:08 Dose: 5 mg Documented By: COLIN Metoprolol Tartrate (Metoprolol Tartrate 5 Mg/5 Ml Inj) 5 mg IV NOW ONE Stop: 04/16/25 15:25 Last Admin: 04/16/25 15:29 Dose: 5 mg Documented By: Vital Signs Vital signs: Vital Signs - 8 hr 04/16/25 14:39 04/16/25 14:52 04/16/25 14:54 Temperature 98.2 F Pulse Rate 85 168 H Respiratory Rate 18 20 Blood Pressure 116/82 Pulse Oximetry 98 99 97 Oxygen Delivery Method Room Air 04/16/25 14:54 04/16/25 15:00 04/16/25 15:21 Temperature Pulse Rate 164 H 135 H Respiratory Rate 19 19 Blood Pressure 118/78 Pulse Oximetry 97 96 Oxygen Delivery Method 04/16/25 15:21 04/16/25 15:29 04/16/25 15:30 Temperature Pulse Rate 115 H 128 H Respiratory Rate 17 Blood Pressure 103/80 118/75 Pulse Oximetry 96 Oxygen Delivery Method Room Air 04/16/25 15:30 04/16/25 16:06 Temperature Pulse Rate 112 H Respiratory Rate 19 Blood Pressure 113/83 118/68 Pulse Oximetry 98 Oxygen Delivery Method Room Air MDM - Dizziness Lab Data 04/16/25 15:05 04/16/25 15:05 Labs: Lab Results 04/16/25 Range/Units 15:05 WBC 8.6 (4.5-11.0) X10^3/uL RBC 5.30 (4.5-5.9) X10^6/uL Hgb 13.7 (13.5-17.5) g/dL Hct 41.8 (41-53) % MCV 78.8 L (80-100) fL MCH 25.8 L (26-34) PG MCHC 32.7 (30-36) % RDW 15.7 H (11.6-14.8) % Plt Count 283 (150-400) X10^3/uL Neut % (Auto) 66.9 (50-75) % Lymph % (Auto) 23.3 L (25-40) % [place] % (Auto) 5.6 (3-14) % Eos % (Auto) 3.1 (2-4) % Baso % (Auto) 1.1 (0-2) % Neut # (Auto) 5800 (5648-2352) /uL Lymph # (Auto) 2000 (6925-0180) /uL [place] # (Auto) 500 (0-900) /uL Eos # (Auto) 300 (0-450) /uL Baso # (Auto) 100 (0-100) /uL PT 12.0 (9.4-12.5) SECONDS INR 1.1 (0.9-1.3) APTT 35 (25.1-36.5) SECONDS Sodium 137 (137-145) mmol/L Potassium 4.1 (3.4-5.1) mmol/L Chloride 101 (98-107) mmol/L Carbon Dioxide 28 (22-32) mmol/L BUN 14 (9-20) mg/dL Creatinine 0.92 (0.66-1.25) mg/dL Estimated GFR > 60 (>60) mL/min BUN/Creatinine Ratio 15.2 (6-22) Glucose 131 H (70-99) mg/dL Lactate 1.8 (0.7-2.1) mmol/L Calcium 9.5 (8.4-10.2) mg/dL Magnesium 1.6 (1.6-2.3) mg/dL Total Bilirubin 0.4 (0.2-1.3) mg/dL AST 28 (17-59) IU/L ALT 20 (<50) IU/L Alkaline Phosphatase 76 (38-126) U/L Total Creatine Kinase 58 (55-170) U/L Troponin I < 0.012 (0.01-0.034) ng/mL NT-Pro-B Natriuret Pep 1690 H (<125) pg/mL Total Protein 7.4 (6.3-8.2) g/dL Albumin 3.8 (3.5-5.0) g/dL Globulin 3.6 (1.7-4.1) g/dL Albumin/Globulin Ratio 1.1 (1.0-2.8) Lipase 24 (23-300) U/L ECG Data Attestation: I personally reviewed and interpreted this ECG as follows: Prior ECG tracings: available for review Interpretation: AFib RVR, rate of 156 QRS 80 QTC of 480, no acute ST elevation. Patient has prior EKG from 03/24/2025 which showed sinus rhythm at that time with a rate of 70. MDM Narrative Medical decision making narrative: 64-year-old male history of a opiate abuse, methamphetamine use did have recent ureteroscopy, lithotripsy fragment removal as well as replacement of his ureteral stent he states he was feeling much better but does note that he has not restarted his Eliquis yet and also has a missed the last 2 days if his metoprolol since his surgery in his feeling dizzy he was noted to be AFib RVR with rates varying from 140-160. Because patient has been on Eliquis for approximately a week as part of his surgery he was not a candidate for nonemergent cardioversion. He does note a sore on his toe it does not appear infected but imaging was obtained of the bone. EKG shows AFib with RVR Labs white count of 8 hemoglobin of 13 platelets of 283. Coags are negative electrolytes are appropriate glucose is 131, LFTs are negative troponin is is less than 0.012, BNP is 1690 Chest x-ray portable chest with a normal limits for age. Toe x-ray she was potential early lucency involving distal aspect distal phalanx and Greet toe could be related to early osteomyelitis soft tissue swelling with a ulceration seen in the great toe. Consider MR with and without contrast for further evaluation. That has likely remote unfused fracture of the distal fibula seen on image 1. Patient received metoprolol IV 2, HR improved to 114. Patient was also given oral metoprolol. Heart rates improved he states it is dizzy feel much better and he would like to leave before all of his workup has returned. Patient was agreeable to wait until the rest of his workup was back. Reviewed his findings x-ray shows changes consistent for potential osteomyelitis he was aware of this he has been following with what sounds like Podiatry at [facility] was in wound care at [facility] while at clinic but because service is no longer available secondary to budgetary changes. He states he does have transport, He would be willing to see wound care locally so we will attempt to send referral for this. Reviewed all of his findings he would like to return home, heart rate has not improved but not normalized. Patient expresses understanding. He was alert, coherent appears appropriate to make these decisions. Discharge Plan Departure Patient Disposition: Home Clinical Impression: Atrial fibrillation with rapid ventricular response Instructions: DI for Atrial Fibrillation Activity Restrictions/Additional Instructions: Please follow up, there are changes to your distal toe on your imaging from January as well as this month that are concerning for possible osteomyelitis or infection in the bone of your toe. Follow up with your orthopedic/podiatry team at [facility]. I will also send a formed try to help set up follow up with wound care here at [facility]. Please call Friday to set up an appointment. You were in atrial fibrillation with RVR today, please restart your anticoagulation and your daily medications for your heart. Please return for recurrent symptoms, lightheadedness or passing out, new chest pain, new shortness of breath, new swelling of your extremities or other new or concerning changes. Prescriptions: No Action albuterol sulfate 90 mcg/actuation HFA aerosol inhaler 1 puff Inhalation PRN PRN (Reason: Shortness Of Breath) methadone 40 mg Tablet,Soluble 160 mg PO DAILY metoprolol succinate 100 mg tablet extended release 24 hr 100 mg PO DAILY Eliquis 5 mg tablet 5 mg PO BID Referrals: Sofie Barrera DO [Primary Care Provider] - Kaiser Ken MD [Physician] - Stand Alone Forms: Patient Portal/API/Survey
--- NOTE | 2025-04-16 14:51 | EKG_ITS ---
[address] [id number] [address] [address] Test Date: 2025-04-16 Pat Name: Tahir Mittal Department: Room: Gender: Male [employer]: MALIK : 1960 Requested By: Order Number: [id number] Reading MD: Guru Maradiaga MD Measurements Intervals [place] Rate: 156 P: CT: QRS: 21 QRSD: 80 T: 71 QT: 298 QTc: 480 Interpretive Statements Critical Test Result: High HR Atrial fibrillation with rapid ventricular response with premature ventricular or aberrantly conducted complexes Electronically Signed On 04-17-2025 8:12:50 PDT by Guru Maradiaga MD
--- NOTE | 2025-04-16 15:00 | DI.RAD.S_ITS ---
PROCEDURE: XR TOE RT MIN 2V INDICATIONS: toe ulcer distal end TECHNIQUE: 3 views of the 1st toe(s) acquired. COMPARISON: [facility], CR, XR CHEST 1V, 04/16/2025, 14:51. [facility], CR, XR TOE RT MIN 2V, 02/04/2025, 17:04. FINDINGS: Bones: There is potential early lucency seen involving the distal aspect of the distal phalanx of the great toe. Generalized degenerative changes are seen. Toe alignment abnormalities are seen. There is a likely remote, unfused fracture of the distal fibula seen on 1 image. Soft tissues: Soft tissue swelling is seen of the great toe, with distal ulceration. IMPRESSION: Potential early lucency seen involving the distal aspect of the distal phalanx of the great toe, which may be related to early osteomyelitis. Soft tissue swelling with ulceration seen of the great toe. If there is strong suspicion for developing osteomyelitis, please consider a dedicated MRI without and with contrast for further evaluation (assuming that there is no contraindication to MRI). Dictated by: Wayne Weber M.D. on 04/16/2025 at 14:39 Approved by: Wayne Weber M.D. on 04/16/2025 at 14:41
[2025-04-16] MEDS: METOPROLOL TARTRATE 5 MG/5 ML INJ IV ×2 (15:08→15:29)
[2025-04-16 15:15] LABS: Add Manual Diff / Slide Review NO; Basophils Absolute Auto 100 /uL (0-100); Basophils Percent Auto 1.1 % (0-2); Eosinophils Absolute Auto 300 /uL (0-450); Eosinophils Percent Auto 3.1 % (2-4); Hematocrit 41.8 % (41-53); Hemoglobin 13.7 g/dL (13.5-17.5); Lymphocytes Absolute Auto 2000 /uL (1100-4500); Lymphocytes Percent Auto 23.3 % (25-40); Mean Corpuscular HGB Conc 32.7 % (30-36); Mean Corpuscular Hemoglobin 25.8 PG (26-34); Mean Corpuscular Volume 78.8 fL (80-100); Monocytes Absolute Auto 500 /uL (0-900); Monocytes Percent Auto 5.6 % (3-14); Neutrophils Absolute Auto 5800 /uL (1500-7000); Neutrophils Percent Auto 66.9 % (50-75); Platelet Count 283 X10^3/uL (150-400); Red Cell Distribution Width 15.7 % (11.6-14.8); White Blood Cell Count 8.6 X10^3/uL (4.5-11.0)
[2025-04-16 15:26] LABS: INR 1.1 (0.9-1.3)
[2025-04-16 15:29] LABS: Lactate (Lactic Acid) 1.8 mmol/L (0.7-2.1); PTT Partial Thromboplastin Tim 35 SECONDS (25.1-36.5)
[2025-04-16] MEDS: METOPROLOL ER 50 MG TABLET 100 MG PO (15:29)
[2025-04-16 15:30] LABS: Alanine Aminotransferase 20 IU/L (<50); Albumin 3.8 g/dL (3.5-5.0); Albumin Globulin Ratio 1.1 (1.0-2.8); Alkaline Phosphatase 76 U/L (38-126); Aspartate Aminotransferase 28 IU/L (17-59); BUN Creatinine Ratio 15.2 (6-22); Bilirubin Total 0.4 mg/dL (0.2-1.3); Blood Urea Nitrogen 14 mg/dL (9-20); Calcium 9.5 mg/dL (8.4-10.2); Carbon Dioxide 28 mmol/L (22-32); Chloride 101 mmol/L (98-107); Creatine Kinase 58 U/L (55-170); Estimated Glomerular Filt Rate > 60 mL/min (>60); Globulin 3.6 g/dL (1.7-4.1); Glucose 131 mg/dL (70-99); HEMOLYSIS < 15 (0-50); Lipase 24 U/L (23-300); Magnesium 1.6 mg/dL (1.6-2.3); Potassium 4.1 mmol/L (3.4-5.1); Sodium 137 mmol/L (137-145); Total Protein 7.4 g/dL (6.3-8.2)
--- NOTE | 2025-04-16 15:34 | PC.NURSE ---
Pt reports that he doesn't feel dizzy any longer and wants to go home. Discussed waiting for labs to come back and waiting for medications to start working.
[2025-04-16 15:42] LABS: NT-proBNP (BNP-Adult 18+) 1690 pg/mL (<125); Troponin I < 0.012 ng/mL (0.01-0.034)
== END 2025-04-16 16:08 | disposition home or self-care (01) ==
PROVIDERS: Emergency Provider Emergency Medicine; PCP Family Medicine
DX: I48.20 Chronic atrial fibrillation, unspecified (principal); Z79.01 Long term (current) use of anticoagulants
CPT/HCPCS: 36415; 71045; 73660; 80053; 82550; 83605; 83690; 83735; 83880; 84484; 85025; 85610; 85730; 93005; 96374; 99284

== ENCOUNTER → 2025-04-27 11:55 | Outpatient (CLI) | payer MEDICARE, MEDICAID, SELFPAY ==
[2025-02-03 14:22] VITALS: BMI 31.1
--- NOTE | 2025-04-27 11:56 | DI.RAD.S_ITS ---
PROCEDURE: XR KUB INDICATIONS: calculus of kidney TECHNIQUE: One view of the abdomen acquired. COMPARISON: [facility], CR, XR KUB, 01/18/2025, 12:54. FINDINGS: Stool gas pattern: Normal-no evidence of ileus or obstruction. No free intraperitoneal or extraperitoneal air. No gross evidence of ascites Soft tissues: No abnormal calcifications. No soft tissue masses. Right double pigtail ureteral stent overlies the expected location of the right upper collecting system , right ureter and urinary bladder. No evidence of stone. Organs: No gross evidence for organomegaly. IMPRESSION: Right ureteral stent in expected location. No plain film evidence of stone. Dictated by: Guru Franklin M.D. on 04/28/2025 at 10:54 Approved by: Guru Franklin M.D. on 04/28/2025 at 10:56
== END ==
PROVIDERS: PCP Family Medicine; Referring Provider Urology; Visit Provider Urology
DX: N20.0 Calculus of kidney (principal); Z96.0 Presence of urogenital implants; N20.1 Calculus of ureter; R31.9 Hematuria, unspecified
CPT/HCPCS: 74018; 81001; 87086

== ENCOUNTER → 2025-04-27 15:37 | Outpatient (CLI) | payer MEDICARE, MEDICAID, SELFPAY ==
[2025-02-03 14:22] VITALS: BMI 31.1
[2025-04-27 15:47] LABS: Appearance Urine UA CLEAR; Bilirubin Urine UA NEGATIVE (NEGATIVE); Color Urine UA YELLOW; Glucose Urine UA NEGATIVE (Negative); Ketones Urine UA NEGATIVE (NEGATIVE); Leukocyte Esterase Urine UA 2+ (NEGATIVE); Nitrite Urine UA POSITIVE (Negative); Occult Blood Urine UA 3+ (Negative); Protein Urine UA 3+ (Negative); Specific Gravity Urine UA 1.025 (1.000-1.035); pH Urine UA 6.5 (4.5-8.0)
[2025-04-27 15:54] LABS: Bacteria Urine None Seen; Culture Indicated Urine Specimen Cultured; RBC Urine >100/HPF (0-5/HPF); Squamous Epithelial Cell Urine 1-5 /HPF (0-5/HPF); Urine Volume 10mL (spun); WBC Urine 1-5/HPF (0-5/HPF)
== END ==
PROVIDERS: PCP Family Medicine; Visit Provider Urology
DX: N20.1 Calculus of ureter (principal); R31.9 Hematuria, unspecified
CPT/HCPCS: 81001; 87086

== ENCOUNTER 2025-05-26 05:08 | Emergency (ER) | payer MEDICARE, MEDICAID, SELFPAY ==
[2025-02-03 14:22] VITALS: BMI 31.1
[2025-05-26] VITALS (7 sets, daily range): BP systolic 119–132; BP diastolic 60–82; PULSE 71–93; RESP 17; TEMP 37.2; O2SAT 92–99; BMI 31.5
--- NOTE | 2025-05-26 05:13 | DI.CT.S_ITS ---
PROCEDURE: CT KIDNEY URETER BLADDER (KUB) INDICATIONS: Flank pain TECHNIQUE: Axial sections were acquired from the lung bases to the pubic symphysis. Coronal and sagittal reformats were performed. For radiation dose reduction, the following was used: automated exposure control, adjustment of mA and/or kV according to patient size. COMPARISON: [facility], CT, CT ABDOMEN PELVIS W CON, 02/02/2025, 22:52. [facility], CT, CT KIDNEY URETER BLADDER (KUB), 12/14/2024, 23:27. FINDINGS: Image quality: Diagnostic. Lower Chest: No significant findings. URINARY: Right Kidney: Moderate right perinephric inflammation/fat stranding, similar compared to 02/02/25. There is a nephroureteral stent in stable position. Proximal and is curled in the renal pelvis just above the UPJ. No retained right intrarenal calculi. Right Ureter: Stent in place. Decreased, but still present mild periureteric inflammation. Left Kidney: Punctate left intrarenal calculus. No perinephric inflammation or hydronephrosis. Left Ureter: No hydroureter, ureteral calculus, or periureteric inflammation. Bladder: Predominantly decompressed. Normal wall thickness. No stones. ABDOMEN: Liver: No contour-deforming solid mass. Gallbladder: No wall thickening or calcified stones. Biliary ducts: No biliary dilation. Pancreas: No ductal dilation. Spleen: Size is within normal limits. Adrenal Glands: No adrenal nodules. Stomach and Bowel: Stomach and small bowel loops are normal caliber. Increased quantity of solid stool present throughout the colon. No colon wall thickening. Peritoneum: No abnormal intraperitoneal fluid. No free air. Ventral Wall: No hernia. Abdominal Nodes: Several small retroperitoneal lymph nodes are present, similar size compared to prior. No mesenteric mass. Vessels: The abdominal aorta, IVC, and portal vein are of normal caliber. PELVIS: Pelvic Organs: Unremarkable. Pelvic Nodes: Borderline prominent right external iliac chain lymph nodes, similar compared to prior. Miscellaneous: No inguinal hernias are seen. Bones: Unremarkable. IMPRESSION: There is either recurrent or persistent right perinephric inflammatory changes with mild right hydronephrosis. The degree of hydronephrosis has decreased compared to 02/02/25. Right ureteral stent is in stable position compared to prior. Correlation with the UA and lab values is recommended. No other significant changes. Final interpretation is concordant with preliminary report. Dictated by: Steffany Zazueta M.D. on 05/26/2025 at 8:20 Approved by: Steffany Zazueta M.D. on 05/26/2025 at 8:28
--- NOTE | 2025-05-26 05:17 | ED.GENADULT ---
HPI - General Adult General Chief complaint: Urogenital-Male Stated complaint: rt kidney is hurting Time Seen by Provider: 05/26/25 05:12 History of Present Illness HPI narrative: 64-year-old male with history of chronic back pain, prior lumbar surgery, history of heroin, takes methadone from dispensary clinic, reports history of kidney stones and has right ureteral stent placed December [address] Hicks who has retired, reportedly missed follow up appointments in the past, seems interested in having the right ureteral stent removed, has had increasing right-sided flank area discomfort. No fevers or chills. Related Data Home Medications ?Medication ?Instructions ?Recorded ?Confirmed albuterol sulfate 90 mcg/actuation 1 puff inhalation PRN PRN 05/11/18 04/27/25 aerosol inhaler Shortness Of Breath methadone 40 mg soluble tablet 160 mg PO DAILY 01/03/22 04/27/25 apixaban 5 mg tablet (Eliquis) 5 mg PO BID 12/15/24 04/27/25 metoprolol succinate 100 mg 100 mg PO DAILY 12/15/24 04/27/25 tablet,extended release 24 hr Previous Rx's ?Medication ?Instructions ?Recorded cefdinir 300 mg capsule 300 mg PO BID 10 days #20 caps 05/26/25 Allergies Allergy/AdvReac Type Severity Reaction Status Date / Time No Known Drug Allergies Allergy Verified 05/26/25 05:18 Patient History Medical History History of urinary tract infection History of sepsis Retained ureteral stent Fever Hypotension Right ureteral calculus Lower extremity edema Hepatitis C History of heroin use Methadone dependence Tobacco abuse Lumbar post-laminectomy syndrome Chronic shoulder pain IV drug abuse IV drug user Surgical History History of lithotripsy Family History Mother Diabetes mellitus Father Cancer Social History marital status: number of children: 5 household members: significant other alcohol intake: former substance use type: opiates and IV drugs tobacco type: cigarettes alcohol intake frequency: holidays/special occasions only Exam Narrative Exam Narrative: GENERAL: Well-developed patient, in mild distress. HEAD: Atraumatic. Normocephalic. EYES: Pupils equal round and reactive. Extraocular motions intact. No scleral icterus. No injection or drainage. ENT: Nose without bleeding, purulent drainage. Throat without erythema, tonsillar hypertrophy or exudate. Airway patent. NECK: Trachea midline. Non tender CARDIOVASCULAR: Regular rate and rhythm without murmurs, gallops, or rubs. RESPIRATORY: Clear to auscultation. Breath sounds equal bilaterally. No wheezes, rales, or rhonchi. GASTROINTESTINAL: Abdomen soft, non-tender, nondistended. EXTREMITIES: No edema or joint tenderness. BACK: Nontender without deformity or crepitance. No flank tenderness. NEURO: AOx3. Motor functions grossly nonfocal. SKIN: No rash or erythema of visible areas Initial Vital Signs Initial Vital Signs: Vital Signs Pulse Oximetry 96 05/26/25 05:13 Course Orders Ordered: ED Orders 05/26/25 05:12 Complete Blood Count AUTO DIFF Stat Comprehensive Metabolic Panel Stat Lipase Stat 05/26/25 05:13 CT kidney ureter bladder (KUB) Stat 05/26/25 05:25 Urine Culture Stat Urine Microscopic Stat Discontinued Medications Ceftriaxone Sodium 1,000 mg/ (Sodium Chloride) 100 mls @ 200 mls/hr IV NOW ONE Stop: 05/26/25 05:47 Last Infusion: 05/26/25 06:46 Dose: Infused Vital Signs Vital signs: Vital Signs - 8 hr 05/26/25 05:13 05/26/25 05:14 05/26/25 05:14 Temperature Pulse Rate 88 Respiratory Rate Blood Pressure 125/82 Pulse Oximetry 96 94 Oxygen Delivery Method 05/26/25 05:21 05/26/25 05:36 05/26/25 05:36 Temperature 99 F Pulse Rate 93 H 82 Respiratory Rate 17 Blood Pressure 125/82 119/70 Pulse Oximetry 99 96 Oxygen Delivery Method Room Air Room Air 05/26/25 05:54 05/26/25 05:54 05/26/25 06:00 Temperature Pulse Rate 78 Respiratory Rate Blood Pressure 131/60 132/63 Pulse Oximetry 95 Oxygen Delivery Method 05/26/25 06:00 05/26/25 06:30 05/26/25 06:30 Temperature Pulse Rate 77 71 Respiratory Rate Blood Pressure 132/66 Pulse Oximetry 92 95 Oxygen Delivery Method Room Air Medical Decision Making Lab Data 05/26/25 05:45 05/26/25 05:45 Labs: Lab Results 05/26/25 05/26/25 Range/Units 05:25 05:45 WBC 11.2 H (4.5-11.0) X10^3/uL RBC 5.17 (4.5-5.9) X10^6/uL Hgb 13.0 L (13.5-17.5) g/dL Hct 39.5 L (41-53) % MCV 76.4 L (80-100) fL MCH 25.2 L (26-34) PG MCHC 32.9 (30-36) % RDW 15.6 H (11.6-14.8) % Plt Count 252 (150-400) X10^3/uL Neut % (Auto) 74.3 (50-75) % Lymph % (Auto) 12.0 L (25-40) % [place] % (Auto) 11.8 (3-14) % Eos % (Auto) 1.0 L (2-4) % Baso % (Auto) 0.9 (0-2) % Neut # (Auto) 8300 H (9829-6035) /uL Lymph # (Auto) 1300 (6041-8453) /uL [place] # (Auto) 1300 H (0-900) /uL Eos # (Auto) 100 (0-450) /uL Baso # (Auto) 100 (0-100) /uL Sodium 131 L (137-145) mmol/L Potassium 4.3 (3.4-5.1) mmol/L Chloride 95 L (98-107) mmol/L Carbon Dioxide 30 (22-32) mmol/L BUN 24 H (9-20) mg/dL Creatinine 0.99 (0.66-1.25) mg/dL Estimated GFR > 60 (>60) mL/min BUN/Creatinine Ratio 24.2 H (6-22) Glucose 102 H (70-99) mg/dL Calcium 9.0 (8.4-10.2) mg/dL Total Bilirubin 0.3 (0.2-1.3) mg/dL AST 32 (17-59) IU/L ALT 26 (<50) IU/L Alkaline Phosphatase 93 (38-126) U/L Total Protein 7.6 (6.3-8.2) g/dL Albumin 3.8 (3.5-5.0) g/dL Globulin 3.8 (1.7-4.1) g/dL Albumin/Globulin Ratio 1.0 (1.0-2.8) Lipase 28 (23-300) U/L Urine RBC 10-30/hpf H (0-5/HPF) Urine WBC 30-100/hpf H (0-5/HPF) Ur Squamous Epith Cells 0-1 /hpf (0-5/HPF) Urine Bacteria Moderate (10-30) H (None) Ur Culture Indicated? Specimen cultured Vol Urine Centrifuged 10ml (spun) Urine Dip Bedside Urine Glucose Negative Bedside Urine Bilirubin - Negative Bedside Urine Ketone - Negative Urine Specific [place] 1.020 Bedside Urine Occult Blood +++ Bedside Urine pH 6.0 Bedside Urine Protein + 30 Bedside Urine Urobilinogen - Negative Bedside Urine Nitrite + Positive Bedside Urine Leukocytes +++ 500 Esterase Point of care testing: Urine Dip Bedside Urine Glucose Negative Bedside Urine Bilirubin - Negative Bedside Urine Ketone - Negative Urine Specific [place] 1.020 Bedside Urine Occult Blood +++ Bedside Urine pH 6.0 Bedside Urine Protein + 30 Bedside Urine Urobilinogen - Negative Bedside Urine Nitrite + Positive Bedside Urine Leukocytes +++ 500 Esterase MDM Narrative Medical decision making narrative: 64-year-old male with history of heroin use, on methadone, chronic back pain, prior back surgeries, also kidney stones, has December 2024 right ureteral stent apparently still in place that he was like to have removed, with increasing right-sided flank pain. Afebrile, sirs screen negative. Screening labs sent. Anterior abdominal exam benign. Screening labs showed urine that looks infected, urine culture triggered. IV ceftriaxone. History of stones and apparent retained ureteral stent not yet removed, CT abdomen and pelvis noncontrast scan ordered. CT abdomen and pelvis. Impressions: ?Right ureteral stent with the proximal aspect coiled within the extra renal collecting system or proximal ureter. Repositioning maybe required. Urology consultation advised.. See teleradiology report. [id number], case discussed with Urology Dr. Soto, given suspected urinary infection he would not want to remove the stent today without replacement of stent, patient requesting the stent be removed, would advise the patient be treated with antibiotics as long as he remains stable and clears the infection can hopefully then have safe stent removal without repeat replacement. Patient seems amenable to this plan. We will discharge on oral cefdinir antibiotic course of antibiotics. Advised to contact office of Urology later this week, early next week, to coordinate possible right ureteral stent removal. Discharged home. Discharge Plan Departure Patient Disposition: Home Clinical Impression: Urinary tract infection Instructions: DI for Urinary Tract Infection (UTI) Activity Restrictions/Additional Instructions: History of right ureteral stenting in December 2024, stent as if apparently still in place, increasing right-sided flank pain today. Urine suspicious for infection, IV antibiotics initiated, no fever, normal blood pressure, imaging done today. CT abdomen and pelvis shows right-sided ureteral stent, the proximal end is curled up in the proximal aspect of the ureter, some kidney infection like changes noted. Case discussed with on-call Urology Dr. Soto, advised course of antibiotic for now, and then hopefully if infection clears well then stent removal later this week. Call the office of Urology later this week early next week to arrange further follow up for possible later stent removal. Return earlier to this/nearest emergency department for any change worsening symptoms or any concerns prior. Prescriptions: New cefdinir 300 mg capsule 300 mg PO BID 10 Days Qty: 20 0RF No Action albuterol sulfate 90 mcg/actuation HFA aerosol inhaler 1 puff Inhalation PRN PRN (Reason: Shortness Of Breath) methadone 40 mg Tablet,Soluble 160 mg PO DAILY metoprolol succinate 100 mg tablet extended release 24 hr 100 mg PO DAILY Eliquis 5 mg tablet 5 mg PO BID Referrals: Sofie Barrera DO [Primary Care Provider, Family Practice] Stand Alone Forms: Patient Portal/API
[2025-05-26 05:42] LABS: RBC Urine 10-30/HPF (0-5/HPF); Urine Volume 10mL (spun)
[2025-05-26 05:43] LABS: Bacteria Urine Moderate (10-30); Culture Indicated Urine Specimen Cultured; Squamous Epithelial Cell Urine 0-1 /HPF (0-5/HPF); WBC Urine 30-100/HPF (0-5/HPF)
[2025-05-26 05:51] LABS: Add Manual Diff / Slide Review NO; Basophils Absolute Auto 100 /uL (0-100); Basophils Percent Auto 0.9 % (0-2); Eosinophils Absolute Auto 100 /uL (0-450); Hematocrit 39.5 % (41-53); Lymphocytes Absolute Auto 1300 /uL (1100-4500); Mean Corpuscular HGB Conc 32.9 % (30-36); Mean Corpuscular Hemoglobin 25.2 PG (26-34); Mean Corpuscular Volume 76.4 fL (80-100); Monocytes Absolute Auto 1300 /uL (0-900); Monocytes Percent Auto 11.8 % (3-14); Neutrophils Absolute Auto 8300 /uL (1500-7000); Neutrophils Percent Auto 74.3 % (50-75); Platelet Count 252 X10^3/uL (150-400); Red Blood Cell Count 5.17 X10^6/uL (4.5-5.9); Red Cell Distribution Width 15.6 % (11.6-14.8); White Blood Cell Count 11.2 X10^3/uL (4.5-11.0)
[2025-05-26] MEDS: cefTRIAXone 1,000 MG in SODIUM CHLORIDE 0.9% 100 ML 200 MG IV (05:51)
[2025-05-26 06:02] LABS: Alanine Aminotransferase 26 IU/L (<50); Albumin 3.8 g/dL (3.5-5.0); Alkaline Phosphatase 93 U/L (38-126); Aspartate Aminotransferase 32 IU/L (17-59); BUN Creatinine Ratio 24.2 (6-22); Bilirubin Total 0.3 mg/dL (0.2-1.3); Blood Urea Nitrogen 24 mg/dL (9-20); Carbon Dioxide 30 mmol/L (22-32); Chloride 95 mmol/L (98-107); Estimated Glomerular Filt Rate > 60 mL/min (>60); Globulin 3.8 g/dL (1.7-4.1); Glucose 102 mg/dL (70-99); HEMOLYSIS < 15 (0-50); Lipase 28 U/L (23-300); Potassium 4.3 mmol/L (3.4-5.1); Sodium 131 mmol/L (137-145); Total Protein 7.6 g/dL (6.3-8.2)
== END 2025-05-26 06:51 | disposition home or self-care (01) ==
PROVIDERS: Emergency Provider Emergency Medicine; PCP Family Medicine
DX: N39.0 Urinary tract infection, site not specified (principal); F11.20 Opioid dependence, uncomplicated
CPT/HCPCS: 36415; 74176; 80053; 81003; 81015; 83690; 85025; 87077; 87086; 87147; 87186; 96365; 99284; J0696

== ENCOUNTER → 2025-06-01 13:55 | Outpatient (CLI) | payer MEDICARE, MEDICAID, SELFPAY ==
[2025-02-03 14:22] VITALS: BMI 31.1
== END ==
LOC: WC 13:55
PROVIDERS: Family Provider Family Medicine; PCP Family Medicine; Referring Provider Family Medicine; Visit Provider Surgery
DX: L89.893 Pressure ulcer of other site, stage 3 (principal); I87.2 Venous insufficiency (chronic) (peripheral); L97.812 Non-pressure chronic ulcer of other part of right lower leg with fat layer exposed; L97.822 Non-pressure chronic ulcer of other part of left lower leg with fat layer exposed; F17.210 Nicotine dependence, cigarettes, uncomplicated; F43.10 Post-traumatic stress disorder, unspecified; F11.21 Opioid dependence, in remission; M51.379 Other intervertebral disc degeneration, lumbosacral region without mention of lumbar back pain or lower extremity pain
CPT/HCPCS: 11042; 29580; 87070; 87075; 87077; 87147; 87186; 87205; 99203; 99213

== ENCOUNTER → 2025-08-16 14:00 | Outpatient (CLI) | payer MEDICARE, MEDICAID, SELFPAY ==
[2025-02-03 14:22] VITALS: BMI 31.1
== END ==
LOC: WC 14:03
PROVIDERS: Family Provider Family Medicine; PCP Family Medicine; Referring Provider Family Medicine; Visit Provider Surgery
DX: I87.2 Venous insufficiency (chronic) (peripheral) (principal); L97.812 Non-pressure chronic ulcer of other part of right lower leg with fat layer exposed; L97.821 Non-pressure chronic ulcer of other part of left lower leg limited to breakdown of skin; L89.93 Pressure ulcer of unspecified site, stage 3; L98.8 Other specified disorders of the skin and subcutaneous tissue; R60.0 Localized edema; L84 Corns and callosities
CPT/HCPCS: 11042; 87070; 87075; 87077; 87147; 87186; 87205; 97602; 99213

== ENCOUNTER → 2025-08-18 08:33 | Outpatient (CLI) | payer MEDICARE, MEDICAID, SELFPAY ==
[2025-02-03 14:22] VITALS: BMI 31.1
== END ==
PROVIDERS: Family Provider Family Medicine; PCP Family Medicine; Referring Provider Family Medicine; Visit Provider Surgery
DX: L97.812 Non-pressure chronic ulcer of other part of right lower leg with fat layer exposed (principal); L97.822 Non-pressure chronic ulcer of other part of left lower leg with fat layer exposed; I87.2 Venous insufficiency (chronic) (peripheral); L89.893 Pressure ulcer of other site, stage 3; R60.0 Localized edema
CPT/HCPCS: 99212

== ENCOUNTER → 2025-08-18 09:29 | Outpatient (CLI) | payer MEDICARE, MEDICAID, SELFPAY ==
[2025-02-03 14:22] VITALS: BMI 31.1
--- NOTE | 2025-08-18 09:32 | DI.RAD.S_ITS ---
PROCEDURE: XR FOOT RT MIN 3V INDICATIONS: Eval for osteo wound r hallux TECHNIQUE: 3 views of the foot were acquired. COMPARISON: None. FINDINGS: Bones: Mild hallux valgus and Marked hammertoe deformities 1st through 5th digits. Joints: Mild 1st MTP and 1st through 5th interphalangeal degeneration . Soft tissues: Moderate calcification Achilles and plantar tendon insertion. Moderate diffuse soft tissue swelling IMPRESSION: Diffuse soft tissues likely edema Other chronic findings Dictated by: Guru Franklin M.D. on 08/18/2025 at 10:08 Approved by: Guru Franklin M.D. on 08/18/2025 at 10:10
== END ==
PROVIDERS: Family Provider Family Medicine; PCP Family Medicine; Referring Provider Family Medicine; Visit Provider Surgery
DX: L89.93 Pressure ulcer of unspecified site, stage 3 (principal); M20.11 Hallux valgus (acquired), right foot; M20.41 Other hammer toe(s) (acquired), right foot; M19.071 Primary osteoarthritis, right ankle and foot; M65.871 Other synovitis and tenosynovitis, right ankle and foot; M79.89 Other specified soft tissue disorders
CPT/HCPCS: 73630

== ENCOUNTER → 2025-08-25 10:33 | Outpatient (CLI) | payer MEDICARE, MEDICAID, SELFPAY ==
[2025-02-03 14:22] VITALS: BMI 31.1
== END ==
LOC: WC 10:57
PROVIDERS: Family Provider Family Medicine; PCP Family Medicine; Referring Provider Family Medicine; Visit Provider Surgery
DX: I87.2 Venous insufficiency (chronic) (peripheral) (principal); L97.812 Non-pressure chronic ulcer of other part of right lower leg with fat layer exposed; L97.821 Non-pressure chronic ulcer of other part of left lower leg limited to breakdown of skin; L89.93 Pressure ulcer of unspecified site, stage 3; L53.8 Other specified erythematous conditions; L98.8 Other specified disorders of the skin and subcutaneous tissue; L84 Corns and callosities; R23.4 Changes in skin texture
CPT/HCPCS: 11042; 97602

== ENCOUNTER → 2025-08-29 13:13 | Outpatient (CLI) | payer MEDICARE, MEDICAID, SELFPAY ==
[2025-02-03 14:22] VITALS: BMI 31.1
== END ==
LOC: WC 13:13
PROVIDERS: Family Provider Family Medicine; PCP Family Medicine; Referring Provider Family Medicine; Visit Provider Surgery
DX: I87.2 Venous insufficiency (chronic) (peripheral) (principal); L97.822 Non-pressure chronic ulcer of other part of left lower leg with fat layer exposed; L97.812 Non-pressure chronic ulcer of other part of right lower leg with fat layer exposed; L89.93 Pressure ulcer of unspecified site, stage 3; R60.0 Localized edema; L53.8 Other specified erythematous conditions; L98.8 Other specified disorders of the skin and subcutaneous tissue
CPT/HCPCS: 11042; 97602

== ENCOUNTER → 2025-09-01 10:49 | Outpatient (CLI) | payer MEDICARE, MEDICAID, SELFPAY ==
[2025-02-03 14:22] VITALS: BMI 31.1
== END ==
LOC: WC 10:50
PROVIDERS: Family Provider Family Medicine; PCP Family Medicine; Referring Provider Family Medicine; Visit Provider Surgery
DX: I87.2 Venous insufficiency (chronic) (peripheral) (principal); L97.912 Non-pressure chronic ulcer of unspecified part of right lower leg with fat layer exposed; L97.922 Non-pressure chronic ulcer of unspecified part of left lower leg with fat layer exposed; L89.893 Pressure ulcer of other site, stage 3; L84 Corns and callosities; L81.8 Other specified disorders of pigmentation
CPT/HCPCS: 29580

== ENCOUNTER → 2025-09-05 12:17 | Outpatient (CLI) | payer MEDICARE, MEDICAID, SELFPAY ==
[2025-02-03 14:22] VITALS: BMI 31.1
== END ==
LOC: WC 12:17
PROVIDERS: Family Provider Family Medicine; PCP Family Medicine; Referring Provider Family Medicine; Visit Provider Surgery
DX: L89.893 Pressure ulcer of other site, stage 3 (principal); I87.2 Venous insufficiency (chronic) (peripheral); L53.8 Other specified erythematous conditions; L98.8 Other specified disorders of the skin and subcutaneous tissue; R60.0 Localized edema
CPT/HCPCS: 11042

== ENCOUNTER → 2025-09-12 13:21 | Outpatient (CLI) | payer MEDICARE, MEDICAID, SELFPAY ==
[2025-02-03 14:22] VITALS: BMI 31.1
== END ==
LOC: WC 13:22
PROVIDERS: Family Provider Family Medicine; PCP Family Medicine; Referring Provider Family Medicine; Visit Provider Surgery
DX: L89.93 Pressure ulcer of unspecified site, stage 3 (principal); I87.2 Venous insufficiency (chronic) (peripheral); L97.822 Non-pressure chronic ulcer of other part of left lower leg with fat layer exposed; L84 Corns and callosities; G60.9 Hereditary and idiopathic neuropathy, unspecified; R23.4 Changes in skin texture; L53.8 Other specified erythematous conditions; R60.0 Localized edema
CPT/HCPCS: 11042

== ENCOUNTER → 2025-09-23 09:35 | Outpatient (CLI) | payer MEDICARE, MEDICAID, SELFPAY ==
[2025-02-03 14:22] VITALS: BMI 31.1
== END ==
LOC: WC 09:36
PROVIDERS: Family Provider Family Medicine; PCP Family Medicine; Referring Provider Family Medicine; Visit Provider Physician Assistant
DX: R60.0 Localized edema (principal); L53.9 Erythematous condition, unspecified; I87.2 Venous insufficiency (chronic) (peripheral)
CPT/HCPCS: 29580; 99212

== ENCOUNTER → 2025-09-29 10:03 | Outpatient (CLI) | payer MEDICARE, MEDICAID, SELFPAY ==
[2025-02-03 14:22] VITALS: BMI 31.1
== END ==
LOC: WC 10:03
PROVIDERS: Family Provider Family Medicine; PCP Family Medicine; Referring Provider Family Medicine; Visit Provider Surgery
DX: I87.2 Venous insufficiency (chronic) (peripheral) (principal); R60.0 Localized edema; L84 Corns and callosities; G60.9 Hereditary and idiopathic neuropathy, unspecified; Z72.0 Tobacco use; Z79.01 Long term (current) use of anticoagulants; F11.90 Opioid use, unspecified, uncomplicated
CPT/HCPCS: 99211; 99213

== ENCOUNTER → 2025-10-18 11:06 | Outpatient (CLI) | payer MEDICARE, MEDICAID, SELFPAY ==
[2025-02-03 14:22] VITALS: BMI 31.1
--- NOTE | 2025-10-18 11:31 | RT ---
10/18 Pt attended PFT appointment but refused the entirety of the test after attempting 3 FVC maneuvers without success. He states he may be able to perform the test on a different date as he took methadone and smoked 2 cigarettes prior to testing today which may have affected his ability to perform. [employer]
== END ==
LOC: RESP 11:06
PROVIDERS: Family Provider Family Medicine; PCP Family Medicine; Referring Provider Family Medicine; Visit Provider Internal Medicine Critical Care Medicine
DX: R06.09 Other forms of dyspnea (principal); F17.210 Nicotine dependence, cigarettes, uncomplicated; J98.8 Other specified respiratory disorders
CPT/HCPCS: 94010

== ENCOUNTER → 2025-10-25 13:43 | Outpatient (CLI) | payer MEDICARE, MEDICAID, SELFPAY ==
[2025-02-03 14:22] VITALS: BMI 31.1
== END ==
LOC: WC 13:44
PROVIDERS: Family Provider Family Medicine; PCP Family Medicine; Referring Provider Family Medicine; Visit Provider Surgery
DX: L89.93 Pressure ulcer of unspecified site, stage 3 (principal); I87.2 Venous insufficiency (chronic) (peripheral); G60.9 Hereditary and idiopathic neuropathy, unspecified; R23.4 Changes in skin texture; R60.0 Localized edema; F17.200 Nicotine dependence, unspecified, uncomplicated; L84 Corns and callosities
CPT/HCPCS: 11042; 99213

== ENCOUNTER → 2025-11-01 13:36 | Outpatient (CLI) | payer MEDICARE, MEDICAID, SELFPAY ==
[2025-02-03 14:22] VITALS: BMI 31.1
== END ==
LOC: WC 13:37
PROVIDERS: Family Provider Family Medicine; PCP Family Medicine; Referring Provider Family Medicine; Visit Provider Surgery
DX: L89.93 Pressure ulcer of unspecified site, stage 3 (principal); I87.313 Chronic venous hypertension (idiopathic) with ulcer of bilateral lower extremity; G60.9 Hereditary and idiopathic neuropathy, unspecified
CPT/HCPCS: 99213

== ENCOUNTER → 2025-11-14 11:08 | Outpatient (CLI) | payer MEDICARE, MEDICAID, SELFPAY ==
[2025-02-03 14:22] VITALS: BMI 31.1
== END ==
LOC: WC 11:08
PROVIDERS: Family Provider Family Medicine; PCP Family Medicine; Referring Provider Family Medicine; Visit Provider Surgery
DX: I87.2 Venous insufficiency (chronic) (peripheral) (principal); G60.9 Hereditary and idiopathic neuropathy, unspecified; F17.200 Nicotine dependence, unspecified, uncomplicated
CPT/HCPCS: 99211; 99213